=== PATIENT | female | born 1950 | race Caucasian/White ===

== ENCOUNTER → 2016-11-13 | Outpatient (CLI) | payer OTHER ==
[~2016-11-13] MED LIST: ACET325T96 PO; ALBU1AER9 INH; ALUMSUS17 PO; BUDE180I INH; CHOL1CAP57 PO; CPR500HP PO; CZR25 PO; FERR325T5 PO; FLUT0.0529 NAE; FLUT0.15 NAE; FURO-85 PO; IMD2X PO; INSDGI SQ; INSDGIPEN SQ; LDXS20 TOP; LINE1TAB7 PO; LSX20 PO; MAGN400T6 PO; MISCCAP80 PO; MOML PO; MONT1TAB3 PO; NITR-5 PO; NSF10F IV; NVLG SC; NVLGI SC; NVLGI/PEN SQ; NYSCR30 TOP; OMEP20CA9 PO; OPTIRAY 320 IV PRN; OXGN; OXYC-57 PO; OXYC7.5T78 PO; PROM25TA9 PO; TRAM-10 PO; TRAZ50TA35 PO; UMEC1INH INH; VNTHFA/IN INH; [UNRECOGNIZED DRUG - CODE] IV
--- NOTE | 2016-11-13 12:18 | DIAGNOSTIC IMAGING REPORT ---
ABDOMEN AND PELVIS CT EXAMINATION PRE AND POST INTRAVENOUS CONTRAST CT DOSE: 4111.11 mGy.cm HISTORY: Renal cell carcinoma BLADDER AND RENAL CELL CA *PT HAS PORT* TECHNIQUE: Multiaxial CT images of the abdomen and pelvis were performed pre and post intravenous contrast enhancement. COMPARISON STUDY: 06/10/2016 FINDINGS: Peripheral atelectatic changes right lung base have shown near complete resolution. Minimal interval atelectasis posterior right costophrenic angle. Slightly progressive atelectatic change versus nodularity left lateral costophrenic angle. Current measurements are 10 x 14 mm. Abdomen and pelvis remains stable in appearance. Fatty infiltration of liver is present and stable. Moderate stable hepatomegaly. There is prior cholecystectomy and left nephrectomy. Right kidney enhances uniformly. No evidence for hydronephrosis. Bowel pattern is nonobstructive. Bladder is midline. There are no filling defects. There is no significant abdominal pelvic or inguinal adenopathy. IMPRESSION: 1. Unchanged evaluation of the abdomen and pelvis. Prior cholecystectomy and left nephrectomy 2. Stable splenomegaly with stable diffuse fatty infiltration. 3. Variable appearance to the lung bases with improvement lateral aspect right base and potential developing nodularity left lateral aspect left base. 4. CT of the chest is a 3 month time interval is suggested as follow-up . Alternatively, a PET scan could be considered Electronically signed by: Keith Johns M.D. 11/13/2016 12:16 PM Dictated Date/Time: 11/13/2016 11:51 AM
== END | disposition home or self-care (01) ==
LOC: C.CTS 10:43
PROVIDERS: ATTEND Urology
DX: C67.9 Malignant neoplasm of bladder, unspecified (principal); R16.1 Splenomegaly, not elsewhere classified

== ENCOUNTER 2017-01-30 13:57 | Emergency (ER) | payer OTHER ==
[~2017-01-30 13:57] MED LIST changes: -BUDE180I INH; -CHOL1CAP57 PO; -CPR500HP PO; -CZR25 PO; -FLUT0.15 NAE; -FURO-85 PO; -IMD2X PO; -INSDGIPEN SQ; -LDXS20 TOP; -LINE1TAB7 PO; -MAGN400T6 PO; -MONT1TAB3 PO; -NITR-5 PO; -NVLGI/PEN SQ; -NYSCR30 TOP; -OMEP20CA9 PO; -OPTIRAY 320 IV PRN; -OXYC-57 PO; -PROM25TA9 PO; -TRAZ50TA35 PO; -UMEC1INH INH; -VNTHFA/IN INH
[2017-01-30 13:59] VITALS: TEMP 36.8; Ht 154.9 cm
[2017-01-30] MEDS ORDERED: MoRPHine SULFATE 4 MG/ML 1 ML CARP\\VIAL IV STA (14:16)
[2017-01-30] MEDS ORDERED: PROMETHAZINE HCL INJ 25 MG in SODIUM CHLORIDE 0.9% 50ML 50 ML IV STA (14:16)
[2017-01-30] MEDS ORDERED: SODIUM CHLORIDE 0.9% 1000ML 1,000 ML IV STA (14:16)
[2017-01-30] MEDS ORDERED: OMEP20CA9 PO (14:19)
[2017-01-30] MEDS ORDERED: MONT1TAB3 PO (14:19)
[2017-01-30] MEDS ORDERED: CZR25 PO (14:30)
[2017-01-30] MEDS ORDERED: UMEC1INH INH (14:38)
[2017-01-30] MEDS ORDERED: CHOL1CAP57 PO (14:41)
[2017-01-30 15:38] LABS: BASO % 0.3 %; BASO ABS # 0.03 K/uL (0-0.2); COMPLETE YES; EOS % 1.6 %; HEMATOCRIT 40.2 % (37-47); IG% 0.3 %; LYMPH % 20.3 %; LYMPH ABS # 1.93 K/uL (1.2-3.4); MEAN CELL VOLUME 94.6 fL (80-100); MEAN CORPUSCULAR HEMOGLOBIN 30.6 pg (25-34); MEAN CORPUSCULAR HGB CONC 32.3 g/dl (32-36); MEAN PLATELET VOLUME 9.9 fL (7.4-10.4); MONO % 7.4 %; NEUT % 70.1 %; PLATELET COUNT 180 K/uL (130-400); RED BLOOD COUNT 4.25 M/uL (4.2-5.4); WHITE BLOOD COUNT 9.52 K/uL (4.8-10.8)
[2017-01-30 16:02] LABS: BLOOD UREA NITROGEN 18 mg/dl (7-18); BUN/CREATININE RATIO 16.3 (10-20); CARBON DIOXIDE 27 mmol/L (21-32); CHLORIDE 106 mmol/L (98-107); GLUCOSE 126 mg/dl (70-99); POTASSIUM 4.1 mmol/L (3.5-5.1); SODIUM 139 mmol/L (136-145)
[2017-01-30] MEDS ORDERED: BUDE180I INH (16:05)
[2017-01-30] MEDS ORDERED: NYSCR30 TOP (16:05)
[2017-01-30] MEDS ORDERED: MAGN400T6 PO (16:05)
[2017-01-30] MEDS ORDERED: VNTHFA/IN INH (16:05)
[2017-01-30] MEDS ORDERED: TRAZ50TA35 PO (16:05)
[2017-01-30] MEDS ORDERED: NVLGI/PEN SQ (16:05)
[2017-01-30] MEDS ORDERED: CPR500HP PO (16:05)
[2017-01-30] MEDS ORDERED: INSDGIPEN SQ (16:05)
[2017-01-30] MEDS ORDERED: OXYC-57 PO (16:05)
[2017-01-30] MEDS ORDERED: FURO-85 PO (16:05)
[2017-01-30] MEDS ORDERED: LDXS20 TOP (16:05)
[2017-01-30] MEDS ORDERED: PROM25TA9 PO (16:05)
[2017-01-30] MEDS ORDERED: FERR325T5 PO (16:05)
[2017-01-30 16:36] LABS: URINE APPEARANCE CLEAR (CLEAR); URINE BILIRUBIN NEG (NEG); URINE COLOR YELLOW; URINE NITRITE NEG (NEG); URINE PH 5.5 (4.5-7.5); URINE SPECIFIC GRAVITY 1.013 (1.000-1.030); UROBILINOGEN NEG (NEG); ZZURINE CULT IF INDIC CATH NO
--- NOTE | 2017-01-30 16:45 | DIAGNOSTIC IMAGING REPORT ---
CT SCAN OF THE ABDOMEN AND PELVIS WITHOUT IV CONTRAST CLINICAL HISTORY: Right flank pain. Hematuria. COMPARISON STUDY: Abdominal CT dated 11/13/2016. TECHNIQUE: CT scan of the abdomen and pelvis is performed from the lung bases to the proximal femora. Images are reviewed in the axial, sagittal, and coronal planes. IV contrast was not administered for this examination as per the referring clinician. Automated dose control exposure was utilized. The examination is degraded by large body habitus, and by streak artifact from the body wall abutting the CT gantry. CT DOSE: 3389.37 mGy.cm FINDINGS: Lung bases: The heart is normal in size and without pericardial effusion. There is bibasilar scarring versus atelectasis. The lung bases are otherwise clear. There is a tiny hiatal hernia. Liver: The unenhanced liver is enlarged, measuring 19.1 cm in length. The liver demonstrates diffusely diminished attenuation consistent with severe hepatic steatosis. There is no intrahepatic biliary ductal dilatation. Gallbladder: Unremarkable. Spleen: Normal in size and attenuation. Pancreas: Moderately atrophic and grossly unremarkable. Adrenal glands: Unremarkable. Kidneys: The unenhanced right kidney is normal in size and without hydronephrosis. The left kidney is surgically absent. There are no renal calculi identified. There is no evidence of contour deforming right renal mass. Abdominal vasculature: The abdominal aorta is normal in course and caliber noting moderate to advanced atherosclerotic calcification. Bowel: The small bowel and colon are normal in course and caliber. There is mild colonic diverticulosis without CT evidence of acute diverticulitis. Mild to moderate colonic fecal retention is observed. The appendix is not identified and reported surgically absent. Peritoneum: There is no intraperitoneal free air or abdominal ascites. There is a small fat-containing umbilical hernia. Lymphadenopathy: None. Pelvic viscera: The bladder is normal in appearance. The uterus is surgically absent. No adnexal lesion is seen. Skeletal structures: The skeletal structures are osteopenic. There is mild lumbosacral spondylosis. No lytic or blastic lesions are seen. IMPRESSION: 1. There are no acute infectious or inflammatory findings in the abdomen or pelvis. 2. Hepatomegaly and severe hepatic steatosis. 3. Status post left nephrectomy. 4. Mild colonic diverticulosis without CT evidence of acute diverticulitis. 5. Additional findings as above. Electronically signed by: Vasiliy Abel M.D. 01/30/2017 4:44 PM Dictated Date/Time: 01/30/2017 4:38 PM
[2017-01-30 16:49] LABS: MANUAL MICROSCOPIC REQUIRED? NO; REVIEW REQ? NO
[2017-01-30] MEDS ORDERED: FLUCONAZOLE 50 MG TAB PO ONE (17:30)
[2017-01-30 17:41] VITALS: BP 124/62; PULSE 104; O2SAT 95
[2017-01-30] MEDS ORDERED: NITR-5 PO (17:53)
--- NOTE | 2017-01-30 18:05 | EMERGENCY ROOM VISIT NOTE ---
History First contact with patient: 14:16 Chief Complaint: URINARY SYMPTOMS Stated Complaint: FEVER,CHILLS,BLOOD IN URINE, FREQUENT URINE... History of Present Illness The patient is a 66 year old female, history of stage III chronic kidney disease , ureteral/bladder cancer status post left nephrectomy, who presents to the Emergency Room with complaints of persistent right flank pain, dysuria and hematuria. The patient reports that her symptoms started approximately 2 weeks ago. She was seen by her PCP prostate 10 days ago and given a prescription for Cipro. The patient does not recall having a urine culture performed. She denies any improvement of her symptoms. She has had chills, mild intermittent nausea and worsening pain. She was seen at her family doctor's office today with a urine dip showing hematuria and bacteria in her urine. Cultures were ordered, and the patient was sent to the emergency department for further evaluation. She rates her discomfort a 5 out of 10. Review of Systems HEENT: Denies dizziness, visual problems, hearing loss, tinnitus. Denies difficulty swallowing or oral lesions. PULMONARY: Denies cough, shortness of breath, sputum production or hemoptysis. CARDIOVASCULAR: Denies chest pain, palpitations, dyspnea on exertion, orthopnea or peripheral edema. GASTROINTESTINAL: Denies diarrhea or constipation, otherwise see history of present illness. GENITOURINARY: Reports dysuria, frequency, urgency and hematuria. NEUROLOGIC: Denies history of epilepsy, CVA, TIA or chronic headaches. MUSCULOSKELETAL: Denies history of joint tenderness/swelling. SKIN: Denies rashes or lesions. PSYCHIATRIC: Denies history of depression or mental illness. ENDOCRINE: Denies history of diabetes or thyroid disorders. Past Medical/Surgical History Medical Problems: (1) History of bladder cancer (2) History of cancer (3) Malignant neoplasm of ureter Surgical Problems: (1) History of nephrostomy Family History Diabetes mellitus FHx: cancer FHx: lung disease Hypertension Kidney disease Kidney stones Social History Smoking Status: Former Smoker Drug Use: none Marital Status: single Housing Status: lives alone Occupation Status: unemployed, disabled Current/Historical Medications Scheduled Albuterol Hfa (Ventolin Hfa), 2 PUFFS INH Q4 Budesonide (Inhalation) (Pulmicort Flexhaler), 2 PUFFS INH BID Cholecalciferol (Vitamin D3), 2,000 UNIT PO DAILY Ciprofloxacin (Ciprofloxacin HCl), 500 MG PO Q12 Ferrous Sulfate (Ferrous Sulfate), 325 MG PO TID Fluocinonide (Fluocinonide), 1 APPLN TOP BID Fluticasone Propionate (Nasal) (Flonase), 2 SPRAYS MARCIA DAILY Furosemide (Lasix), 20 MG PO DAILY Heparin Sodium (Porcine) Lock (Heparin Lock Flush For Fl), 5 ML IV q6wks Insulin Aspart (Novolog Flexpen), SQ UD Insulin Glargine (Lantus Solostar), 20 UNITS SQ HS Losartan Potassium (Losartan Potassium), 25 MG PO HS Magnesium Oxide (Mag-Ox), 400 MG PO DAILY Montelukast Sodium (Singulair), 10 MG PO DAILY Nitrofurantoin Monohyd Macrocr (Macrobid), 100 MG PO BID Nystatin (Nystatin Cream), 1 APPLN TOP BID Omeprazole (Prilosec), 20 MG PO DAILY Oxygen (Oxygen), 2 LITERS NA CONTINOUS Probiotic Product (Probiotic), 1 CAP PO d Trazodone Hcl (Trazodone), 50 MG PO HS Umeclidinium [place] (Incruse Ellipta), 1 PUFF INH DAILY Scheduled PRN Oxycodone/Acetaminophen 5MG/325MG (Percocet 5MG/325MG), 1 TABLET PO Q6H PRN for Pain Promethazine Hcl (Phenergan), 25 MG PO Q6H PRN for Nausea Tramadol (Ultram), 50-100 MG PO Q4H PRN for Pain Allergies Coded Allergies: Penicillins (Verified Allergy, Severe, THROAT CLOSES, 09/04/16) TIGIST. PRIMAXIN 01/2015 ADMISSION Metronidazole (Verified Allergy, Intermediate, hives/rash, 09/04/16) Ondansetron (Verified Allergy, Intermediate, hives, 09/04/16) Adhesives (Verified Allergy, Unknown, SKIN BLISTERING, 09/04/16) Sulfa Antibiotics (Verified Allergy, Unknown, Rash, 09/04/16) Ibuprofen (Verified Adverse Reaction, Intermediate, RECTAL BLEEDING, 09/04) Physical Exam Vital Signs Date Time Temp Pulse Resp B/P Pulse Ox O2 Delivery O2 Flow Rate FiO2 01/30/17 17:41 104 20 124/62 95 Nasal Cannula 2.0 01/30/17 15:47 78 20 190/80 100 Nasal Cannula 2.0 01/30/17 13:59 36.8 106 20 140/68 93 Nasal Cannula 2.0 Physical Exam CONSTITUTIONAL: Morbidly obese female, alert and oriented X 3 with positive affect. Patient appears in mild discomfort. She does not appear acutely or toxic. HEENT: Normocephalic, atraumatic. Pupils equal, round and reactive. Ears and nares are clear. No scleral icterus or conjunctival injection/pallor. NECK: Full active range of motion without discomfort. No JVD or carotid bruits. RESPIRATORY: Clear to auscultation bilaterally with no wheezing, crackles, rhonchi or stridor. CARDIOVASCULAR: Regular rate and rhythm with no murmurs, rubs or gallops. GASTROINTESTINAL: Abdomen is protuberant but soft to palpation without rigidity , guarding or rebound. Bowel sounds present in all quadrants. Positive right CVA tenderness. She has no focal McBurney's point tenderness. She does have mild to moderate left lower quadrant tenderness to palpation. MUSCULOSKELETAL: Full range of motion of all joints without discomfort. INTEGUMENTARY: No rash or other significant dermatologic conditions noted. HEMATOLOGIC: No ecchymosis or petechiae noted. NEUROLOGIC: Cranial nerves II-XII grossly intact. No focal neurologic deficits noted. Medical Decision & Procedures ER Provider Diagnostic Interpretation: Noncontrast CT of the abdomen and pelvis does not show any evidence for ureteral calculus, hydronephrosis, diverticulitis, obstruction or other acute findings. Radiologist report is as follows: CT SCAN OF THE ABDOMEN AND PELVIS WITHOUT IV CONTRAST CLINICAL HISTORY: Right flank pain. Hematuria. COMPARISON STUDY: Abdominal CT dated 11/13/2016. TECHNIQUE: CT scan of the abdomen and pelvis is performed from the lung bases to the proximal femora. Images are reviewed in the axial, sagittal, and coronal planes. IV contrast was not administered for this examination as per the referring clinician. Automated dose control exposure was utilized. The examination is degraded by large body habitus, and by streak artifact from the body wall abutting the CT gantry. CT DOSE: 3389.37 mGy.cm FINDINGS: Lung bases: The heart is normal in size and without pericardial effusion. There is bibasilar scarring versus atelectasis. The lung bases are otherwise clear. There is a tiny hiatal hernia. Liver: The unenhanced liver is enlarged, measuring 19.1 cm in length. The liver demonstrates diffusely diminished attenuation consistent with severe hepatic steatosis. There is no intrahepatic biliary ductal dilatation. Gallbladder: Unremarkable. Spleen: Normal in size and attenuation. Pancreas: Moderately atrophic and grossly unremarkable. Adrenal glands: Unremarkable. Kidneys: The unenhanced right kidney is normal in size and without hydronephrosis. The left kidney is surgically absent. There are no renal calculi identified. There is no evidence of contour deforming right renal mass. Abdominal vasculature: The abdominal aorta is normal in course and caliber noting moderate to advanced atherosclerotic calcification. Bowel: The small bowel and colon are normal in course and caliber. There is mild colonic diverticulosis without CT evidence of acute diverticulitis. Mild to moderate colonic fecal retention is observed. The appendix is not identified and reported surgically absent. Peritoneum: There is no intraperitoneal free air or abdominal ascites. There is a small fat-containing umbilical hernia. Lymphadenopathy: None. Pelvic viscera: The bladder is normal in appearance. The uterus is surgically absent. No adnexal lesion is seen. Skeletal structures: The skeletal structures are osteopenic. There is mild lumbosacral spondylosis. No lytic or blastic lesions are seen. IMPRESSION: 1. There are no acute infectious or inflammatory findings in the abdomen or pelvis. 2. Hepatomegaly and severe hepatic steatosis. 3. Status post left nephrectomy. 4. Mild colonic diverticulosis without CT evidence of acute diverticulitis. 5. Additional findings as above. Laboratory Results 01/30/17 15:07 Red Blood Count 4.25, Mean Corpuscular Volume 94.6, Mean Corpuscular Hemoglobin 30.6, Mean Corpuscular Hemoglobin Concent 32.3, Mean Platelet Volume 9.9, Neutrophils (%) (Auto) 70.1, Lymphocytes (%) (Auto) 20.3, Monocytes (%) (Auto) 7.4, Eosinophils (%) (Auto) 1.6, Basophils (%) (Auto) 0.3, Neutrophils # (Auto) 6.68, Lymphocytes # (Auto) 1.93, Monocytes # (Auto) 0.70, Eosinophils # (Auto) 0.15, Basophils # (Auto) 0.03 01/30/17 15:07 Test 01/30/17 15:07 01/30/17 16:05 01/30/17 17:27 White Blood Count 9.52 K/uL (4.8-10.8) Red Blood Count 4.25 M/uL (4.2-5.4) Hemoglobin 13.0 g/dL (12.0-16.0) Hematocrit 40.2 % (37-47) Mean Corpuscular Volume 94.6 fL (80-100) Mean Corpuscular Hemoglobin 30.6 pg (25-34) Mean Corpuscular Hemoglobin Concent 32.3 g/dl (32-36) Platelet Count 180 K/uL (130-400) Mean Platelet Volume 9.9 fL (7.4-10.4) Neutrophils (%) (Auto) 70.1 % Lymphocytes (%) (Auto) 20.3 % Monocytes (%) (Auto) 7.4 % Eosinophils (%) (Auto) 1.6 % Basophils (%) (Auto) 0.3 % Neutrophils # (Auto) 6.68 K/uL (1.4-6.5) Lymphocytes # (Auto) 1.93 K/uL (1.2-3.4) Monocytes # (Auto) 0.70 K/uL (0.11-0.59) Eosinophils # (Auto) 0.15 K/uL (0-0.5) Basophils # (Auto) 0.03 K/uL (0-0.2) RDW Standard Deviation 48.9 fL (36.4-46.3) RDW Coefficient of Variation 14.3 % (11.5-14.5) Immature Granulocyte % (Auto) 0.3 % Immature Granulocyte # (Auto) 0.03 K/uL (0.00-0.02) Erythrocyte Sedimentation Rate 36 mm/hr (0-21) Anion Gap 6.0 mmol/L (3-11) Estimated GFR () 61.0 Estimated GFR (Non- 52.6 BUN/Creatinine Ratio 16.3 (10-20) Calcium Level 9.0 mg/dl (8.5-10.1) Urine Color YELLOW Urine Appearance CLEAR (CLEAR) Urine pH 5.5 (4.5-7.5) Urine Specific [place] 1.013 (1.000-1.030) Urine Protein NEG (NEG) Urine Glucose (UA) NEG (NEG) Urine Ketones NEG (NEG) Urine Occult Blood NEG (NEG) Urine Nitrite NEG (NEG) Urine Bilirubin NEG (NEG) Urine Urobilinogen NEG (NEG) Urine Leukocyte Esterase NEG (NEG) Bedside Lactic Acid Venous 1.47 mmol/L (0.90-1.70) The above labs were reviewed. Urinalysis was totally unremarkable. Initial bedside lactic acid was 2.14. The patient has no leukocytosis. Electrolytes are otherwise normal. Repeat bedside lactic acid at 2 hours was 1.47. Urine culture was ordered and is pending. Medications Administered Medications (Trade) Dose Ordered Sig/Amandeep Route Start Time Stop Time Status Last Admin Dose Admin Sodium Chloride (Nss 1000ml) 1,000 ml @ 999 mls/hr Q1H1M STAT IV 01/30/17 14:16 01/30/17 15:16 DC 01/30/17 15:16 999 MLS/HR Morphine Sulfate 4 mg 4 mg NOW STAT IV 01/30/17 14:16 01/30/17 14:39 DC 01/30/17 15:46 4 MG Promethazine HCl/ Sodium Chloride (Phenergan Inj/ Nss 50ml) 51 ml @ 204 mls/hr NOW STAT IV 01/30/17 14:16 01/30/17 14:39 DC 01/30/17 15:17 204 MLS/HR Fluconazole (Diflucan Tab) 150 mg NOW ONCE PO 01/30/17 17:30 01/30/17 17:31 DC 01/30/17 17:41 150 MG Procedure 1. IV hydration: The patient received a liter normal saline bolus 2. IV medications: Morphine 4 mg and Phenergan 25 mg IVP ED Course Patient history and physical exam were performed. Nurse's notes were reviewed. Vital signs were reviewed. The patient is afebrile and normotensive. Pulse rate is 106 with an O2 saturation of 93% on room air. On my exam, the patient was wearing a nasal cannula with an O2 saturation of 98%. I also reviewed documentation from the family doctor's office, showing a urine dip with 250 of glucose, trace hematuria, proteinuria and leukocyte esterase. Nitrite was negative. I also had our [employer]s [employer] Representativedirect support worker Epic medical records, showing that there were no urine cultures ordered prior to starting Cipro antibiotics. I explain to the patient that this could certainly be a resistant UTI, or other etiologies causing her discomfort. IV access was established, and labs were drawn. The patient was hydrated with a liter normal saline, and received IV medications as discussed in the previous Procedure section. Also suggest performing a CT of the abdomen and pelvis to rule out stone or other acute etiologies. In the meantime, review of labs showed a completely normal urine cath microscopy study. Urine culture was ordered. The nurse did tell me that the patient had findings consistent with vaginal candidiasis, which also can cause urinary tract infection-like symptoms. Otherwise review of labs showed an elevated initial lactic acid of 2.14. Repeat lactic acid at 2 hours, and after a liter of IV hydration, was lower at 1.47. Noncontrast CT of the abdomen and pelvis was otherwise unremarkable. The case was further discussed with Dr. Gomes, ED attending physician, who agrees with workup and plan of care. He did suggest that because the patient does have urinary tract infection symptoms, I switched to another antibiotic may be prudent. It is noted that the patient has allergies to penicillin and sulfas. I did review this with our clinical pharmacist, Jayme, who looked at the patient's historical creatinine clearance which was in the 40-60 range. Also review of a prior urine culture showed group B strep and Klebsiella infections with indeterminate resistance to Macrobid. It is also noted that on prior hospitalizations, the patient was administered Rocephin without edema adverse reaction. When I back to speak with the patient about any prior Keflex antibiotic use, she reports that she did develop a rash with the Keflex as well. At this point, we will therefore treat the patient with Macrobid. She was instructed to follow-up closely with her PCP within the next few days for recheck. The patient was also administered Diflucan 150 mg orally while in the emergency department. She was instructed to return to the emergency department for any progressively worsening symptoms. The patient was happy with plan of care, voiced understanding of all discharge instructions, and denied any significant pain or nausea at the time of discharge. Medical Decision See previous section. The patient presents with symptoms most consistent with urinary tract infection. However, it is noted that her urine cath studies are normal at this time. Cultures are pending. The patient does clinically have vaginal candidiasis. I don't suspect that this would be causing the abdominal discomfort that the patient is currently experiencing, but certainly can explain her urinary symptoms. The patient did have improvement of her lactic acid with IV hydration. Her clinical exam of the abdomen is benign, therefore I do not suspect ischemic gut, peritonitis or other acute etiologies. Her CT scan does not show any evidence for diverticulitis, obstruction or other acute findings. Impression Primary Impression: Abdominal pain Additional Impressions: Symptoms of urinary tract infection Candidiasis, vagina Departure Information Prescriptions Nitrofurantoin Monohyd Macrocr (Macrobid) 100 Mg Cap 100 MG PO BID for 7 Days, #14 CAP Prov: Michael Hampton PA 01/30/17 Referrals Bill Palomares M.D.([facility]) (PCP) Patient Instructions [facility] Problem Qualifiers Primary Impression: Abdominal pain Abdominal location: lower abdomen, unspecified Qualified Codes: R10.30 - Lower abdominal pain, unspecified
--- NOTE | 2017-01-31 15:56 | Pharmacy Progress Note ---
ED Pharmacist Culture FollowUp Date of Service: January 31, 2017. Patient was seen yesterday w/ c/o urinary symptoms, fever, chills and hematuria. She does have a h/o bladder/ureteral CA and is s/p L nephrectomy. She had been given a course of Cipro 10 days prior to presenting to the ER but stated the symptoms did not resolve. One blood cx was drawn during this visit, and this culture is growing gram positive cocci as a preliminary read. Upon speaking with the patient over the phone today, she states the cx was drawn through her port. The patient is still c/o fever and chills today and states her abdominal pain has worsened since yesterday. I reviewed the case with Dr Carvajal, and the patient has been instructed to return to the ER today for full evaluation. The patient understands this but is waiting for her daughter to waste picker her children, then she will report to the ER.
[2017-02-03] MEDS ORDERED: LINE1TAB7 PO (18:49)
[2017-03-14] MEDS ORDERED: IMD2X PO (13:21)
== END 2017-01-30 18:05 | disposition home or self-care (01) ==
LOC: C.EDB 13:59 → C.EDA 18:05
DX: R10.30 Lower abdominal pain, unspecified (principal); R30.0 Dysuria; R31.9 Hematuria, unspecified; B37.3 Candidiasis of vulva and vagina; N18.3 Chronic kidney disease, stage 3 (moderate); Z85.51 Personal history of malignant neoplasm of bladder; Z85.54 Personal history of malignant neoplasm of ureter; Z86.19 Personal history of other infectious and parasitic diseases; Z87.891 Personal history of nicotine dependence; Z90.5 Acquired absence of kidney; Z83.3 Family history of diabetes mellitus; Z82.49 Family history of ischemic heart disease and other diseases of the circulatory system; Z84.1 Family history of disorders of kidney and ureter

== ENCOUNTER 2017-01-31 19:18 | Inpatient (IN) | payer OTHER ==
[~2017-01-31] VITALS: Ht 157.5 cm; Wt 108.3 kg
[~2017-01-31 19:18] MED LIST changes: -ACET325T96 PO; -ALBU1AER9 INH; -ALUMSUS17 PO; +BUDE180I INH; +CHOL1CAP57 PO; +CPR500HP PO; +CZR25 PO; +FURO-85 PO; -INSDGI SQ; +INSDGIPEN SQ; +LDXS20 TOP; -LSX20 PO; +MAGN400T6 PO; -MOML PO; +MONT1TAB3 PO; +NITR-5 PO; -NSF10F IV; -NVLG SC; -NVLGI SC; +NVLGI/PEN SQ; +NYSCR30 TOP; +OMEP20CA9 PO; +OXYC-57 PO; -OXYC7.5T78 PO; +PROM25TA9 PO; +TRAZ50TA35 PO; +UMEC1INH INH; +VNTHFA/IN INH
--- NOTE | 2017-01-31 20:34 | EMERGENCY ROOM VISIT NOTE ---
History Report prepared by Martha: Clay Landaverde Under the Supervision of: Dr. Indira Wiseman M.D. First contact with patient: 20:19 Chief Complaint: FLANK PAIN Stated Complaint: FEVER,BLOOD INFECTION,BLADDER/KIDNEY INFECTION History of Present Illness The patient is a 66 year old female who presents to the Emergency Room with complaints of constant abdominal pain beginning last night. She currently rates her discomfort an 8/10 in severity. The patient states that she was in the ER last night and they called her back in to be reevaluated. She reports that since last night she has had joint pain, flank pain, and a low grade fever of 99.3. The patient states that she has a port that she kept from her chemotherapy. She notes that she was sent home on antibiotics and was waiting for her blood culture. The patient reports that she received a call due to her positive blood results. She notes that she does have diabetes mellitus. Source of History: patient Onset: last night Position: abdomen Symptom Intensity: 8/10 Timing: constant Associated Symptoms: + fevers Note: Associated symptoms: joint pain and flank pain Review of Systems See HPI for pertinent positives & negatives. A total of 10 systems reviewed and were otherwise negative. Past Medical & Surgical Medical Problems: (1) Bacteremia (2) History of bladder cancer (3) History of cancer (4) Malignant neoplasm of ureter Surgical Problems: (1) History of nephrostomy Family History Diabetes mellitus FHx: cancer FHx: lung disease Hypertension Kidney disease Kidney stones Social History Smoking Status: Never Smoker Drug Use: none Marital Status: single Housing Status: lives alone Occupation Status: unemployed, disabled Current/Historical Medications Scheduled Albuterol Hfa (Ventolin Hfa), 2 PUFFS INH Q4 Budesonide (Inhalation) (Pulmicort Flexhaler), 2 PUFFS INH BID Cholecalciferol (Vitamin D3), 2,000 UNIT PO DAILY Fluocinonide (Fluocinonide), 1 APPLN TOP BID Fluticasone Propionate (Nasal) (Flonase), 2 SPRAYS MARCIA DAILY Furosemide (Lasix), 20 MG PO DAILY Heparin Sodium (Porcine) Lock (Heparin Lock Flush For Fl), 5 ML IV q6wks Insulin Aspart (Novolog Flexpen), SQ PC Insulin Glargine (Lantus Solostar), 20 UNITS SQ HS Linezolid (Zyvox), 1 TAB PO BID Losartan Potassium (Losartan Potassium), 25 MG PO HS Magnesium Oxide (Mag-Ox), 400 MG PO DAILY Montelukast Sodium (Singulair), 10 MG PO DAILY Nitrofurantoin Monohyd Macrocr (Macrobid), 100 MG PO BID Nystatin (Nystatin Cream), 1 APPLN TOP BID Omeprazole (Prilosec), 20 MG PO DAILY Oxygen (Oxygen), 2 LITERS NA CONTINOUS Probiotic Product (Probiotic), 1 CAP PO d Trazodone Hcl (Trazodone), 50 MG PO HS Umeclidinium [place] (Incruse Ellipta), 1 PUFF INH DAILY Scheduled PRN Ferrous Sulfate (Ferrous Sulfate), 325 MG PO DAILY PRN for FINGERS GET SORE Oxycodone/Acetaminophen 5MG/325MG (Percocet 5MG/325MG), 1 TABLET PO Q6H PRN for Pain Allergies Coded Allergies: Penicillins (Verified Allergy, Severe, THROAT CLOSES, 09/04/16) TIGIST. PRIMAXIN 01/2015 ADMISSION Metronidazole (Verified Allergy, Intermediate, hives/rash, 09/04/16) Ondansetron (Verified Allergy, Intermediate, hives, 09/04/16) Vancomycin (Verified Allergy, Mild, RASH, 02/01/17) itchy rash Adhesives (Verified Allergy, Unknown, SKIN BLISTERING, 09/04/16) Sulfa Antibiotics (Verified Allergy, Unknown, Rash, 09/04/16) Ibuprofen (Verified Adverse Reaction, Intermediate, RECTAL BLEEDING, 09/04) Physical Exam Vital Signs Date Time Temp Pulse Resp B/P Pulse Ox O2 Delivery O2 Flow Rate FiO2 01/31/17 22:41 101 20 136/77 97 Nasal Cannula 2.0 01/31/17 21:09 99 01/31/17 19:33 37.1 114 20 141/77 97 Nasal Cannula 2.0 Physical Exam Vital signs reviewed. General: Chronically ill-appearing, obese, in no significant distress. HEENT: No scleral icterus, PERRLA, neck supple. Atraumatic. Cardiovascular: Tachycardic rate and rhythm, no extra sounds. Pulmonary: Clear to auscultation bilaterally, normal work of breathing. Abdomen: Soft, nontender, nondistended, positive bowel sounds. Musculoskeletal: Atraumatic, no peripheral edema. Neurologic: Patient awake alert and oriented x 3, full strength in all 4 extremities. Cranial nerves 2 through 12 grossly intact. Skin: Warm, dry, no rash, chronic bilaterally lower extremity erythema, no pitting edema Medical Decision & Procedures Laboratory Results Test 01/31/17 20:50 01/31/17 22:22 Magnesium Level 2.0 mg/dl (1.8-2.4) Total Bilirubin 0.4 mg/dl (0.2-1) Direct Bilirubin 0.2 mg/dl (0-0.2) Aspartate Amino Transf (AST/SGOT) 20 U/L (15-37) Alanine Aminotransferase (ALT/SGPT) 28 U/L (12-78) Alkaline Phosphatase 71 U/L (45-117) Total Creatine Kinase 69 U/L (26-192) Total Protein 7.0 gm/dl (6.4-8.2) Albumin 2.9 gm/dl (3.4-5.0) Lipase 177 U/L (73-393) Bedside Lactic Acid Venous 1.89 mmol/L (0.90-1.70) Laboratory results per my review. Medications Administered Medications (Trade) Dose Ordered Sig/Amandeep Route Start Time Stop Time Status Last Admin Dose Admin Vancomycin HCl/ Sodium Chloride (Vancomycin Inj/ Nss 500ml) 550 ml @ 200 mls/hr ONE STAT IV 01/31/17 22:05 02/01/17 00:27 DC 01/31/17 22:34 200 MLS/HR Oxycodone/ Acetaminophen (Percocet 5-325mg Tab) 1 tab Q6H PRN PO 01/31/17 23:00 02/14/17 22:59 02/03/17 10:22 1 TAB ED Course 2030: Past medical records reviewed. The patient was evaluated in room C06. A complete history and physical examination was performed. 2204: Ordered Vancomycin HCl 2500 mg/Sodium Chloride 550 ml @ 200 mls/hr 2214: Upon reevaluation, the patient is resting comfortably. I discussed laboratory and radiographic results with her. She verbalized agreement of the treatment plan. [facility] The patient will be evaluated for further management and care. Medical Decision Differential diagnosis: Influenza, other viral illness, pneumonia, urinary tract infection, metabolic abnormality, medication effect, cellulitis, meningitis, intra-abdominal source, port infection. This patient was evaluated and appeared to be in no significant distress. Patient is concerned over a positive blood culture was sent back to the emergency department. The patient is a difficult peripheral stick, she will only allow blood to be drawn from her port. The positive blood culture was drawn from her port. This will make it difficult to interpret as to whether or not her port is infected. Laboratory work reveals an elevated lactate, although I do not feel that the patient is septic at this time.. Patient's white blood cell count is normal and she is afebrile. Patient was given a dose of IV vancomycin as it is gram-positive cocci that has grown from the blood culture. The patient will be evaluated by the hospitalist service for further management. Consults Time Called: 2205 Consulting Physician: Dr. Donna Thomas Hospitalist Returned Call: [phone] Thompson of the [facility] Hospitalist Service. The patient will be evaluated for further management and care. Impression Primary Impression: Positive blood culture Additional Impression: High serum lactate Scribe Attestation The scribe's documentation has been prepared under my direction and personally reviewed by me in its entirety. I confirm that the note above accurately reflects all work, treatment, procedures, and medical decision making performed by me. Departure Information Dispostion Being Evaluated By Hospitalist Prescriptions Linezolid (Zyvox) 600 Mg Tab 1 TAB PO BID for 14 Days, #28 TAB Prov: Aundrea Walden M.D. 02/03/17 Referrals Bill Palomares M.D. ([facility]) (PCP) Patient Instructions [facility] Problem Qualifiers
[2017-01-31 21:06] LABS: BASO % 0.1 %; BASO ABS # 0.01 K/uL (0-0.2); COMPLETE YES; EOS % 2.2 %; HEMATOCRIT 38.6 % (37-47); IG% 0.3 %; LYMPH % 13.4 %; LYMPH ABS # 1.24 K/uL (1.2-3.4); MEAN CELL VOLUME 95.5 fL (80-100); MEAN CORPUSCULAR HEMOGLOBIN 31.2 pg (25-34); MEAN CORPUSCULAR HGB CONC 32.6 g/dl (32-36); MEAN PLATELET VOLUME 9.8 fL (7.4-10.4); MONO % 6.8 %; NEUT % 77.2 %; PLATELET COUNT 167 K/uL (130-400); RED BLOOD COUNT 4.04 M/uL (4.2-5.4); WHITE BLOOD COUNT 9.28 K/uL (4.8-10.8)
[2017-01-31 21:29] LABS: BUN/CREATININE RATIO 15.3 (10-20)
[2017-01-31 21:30] LABS: CREATININE 1.1 mg/dl (0.60-1.20); POTASSIUM 3.8 mmol/L (3.5-5.1)
[2017-01-31] MEDS ORDERED: VANCOMYCIN INJ 2,500 MG in SODIUM CHLORIDE 0.9% 500ML 500 ML IV STA (22:05)
[2017-01-31] MEDS ORDERED: OXYCODONE/ACETAMINOPHEN 5-325 TAB PO ONE (22:58)
--- NOTE | 2017-01-31 23:03 | DIAGNOSTIC IMAGING REPORT ---
CHEST ONE VIEW PORTABLE HISTORY: fever COMPARISON: Chest 03/11/2015. FINDINGS: The heart remains mildly enlarged. No pleural effusions. No pneumothorax. Linear densities the left lung base favor subsegmental atelectasis. No new focal lung consolidations. No evidence for pulmonary edema. Left subclavian Port-A-Cath terminates in the expected location of the SVC. IMPRESSION: A few linear densities at the left lung base favor subsegmental atelectasis. Stable mild cardiomegaly. Electronically signed by: Lenny Echols M.D. 01/31/2017 11:01 PM Dictated Date/Time: 01/31/2017 11:00 PM
[2017-01-31] MEDS ORDERED: OXYCODONE/ACETAMINOPHEN 5-325 TAB ONE (23:06)
[2017-01-31] MEDS ORDERED: PROMETHAZINE HCL INJ 12.5 MG in SODIUM CHLORIDE 0.9% 50ML 50 ML IV ONE (23:17)
[2017-01-31] MEDS ORDERED: INSULIN ASPART 100 UNITS/ML 3 ML PEN SC ONE (23:29)
[2017-01-31] MEDS ORDERED: TRAZODONE HCL 50 MG TAB PO ONE (23:29)
[2017-01-31] MEDS ORDERED: INSULIN GLARGINE SOLOSTAR 100 UNITS/ML 3 ML PEN SQ ONE (23:29)
[2017-01-31] MEDS ORDERED: DOXYCYCLINE HYCLATE 100 MG CAP PO ONE (23:29)
[2017-01-31] MEDS ORDERED: NSS + 20MEQ KCL 1000ML 1,000 ML IV ONE (23:30)
[2017-01-31] MEDS ORDERED: GLUCOSE 40% GEL 15 GM TUBE PO PRN (23:30)
[2017-01-31] MEDS ORDERED: GLUCAGON FOR INJ 1 MG VIAL SQ PRN (23:30)
[2017-01-31] MEDS ORDERED: LEVALBUTEROL/IPRATROPIUM NEB INH PRN (23:30)
[2017-01-31] MEDS ORDERED: PROMETHAZINE HCL INJ 12.5 MG in SODIUM CHLORIDE 0.9% 50ML 50 ML IV PRN (23:30)
[2017-01-31] MEDS ORDERED: FERROUS SULFATE 325 MG TAB PO PRN (23:30)
[2017-01-31] MEDS ORDERED: GLUCOSE 10 TABS/TUBE PO PRN (23:30)
[2017-01-31] MEDS ORDERED: DEXTROSE 50% 50 ML SYR IV PRN (23:30)
[2017-01-31] MEDS ORDERED: hydrOXYzine HCL 10 MG TAB PO PRN (23:30)
[2017-01-31 23:45] VITALS: BP 166/89; PULSE 94; TEMP 37.1; O2SAT 96; Ht 157.5 cm; Wt 108.3 kg
[2017-02-01] VITALS (7 sets, daily range): BP systolic 113–166; BP diastolic 54–89; PULSE 85–94; TEMP 36–37.1; O2SAT 94–96
[2017-02-01] MEDS ORDERED: DiphenhydrAMINE HCL 50 MG/ML VIAL IV STA (00:13)
[2017-02-01] MEDS ORDERED: DiphenhydrAMINE INJ 25 MG in SYRINGE 0 ML IV ONE (00:15)
[2017-02-01] MEDS ORDERED: LEVALBUTEROL 1.25MG/0.5ML NEB INH PRN (00:15)
[2017-02-01] MEDS ORDERED: IPRATROPIUM BROMIDE NEB SOLN 0.02% 2.5 ML VIAL INH PRN (00:15)
[2017-02-01] MEDS: DAPTOmycin IV 650 MG in SODIUM CHLORIDE 0.9% 50ML 50 ML IV SCH (01:16)
[2017-02-01] MEDS: MoRPHine SULFATE 2 MG/ML CARP IV PRN ×2 (04:51→13:11)
[2017-02-01 05:08] LABS: URINE APPEARANCE CLOUDY (CLEAR); URINE BILIRUBIN NEG (NEG); URINE COLOR YELLOW; URINE EPITHELIAL CELL AUTO >30 /lpf (0-5); URINE NITRITE NEG (NEG); URINE PH 5.5 (4.5-7.5); URINE SPECIFIC GRAVITY 1.016 (1.000-1.030); UROBILINOGEN NEG (NEG); ZZUR CULT IF INDIC CLEAN CATCH YES
[2017-02-01 05:11] LABS: MANUAL MICROSCOPIC REQUIRED? NO; REVIEW REQ? YES
--- NOTE | 2017-02-01 05:33 | HISTORY & PHYSICAL EXAMINATION ---
DATE OF ADMISSION: 01/31/2017 PRIMARY CARE DOCTOR: Dr. Palomares CHIEF COMPLAINT: Abnormal blood work. HISTORY OF PRESENT ILLNESS: History was obtained from patient and patient's records. Medical history is significant for chronic respiratory failure secondary to COPD on home O2, SAMANTHA on CPAP, COPD, past tobacco abuse as per records, hypertension, DM2 insulin requiring, history of mood disorder, history of DVT (no anticoagulation secondary to concurrent GI bleed at time of diagnosis), history of uroepithelial cancer, L status post surgery. Recent confinement last in 2014 for sepsis secondary to pneumonia and C. diff. Patient was confined for 6 weeks. A few days history of chills, cough symptoms productive of yellow sputum, px denies aspiration although admits to some choking w/ meals if she's not careful. no chest pain, no shortness of breath. Patient also noted achy abdominal/flank pain, some nausea. No emesis, no dysuria. Seen at PCP's office. WBC est in UA, no urine CS done. Initially was given Cipro for possible UTI. Patient was sent to the Emergency Room yesterday. Lactic acid was noted to be 2.14. UA was normal. CAT scan of the abdomen and pelvis showed hepatomegaly and severe hepatic steatosis, status post left nephrectomy and colonic diverticulosis. No acute infectious or inflammatory findings. Only one bottle of blood cultures (from [facility]) was done secondary to patient's refusal to have peripheral blood draw. Patient was sent home. Initial growth gram positive cocci this AM. Patient requested to proceed to the Emergency Room. Received IV Vancomycin in the Emergency Room. MEDICAL HISTORY: As above. SURGERIES: She has had urologic procedures, A-port placement, knee surgery, cholecystectomy, tonsillectomy, appendectomy, hysterectomy, oophorectomy, nephrectomy with total ureterectomy HOME MEDICATIONS: Include; Ventolin, Pulmicort, vitamin D3, ferrous sulfate, Flonase, Lasix, fluocinonide, NovoLog, Lantus, SoloSTAR, losartan, Singulair, mag ox, Nystatin, Prilosec, Percocet, Oxicorte oxygen, probiotic, Phenergan, trazodone and Ellipta. ALLERGIES: TO ADHESIVES, IBUPROFEN, FLAGYL, ZOFRAN, PENICILLIN AND SULFA. FAMILY HISTORY: Heart disease and diabetes. PERSONAL AND SOCIAL HISTORY: Past tobacco abuse. No chronic intake of alcoholic beverages. Retired from [employer] work. REVIEW OF SYSTEMS: As per HPI. All other ROS negative. PHYSICAL EXAMINATION: VITAL SIGNS: Blood pressure was noted to be 141/77, pulse rate 114, RR 20, temperature 37 sats 97 on two liters. GENERAL: Noted to be obese, uncomfortable, anxious, in no respiratory distress. SKIN: Normal color. HEENT: [place] palpebral conjunctivae. Dry mucosa. NECK: Short neck. LUNGS: Decreased breath sounds. HEART: Tachycardic. ABDOMEN: nonspecific tenderness on light palpation. EXTREMITIES: Minimal LE edema. no tenderness NEUROLOGIC: No gross focality. LABORATORIES: Hemoglobin is 12.6, WBC 8 platelets 167. Sodium 142 K 3.8 chloride 105, CO2 26, BUN 70, creatinine 1 and glucose 188. LFTs, lipase normal. Hemoglobin A1c in January 2017 was 8.1. Chest x-ray; showed atelectasis and cardiomegaly. EKG as per my interpretation; rate 105, sinus tachycardia, negative ischemia. ASSESSMENT: 1. Gram positive bacteremia. One bottle contaminant versus real pathogen px not septic possible sources : vascular device (A-port), endocarditis hx MRSA as per records. 2. Complicated bronchitis, no sepsis. 3. abdominal pain possibly from muscle wall pain from coughing sx 4. Recent urinary tract infection resolved w/ outpatient Cipro course. 5. chronic resp failure secondary to chronic obstructive pulmonary disease on home oxygen'/ SAMANTHA on CPAP pulmonary status at baseline 6. HTN, slightly elevated 7. hx uroepithelial CA sp surgery 8. DM2, insulin requiring, suboptimal control as of recent HgA1c. 9. History of deep vein thrombosis. No anticoagulation in the past secondary to some GI bleed 10. hx Cdificile as per records, 11. past tobacco abuse. PLAN: GMF ff Repeat blood cultures. IV Vancomycin for now for bacteremia Doxycycline for complicated bronchitis. Basal insulin, ISS BG goal 140-180. carb count coverage indicated for suboptimal blood sugar control. DVT prophylaxis, with Lovenox subQ. Full code. ADDENDUM: Upon arrival at the floor, patient was noted to have pruritic rash on the face. Possible vancomycin allergy Benadryl stat Discontinue vancomycin for now IV Daptomycin for now. MTDD
[2017-02-01] MEDS: BUDESONIDE 90 MCG INH INH SCH ×2 (08:00→20:36)
[2017-02-01] MEDS: FLUTICASONE PROPIONATE NA SPR 16 GM BTL NAE SCH (08:01)
[2017-02-01] MEDS: PANTOprazole SOD 40 MG TAB PO SCH (08:02)
[2017-02-01] MEDS: LACTOBACILLUS ACIDOPHILUS (FLORANEX) TAB PO SCH (08:04)
[2017-02-01] MEDS: DOXYCYCLINE HYCLATE 100 MG CAP PO SCH ×2 (08:05→20:38)
[2017-02-01] MEDS: MONTELUKAST SOD 10 MG TAB PO SCH (08:06)
[2017-02-01] MEDS: INSULIN ASPART 100 UNITS/ML 3 ML PEN SC SCH ×4 (08:27→20:49)
[2017-02-01] MEDS: INSULIN GLARGINE SOLOSTAR 100 UNITS/ML 3 ML PEN SQ SCH ×2 (08:28→20:49)
[2017-02-01 08:31] LABS: BASO % 0.1 %; BASO ABS # 0.01 K/uL (0-0.2); COMPLETE YES; EOS % 2.8 %; HEMATOCRIT 38.8 % (37-47); IG% 0.5 %; LYMPH % 14.5 %; LYMPH ABS # 1.14 K/uL (1.2-3.4); MEAN CELL VOLUME 95.6 fL (80-100); MEAN CORPUSCULAR HEMOGLOBIN 30.5 pg (25-34); NEUT % 73.1 %; PLATELET COUNT 177 K/uL (130-400); RED BLOOD COUNT 4.06 M/uL (4.2-5.4); WHITE BLOOD COUNT 7.85 K/uL (4.8-10.8)
[2017-02-01] MEDS: OXYCODONE/ACETAMINOPHEN 5-325 TAB PO PRN ×2 (08:34→17:31)
--- NOTE | 2017-02-01 08:35 | Progress Note ---
Internal Med Progress Note Date of Service: February 01, 2017. Provider Documentation: 02/01 rpt UA noted : WBC est (01/30 UA normal) px c/o of abd/flank discomfort AP Complicated UTI hx outpx Cipro rx ff urine CS, IV Cefepime for now Vital Signs: Date Time Temp Pulse Resp B/P Pulse Ox O2 Delivery O2 Flow Rate FiO2 02/01/17 08:07 36.0 85 18 150/68 96 Nasal Cannula 2.0 02/01/17 00:06 37.1 94 18 166/89 96 Nasal Cannula 2.0 01/31/17 23:45 37.1 94 18 166/89 96 Nasal Cannula 2.0 01/31/17 23:27 37.1 102 20 136/77 97 01/31/17 23:22 102 20 136/77 97 Nasal Cannula 2.0 01/31/17 22:41 101 20 136/77 97 Nasal Cannula 2.0 01/31/17 21:09 99 01/31/17 19:33 37.1 114 20 141/77 97 Nasal Cannula 2.0 Lab Results: Results Past 24 Hours Test 01/31/17 20:50 01/31/17 21:01 01/31/17 22:22 01/31/17 23:30 Range/Units White Blood Count 9.28 4.8-10.8 K/uL Red Blood Count 4.04 4.2-5.4 M/uL Hemoglobin 12.6 12.0-16.0 g/dL Hematocrit 38.6 37-47 % Mean Corpuscular Volume 95.5 80-100 fL Mean Corpuscular Hemoglobin 31.2 25-34 pg Mean Corpuscular Hemoglobin Concent 32.6 32-36 g/dl Platelet Count 167 130-400 K/uL Mean Platelet Volume 9.8 7.4-10.4 fL Neutrophils (%) (Auto) 77.2 % Lymphocytes (%) (Auto) 13.4 % Monocytes (%) (Auto) 6.8 % Eosinophils (%) (Auto) 2.2 % Basophils (%) (Auto) 0.1 % Neutrophils # (Auto) 7.17 1.4-6.5 K/uL Lymphocytes # (Auto) 1.24 1.2-3.4 K/uL Monocytes # (Auto) 0.63 0.11-0.59 K/uL Eosinophils # (Auto) 0.20 0-0.5 K/uL Basophils # (Auto) 0.01 0-0.2 K/uL RDW Standard Deviation 50.1 36.4-46.3 fL RDW Coefficient of Variation 14.4 11.5-14.5 % Immature Granulocyte % (Auto) 0.3 % Immature Granulocyte # (Auto) 0.03 0.00-0.02 K/uL Sodium Level 139 136-145 mmol/L Potassium Level 3.8 3.5-5.1 mmol/L Chloride Level 105 98-107 mmol/L Carbon Dioxide Level 26 21-32 mmol/L Anion Gap 8.0 3-11 mmol/L Blood Urea Nitrogen 17 7-18 mg/dl Creatinine 1.10 0.60-1.20 mg/dl Est Creatinine Clear Calc Drug Dose 59.1 ml/min Estimated GFR () 61.0 Estimated GFR (Non- 52.6 BUN/Creatinine Ratio 15.3 10-20 Random Glucose 188 70-99 mg/dl Calcium Level 9.0 8.5-10.1 mg/dl Magnesium Level 2.0 1.8-2.4 mg/dl Total Bilirubin 0.4 0.2-1 mg/dl Direct Bilirubin 0.2 0-0.2 mg/dl Aspartate Amino Transf (AST/SGOT) 20 15-37 U/L Alanine Aminotransferase (ALT/SGPT) 28 12-78 U/L Alkaline Phosphatase 71 45-117 U/L Total Creatine Kinase 69 26-192 U/L Total Protein 7.0 6.4-8.2 gm/dl Albumin 2.9 3.4-5.0 gm/dl Lipase 177 73-393 U/L Bedside Lactic Acid Venous 2.32 1.89 0.90-1.70 mmol/L Lactic Acid Level 1.7 0.4-2.0 mmol/L Test 02/01/17 00:14 02/01/17 05:00 02/01/17 07:20 02/01/17 08:10 Range/Units Bedside Glucose 140 159 70-90 mg/dl Urine Color YELLOW Urine Appearance CLOUDY CLEAR Urine pH 5.5 4.5-7.5 Urine Specific [place] 1.016 1.000-1.030 Urine Protein NEG NEG Urine Glucose (UA) NEG NEG Urine Ketones NEG NEG Urine Occult Blood NEG NEG Urine Nitrite NEG NEG Urine Bilirubin NEG NEG Urine Urobilinogen NEG NEG Urine Leukocyte Esterase LARGE NEG Urine WBC (Auto) >30 0-5 /hpf Urine RBC (Auto) 0-4 0-4 /hpf Urine Hyaline Casts (Auto) 1-5 0-5 /lpf Urine Epithelial Cells (Auto) >30 0-5 /lpf Urine Bacteria (Auto) 1+ NEG Urine Yeast (Auto) NONE PRSENT Microbiology Results 01/31/17 Blood Culture, Received Pending 01/31/17 Blood Culture, Received Pending 02/01/17 Urine Culture, Received Pending
[2017-02-01 08:47] LABS: PROTHROMBIN TIME (PATIENT) 10.7 SECONDS (9.0-12.0)
[2017-02-01] MEDS ORDERED: DAPTOMYCIN CONSULT ACTIVE PRN ×2 (09:00)
[2017-02-01] MEDS ORDERED: VANCOMYCIN CONSULT ACTIVE PRN (09:00)
[2017-02-01] MEDS ORDERED: CEFEPIME CONSULT ACTIVE PRN ×2 (09:30)
[2017-02-01] MEDS: CEFEPIME IV 2,000 MG in DEXTROSE 5% 100ML 100 ML IV SCH ×2 (10:04→21:53)
[2017-02-01] MEDS: ENOXAPARIN 40 MG/0.4 ML SYR SQ SCH (10:04)
[2017-02-01] MEDS: TRAZODONE HCL 50 MG TAB PO SCH (20:37)
[2017-02-01] MEDS: LOSARTAN POTASSIUM 25 MG TAB PO SCH (20:38)
--- NOTE | 2017-02-01 21:14 | Medical Consult ---
Consultation Date of Consultation: February 01, 2017. Attending Physician: Aundrea Walden M.D. Reason for Consultation: Daptomycin use for bacteremia History of Present Illness 66-year-old female with history of diabetes mellitus, COPD, obstructive sleep apnea, previous uroepithelial carcinoma status post nephrectomy, with indwelling a port for 2 years, was seen in the emergency room 2 days ago with abdominal pain rated 8/10 intensity along with low-grade fever. Was found to have mildly elevated lactic acidosis. Blood culture was drawn from the a port, as patient refused peripheral blood draws, and patient was called back for admission when 1/2 bottles became positive for gram-positive cocci in clusters. She has been started empirically on IV daptomycin. She reports no significant problems with her a port, no redness or drainage. Abdominal pain is slightly better today. She has had some cough with yellow sputum production. Past Medical/Surgical History Medical Problems: (1) Candidiasis, vagina Status: Acute (2) High serum lactate Status: Acute (3) Positive blood culture Status: Acute Medical Problems: (1) Bacteremia (2) History of bladder cancer (3) History of cancer (4) Malignant neoplasm of ureter Surgical Problems: (1) History of nephrostomy Family History Diabetes mellitus FHx: cancer FHx: lung disease Hypertension Kidney disease Kidney stones Social History Smoking Status: Never Smoker Drug Use: none Marital Status: single Housing Status: lives alone Occupation Status: unemployed, disabled Allergies Coded Allergies: Penicillins (Verified Allergy, Severe, THROAT CLOSES, 09/04/16) TIGIST. PRIMAXIN 01/2015 ADMISSION Metronidazole (Verified Allergy, Intermediate, hives/rash, 09/04/16) Ondansetron (Verified Allergy, Intermediate, hives, 09/04/16) Vancomycin (Verified Allergy, Mild, RASH, 02/01/17) itchy rash Adhesives (Verified Allergy, Unknown, SKIN BLISTERING, 09/04/16) Sulfa Antibiotics (Verified Allergy, Unknown, Rash, 09/04/16) Ibuprofen (Verified Adverse Reaction, Intermediate, RECTAL BLEEDING, 09/04) Current Inpatient Medications Current Inpatient Medications Medications (Trade) Dose Ordered Sig/Amandeep Route Start Time Stop Time Status Last Admin Dose Admin Oxycodone/ Acetaminophen 1 tab 1 tab Q6H PRN PO 01/31/17 23:00 02/14/17 22:59 02/01/17 17:31 1 TAB Promethazine HCl/ Sodium Chloride (Phenergan Inj/ Nss 50ml) 50.5 ml @ 204 mls/hr Q6H PRN IV 01/31/17 23:30 03/02/17 23:29 Enoxaparin Sodium (Lovenox Inj) 40 mg Q24H SQ 02/01/17 10:00 03/03/17 09:59 02/01/17 10:04 40 MG Acetaminophen (Tylenol Tab) 650 mg Q4H PRN PO 01/31/17 23:30 03/02/17 23:29 Insulin Aspart (novoLOG ASPART) SLIDING SCALE If C... ACHS SC 02/01/17 06:30 03/03/17 06:59 02/01/17 20:49 1 UNITS Glucose (Glucose 40% Gel) 15-30 GRAMS 15 GRAMS... UD PRN PO 01/31/17 23:30 03/02/17 23:29 Glucose (Glucose Chew Tab) 4-8 Tablets 4 Tabl... UD PRN PO 01/31/17 23:30 03/02/17 23:29 Dextrose (Dextrose 50% 50ML Syringe) 25-50ML OF 50% DW IV FOR... UD PRN IV 01/31/17 23:30 03/02/17 23:29 Glucagon (Glucagon Inj) 1 mg UD PRN SQ 01/31/17 23:30 03/02/17 23:29 Ferrous Sulfate (Feosol Tab) 325 mg DAILY PRN PO 01/31/17 23:30 03/02/17 23:29 Fluticasone Propionate (Flonase Nasal [place]) 2 sprays DAILY MARCIA 02/01/17 09:00 03/03/17 08:59 02/01/17 08:01 2 SPRAYS Insulin Glargine (Lantus Solostar Pen) 10 unit BID SQ 02/01/17 09:00 03/03/17 08:59 02/01/17 20:49 10 UNIT Losartan Potassium (coZAAR TAB) 25 mg HS PO 02/01/17 21:00 03/03/17 20:59 02/01/17 20:38 25 MG Montelukast Sodium (Singulair Tab) 10 mg DAILY PO 02/01/17 09:00 03/03/17 08:59 02/01/17 08:06 10 MG Trazodone HCl (Desyrel Tab) 50 mg HS PO 02/01/17 21:00 03/03/17 20:59 02/01/17 20:37 50 MG Budesonide (Pulmicort Inhaler) 4 puffs BID INH 02/01/17 09:00 03/03/17 08:59 02/01/17 20:36 4 PUFFS Pantoprazole Sodium (Protonix Tab) 40 mg QAM PO 02/01/17 09:00 03/03/17 08:59 02/01/17 08:02 40 MG Lactobacillus Acidophilus (Floranex Tab) 4 tab DAILY PO 02/01/17 09:00 03/03/17 08:59 02/01/17 08:04 4 TAB Miscellaneous Information (Order Awaiting Action) 1 ea QS N/A 02/01/17 08:00 03/03/17 07:59 Doxycycline Hyclate (Vibramycin Cap) 100 mg BID PO 02/01/17 09:00 02/08/17 08:59 02/01/17 20:38 100 MG Hydroxyzine HCl (Vistaril Tab) 10 mg Q6H PRN PO 01/31/17 23:30 03/02/17 23:29 Morphine Sulfate (MoRPHine SULFATE INJ) 2 mg Q8H PRN IV 01/31/17 23:30 02/14/17 23:29 02/01/17 13:11 2 MG Ipratropium [place] (Atrovent 0.02% 0.5MG/2.5ML Neb) 0.5 mg Q4H PRN INH 02/01/17 00:15 03/03/17 00:14 Levalbuterol (Xopenex 1.25MG/ 0.5ML Neb) 1.25 mg Q4H PRN INH 02/01/17 00:15 03/03/17 00:14 Daptomycin 1 ea 1 ea DAILY PRN N/A 02/01/17 09:00 03/03/17 08:59 Daptomycin 650 mg/ Sodium Chloride 63 ml @ 100 mls/hr Q24H IV 02/01/17 01:00 02/15/17 00:59 02/01/17 01:16 100 MLS/HR Cefepime HCl/ Dextrose (Maxipime IV/D5 100ml) 112.5 ml @ 200 mls/hr Q12H IV 02/01/17 10:00 02/11/17 09:59 02/01/17 10:04 200 MLS/HR Cefepime HCl (Consult) 1 ea UD PRN N/A 02/01/17 09:30 03/03/17 09:29 Heparin Sodium (Porcine) (Heparin 100 Unit/ml 5ml Flush) 5 ml PRN PRN IV 02/01/17 12:15 03/03/17 12:14 02/01/17 13:12 5 ML Review of Systems Constitutional: + fever, + weakness Eyes: No problem reported ENT: No problem reported Respiratory: + cough, + sputum Cardiovascular: No problem reported Abdomen: + pain, No diarrhea, No vomiting Musculoskeletal: No problem reported Genitourinary - Female: No problem reported Neurologic: No problem reported Psychiatric: No problem reported Endocrine: No problem reported Hematologic / Lymphatic: No problem reported Integumentary: No problem reported Allergic / Immunologic: No problem reported Physical Exam Date Time Temp Pulse Resp B/P Pulse Ox O2 Delivery O2 Flow Rate FiO2 02/01/17 20:51 90 18 149/73 02/01/17 16:18 Nasal Cannula 2.0 02/01/17 15:28 36.9 90 20 113/54 95 Nasal Cannula 2.0 02/01/17 11:45 36.6 89 18 116/68 94 Nasal Cannula 2.0 02/01/17 10:33 96 Nasal Cannula 2.0 02/01/17 08:07 36.0 85 18 150/68 96 Nasal Cannula 2.0 02/01/17 08:00 Nasal Cannula 2.0 02/01/17 00:06 37.1 94 18 166/89 96 Nasal Cannula 2.0 01/31/17 23:45 37.1 94 18 166/89 96 Nasal Cannula 2.0 01/31/17 23:27 37.1 102 20 136/77 97 01/31/17 23:22 102 20 136/77 97 Nasal Cannula 2.0 01/31/17 22:41 101 20 136/77 97 Nasal Cannula 2.0 General Appearance: WD/WN, no apparent distress, + obese Head: normocephalic, atraumatic Eyes: normal inspection, EOMI, sclerae normal ENT: normal ENT inspection, hearing grossly normal, pharynx normal Neck: supple, no adenopathy, thyroid normal, trachea midline Respiratory/Chest: chest non-tender, lungs clear, normal breath sounds, no respiratory distress Cardiovascular: regular rate, rhythm, no gallop, no murmur Abdomen/GI: normal bowel sounds, soft, no organomegaly, + tenderness Back: normal inspection, no CVA tenderness Extremities/Musculoskelatal: normal inspection, no calf tenderness, normal capillary refill Neurologic/Psych: alert, oriented x 3 Skin: normal color, no rash, + pertinent finding ( a port site appears clean) Lymphatic: no adenopathy Laboratory Results Date/Time Source Procedure Growth Status 02/01/17 20:29 Blood Blood Culture Pending Received 02/01/17 20:28 Blood Blood Culture Pending Received 01/31/17 23:30 Blood Blood Culture Pending Received 02/01/17 05:00 Urine , Clean Catch Urine Culture Pending Received Patient Name: Maria Teresa ENRIQUEZ Unit Number: [id number] Dictated: 02/01/171041 Transcribed: 02/01/17 1042 MS Printed Date/Time: [~ rep prt dt]/[~ rep prt tm] [~ rep ct labl] - [~ rep ct ivnm] [facility] [place] [address] Dictated: 02/01/17 104 Transcribed: 02/01/17 1042 MS Printed Date/Time: [~ rep prt dt]/[~ rep prt tm] [~ rep ct labl] - [~ rep ct ivnm] [~ rep ct add3]] CHEST ONE VIEW PORTABLE CLINICAL HISTORY: Garcia infiltrates dyspnea COMPARISON STUDY: 01/31/2017 FINDINGS: Findings consistent with developing congestive failure. Increased prominence of pulmonary vasculature compared to the prior study. Trace pleural fluid both lung bases. IMPRESSION: Developing congestive failure Electronically signed by: Keith Johns M.D. 02/01/2017 10:42 AM Dictated Date/Time: 02/01/2017 10:42 AM The status of this report is Signed. Draft = Not yet reviewed or approved by Radiologist. Signed = Reviewed and approved by Radiologist. <AttendingPhy>Andrea Diaz M.D.</AttendingPhy> <FamilyPhy>[facility]</ FamilyPhy> <PrimaryPhy>[employer]</PrimaryPhy> <UnitNumber>[id number]</ UnitNumber> <VisitNumber>[id number]</VisitNumber> <PatientName>Maria Teresa ENRIQUEZ</PatientName> <DateOfBirth>10/17/1930</DateOfBirth> <Location>[facility]</ Location> <ServiceDate>01/29/17</ServiceDate> <MNE>ESINDI</MNE> <OrderingPhy> Nicolette Smith MD</OrderingPhy> <OrderingPhyMNE>f rep ord dr sevilla</OrderingPhyMNE > <DictatingPhyMNE>f rep dict dr sevilla</DictatingPhyMNE> <CCListMNE>f rep ct mne</ CCListMNE> <AdmittingPhyMNE>f pt admit dr sevilla</AdmittingPhyMNE> <AttendingPhyMNE >f pt attend dr sevilla</AttendingPhyMNE> <ConsultingPhyMNE>f pt consult dr sevilla</ConsultingPhyMNE> <FamilyPhyMNE>f pt fam dr sevilla</FamilyPhyMNE> <OtherPhyMNE>f pt other dr sevilla</OtherPhyMNE> < PrimaryPhyMNE>f pt prim care dr sevilla</PrimaryPhyMNE> <ReferringPhyMNE>f pt referring dr sevilla</ReferringPhyMNE> Last 24 Hours Test 01/31/17 22:22 01/31/17 23:30 02/01/17 00:14 02/01/17 05:00 Bedside Lactic Acid Venous 1.89 mmol/L Lactic Acid Level 1.7 mmol/L Bedside Glucose 140 mg/dl Urine Color YELLOW Urine Appearance CLOUDY Urine pH 5.5 Urine Specific [place] 1.016 Urine Protein NEG Urine Glucose (UA) NEG Urine Ketones NEG Urine Occult Blood NEG Urine Nitrite NEG Urine Bilirubin NEG Urine Urobilinogen NEG Urine Leukocyte Esterase LARGE Urine WBC (Auto) >30 /hpf Urine RBC (Auto) 0-4 /hpf Urine Hyaline Casts (Auto) 1-5 /lpf Urine Epithelial Cells (Auto) >30 /lpf Urine Bacteria (Auto) 1+ Urine Yeast (Auto) Test 02/01/17 07:20 02/01/17 08:10 02/01/17 11:17 02/01/17 16:19 Bedside Glucose 159 mg/dl 185 mg/dl 141 mg/dl White Blood Count 7.85 K/uL Red Blood Count 4.06 M/uL Hemoglobin 12.4 g/dL Hematocrit 38.8 % Mean Corpuscular Volume 95.6 fL Mean Corpuscular Hemoglobin 30.5 pg Mean Corpuscular Hemoglobin Concent 32.0 g/dl Platelet Count 177 K/uL Mean Platelet Volume 10.0 fL Neutrophils (%) (Auto) 73.1 % Lymphocytes (%) (Auto) 14.5 % Monocytes (%) (Auto) 9.0 % Eosinophils (%) (Auto) 2.8 % Basophils (%) (Auto) 0.1 % Neutrophils # (Auto) 5.73 K/uL Lymphocytes # (Auto) 1.14 K/uL Monocytes # (Auto) 0.71 K/uL Eosinophils # (Auto) 0.22 K/uL Basophils # (Auto) 0.01 K/uL RDW Standard Deviation 50.5 fL RDW Coefficient of Variation 14.3 % Immature Granulocyte % (Auto) 0.5 % Immature Granulocyte # (Auto) 0.04 K/uL Prothrombin Time 10.7 SECONDS Prothromb Time International Ratio 1.0 Test 02/01/17 19:56 Bedside Glucose 203 mg/dl Assessment & Plan 66-year-old female with multiple medical comorbidities, now presents with fever , chills, cough,abdominal and flank pain, with single positive blood culture drawn through central line growing gram-positive cocci. Unable to determine at present whether this is significant finding, weight additional blood culture results. For now, daptomycin appropriate therapy, and patient to be continued on doxycycline for possible bronchitis. Will adjust antibiotics once final culture results are available. We will follow.
--- NOTE | 2017-02-01 22:27 | Progress Note ---
Internal Med Progress Note Date of Service: February 01, 2017. Provider Documentation: SUBJECTIVE: pt complains of abdominal pain -which has been chronic no fever or chills denies of any SOB or chest discomfort no erythema , swelling or pain at A-port site OBJECTIVE: Vital Signs-as noted below Exam: General-obese , no sign of distress Eyes-sclera non icteric ENT-NAD Lungs-CTA Heart-regular S1/S2 Abdomen-soft, non tender Extremities left upper chest wall A-port site -no sign of infection noted Neuro-AAO x3, no focal deficit Lab data as noted below. ASSESSMENT & PLAN: GRAM POSITIVE BACTEREMIA : has A port -placed approx 2 yrs back ( per pt ) for Difficult IV access blood culture 1/2 bottle gram positive cocci concern or line access -A-port ordered for repeat blood culture -pt refused to have peripheral blood draw ( due to difficult stick ) both bottles blood culture obtained form A-port initially started on IV Vancomycin -reports of allergic reaction to Vanco ( rash ) abx changed to IV Daptomycin ID eval requested appreciate input ECHO ordered to assess possible valvular vegetation HTN: BP stable cont out pt meds SAMANTHA : CPAP at night BRONCHITIS : C/o non productive cough Cxray : few liner densities at the left lung base favor subsegmental atelectasis on empiric Abx Doxycycline repeat CXray in AM ordered for incentive spirometry POSITIVE UA : cont Cefepime follow urine culture FULL CODE DVT PROPHYLAXIS moderate to high risk Sub q Lovenox DISPOSITION to home when medically stable Vital Signs: Date Time Temp Pulse Resp B/P Pulse Ox O2 Delivery O2 Flow Rate FiO2 02/01/17 20:51 90 18 149/73 02/01/17 16:18 Nasal Cannula 2.0 02/01/17 15:28 36.9 90 20 113/54 95 Nasal Cannula 2.0 02/01/17 11:45 36.6 89 18 116/68 94 Nasal Cannula 2.0 02/01/17 10:33 96 Nasal Cannula 2.0 02/01/17 08:07 36.0 85 18 150/68 96 Nasal Cannula 2.0 02/01/17 08:00 Nasal Cannula 2.0 02/01/17 00:06 37.1 94 18 166/89 96 Nasal Cannula 2.0 01/31/17 23:45 37.1 94 18 166/89 96 Nasal Cannula 2.0 01/31/17 23:27 37.1 102 20 136/77 97 01/31/17 23:22 102 20 136/77 97 Nasal Cannula 2.0 01/31/17 22:41 101 136/77 97 Nasal Cannula 2.0 Lab Results: Results Past 24 Hours Test 01/31/17 23:30 02/01/17 00:14 02/01/17 05:00 02/01/17 07:20 Range/Units Lactic Acid Level 1.7 0.4-2.0 mmol/L Bedside Glucose 140 159 70-90 mg/dl Urine Color YELLOW Urine Appearance CLOUDY CLEAR Urine pH 5.5 4.5-7.5 Urine Specific [place] 1.016 1.000-1.030 Urine Protein NEG NEG Urine Glucose (UA) NEG NEG Urine Ketones NEG NEG Urine Occult Blood NEG NEG Urine Nitrite NEG NEG Urine Bilirubin NEG NEG Urine Urobilinogen NEG NEG Urine Leukocyte Esterase LARGE NEG Urine WBC (Auto) >30 0-5 /hpf Urine RBC (Auto) 0-4 0-4 /hpf Urine Hyaline Casts (Auto) 1-5 0-5 /lpf Urine Epithelial Cells (Auto) >30 0-5 /lpf Urine Bacteria (Auto) 1+ NEG Urine Yeast (Auto) NONE PRSENT Test 02/01/17 08:10 02/01/17 11:17 02/01/17 16:19 02/01/17 19:56 Range/Units White Blood Count 7.85 4.8-10.8 K/uL Red Blood Count 4.06 4.2-5.4 M/uL Hemoglobin 12.4 12.0-16.0 g/dL Hematocrit 38.8 37-47 % Mean Corpuscular Volume 95.6 80-100 fL Mean Corpuscular Hemoglobin 30.5 25-34 pg Mean Corpuscular Hemoglobin Concent 32.0 32-36 g/dl Platelet Count 177 130-400 K/uL Mean Platelet Volume 10.0 7.4-10.4 fL Neutrophils (%) (Auto) 73.1 % Lymphocytes (%) (Auto) 14.5 % Monocytes (%) (Auto) 9.0 % Eosinophils (%) (Auto) 2.8 % Basophils (%) (Auto) 0.1 % Neutrophils # (Auto) 5.73 1.4-6.5 K/uL Lymphocytes # (Auto) 1.14 1.2-3.4 K/uL Monocytes # (Auto) 0.71 0.11-0.59 K/uL Eosinophils # (Auto) 0.22 0-0.5 K/uL Basophils # (Auto) 0.01 0-0.2 K/uL RDW Standard Deviation 50.5 36.4-46.3 fL RDW Coefficient of Variation 14.3 11.5-14.5 % Immature Granulocyte % (Auto) 0.5 % Immature Granulocyte # (Auto) 0.04 0.00-0.02 K/uL Prothrombin Time 10.7 9.0-12.0 SECONDS Prothromb Time International Ratio 1.0 0.9-1.1 Bedside Glucose 185 141 203 70-90 mg/dl Microbiology Results 02/01/17 Blood Culture, Received Pending 02/01/17 Blood Culture, Received Pending 01/31/17 Blood Culture, Received Pending 02/01/17 MRSA DNA Surveillance Screen, Received Pending 02/01/17 Urine Culture, Received Pending
[2017-02-02] MEDS: DAPTOmycin IV 650 MG in SODIUM CHLORIDE 0.9% 50ML 50 ML IV SCH (00:31)
[2017-02-02] MEDS: OXYCODONE/ACETAMINOPHEN 5-325 TAB PO PRN ×4 (00:31→21:42)
[2017-02-02 05:53] LABS: BUN/CREATININE RATIO 11.6 (10-20); CALCIUM 8.2 mg/dl (8.5-10.1); CREATININE 1.1 mg/dl (0.60-1.20)
--- NOTE | 2017-02-02 07:49 | DIAGNOSTIC IMAGING REPORT ---
CHEST ONE VIEW PORTABLE HISTORY: left basilar atelectatis COMPARISON: Chest 01/31/2017. FINDINGS: No pneumothorax. No pleural effusions. Heart remains mildly enlarged. Left subclavian Port-A-Cath terminates at the SVC. No evidence for pulmonary edema. No new focal lung consolidations. Left basilar linear densities favor subsegmental atelectasis. IMPRESSION: No change from the prior studies. A few linear densities at left lung base consistent with subsegmental atelectasis. No new focal lung consolidations to suggest pneumonia. Electronically signed by: Lenny Echols M.D. 02/02/2017 7:47 AM Dictated Date/Time: 02/02/2017 7:45 AM
[2017-02-02] MEDS: BUDESONIDE 90 MCG INH INH SCH ×2 (07:55→21:42)
[2017-02-02] MEDS: FLUTICASONE PROPIONATE NA SPR 16 GM BTL NAE SCH (07:55)
[2017-02-02] MEDS: MONTELUKAST SOD 10 MG TAB PO SCH (07:56)
[2017-02-02] MEDS: PANTOprazole SOD 40 MG TAB PO SCH (07:56)
[2017-02-02] MEDS: LACTOBACILLUS ACIDOPHILUS (FLORANEX) TAB PO SCH (07:56)
[2017-02-02] MEDS: DOXYCYCLINE HYCLATE 100 MG CAP PO SCH ×2 (07:57→21:46)
[2017-02-02] MEDS: MoRPHine SULFATE 2 MG/ML CARP IV PRN ×2 (07:58→18:08)
[2017-02-02 08:06] VITALS: BP 123/70; PULSE 79; TEMP 36.7; O2SAT 92
[2017-02-02] MEDS: INSULIN ASPART 100 UNITS/ML 3 ML PEN SC SCH ×4 (08:21→21:49)
[2017-02-02] MEDS: INSULIN GLARGINE SOLOSTAR 100 UNITS/ML 3 ML PEN SQ SCH ×2 (08:25→21:49)
[2017-02-02] MEDS ORDERED: PERFLUTREN LIPID MICROSPHERE (DEFINITY) IV ONE (10:52)
[2017-02-02] MEDS: CEFEPIME IV 2,000 MG in DEXTROSE 5% 100ML 100 ML IV SCH (11:03)
[2017-02-02] MEDS: ENOXAPARIN 40 MG/0.4 ML SYR SQ SCH (11:04)
[2017-02-02 15:01] VITALS: BP 140/62; PULSE 86; TEMP 36.9; O2SAT 92
--- NOTE | 2017-02-02 19:17 | Progress Note ---
Internal Med Progress Note Date of Service: February 02, 2017. Provider Documentation: SUBJECTIVE: feels well , no fever or chills abdominal pain has resolved no nausea feels strongly that her port may not be infected wants to know when she will be able to be discharged form Hospital OBJECTIVE: Vital Signs-as noted below Exam: General-obese , no sign of distress Eyes-sclera non icteric ENT-NAD Lungs-CTA Heart-regular S1/S2 Abdomen-soft, non tender Extremities left upper chest wall A-port site -no sign of infection noted Neuro-AAO x3, no focal deficit Lab data as noted below. ASSESSMENT & PLAN: GRAM POSITIVE BACTEREMIA : has A port -placed approx 2 yrs back blood culture 1/2 bottle gram positive cocci -coag negative Staph MRSA DNA screen positive concern or line access -A-port ordered for repeat blood culture 02/01/17 -pt refused to have peripheral blood draw ( due to difficult stick ) both bottles blood culture obtained form A-port -report pending initially started on IV Vancomycin -reports of allergic reaction to Vanco ( rash ) abx changed to IV Daptomycin ID eval requested appreciate input ECHO ordered to assess possible valvular vegetation HTN: BP stable cont out pt meds on Cozaar SAMANTHA : CPAP at night BRONCHITIS : C/o non productive cough Cxray : few liner densities at the left lung base favor subsegmental atelectasis on empiric Abx Doxycycline repeat CXray in AM -shows : IMPRESSION: No change from the prior studies. A few linear densities at left lung base consistent with subsegmental atelectasis. No new focal lung consolidations to suggest pneumonia. ordered for incentive spirometry POSITIVE UA : urine culture alpha strep not enterococcus bacterial colonization /normal diana no need to treat D/C Cefepime TYPE 2 DM: Cont basal Lantus and insulin SSI FULL CODE DVT PROPHYLAXIS moderate to high risk Sub q Lovenox DISPOSITION livers at [facility] at [facility] PT/OT eval requested prior to discharge Vital Signs: Date Time Temp Pulse Resp B/P Pulse Ox O2 Delivery O2 Flow Rate FiO2 02/02/17 19:19 Nasal Cannula 2.0 02/02/17 16:00 Nasal Cannula 2.0 02/02/17 15:01 36.9 86 20 140/62 92 Room Air 02/02/17 08:06 36.7 79 20 123/70 92 02/02/17 08:00 Nasal Cannula 2.0 02/02/17 00:07 Nasal Cannula 2.0 02/01/17 23:25 37.1 92 18 118/70 95 Nasal Cannula 2.0 02/01/17 20:51 90 18 149/73 Lab Results: Results Past 24 Hours Test 02/01/17 19:56 02/02/17 05:20 02/02/17 07:40 02/02/17 11:36 Range/Units Bedside Glucose 203 143 215 70-90 mg/dl Sodium Level 142 136-145 mmol/L Potassium Level 4.0 3.5-5.1 mmol/L Chloride Level 110 98-107 mmol/L Carbon Dioxide Level 26 21-32 mmol/L Anion Gap 6.0 3-11 mmol/L Blood Urea Nitrogen 13 7-18 mg/dl Creatinine 1.10 0.60-1.20 mg/dl Est Creatinine Clear Calc Drug Dose 59.1 ml/min Estimated GFR () 61.0 Estimated GFR (Non- 52.6 BUN/Creatinine Ratio 11.6 20 Random Glucose 145 70-99 mg/dl Calcium Level 8.2 8.5-10.1 mg/dl Test 02/02/17 16:23 Range/Units Bedside Glucose 211 70-90 mg/dl Microbiology Results 02/01/17 Blood Culture, Received Pending 02/01/17 Blood Culture, Received Pending 02/01/17 MRSA DNA Surveillance Screen - Final, Complete Specimen Positive for MRSA by DNA Probe
[2017-02-02] MEDS: LOSARTAN POTASSIUM 25 MG TAB PO SCH (21:43)
[2017-02-02] MEDS: TRAZODONE HCL 50 MG TAB PO SCH (21:46)
[2017-02-02 23:57] VITALS: BP 133/71; PULSE 90; TEMP 37.1; O2SAT 91
[2017-02-03] MEDS: DAPTOmycin IV 650 MG in SODIUM CHLORIDE 0.9% 50ML 50 ML IV SCH (01:16)
[2017-02-03] MEDS: OXYCODONE/ACETAMINOPHEN 5-325 TAB PO PRN ×2 (04:09→10:22)
[2017-02-03 07:54] VITALS: BP 132/77; PULSE 79; TEMP 36.7; O2SAT 95
[2017-02-03] MEDS: INSULIN ASPART 100 UNITS/ML 3 ML PEN SC SCH ×4 (08:10→21:00)
[2017-02-03] MEDS: INSULIN GLARGINE SOLOSTAR 100 UNITS/ML 3 ML PEN SQ SCH ×2 (08:10→21:45)
[2017-02-03] MEDS: MoRPHine SULFATE 2 MG/ML CARP IV PRN ×2 (08:11→20:47)
[2017-02-03] MEDS: FLUTICASONE PROPIONATE NA SPR 16 GM BTL NAE SCH (08:17)
[2017-02-03] MEDS: BUDESONIDE 90 MCG INH INH SCH ×2 (08:17→20:50)
[2017-02-03] MEDS: LACTOBACILLUS ACIDOPHILUS (FLORANEX) TAB PO SCH (08:17)
[2017-02-03] MEDS: PANTOprazole SOD 40 MG TAB PO SCH (08:18)
[2017-02-03] MEDS: DOXYCYCLINE HYCLATE 100 MG CAP PO SCH (08:18)
[2017-02-03] MEDS: MONTELUKAST SOD 10 MG TAB PO SCH (08:18)
--- NOTE | 2017-02-03 08:50 | ECHOCARDIOGRAM REPORT ---
*NOTICE TO RECEIVING [employer] [employer] This information is strictly Confidential and protected under [place] law. [place] law prohibits you from making any further disclosure of this information unless further disclosure is expressly permitted by the written consent of the person to whom it pertains or is authorized by law. A general authorization for the release of medical or other information is not sufficient for this purpose. Hospital accepts no responsibility if the information is made available to any other person, INCLUDING THE PATIENT. Interpretation Summary * Name: ANGELES CYR Study Date: 02/02/2017 10:27 AM BP: 118/70 mmHg * Patient Location: .MS2W\S\W261\S\1 HR: 88 * : 1950 (M/d/yyyy) Gender: Female Height: 62 in * Age: 66 yrs Ethnicity: [place] Weight: 238 lb * Ordering Physician: Aundrea Walden * Referring Physician: Self, Referred * Performed By: Khalif Causey RDCS * * Reason For Study: Endocarditis * BSA: 2.1 m2 * -- Conclusions -- * Normal LV chamber size with moderate concentric LVH. * Hyperdynamic LV systolic function, EF >70%. * No segmental left ventricular wall motion abnormalities are noted. * Grade I diastolic dysfunction. * Poorly visualized valvular structures, no significant valvular stenosis or regurgitation by Doppler. * Study is inadequate to assess for endocarditis due to patient body habitus. Procedure Details * A complete two-dimensional transthoracic echocardiogram was performed (2D, M-mode, Doppler and color flow Doppler). * The study was technically limited. * The study was technically difficult, but visualization was adequate with the administration of Definity ultrasound contrast. * There were technical limitations due to patient'sbody habitus * A contrast injection of Definity was performed to improve assessment of LV function. * Contrast was injected into an intravenous site in the central line. * One vial of Definity ultrasound contrast was diluted in normal saline to a total volume of 10 ml. A total of '5' ml of solution was administered during imaging. * Lot # [id number] of Definity utilized for procedure. * Expiration date 1JUN18. * The attending nurse who injected the contrast agent was CIRILO Goldberg. Left Ventricle * The left ventricle is normal in size. * There is moderate concentric left ventricular hypertrophy. * The left ventricle is hyperdynamic. * No segmental left ventricular wall motion abnormalities are noted. * Ejection Fraction = >70 %. * The left ventricular wall motion is normal. Right Ventricle * The right ventricle is not well visualized. * The right ventricular systolic function is normal as assessed by tricuspid annular plane systolic excursion (TAPSE) (normal >1.5 cm). Atria * The left atrium is not well visualized. * Right atrium not well visualized. Mitral Valve * The mitral valve is not well visualized. * There is no mitral valve stenosis. * There is no mitral regurgitation noted. Tricuspid Valve * The tricuspid valve is not well visualized. * There is no tricuspid stenosis. * No tricuspid regurgitation. Aortic Valve * The aortic valve is not well visualized. * No hemodynamically significant valvular aortic stenosis. * There is no significant aortic regurgitation. Pulmonic Valve * The pulmonary valve is not well seen, but the Doppler examination is normal without significant regurgitation or stenosis. Great Vessels * The aortic root and proximal ascending aorta are normal sized. Pericardium/Pleural * Small pericardial effusion. * A loculated pericardial effusion is noted. Left Ventricular Diastolic Function * Grade I diastolic dysfunction, (abnormal relaxation pattern). MMode 2D Measurements and Calculations IVSd 1.5 cm LVIDd 4.5 cm LVIDs 3.6 cm LVPWd 1.5 cm IVS/LVPW 0.99 FS 19.7 % EDV(Teich) 90.8 ml ESV(Teich) 53.9 ml EF(Teich) 40.6 % EDV(cubed) 89.0 ml ESV(cubed) 46.1 ml EF(cubed) 48.3 % LV mass(C)d 266.3 grams LV mass(C)dI 129.4 grams/m\S\2 SV(Teich) 36.9 ml SI(Teich) 17.9 ml/m\S\2 SV(cubed) 43.0 ml SI(cubed) 20.9 ml/m\S\2 Ao root diam 2.8 cm Ao root area 6.1 cm\S\2 ACS 1.5 cm LA dimension 4.4 cm asc Aorta Diam 2.8 cm LA/Ao 1.6 LVOT diam 1.8 cm LVOT area 2.6 cm\S\2 LVAd ap4 27.2 cm\S\2 LVLd ap4 7.2 cm EDV(MOD-sp4) 86.0 ml LVAs ap4 12.4 cm\S\2 LVLs ap4 5.5 cm ESV(MOD-sp4) 24.0 ml EF(MOD-sp4) 72.1 % LVAd ap2 23.0 cm\S\2 LVLd ap2 6.7 cm EDV(MOD-sp2) 65.0 ml LVAs ap2 10.5 cm\S\2 LVLs ap2 5.0 cm ESV(MOD-sp2) 18.0 ml EF(MOD-sp2) 72.3 % SV(MOD-sp4) 62.0 ml SI(MOD-sp4) 30.1 ml/m\S\2 SV(MOD-sp2) 47.0 ml SI(MOD-sp2) 22.8 ml/m\S\2 Doppler Measurements and Calculations MV E max doreen 114.1 cm/sec MV A max doreen 121.5 cm/sec MV E/A 0.94 MV dec time 0.17 sec Ao V2 max 162.7 cm/sec Ao max PG 11.1 mmHg Ao max PG (full) 5.2 mmHg SHERRI(V,A) 1.9 cm\S\2 SHERRI(V,D) 1.9 cm\S\2 LV V1 max PG 5.9 mmHg LV V1 max 121.4 cm/sec PA V2 max 147.7 cm/sec PA max PG 8.7 mmHg
[2017-02-03] MEDS: ENOXAPARIN 40 MG/0.4 ML SYR SQ SCH (10:21)
--- NOTE | 2017-02-03 15:19 | Discharge Instructions ---
Discharge Instructions Date of Service February 03, 2017. Admission Reason for Admission: Bacteremia Discharge Discharge Diagnosis / Problem: GRAM POSITIVE BACTERMIEA /A PORT /BRONCHITIS Discharge Goals Goal(s): Decrease discomfort, Improve disease control, Diagnostic testing Activity Recommendations Activity Limitations: resume your previous activity . Instructions / Follow-Up Instructions / Follow-Up HOSPITAL FOLLOW UP ON 02/06/2017 @ 1:[address] Bill Palomares MD [facility] Current Hospital Diet Patient's current hospital diet: Diabetes Type 2 Diet Discharge Diet Recommended Diet: Diabetes Type 2 Diet Pending Studies Studies pending at discharge: no Medical Emergencies . Who to Call and When: Medical Emergencies: If at any time you feel your situation is an emergency, please call 911 immediately. . Non-Emergent Contact Non-Emergency issues call your: Primary Care Provider . . "Provider Documentation" section prepared by Aundrea Walden. . VTE Core Measure Inpt VTE Proph given/why not?: Enoxaparin (Lovenox)SQ
[2017-02-03] MEDS ORDERED: OXYCODONE/ACETAMINOPHEN 5-325 TAB PO SCH (15:25)
[2017-02-03] MEDS ORDERED: NURSING VERBAL MED ORDER ONE (15:30)
[2017-02-03 15:56] VITALS: BP 134/79; PULSE 79; TEMP 36.6; O2SAT 93
--- NOTE | 2017-02-03 16:08 | Infectious Disease Progress Nt ---
Progress Note Date of Service February 03, 2017. Subjective Pt evaluation today including: conversation w/ patient, physical exam, chart review, lab review, review of studies, conversation w/ solutions consultant, review of inpatient medication list Patient remains afebrile. Pain relatively well controlled. Blood cultures have returned positive for coagulase-negative Staph in 1 bottle. Follow-up cultures negative. Continues to tolerate antibiotic. Echocardiogram unremarkable. All Other Systems: Reviewed and Negative Medications Current Inpatient Medications Medications (Trade) Dose Ordered Sig/Amandeep Route Start Time Stop Time Status Last Admin Dose Admin Oxycodone/ Acetaminophen 1 tab 1 tab Q6H PRN PO 01/31/17 23:00 02/14/17 22:59 02/03/17 10:22 1 TAB Promethazine HCl/ Sodium Chloride (Phenergan Inj/ Nss 50ml) 50.5 ml @ 204 mls/hr Q6H PRN IV 01/31/17 23:30 03/02/17 23:29 Enoxaparin Sodium (Lovenox Inj) 40 mg Q24H SQ 02/01/17 10:00 03/03/17 09:59 02/03/17 10:21 40 MG Acetaminophen (Tylenol Tab) 650 mg Q4H PRN PO 01/31/17 23:30 03/02/17 23:29 Insulin Aspart (novoLOG ASPART) SLIDING SCALE If C... ACHS SC 02/01/17 06:30 03/03/17 06:59 02/03/17 12:49 5 UNITS Glucose (Glucose 40% Gel) 15-30 GRAMS 15 GRAMS... UD PRN PO 01/31/17 23:30 03/02/17 23:29 Glucose (Glucose Chew Tab) 4-8 Tablets 4 Tabl... UD PRN PO 01/31/17 23:30 03/02/17 23:29 Dextrose (Dextrose 50% 50ML Syringe) 25-50ML OF 50% DW IV FOR... UD PRN IV 01/31/17 23:30 03/02/17 23:29 Glucagon (Glucagon Inj) 1 mg UD PRN SQ 01/31/17 23:30 03/02/17 23:29 Ferrous Sulfate (Feosol Tab) 325 mg DAILY PRN PO 01/31/17 23:30 03/02/17 23:29 Fluticasone Propionate (Flonase Nasal [place]) 2 sprays DAILY MARCIA 02/01/17 09:00 03/03/17 08:59 02/03/17 08:17 2 SPRAYS Insulin Glargine (Lantus Solostar Pen) 10 unit BID SQ 02/01/17 09:00 03/03/17 08:59 02/03/17 08:10 10 UNIT Losartan Potassium (coZAAR TAB) 25 mg HS PO 02/01/17 21:00 03/03/17 20:59 02/02/17 21:43 25 MG Montelukast Sodium (Singulair Tab) 10 mg DAILY PO 02/01/17 09:00 03/03/17 08:59 02/03/17 08:18 10 MG Trazodone HCl (Desyrel Tab) 50 mg HS PO 02/01/17 21:00 03/03/17 20:59 02/02/17 21:46 50 MG Budesonide (Pulmicort Inhaler) 4 puffs BID INH 02/01/17 09:00 03/03/17 08:59 02/03/17 08:17 4 PUFFS Pantoprazole Sodium (Protonix Tab) 40 mg QAM PO 02/01/17 09:00 03/03/17 08:59 02/03/17 08:18 40 MG Lactobacillus Acidophilus (Floranex Tab) 4 tab DAILY PO 02/01/17 09:00 03/03/17 08:59 02/03/17 08:17 4 TAB Miscellaneous Information (Order Awaiting Action) 1 ea QS N/A 02/01/17 08:00 03/03/17 07:59 Doxycycline Hyclate (Vibramycin Cap) 100 mg BID PO 02/01/17 09:00 02/08/17 08:59 02/03/17 08:18 100 MG Hydroxyzine HCl (Vistaril Tab) 10 mg Q6H PRN PO 01/31/17 23:30 03/02/17 23:29 Morphine Sulfate (MoRPHine SULFATE INJ) 2 mg Q8H PRN IV 01/31/17 23:30 02/14/17 23:29 02/03/17 08:11 2 MG Ipratropium [place] (Atrovent 0.02% 0.5MG/2.5ML Neb) 0.5 mg Q4H PRN INH 02/01/17 00:15 03/03/17 00:14 Levalbuterol (Xopenex 1.25MG/ 0.5ML Neb) 1.25 mg Q4H PRN INH 02/01/17 00:15 03/03/17 00:14 Daptomycin 1 ea 1 ea DAILY PRN N/A 02/01/17 09:00 03/03/17 08:59 Daptomycin/Sodium Chloride (Cubicin IV/Nss 50ml) 63 ml @ 100 mls/hr Q24H IV 02/01/17 01:00 02/15/17 00:59 02/03/17 01:16 100 MLS/HR Heparin Sodium (Porcine) (Heparin 100 Unit/ml 5ml Flush) 5 ml PRN PRN IV 02/01/17 12:15 03/03/17 12:14 02/03/17 08:12 5 ML Objective Vital Signs Date Time Temp Pulse Resp B/P Pulse Ox O2 Delivery O2 Flow Rate FiO2 02/03/17 15:56 36.6 79 18 134/79 93 Nasal Cannula 2.0 02/03/17 08:10 Nasal Cannula 2.0 02/03/17 07:54 36.7 79 20 132/77 95 02/03/17 00:26 Nasal Cannula 2.0 02/02/17 23:57 37.1 90 18 133/71 91 BiPAP 02/02/17 19:19 Nasal Cannula 2.0 Physical Exam General Appearance: WD/WN, no apparent distress Eyes: normal inspection, sclerae normal ENT: normal ENT inspection, pharynx normal Neck: supple, no adenopathy, trachea midline Respiratory/Chest: chest non-tender, lungs clear, normal breath sounds, no respiratory distress Cardiovascular: regular rate, rhythm, no gallop, no murmur Abdomen: normal bowel sounds, non tender, soft, no organomegaly Extremities: non-tender, no calf tenderness Neurologic/Psychiatric: alert, oriented x 3 Skin: normal color, warm/dry, no rash Lymphatic: no adenopathy Laboratory Results RUN DATE: 02/03/17 [facility] LAB PAGE 1 RUN TIME: 0830 Specimen Inquiry PATIENT: ANGELES CYR LOC: [id number] U # : [id number] AGE/SX: 66/F ROOM: [facility] REG : 01/31/[address]: Aundrea Walden M.D. : 1950 BED: 1 DIS : STATUS: ADM IN TLOC: SPEC #: [id number] MARIELLA: 01/31/17 STATUS: COMP REQ #: [id number] RECD: 01/31/[address]: Indira Wiseman M.D. SOURCE: BLOOD ENTR: 01/31/17-[address]: Bill Palomares M.D.(HUGH) SPDESC: ORDERED: BLOOD CULTURE Procedure Result Verified Site BLD CULT Final 02/03/17-829 Organism 1 COAG NEG STAPH NOT LUGDUNENSIS SENS NO SENSITIVITY TO FOLLOW Organism 2 COAG NEG STAPH NOT LUGDUNENSIS#2 SENS NO SENSITIVITY TO FOLLOW One set of 4 positive. Isolation does not necessarily mean infection. No susceptibility tests performed. Contact microbiology laboratory ([phone]) if further studies are indicated. Phoned Positive Blood Culture Gram Stain Report to CINDI FONTANA on 02/01/17 At 1334 By MARC. Results were verbalized back to MARC. Last 24 Hours Test 02/02/17 16:23 02/02/17 20:20 02/03/17 07:07 02/03/17 11:18 Bedside Glucose 211 mg/dl 199 mg/dl 123 mg/dl 249 mg/dl Assessment and Plan 66-year-old female with multiple medical comorbidities, now presented with fever, chills, cough,abdominal and flank pain, with single positive blood culture for coagulase-negative Staph, positive urine culture for Streptococcus. Agree that infection of a port somewhat less likely, but feel that warrants treatment given inability to do peripheral cultures. Discussed with Dr. Walden , and appears unlikely to be able to get daptomycin at her nursing facility. I have recommended Zyvox 600 milligrams b.i.d. by mouth to complete 14 days of therapy as this will cover both potential central line infection as well as urinary tract infection.
[2017-02-03] MEDS ORDERED: LINE1TAB7 PO (18:49)
--- NOTE | 2017-02-03 18:59 | Progress Note ---
Internal Med Progress Note Date of Service: February 03, 2017. Provider Documentation: SUBJECTIVE: had back pain /abdominal pain earlier feels much better today no fever or chills OBJECTIVE: Vital Signs-as noted below Exam: General-obese , no sign of distress Eyes-sclera non icteric ENT-NAD Lungs-CTA Heart-regular S1/S2 Abdomen-soft, non tender Extremities left upper chest wall A-port site -no sign of infection noted Neuro-AAO x3, no focal deficit Lab data as noted below. ASSESSMENT & PLAN: GRAM POSITIVE BACTEREMIA : has A port -placed approx 2 yrs back blood culture 01/31/17 : 1/2 bottle gram positive cocci -coag negative Staph MRSA DNA screen positive concern or line access -A-port ordered for repeat blood culture 02/01/17 -pt refused to have peripheral blood draw ( due to difficult stick ) both bottles blood culture obtained form A-port blood cultures on 02/01/17 -no growth initially started on IV Vancomycin -reports of allergic reaction to Vanco ( rash ) abx changed to IV Daptomycin ID eval requested appreciate input Abx can be changed to PO Zyvox continue total 14 days to prevent sub clinical Line infection ECHO ordered ; no evidence of valvular vegetation or endocarditis HTN: BP stable cont out pt meds on Cozaar SAMANTHA : CPAP at night BRONCHITIS : C/o non productive cough Cxray : few liner densities at the left lung base favor subsegmental atelectasis was on empiric Abx Doxycycline repeat CXray in AM -shows : IMPRESSION: No change from the prior studies. A few linear densities at left lung base consistent with subsegmental atelectasis. No new focal lung consolidations to suggest pneumonia. ordered for incentive spirometry Doxycycline D/angel POSITIVE UA : urine culture alpha strep not enterococcus bacterial colonization /normal diana no need to treat D/C Cefepime TYPE 2 DM: Cont basal Lantus and insulin SSI FULL CODE DVT PROPHYLAXIS moderate to high risk Sub q Lovenox DISPOSITION [facility] at [facility] PT/OT eval appreciated discharge to [facility] tomorrow Vital Signs: Date Time Temp Pulse Resp B/P Pulse Ox O2 Delivery O2 Flow Rate FiO2 02/03/17 15:56 36.6 79 18 134/79 93 Nasal Cannula 2.0 02/03/17 08:10 Nasal Cannula 2.0 02/03/17 07:54 36.7 79 20 132/77 95 02/03/17 00:26 Nasal Cannula 2.0 02/02/17 23:57 37.1 90 18 133/71 91 BiPAP Lab Results: Results Past 24 Hours Test 02/02/17 20:20 02/03/17 07:07 02/03/17 11:18 02/03/17 16:37 Range/Units Bedside Glucose 199 123 249 150 70-90 mg/dl
[2017-02-03] MEDS: LOSARTAN POTASSIUM 25 MG TAB PO SCH (20:50)
[2017-02-03] MEDS: LINEZOLID 600 MG TAB PO SCH (20:51)
[2017-02-04 00:44] VITALS: BP 109/52; PULSE 79; TEMP 36.9; O2SAT 92
[2017-02-04] MEDS: OXYCODONE/ACETAMINOPHEN 5-325 TAB PO PRN ×2 (01:28→07:42)
[2017-02-04] MEDS: ACETAMINOPHEN 325 MG TAB PO PRN ×2 (05:17→12:26)
[2017-02-04 06:20] LABS: BASO % 0.2 %; BASO ABS # 0.01 K/uL (0-0.2); COMPLETE YES; EOS % 2.7 %; HEMATOCRIT 35.2 % (37-47); IG% 0.3 %; LYMPH % 31.7 %; LYMPH ABS # 1.98 K/uL (1.2-3.4); MEAN CELL VOLUME 95.4 fL (80-100); MEAN CORPUSCULAR HEMOGLOBIN 30.9 pg (25-34); MEAN CORPUSCULAR HGB CONC 32.4 g/dl (32-36); MONO % 10.2 %; NEUT % 54.9 %; PLATELET COUNT 163 K/uL (130-400); RED BLOOD COUNT 3.69 M/uL (4.2-5.4); WHITE BLOOD COUNT 6.25 K/uL (4.8-10.8)
[2017-02-04 07:39] VITALS: BP 141/79; PULSE 84; TEMP 36.6; O2SAT 91
[2017-02-04] MEDS: BUDESONIDE 90 MCG INH INH SCH (07:45)
[2017-02-04] MEDS: FLUTICASONE PROPIONATE NA SPR 16 GM BTL NAE SCH (07:46)
[2017-02-04] MEDS: LACTOBACILLUS ACIDOPHILUS (FLORANEX) TAB PO SCH (07:46)
[2017-02-04] MEDS: MONTELUKAST SOD 10 MG TAB PO SCH (07:47)
[2017-02-04] MEDS: PANTOprazole SOD 40 MG TAB PO SCH (07:47)
[2017-02-04] MEDS: LINEZOLID 600 MG TAB PO SCH (07:48)
[2017-02-04] MEDS: INSULIN ASPART 100 UNITS/ML 3 ML PEN SC SCH ×2 (08:26→12:21)
[2017-02-04] MEDS: INSULIN GLARGINE SOLOSTAR 100 UNITS/ML 3 ML PEN SQ SCH (08:27)
[2017-02-04] MEDS: ENOXAPARIN 40 MG/0.4 ML SYR SQ SCH (10:30)
--- NOTE | 2017-02-04 11:13 | Progress Note ---
Subjective Date of Service: February 04, 2017. Subjective Pt evaluation today including: conversation w/ patient, physical exam, lab review, review of studies, review of inpatient medication list Saw/examined the patient in room 261 She is laying in bed, no distress States she's doing well, no problems/issues to note at this time Problem List Medical Problems: (1) Candidiasis, vagina Status: Acute (2) High serum lactate Status: Acute (3) Positive blood culture Status: Acute Review of Systems Constitutional: No chills, No fever Respiratory: No dyspnea on exertion, No shortness of breath, No wheezing Cardiac: No chest pain Abdomen: No diarrhea, No nausea, No pain, No vomiting Female : No dysuria, No hematuria, No urinary frequency Medications Current Inpatient Medications Medications (Trade) Dose Ordered Sig/Amandeep Route Start Time Stop Time Status Last Admin Dose Admin Oxycodone/ Acetaminophen 1 tab 1 tab Q6H PRN PO 01/31/17 23:00 02/14/17 22:59 02/04/17 07:42 1 TAB Promethazine HCl/ Sodium Chloride (Phenergan Inj/ Nss 50ml) 50.5 ml @ 204 mls/hr Q6H PRN IV 01/31/17 23:30 03/02/17 23:29 Enoxaparin Sodium (Lovenox Inj) 40 mg Q24H SQ 02/01/17 10:00 03/03/17 09:59 02/03/17 10:21 40 MG Acetaminophen (Tylenol Tab) 650 mg Q4H PRN PO 01/31/17 23:30 03/02/17 23:29 02/04/17 05:17 650 MG Insulin Aspart (novoLOG ASPART) SLIDING SCALE If C... ACHS SC 02/01/17 06:30 03/03/17 06:59 02/04/17 08:26 2 UNITS Glucose (Glucose 40% Gel) 15-30 GRAMS 15 GRAMS... UD PRN PO 01/31/17 23:30 03/02/17 23:29 Glucose (Glucose Chew Tab) 4-8 Tablets 4 Tabl... UD PRN PO 01/31/17 23:30 03/02/17 23:29 Dextrose (Dextrose 50% 50ML Syringe) 25-50ML OF 50% DW IV FOR... UD PRN IV 01/31/17 23:30 03/02/17 23:29 Glucagon (Glucagon Inj) 1 mg UD PRN SQ 01/31/17 23:30 03/02/17 23:29 Ferrous Sulfate (Feosol Tab) 325 mg DAILY PRN PO 01/31/17 23:30 03/02/17 23:29 Fluticasone Propionate (Flonase Nasal [place]) 2 sprays DAILY MARCIA 02/01/17 09:00 03/03/17 08:59 02/04/17 07:46 2 SPRAYS Insulin Glargine (Lantus Solostar Pen) 10 unit BID SQ 02/01/17 09:00 03/03/17 08:59 02/04/17 08:27 10 UNIT Losartan Potassium (coZAAR TAB) 25 mg HS PO 02/01/17 21:00 03/03/17 20:59 02/03/17 20:50 25 MG Montelukast Sodium (Singulair Tab) 10 mg DAILY PO 02/01/17 09:00 03/03/17 08:59 02/04/17 07:47 10 MG Budesonide (Pulmicort Inhaler) 4 puffs BID INH 02/01/17 09:00 03/03/17 08:59 02/04/17 07:45 4 PUFFS Pantoprazole Sodium (Protonix Tab) 40 mg QAM PO 02/01/17 09:00 03/03/17 08:59 02/04/17 07:47 40 MG Lactobacillus Acidophilus (Floranex Tab) 4 tab DAILY PO 02/01/17 09:00 03/03/17 08:59 02/04/17 07:46 4 TAB Miscellaneous Information (Order Awaiting Action) 1 ea QS N/A 02/01/17 08:00 03/03/17 07:59 Hydroxyzine HCl (Vistaril Tab) 10 mg Q6H PRN PO 01/31/17 23:30 03/02/17 23:29 Morphine Sulfate (MoRPHine SULFATE INJ) 2 mg Q8H PRN IV 01/31/17 23:30 02/14/17 23:29 02/03/17 20:47 2 MG Ipratropium [place] (Atrovent 0.02% 0.5MG/2.5ML Neb) 0.5 mg Q4H PRN INH 02/01/17 00:15 03/03/17 00:14 Levalbuterol (Xopenex 1.25MG/ 0.5ML Neb) 1.25 mg Q4H PRN INH 02/01/17 00:15 03/03/17 00:14 Heparin Sodium (Porcine) (Heparin 100 Unit/ml 5ml Flush) 5 ml PRN PRN IV 02/01/17 12:15 03/03/17 12:14 02/04/17 05:50 5 ML Linezolid (Zyvox Tab) 600 mg BID PO 02/03/17 21:00 02/13/17 20:59 02/04/17 07:48 600 MG Objective Vital Signs Date Time Temp Pulse Resp B/P Pulse Ox O2 Delivery O2 Flow Rate FiO2 02/04/17 08:00 Nasal Cannula 2.0 CPAP 02/04/17 07:39 36.6 84 19 141/79 91 Room Air 02/04/17 00:57 Nasal Cannula 2.0 02/04/17 00:44 36.9 79 18 109/52 92 BiPAP 02/03/17 20:12 Nasal Cannula 2.0 02/03/17 16:00 Nasal Cannula 2.0 02/03/17 15:56 36.6 79 18 134/79 93 Nasal Cannula 2.0 Physical Exam General Appearance: no apparent distress, + obese Respiratory/Chest: lungs clear, normal breath sounds, no respiratory distress, no accessory muscle use Cardiovascular: regular rate, rhythm Extremities: + swelling (+1-2 pitting edema b/l LE; chronic venous stasis dermatitis), + pertinent finding Neurologic/Psychiatric: no motor/sensory deficits, alert, normal mood/affect Laboratory Results Last 24 Hours Test 02/03/17 11:18 02/03/17 16:37 02/03/17 21:41 02/04/17 05:50 Bedside Glucose 249 mg/dl 150 mg/dl 160 mg/dl White Blood Count 6.25 K/uL Red Blood Count 3.69 M/uL Hemoglobin 11.4 g/dL Hematocrit 35.2 % Mean Corpuscular Volume 95.4 fL Mean Corpuscular Hemoglobin 30.9 pg Mean Corpuscular Hemoglobin Concent 32.4 g/dl Platelet Count 163 K/uL Mean Platelet Volume 10.0 fL Neutrophils (%) (Auto) 54.9 % Lymphocytes (%) (Auto) 31.7 % Monocytes (%) (Auto) 10.2 % Eosinophils (%) (Auto) 2.7 % Basophils (%) (Auto) 0.2 % Neutrophils # (Auto) 3.43 K/uL Lymphocytes # (Auto) 1.98 K/uL Monocytes # (Auto) 0.64 K/uL Eosinophils # (Auto) 0.17 K/uL Basophils # (Auto) 0.01 K/uL RDW Standard Deviation 50.8 fL RDW Coefficient of Variation 14.5 % Immature Granulocyte % (Auto) 0.3 % Immature Granulocyte # (Auto) 0.02 K/uL Creatinine 1.00 mg/dl Est Creatinine Clear Calc Drug Dose 65.0 ml/min Estimated GFR () 68.5 Estimated GFR (Non- 59.1 Test 02/04/17 07:29 Bedside Glucose 131 mg/dl Assessment and Plan This is a 66 year old obese female with a PMH of severe COPD and chronic respiratory failure, renal cell CA s/p chemotherapy, insulin-dependent DM2 with peripheral neuropathy/nephropathy, hx. of unilateral nephrectomy, CKD stage 3, hx. of DVT presents secondary to bacteremia Bacteremia +coag negative staph patient was in the ER on 01/30 due to abdominal pain at that time, one set of cultures obtained from [facility] she was sent home with Cipro for possible UTI, and the culture returned positive for coag negative staph she was told to return back to the ER due to the bacteremia no white count, afebrile, hemodynamically stable; possibly secondary to UTI was initially started on Vancomycin, but developed a rash, switched to Daptomycin appreciate ID input, will switch Dapto to Zyvox on discharge for a total of 14 days echo = no vegetation d/c planning back to [facility] today (02/04) Insulin Dependent DM2 Lantus 10 units BID sliding scale last Ha1c ~ 8% COPD/chronic respiratory failure no acute exacerbation chronically on 2L of O2, which we will continue continue home inhalers SAMANTHA continue nocturnal CPAP HTN continue home meds, BP stable CKD stage 3 secondary to unilateral nephrectomy and DM2 creatinine is stable avoid nephrotoxic agents when able continue Cozaar DVT ppx Lovenox FULL CODE d/c back to [facility] today Discharge planning: home
--- NOTE | 2017-02-04 11:20 | Discharge Summary ---
Discharge Summary Date of Service February 04, 2017. Discharge Summary Admission Date: January 31, 2017 at 23:00 Discharge Date: February 04, 2017 Discharge Disposition: Home Principal Diagnosis: Gram Positive Bacteremia COPD/chronic respiratory failure Insulin Dependent DM2 Obesity Medication Reconciliation New Medications: Linezolid (Zyvox) 600 Mg Tab 1 TAB PO BID for 14 Days, #28 TAB Continued Medications: Albuterol Hfa (Ventolin Hfa) 200 Puffs/87839 Mcg Aers 2 PUFFS INH Q4, #18 Budesonide (Inhalation) (Pulmicort Flexhaler) 180 Mcg/Act Inh 2 PUFFS INH BID, #1 Cholecalciferol (Vitamin D3) 1,000 Unit Cap 2000 UNIT PO DAILY Ferrous Sulfate (Ferrous Sulfate) 325 Mg Tab 325 MG PO DAILY PRN for FINGERS GET SORE Fluocinonide (Fluocinonide) 20 Appln/20 Ml Soln 1 APPLN TOP BID, #60 Fluticasone Propionate (Nasal) (Flonase) 50 Mcg/Act Spr 2 SPRAYS MARCIA DAILY Furosemide (Lasix) 20 Mg Tab 20 MG PO DAILY, TAB Heparin Sodium (Porcine) Lock (Heparin Lock Flush For Fl) 100 Unit/Ml Inj 5 ML IV q6wks APORT FLUSH Insulin Aspart (Novolog Flexpen) 100 Units/Ml Inj SQ PC, #15 CARB COUNT Insulin Glargine (Lantus Solostar) 100 Unit/Ml Inj 20 UNITS SQ HS, #15 Losartan Potassium (Losartan Potassium) 25 Mg Tab 25 MG PO HS, #30 Magnesium Oxide (Mag-Ox) 400 Mg Tab 400 MG PO DAILY, TAB Montelukast Sodium (Singulair) 10 Mg Tab 10 MG PO DAILY, TAB Nystatin (Nystatin Cream) 90 Appln/30 Gm Cr 1 APPLN TOP BID, #15 ORDERED 01/06/2017, FOR 2 WEEKS Omeprazole (Prilosec) 20 Mg Cap 20 MG PO DAILY, CAP Oxycodone/Acetaminophen 5MG/325MG (Percocet 5MG/325MG) Tab 1 TABLET PO Q6H PRN for Pain, TAB PAIN Oxygen (Oxygen) Gas 2 LITERS NA CONTINOUS Probiotic Product (Probiotic) 1 Cap Cap 1 CAP PO d Umeclidinium [place] (Incruse Ellipta) 62.5 Mcg/Inh Inh 1 PUFF INH DAILY Discontinued Medications: Nitrofurantoin Monohyd Macrocr (Macrobid) 100 Mg Cap 100 MG PO BID for 7 Days, #14 CAP Trazodone Hcl (Trazodone) 50 Mg Tab 50 MG PO HS, #30 Admission Information HPI (per Admitting provider): DATE OF ADMISSION: 01/31/2017 PRIMARY CARE DOCTOR: Dr. Palomares CHIEF COMPLAINT: Abnormal blood work. HISTORY OF PRESENT ILLNESS: History was obtained from patient and patient's records. Medical history is significant for chronic respiratory failure secondary to COPD on home O2, SAMANTHA on CPAP, COPD, past tobacco abuse as per records, hypertension, DM2 insulin requiring, history of mood disorder, history of DVT (no anticoagulation secondary to concurrent GI bleed at time of diagnosis), history of uroepithelial cancer, L status post surgery. Recent confinement last in 2014 for sepsis secondary to pneumonia and C. diff. Patient was confined for 6 weeks. A few days history of chills, cough symptoms productive of yellow sputum, px denies aspiration although admits to some choking w/ meals if she's not careful. no chest pain, no shortness of breath. Patient also noted achy abdominal/flank pain, some nausea. No emesis, no dysuria. Seen at PCP's office. WBC est in UA, no urine CS done. Initially was given Cipro for possible UTI. Patient was sent to the Emergency Room yesterday. Lactic acid was noted to be 2.14. UA was normal. CAT scan of the abdomen and pelvis showed hepatomegaly and severe hepatic steatosis, status post left nephrectomy and colonic diverticulosis. No acute infectious or inflammatory findings. [facility] secondary to patient's refusal to have peripheral blood draw. Patient was sent home. Initial growth gram positive cocci this AM. Patient requested to proceed to the Emergency Room. Received IV Vancomycin in the Emergency Room. MEDICAL HISTORY: As above. SURGERIES: She has had urologic procedures, A-port placement, knee surgery, cholecystectomy, tonsillectomy, appendectomy, hysterectomy, oophorectomy, nephrectomy with total ureterectomy HOME MEDICATIONS: Include; Ventolin, Pulmicort, vitamin D3, ferrous sulfate, Flonase, Lasix, fluocinonide, NovoLog, Lantus, SoloSTAR, losartan, Singulair, mag ox, Nystatin, Prilosec, Percocet, Oxicorte oxygen, probiotic, Phenergan, trazodone and Ellipta. ALLERGIES: TO ADHESIVES, IBUPROFEN, FLAGYL, ZOFRAN, PENICILLIN AND SULFA. FAMILY HISTORY: Heart disease and diabetes. PERSONAL AND SOCIAL HISTORY: Past tobacco abuse. No chronic intake of alcoholic beverages. 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 REVIEW OF SYSTEMS: As per HPI. All other ROS negative. PHYSICAL EXAMINATION: VITAL SIGNS: Blood pressure was noted to be 141/77, pulse rate 114, RR 20, temperature 37 sats 97 on two liters. GENERAL: Noted to be obese, uncomfortable, anxious, in no respiratory distress. SKIN: Normal color. HEENT: [place] palpebral conjunctivae. Dry mucosa. NECK: Short neck. LUNGS: Decreased breath sounds. HEART: Tachycardic. ABDOMEN: nonspecific tenderness on light palpation. EXTREMITIES: Minimal LE edema. no tenderness NEUROLOGIC: No gross focality. LABORATORIES: Hemoglobin is 12.6, WBC 8 platelets 167. Sodium 142 K 3.8 chloride 105, CO2 26, BUN 70, creatinine 1 and glucose 188. LFTs, lipase normal. Hemoglobin A1c in January 2017 was 8.1. Chest x-ray; showed atelectasis and cardiomegaly. EKG as per my interpretation; rate 105, sinus tachycardia, negative ischemia. ASSESSMENT: 1. Gram positive bacteremia. One bottle contaminant versus real pathogen px not septic possible sources : vascular device (A-port), endocarditis hx MRSA as per records. 2. Complicated bronchitis, no sepsis. 3. abdominal pain possibly from muscle wall pain from coughing sx 4. Recent urinary tract infection resolved w/ outpatient Cipro course. 5. chronic resp failure secondary to chronic obstructive pulmonary disease on home oxygen'/ SAMANTHA on CPAP pulmonary status at baseline 6. HTN, slightly elevated 7. hx uroepithelial CA sp surgery 8. DM2, insulin requiring, suboptimal control as of recent HgA1c. 9. History of deep vein thrombosis. No anticoagulation in the past secondary to some GI bleed 10. hx Cdificile as per records, 11. past tobacco abuse. PLAN: GMF ff Repeat blood cultures. IV Vancomycin for now for bacteremia Doxycycline for complicated bronchitis. Basal insulin, ISS BG goal 140-180. carb count coverage indicated for suboptimal blood sugar control. DVT prophylaxis, with Lovenox subQ. Full code. ADDENDUM: Upon arrival at the floor, patient was noted to have pruritic rash on the face. Possible vancomycin allergy Benadryl stat Discontinue vancomycin for now IV Daptomycin for now. Hospital Course This is a 66 year old obese female with a PMH of severe COPD and chronic respiratory failure, renal cell CA s/p chemotherapy, insulin-dependent DM2 with peripheral neuropathy/nephropathy, hx. of unilateral nephrectomy, CKD stage 3, hx. of DVT presents secondary to bacteremia Bacteremia +coag negative staph patient was in the ER on 01/30 due to abdominal pain at that time, one set of cultures obtained from A-port she was sent home with Cipro for possible UTI, and the culture returned positive for coag negative staph she was told to return back to the ER due to the bacteremia no white count, afebrile, hemodynamically stable; possibly secondary to UTI was initially started on Vancomycin, but developed a rash, switched to Daptomycin appreciate ID input, will switch Dapto to Zyvox on discharge for a total of 14 days echo = no vegetation d/c planning back to [facility] today (02/04) Insulin Dependent DM2 Lantus 10 units BID sliding scale last Ha1c ~ 8% COPD/chronic respiratory failure no acute exacerbation chronically on 2L of O2, which we will continue continue home inhalers SAMANTHA continue nocturnal CPAP HTN continue home meds, BP stable CKD stage 3 secondary to unilateral nephrectomy and DM2 creatinine is stable avoid nephrotoxic agents when able continue Cozaar DVT ppx Lovenox FULL CODE [facility] Discharge planning: home Total time spent on discharge = 40 minutes This includes examination of the patient, discharge planning, medication reconciliation, and communication with other providers. Discharge Instructions HOSPITAL FOLLOW UP ON 02/06/2017 @ 1:[address] Bill Palomares MD Family Practice [facility] Additional Copies To Bill Palomares M.D.(ROSEANNE)
[2017-02-04 12:46] VITALS: BP 141/79; PULSE 84; TEMP 36.6; O2SAT 91
--- NOTE | 2017-02-11 08:45 | EDITING REQUIRED CODING QUERY ---
CODING QUERY Dear Dr. Vincent, To promote full compliance with coding requirements relating to patient care, provider participation is requested in all cases of limited radiology technician uncertainty. Please assist us with the question(s) below: Please allison all that apply by placing an (x) in the parentheses. Coding Question(s): Complication ( ) Complication of A-Port ( ) Not a complication of A-Port ( ) Other: Please explain (X ) Unable to determine Medical documentation: ASSESSMENT: 1. Gram positive bacteremia. One bottle contaminant versus real pathogen px not septic possible sources : vascular device (A-port), endocarditis hx MRSA as per records. Bacteremia +coag negative staph patient was in the ER on 01/30 due to abdominal pain at that time, one set of cultures obtained from A-port she was sent home with Cipro for possible UTI, and the culture returned positive for coag negative staph she was told to return back to the ER due to the bacteremia no white count, afebrile, hemodynamically stable; possibly secondary to UTI was initially started on Vancomycin, but developed a rash, switched to Daptomycin appreciate ID input, will switch Dapto to Zyvox on discharge for a total of 14 days Physician's Response(s): Thank you for your time. Hetal Bowden [facility] Principal Diagnosis: "_that condition established after study, to be chiefly responsible for occasioning the admission of the patient to the hospital for care." Co-Existing Principal Diagnosis: "_when two or more diagnoses equally meet the criteria for principal diagnosis as determined by the circumstances of admission, diagnostic work up, and/or therapy provided, and the Alphabetic Index, Tabular List, or another coding guideline does not provide sequencing direction, any one of the diagnoses may be sequenced first." "When the physician has documented what appears to be a current diagnosis in the body of the record, but has not included the diagnosis in the final diagnostic statement, the physician should be asked whether the diagnosis should be added." (Source Coding Clinic 2 QTR90. p3-4)
[2017-03-14] MEDS ORDERED: IMD2X PO (13:21)
== END 2017-02-04 13:15 | disposition home or self-care (01) | DRG 872 ==
LOC: ENRESERVDT → ENRESERVTM → C.EDB 19:19 → C.MS2W 23:00
PROVIDERS: ADMIT Hospitalist; ATTEND Family Medicine
DX: R78.81 Bacteremia (principal); N39.0 Urinary tract infection, site not specified; Z68.41 Body mass index [BMI] 40.0-44.9, adult; J96.10 Chronic respiratory failure, unspecified whether with hypoxia or hypercapnia; I38 Endocarditis, valve unspecified; E66.9 Obesity, unspecified; J40 Bronchitis, not specified as acute or chronic; J44.9 Chronic obstructive pulmonary disease, unspecified; E11.42 Type 2 diabetes mellitus with diabetic polyneuropathy; E11.22 Type 2 diabetes mellitus with diabetic chronic kidney disease; N18.3 Chronic kidney disease, stage 3 (moderate); T36.8X5A Adverse effect of other systemic antibiotics, initial encounter; G47.33 Obstructive sleep apnea (adult) (pediatric); Z99.89 Dependence on other enabling machines and devices; I12.9 Hypertensive chronic kidney disease with stage 1 through stage 4 chronic kidney disease, or unspecified chronic kidney disease; R21 Rash and other nonspecific skin eruption; Z87.891 Personal history of nicotine dependence; B95.5 Unspecified streptococcus as the cause of diseases classified elsewhere; B95.62 Methicillin resistant Staphylococcus aureus infection as the cause of diseases classified elsewhere; Z86.718 Personal history of other venous thrombosis and embolism; Z86.19 Personal history of other infectious and parasitic diseases; Z95.828 Presence of other vascular implants and grafts; Z53.29 Procedure and treatment not carried out because of patient's decision for other reasons; Z92.21 Personal history of antineoplastic chemotherapy; Z85.54 Personal history of malignant neoplasm of ureter; Z85.51 Personal history of malignant neoplasm of bladder; Y92.238 Other place in hospital as the place of occurrence of the external cause; B37.3 Candidiasis of vulva and vagina; Z90.5 Acquired absence of kidney; Z83.3 Family history of diabetes mellitus; Z82.49 Family history of ischemic heart disease and other diseases of the circulatory system; Z84.1 Family history of disorders of kidney and ureter

== ENCOUNTER → 2017-02-17 | Outpatient (CLI) | payer OTHER ==
[~2017-02-17] MED LIST changes: -CPR500HP PO; +FLUT0.15 NAE; +IMD2X PO; +LINE1TAB7 PO; -NITR-5 PO; -PROM25TA9 PO; -TRAM-10 PO; -TRAZ50TA35 PO
== END | disposition home or self-care (01) ==
LOC: C.LABSPEC 11:30
PROVIDERS: ATTEND Internal Medicine Infectious Disease
DX: R19.5 Other fecal abnormalities (principal)

== ENCOUNTER 2017-03-01 13:31 | Inpatient (IN) | payer OTHER ==
[~2017-03-01] VITALS: Ht 157.5 cm; Wt 148.5 kg
[~2017-03-01 13:31] MED LIST changes: -FLUT0.15 NAE; -IMD2X PO
[2017-03-01] MEDS ORDERED: FLUT0.15 NAE (13:59)
[2017-03-01] MEDS ORDERED: CEFEPIME IV 2,000 MG in DEXTROSE 5% 100ML 100 ML IV STA (14:05)
[2017-03-01] MEDS ORDERED: SODIUM CHLORIDE 0.9% 1000ML 500 ML IV ONE (14:05)
[2017-03-01] MEDS ORDERED: ALBUT/IPRATROP 3MG/0.5MG NEB 3 ML VIAL INH STA (14:05)
[2017-03-01 14:59] LABS: CALCIUM 8.9 mg/dl (8.5-10.1); CREATININE 1.1 mg/dl (0.60-1.20); POTASSIUM 4.2 mmol/L (3.5-5.1)
[2017-03-01 15:00] LABS: PARTIAL THROMBOPLASTIN RATIO 1.2; PROTHROMBIN TIME (PATIENT) 10.6 SECONDS (9.0-12.0)
[2017-03-01 15:02] LABS: ALB/GLOB RATIO 0.9 (0.9-2); BASO % 0.3 %; BASO ABS # 0.02 K/uL (0-0.2); COMPLETE YES; EOS % 1.7 %; HEMATOCRIT 36.9 % (37-47); IG% 0.3 %; LYMPH % 20.6 %; LYMPH ABS # 1.55 K/uL (1.2-3.4); MEAN CELL VOLUME 93.9 fL (80-100); MEAN CORPUSCULAR HEMOGLOBIN 29.5 pg (25-34); MEAN CORPUSCULAR HGB CONC 31.4 g/dl (32-36); MEAN PLATELET VOLUME 9.8 fL (7.4-10.4); MONO % 8.1 %; PLATELET COUNT 172 K/uL (130-400); RED BLOOD COUNT 3.93 M/uL (4.2-5.4); WHITE BLOOD COUNT 7.53 K/uL (4.8-10.8)
--- NOTE | 2017-03-01 15:04 | DIAGNOSTIC IMAGING REPORT ---
CHEST ONE VIEW PORTABLE CLINICAL HISTORY: Sepsis COMPARISON STUDY: 02/02/2017. FINDINGS: mild stable cardiomegaly. Central catheter in superior vena cava. Pulmonary vasculature is prominent. IMPRESSION: Stable cardiomegaly. Chronic change. Electronically signed by: Keith Johns M.D. 03/01/2017 3:02 PM Dictated Date/Time: 03/01/2017 3:01 PM
--- NOTE | 2017-03-01 15:05 | EMERGENCY ROOM VISIT NOTE ---
History Report prepared by Martha: Yonny Ewing Under the Supervision of: Dr. Vasiliy Gonzalez M.D. First contact with patient: 13:55 Chief Complaint: OTHER COMPLAINT Stated Complaint: BACTERIA IN BLOOD History of Present Illness The patient is a 66 year old female who presents to the Emergency Room with complaints of persistent bacteremia. She was found to have coag negative staph by blood culture on January 31 as well as February 01. Both bottles were found to have grown out coag negative staph. She was hospitalized for her symptoms at the time. The patient states that the infection never went away and that she was found to have the same organism by blood culture which was drawn two days ago. She states that she was on antibiotics for two weeks following her initial diagnosis, and finished the treatment about two weeks ago. Her symptoms include abdominal pain, urinary symptoms, chills, SOB, nausea, diaphoresis, cough, and pelvic pain. The patient feels that she likely has had a fever, but has not taken her temperature. She has a history of COPD and asthma. She wears 2 L of oxygen at home by nasal canula. The patient denies any vomiting or chest pain. She notes that she gets UTI's frequently. She states that she has been eating normally. The patient has a history of a nephrectomy due to cancer, but is currently cancer free. Source of History: patient Quality: other (bacteremia) Timing: other (persistent) Associated Symptoms: + fevers (subjective), + chills, + diaphoresis, + cough , + SOB, + nausea, + abdominal pain, + urinary symptoms, No chest pain, No vomiting Note: The patient's symptoms include pelvic pain. Review of Systems See HPI for pertinent positives & negatives. A total of 10 systems reviewed and were otherwise negative. Past Medical & Surgical Medical Problems: (1) Bacteremia (2) History of bladder cancer (3) History of cancer (4) Malignant neoplasm of ureter (5) Tachycardia Surgical Problems: (1) History of nephrostomy Family History Diabetes mellitus FHx: cancer FHx: lung disease Hypertension Kidney disease Kidney stones Social History Smoking Status: Former Smoker Drug Use: none Marital Status: single Housing Status: lives alone Occupation Status: unemployed, disabled Current/Historical Medications Scheduled Albuterol Hfa (Ventolin Hfa), 2 PUFFS INH Q4 Budesonide (Inhalation) (Pulmicort Flexhaler), 2 PUFFS INH BID Cholecalciferol (Vitamin D3), 2,000 UNIT PO HS Fluocinonide (Fluocinonide), 1 APPLN TOP BID Fluticasone Propionate (Nasal) (Flonase Allergy Relief), 2 SPRAY MARCIA DAILY Furosemide (Lasix), 20 MG PO DAILY Heparin Sodium (Porcine) Lock (Heparin Lock Flush For Fl), 5 ML IV q6wks Home O2 Therapy (Oxygen), 2 LITERS NA CONTINOUS Insulin Aspart (Novolog Flexpen), SQ PC Insulin Glargine (Lantus Solostar), 10 UNITS SQ HS Losartan Potassium (Losartan Potassium), 25 MG PO HS Montelukast Sodium (Singulair), 10 MG PO HS Nystatin (Nystatin Cream), 1 APPLN TOP BID Omeprazole (Prilosec), 20 MG PO DAILY Probiotic Product (Probiotic), 1 CAP PO DAILY Umeclidinium [place] (Incruse Ellipta), 1 PUFF INH DAILY Scheduled PRN Ferrous Sulfate (Ferrous Sulfate), 325 MG PO DAILY PRN for FINGERS GET SORE Oxycodone/Acetaminophen 5MG/325MG (Percocet 5MG/325MG), 1 TABLET PO Q6H PRN for Pain Allergies Coded Allergies: Penicillins (Verified Allergy, Severe, THROAT CLOSES, 09/04/16) TIGIST. PRIMAXIN 01/2015 ADMISSION Metronidazole (Verified Allergy, Intermediate, hives/rash, 09/04/16) Ondansetron (Verified Allergy, Intermediate, hives, 09/04/16) Vancomycin (Verified Allergy, Mild, RASH, 02/01/17) itchy rash Adhesives (Verified Allergy, Unknown, SKIN BLISTERING, 09/04/16) Sulfa Antibiotics (Verified Allergy, Unknown, Rash, 09/04/16) Ibuprofen (Verified Adverse Reaction, Intermediate, RECTAL BLEEDING, 09/04) Physical Exam Vital Signs Date Time Temp Pulse Resp B/P (MAP) Pulse Ox O2 Delivery O2 Flow Rate FiO2 03/01/17 15:39 Nasal Cannula 2.0 03/01/17 15:31 101 24 160/80 96 Nasal Cannula 2.0 03/01/17 14:34 94 Nasal Cannula 2.0 03/01/17 13:38 37.1 110 22 164/84 93 Nasal Cannula 2.0 Physical Exam GENERAL: Patient is in no acute distress. HEENT: No acute trauma, normocephalic atraumatic, mucous membranes moist, no nasal congestion, no scleral icterus. NECK: No stridor, no adenopathy, no meningismus, trachea is midline. LUNGS: Wheezing bilaterally. No respiratory distress. Breath sounds are equal. HEART: Without murmurs gallops or rubs, regular rate and rhythm. ABDOMEN: Soft, nontender, bowel sounds positive, no hernias, no peritonitis. EXTREMITIES: No cyanosis, full range of motion of all the joints without pain or difficulty, no signs for acute trauma. Mild bilateral pedal edema with chronic skin changes. No active cellulitis. NEUROLOGIC: Oriented x 3, no acute motor or sensory deficits, no focal weakness. SKIN: No rash, no jaundice, no diaphoresis. Medical Decision & Procedures ER Provider Diagnostic Interpretation: X-ray results as stated below per interpretation by me and the radiologist: CHEST ONE VIEW PORTABLE FINDINGS: mild stable cardiomegaly. Central catheter in superior vena cava. Pulmonary vasculature is prominent. IMPRESSION: Stable cardiomegaly. Chronic change. Electronically signed by: Keith Johns M.D. Laboratory Results 03/01/17 14:30 Red Blood Count 3.93, Mean Corpuscular Volume 93.9, Mean Corpuscular Hemoglobin 29.5, Mean Corpuscular Hemoglobin Concent 31.4, Mean Platelet Volume 9.8, Neutrophils (%) (Auto) 69.0, Lymphocytes (%) (Auto) 20.6, Monocytes (%) (Auto) 8.1, Eosinophils (%) (Auto) 1.7, Basophils (%) (Auto) 0.3, Neutrophils # (Auto) 5.20, Lymphocytes # (Auto) 1.55, Monocytes # (Auto) 0.61, Eosinophils # (Auto) 0.13, Basophils # (Auto) 0.02 03/01/17 14:30 Test 03/01/17 14:30 03/01/17 14:40 White Blood Count 7.53 K/uL (4.8-10.8) Red Blood Count 3.93 M/uL (4.2-5.4) Hemoglobin 11.6 g/dL (12.0-16.0) Hematocrit 36.9 % (37-47) Mean Corpuscular Volume 93.9 fL (80-100) Mean Corpuscular Hemoglobin 29.5 pg (25-34) Mean Corpuscular Hemoglobin Concent 31.4 g/dl (32-36) Platelet Count 172 K/uL (130-400) Mean Platelet Volume 9.8 fL (7.4-10.4) Neutrophils (%) (Auto) 69.0 % Lymphocytes (%) (Auto) 20.6 % Monocytes (%) (Auto) 8.1 % Eosinophils (%) (Auto) 1.7 % Basophils (%) (Auto) 0.3 % Neutrophils # (Auto) 5.20 K/uL (1.4-6.5) Lymphocytes # (Auto) 1.55 K/uL (1.2-3.4) Monocytes # (Auto) 0.61 K/uL (0.11-0.59) Eosinophils # (Auto) 0.13 K/uL (0-0.5) Basophils # (Auto) 0.02 K/uL (0-0.2) RDW Standard Deviation 51.6 fL (36.4-46.3) RDW Coefficient of Variation 15.3 % (11.5-14.5) Immature Granulocyte % (Auto) 0.3 % Immature Granulocyte # (Auto) 0.02 K/uL (0.00-0.02) Prothrombin Time 10.6 SECONDS (9.0-12.0) Prothromb Time International Ratio 1.0 (0.9-1.1) Activated Partial Thromboplast Time 29.9 SECONDS (21.0-31.0) Partial Thromboplastin Ratio 1.2 Anion Gap 8.0 mmol/L (3-11) Est Creatinine Clear Calc Drug Dose 67.7 ml/min Estimated GFR () 61.0 Estimated GFR (Non- 52.6 BUN/Creatinine Ratio 16.0 (10-20) Calcium Level 8.9 mg/dl (8.5-10.1) Total Bilirubin 0.7 mg/dl (0.2-1) Aspartate Amino Transf (AST/SGOT) 51 U/L (15-37) Alanine Aminotransferase (ALT/SGPT) 38 U/L (12-78) Alkaline Phosphatase 72 U/L (45-117) Total Protein 7.0 gm/dl (6.4-8.2) Albumin 3.3 gm/dl (3.4-5.0) Globulin 3.7 gm/dl (2.5-4.0) Albumin/Globulin Ratio 0.9 (0.9-2) Bedside Lactic Acid Venous 2.32 mmol/L (0.90-1.70) Laboratory results reviewed by me. Medications Administered Medications (Trade) Dose Ordered Sig/Amandeep Route Start Time Stop Time Status Last Admin Dose Admin Sodium Chloride 500 ml @ 999 mls/hr Q31M ONCE IV 03/01/17 14:05 03/01/17 14:35 DC 03/01/17 14:39 999 MLS/HR Cefepime HCl 2000 mg/Dextrose 112.5 ml @ 200 mls/hr ONE STAT IV 03/01/17 14:05 03/01/17 14:38 DC 03/01/17 14:47 200 MLS/HR Albuterol/ Ipratropium (Duoneb) 3 ml NOW STAT INH 03/01/17 14:05 03/01/17 14:09 DC 03/01/17 14:37 3 ML ED Course 1401: The patient was evaluated in room C6. A complete history and physical exam was performed. 1405: Ordered DuoNeb 3 mL INH, Cefepime HCl 2000 mg/Dextrose 112.5 mL @ 200 mL/ hr IV, Sodium Chloride 500 ml @ 999 mls/hr IV. 1422: Upon reexamination the patient is resting comfortably. I discussed results and treatment plan with the patient. She verbalizes agreement and understanding. The patient will be evaluated for further management. Medical Decision The patient is a 66 year old female who presents to the ED with complaints of bacteremia. Differential diagnoses considered include cellulitis, UTI, endocarditis, infected port, renal failure, electrolyte imbalance, pneumonia, sepsis, and bacteremia. There is no leukocytosis or concerning anemia. No significant electrolyte abnormality, kidney failure or hepatitis. Lactic acid level is elevated, this makes infection/sepsis more likely. There was no coagulopathy. Chest x-ray does not show pneumonia. Urinalysis result is currently pending. Blood cultures are pending. I did review the blood culture results from the outpatient setting from just a few days ago, all cultures grew coag negative staph. The patient received IV saline, she was given IV cefepime. Because of her wheezing, she was given a DuoNeb. The patient is in need of hospitalization. She requires IV antibiotic therapy. She appears to have bacteremia, the source of the bacteremia is unclear. I spoke to case management. The on-call hospitalist was consulted. Blood Pressure Screening: Patient was found to have an elevated blood pressure and was referred to their primary doctor for recheck and further treatment. Medication Reconciliation: I attest that I have personally reviewed the patient' s current medication list. Consults Time Called: [id number] Consulting Physician: Vasiliy Rodgers Returned Call: [phone] Discussed the patient's case. The patient will be evaluated for further management. Impression Primary Impression: Bacteremia Scribe Attestation The scribe's documentation has been prepared under my direction and personally reviewed by me in its entirety. I confirm that the note above accurately reflects all work, treatment, procedures, and medical decision making performed by me. Departure Information Dispostion Being Evaluated By Hospitalist Referrals Bill Palomares M.D.([facility]) (PCP) Patient Instructions [facility]
[2017-03-01 15:39] VITALS: Ht 157.5 cm; Wt 148.5 kg
--- NOTE | 2017-03-01 15:57 | History and Physical ---
History & Physical Date & Time of Service: Mar 01, 2017 at 15:57 Chief Complaint: Bacteria In Blood Primary Care Physician: Bill Palomares M.D.(ROSEANNE) History of Present Illness Source: patient This is a 66 yo F with past medical hx of chronic respiratory failure on 2L home 02 , SAMANTHA on CPAP /Bipap at night , HTN , type 2 DM insulin dependent , hx of DVT not on anticoagulation for GI bleed, hx of urothelial ca s/p chemo . S/P left nephrectomy , CKD stage 3 has A-port placement for difficult blood draw approx 2 yrs back hx of recurrent bacteremia -Gram positive cocci recent discharged form [facility] on February 04 for similar diagnosis -blood culture - coag negative gram positive cocci pt was discharged on PO Zyvox FOR 14 DAYS pt reports of fever and chills for past 1 day had intermittent diarrhea for past 3 days had lab work done at Clinic received call from ID clinic -blood culture growing -bacteria -gram positive cocci pt was asked to come to ED for evaluation in ED , pt was afebrile , normal white count , tachycardic in 100's Lactic acid elevated > 2 Past Medical/Surgical History Medical Problems: (1) History of bladder cancer Status: Chronic (2) History of cancer Status: Chronic (3) Malignant neoplasm of ureter Permanent Comment: Status post Left nephro ureterectomy for urothelial cell carcinoma of the ureter Recurrent disease at the surgical bed Initiation of radiation therapy Extended hospitalization due to PEs and DVT Sepsis as well as Clostridium difficile Resumed radiation therapy Status post completion of radiation therapy 04/18/2015 received 5040 cGy Status: Chronic Surgical Problems: (1) History of nephrostomy Status: Chronic Family History Diabetes mellitus FHx: cancer FHx: lung disease Hypertension Kidney disease Kidney stones Social History Smoking Status: Former Smoker Drug Use: none Marital Status: single Housing status: lives alone Occupational Status: unemployed, disabled Immunizations History of Influenza Vaccine: Yes History of Tetanus Vaccine?: Yes History of Pneumococcal: Yes History of Hepatitis B Vaccine: Yes Multi-Drug Resistant Organisms History of MDRO: Yes Type of MDRO: MRSA Allergies Coded Allergies: Penicillins (Verified Allergy, Severe, THROAT CLOSES, 09/04/16) TIGIST. PRIMAXIN 01/2015 ADMISSION Metronidazole (Verified Allergy, Intermediate, hives/rash, 09/04/16) Ondansetron (Verified Allergy, Intermediate, hives, 09/04/16) Vancomycin (Verified Allergy, Mild, RASH, 02/01/17) itchy rash Adhesives (Verified Allergy, Unknown, SKIN BLISTERING, 09/04/16) Sulfa Antibiotics (Verified Allergy, Unknown, Rash, 09/04/16) Ibuprofen (Verified Adverse Reaction, Intermediate, RECTAL BLEEDING, 09/04) Home Medications Scheduled Albuterol Hfa (Ventolin Hfa), 2 PUFFS INH Q4 Budesonide (Inhalation) (Pulmicort Flexhaler), 2 PUFFS INH BID Cholecalciferol (Vitamin D3), 2,000 UNIT PO HS Fluocinonide (Fluocinonide), 1 APPLN TOP BID Fluticasone Propionate (Nasal) (Flonase Allergy Relief), 2 SPRAY MARCIA DAILY Furosemide (Lasix), 20 MG PO DAILY Heparin Sodium (Porcine) Lock (Heparin Lock Flush For Fl), 5 ML IV q6wks Home O2 Therapy (Oxygen), 2 LITERS NA CONTINOUS Insulin Aspart (Novolog Flexpen), SQ PC Insulin Glargine (Lantus Solostar), 10 UNITS SQ HS Losartan Potassium (Losartan Potassium), 25 MG PO HS Montelukast Sodium (Singulair), 10 MG PO HS Nystatin (Nystatin Cream), 1 APPLN TOP BID Omeprazole (Prilosec), 20 MG PO DAILY Probiotic Product (Probiotic), 1 CAP PO DAILY Umeclidinium [place] (Incruse Ellipta), 1 PUFF INH DAILY Scheduled PRN Ferrous Sulfate (Ferrous Sulfate), 325 MG PO DAILY PRN for FINGERS GET SORE Oxycodone/Acetaminophen 5MG/325MG (Percocet 5MG/325MG), 1 TABLET PO Q6H PRN for Pain Review of Systems Constitutional: + fever, + chills, + sweats, + weakness, + fatigue Eyes: No worsening of vision, No eye pain, No redness, No discharge, No diplopia, No problem reported ENT: No hearing loss, No unusual epistaxis, No nasal symptoms, No sore throat, No tinnitus, No dental problems, No trouble swallowing, No problem reported Respiratory: No cough, No sputum, No wheezing, No shortness of breath, No dyspnea on exertion, No dyspnea at rest, No hemoptysis, No problem reported Cardiovascular: + edema (chronic lower ext edema ), No chest pain, No orthopnea , No PND, No claudication, No palpitations Abdomen: + nausea, + diarrhea Musculoskeletal: + joint pain (pelvic pain ), + muscle pain Genitourinary - Female: + urinary frequency, + urinary urgency Neurologic: + weakness, + numbness/tingling, + vertigo, + balance problems Psychiatric: + depression symptoms Endocrine: + fatigue Physical Exam Vital Signs Date Time Temp Pulse Resp B/P (MAP) Pulse Ox O2 Delivery O2 Flow Rate FiO2 03/01/17 15:39 Nasal Cannula 2.0 03/01/17 15:31 101 24 160/80 96 Nasal Cannula 2.0 03/01/17 14:34 94 Nasal Cannula 2.0 03/01/17 13:38 37.1 110 22 164/84 93 Nasal Cannula 2.0 General Appearance: no apparent distress Eyes: sclerae normal Respiratory/Chest: chest non-tender, lungs clear, normal breath sounds, no respiratory distress Cardiovascular: regular rate, rhythm, + tachycardia Abdomen/GI: normal bowel sounds, non tender, soft Back: no CVA tenderness Extremities/Musculoskelatal: normal capillary refill, + pedal edema (1-2 + edema ) Neurologic/Psych: alert, normal mood/affect, oriented x 3 Skin: normal color, warm/dry, no rash Lymphatic: no adenopathy Diagnostics Laboratory Results Results Past 24 Hours Test 03/01/17 14:30 03/01/17 14:40 Range/Units White Blood Count 7.53 4.8-10.8 K/uL Red Blood Count 3.93 4.2-5.4 M/uL Hemoglobin 11.6 12.0-16.0 g/dL Hematocrit 36.9 37-47 % Mean Corpuscular Volume 93.9 80-100 fL Mean Corpuscular Hemoglobin 29.5 25-34 pg Mean Corpuscular Hemoglobin Concent 31.4 32-36 g/dl Platelet Count 172 130-400 K/uL Mean Platelet Volume 9.8 7.4-10.4 fL Neutrophils (%) (Auto) 69.0 % Lymphocytes (%) (Auto) 20.6 % Monocytes (%) (Auto) 8.1 % Eosinophils (%) (Auto) 1.7 % Basophils (%) (Auto) 0.3 % Neutrophils # (Auto) 5.20 1.4-6.5 K/uL Lymphocytes # (Auto) 1.55 1.2-3.4 K/uL Monocytes # (Auto) 0.61 0.11-0.59 K/uL Eosinophils # (Auto) 0.13 0-0.5 K/uL Basophils # (Auto) 0.02 0-0.2 K/uL RDW Standard Deviation 51.6 36.4-46.3 fL RDW Coefficient of Variation 15.3 11.5-14.5 % Immature Granulocyte % (Auto) 0.3 % Immature Granulocyte # (Auto) 0.02 0.00-0.02 K/uL Prothrombin Time 10.6 9.0-12.0 SECONDS Prothromb Time International Ratio 1.0 0.9-1.1 Activated Partial Thromboplast Time 29.9 21.0-31.0 SECONDS Partial Thromboplastin Ratio 1.2 Sodium Level 139 136-145 mmol/L Potassium Level 4.2 3.5-5.1 mmol/L Chloride Level 104 98-107 mmol/L Carbon Dioxide Level 27 21-32 mmol/L Anion Gap 8.0 3-11 mmol/L Blood Urea Nitrogen 18 7-18 mg/dl Creatinine 1.10 0.60-1.20 mg/dl Est Creatinine Clear Calc Drug Dose 67.7 ml/min Estimated GFR () 61.0 Estimated GFR (Non- 52.6 BUN/Creatinine Ratio 16.0 10-20 Random Glucose 203 70-99 mg/dl Calcium Level 8.9 8.5-10.1 mg/dl Total Bilirubin 0.7 0.2-1 mg/dl Aspartate Amino Transf (AST/SGOT) 51 15-37 U/L Alanine Aminotransferase (ALT/SGPT) 38 12-78 U/L Alkaline Phosphatase 72 45-117 U/L Total Protein 7.0 6.4-8.2 gm/dl Albumin 3.3 3.4-5.0 gm/dl Globulin 3.7 2.5-4.0 gm/dl Albumin/Globulin Ratio 0.9 0.9-2 Bedside Lactic Acid Venous 2.32 0.90-1.70 mmol/L Microbiology Results 03/01/17 Blood Culture, Received Pending 03/01/17 Urine Culture, Received Pending Diagnostic Radiology CHEST ONE VIEW PORTABLE CLINICAL HISTORY: Sepsis COMPARISON STUDY: 02/02/2017. FINDINGS: mild stable cardiomegaly. Central catheter in superior vena cava. Pulmonary vasculature is prominent. IMPRESSION: Stable cardiomegaly. Chronic change. CXR normal Impression Assessment and Plan RECURRENT GRAM POSITIVE BACTEREMIA : recent admission at [facility] 01/31-02/04 for similar diagnosis was discharged on PO Zyvox for 14 days possible source of infection A-port pt is very reluctant to have it removed convinced that her infection could be coming form possible UTI Blood culture on [facility] 02/27/17 : Coag negative staph drawn form A -port MRSA gene detected previous blood cultures in [facility] system: 02/01/17 -Coag negative staph not lugdunensis ; no sensitivity to follow 01/31/17 : Coag negative staph 01/30/17 : Coag negative staph Transthoracic ECHO 02/03/17 : done in last admission was negative for valvular vegetation normal wall motion concentric LV hypertrophy EF> 70 % Grade 1 diastolic dysfunction no valvular vegetation noted pt presents with elevated lactic acid of > 2 , tachycardia admitted to Tele cont IVF empiric Abx with Cefepime and Daptomycin ( pt mentions of having pruritic rash in face in last admission with vancomycin ) repeat blood culture ordered requests for Urine culture ID eval requested -pt is known to Dr Majano CHRONIC HYPOXEMIC RESPIRATORY FAILURE : on 2 L home 02 at baseline,no worsening of hypoxia or SOB pt will cont her Bipap at night for SAMANTHA ordered for PRN neb tx for wheeze TYPE 2 DM insulin dependent recent Hb A1c ~8 cont basal Lantus , insulin SSI HTN : BP stable cont out pt meds -Losartan CKD STAGE 3 : cr at baseline monitor PRP FULL CODE DVT PROPHYLAXIS : moderate risk Sub q heparin DISPOSITION : pt wants to be discharged home when medically stable not interested in Rehab PT/OT eval requested Social service consulted for discharge planning Level of Care Telemetry Advanced Directives Existing Living Will: No Existing Power of Supply Chain Associate: No Resuscitation Status FULL RESUSCITATION VTE Prophylaxis VTE Risk Assessment Done? Y/N: Yes Risk Level: Moderate Given or contraindicated: Unfractionated heparin SQ Additional Copies To Bill Palomares M.D. Bell, Evan T MD (HUGH)
[2017-03-01 17:00] VITALS: BP 176/84; PULSE 98; TEMP 36.5; O2SAT 97
[2017-03-01] MEDS: SODIUM CHLORIDE 0.9% 1000ML 1,000 ML IV SCH (17:00)
[2017-03-01] MEDS ORDERED: MoRPHine SULFATE 2 MG/ML CARP ONE (17:16)
[2017-03-01] MEDS ORDERED: MAGNESIUM HYDROXIDE SUSP 30 ML UDC PO PRN (17:30)
[2017-03-01] MEDS ORDERED: POLYETHYLENE (MIRALAX) 17 GM PACK PO PRN (17:30)
[2017-03-01] MEDS ORDERED: ACETAMINOPHEN 325 MG TAB PO PRN (17:30)
[2017-03-01] MEDS ORDERED: PROMETHAZINE HCL INJ 12.5 MG in SODIUM CHLORIDE 0.9% 50ML 50 ML IV PRN (17:30)
[2017-03-01] MEDS ORDERED: GLUCOSE 10 TABS/TUBE PO PRN (17:30)
[2017-03-01] MEDS ORDERED: GLUCAGON FOR INJ 1 MG VIAL SQ PRN (17:30)
[2017-03-01] MEDS ORDERED: DEXTROSE 50% 50 ML SYR IV PRN (17:30)
[2017-03-01] MEDS ORDERED: ALUMINUM/MAGNESIUM/SIMETH (MAALOX MAX) 30 ML UDC PO PRN (17:30)
[2017-03-01] MEDS ORDERED: NITROGLYCERIN 0.4 MG SL PER TAB CHARGE SL PRN (17:30)
[2017-03-01] MEDS ORDERED: GLUCOSE 40% GEL 15 GM TUBE PO PRN (17:30)
[2017-03-01] MEDS ORDERED: NURSING VERBAL MED ORDER ONE (18:15)
[2017-03-01] MEDS ORDERED: VANCOMYCIN CONSULT ACTIVE PRN (18:30)
[2017-03-01] MEDS ORDERED: VANCOMYCIN INJ 2,800 MG in SODIUM CHLORIDE 0.9% 500ML 500 ML IV ONE (18:30)
[2017-03-01 18:45] VITALS: BP 153/60; PULSE 105; TEMP 36.7; O2SAT 97
[2017-03-01] MEDS ORDERED: ALBUTEROL HFA 8 GM INHALER INH PRN (20:00)
[2017-03-01] MEDS: DAPTOmycin IV 800 MG in SODIUM CHLORIDE 0.9% 50ML 50 ML IV SCH (20:36)
[2017-03-01] MEDS: BUDESONIDE 90 MCG INH INH SCH (20:37)
[2017-03-01] MEDS: NYSTATIN CR 15 GM TUBE EXT SCH (20:37)
[2017-03-01] MEDS: FLUOCINONIDE 0.05% CR 60 GM TUBE EXT SCH (20:37)
[2017-03-01] MEDS: LOSARTAN POTASSIUM 25 MG TAB PO SCH (20:38)
[2017-03-01] MEDS: CHOLECALCIFEROL 1000 INTER.UNIT TAB PO SCH (20:38)
[2017-03-01] MEDS: MONTELUKAST SOD 10 MG TAB PO SCH (20:38)
[2017-03-01] MEDS: INSULIN ASPART 100 UNITS/ML 3 ML PEN SC SCH (20:48)
[2017-03-01] MEDS: HEPARIN SOD 5000 UNIT/0.5 ML CARP SQ SCH (20:49)
[2017-03-01] MEDS: INSULIN GLARGINE SOLOSTAR 100 UNITS/ML 3 ML PEN SQ SCH (20:49)
[2017-03-01] MEDS ORDERED: VANCOMYCIN INJ 1,000 MG in SODIUM CHLORIDE 0.9% 250ML 250 ML IV SCH (21:00)
[2017-03-01] MEDS ORDERED: LEVALBUTEROL/IPRATROPIUM NEB INH SCH (21:00)
[2017-03-01] MEDS ORDERED: IPRATROPIUM BROMIDE NEB SOLN 0.02% 2.5 ML VIAL INH PRN (21:15)
[2017-03-01] MEDS ORDERED: LEVALBUTEROL 1.25MG/0.5ML NEB INH PRN (21:15)
[2017-03-01] MEDS: OXYCODONE/ACETAMINOPHEN 5-325 TAB PO PRN (21:45)
[2017-03-01] MEDS: ZOLPIDEM TARTRATE 5 MG TAB PO PRN (21:45)
[2017-03-01 23:51] VITALS: BP 148/68; PULSE 83; TEMP 36.9; O2SAT 95
[2017-03-02] VITALS (8 sets, daily range): BP systolic 101–144; BP diastolic 54–74; PULSE 76–91; TEMP 36.4–36.9; O2SAT 93–99
[2017-03-02] MEDS: MoRPHine SULFATE 2 MG/ML CARP IV PRN ×3 (01:23→18:42)
[2017-03-02] MEDS: LEVALBUTEROL 1.25MG/0.5ML NEB INH SCH ×2 (02:17→07:34)
[2017-03-02] MEDS: IPRATROPIUM BROMIDE NEB SOLN 0.02% 2.5 ML VIAL INH SCH ×2 (02:17→07:34)
[2017-03-02] MEDS: SODIUM CHLORIDE 0.9% 1000ML 1,000 ML IV SCH (04:23)
[2017-03-02] MEDS: CEFEPIME IV 1,000 MG in DEXTROSE 5% 100ML 100 ML IV SCH ×2 (04:25→16:12)
[2017-03-02] MEDS: HEPARIN SOD 5000 UNIT/0.5 ML CARP SQ SCH ×3 (06:39→22:05)
[2017-03-02] MEDS: FLUOCINONIDE 0.05% CR 60 GM TUBE EXT SCH ×2 (07:14→20:52)
[2017-03-02] MEDS: PANTOprazole SOD 40 MG TAB PO SCH (07:16)
[2017-03-02] MEDS: FUROSEMIDE 20 MG TAB PO SCH (07:17)
[2017-03-02] MEDS: LACTOBACILLUS ACIDOPHILUS (FLORANEX) TAB PO SCH (07:18)
[2017-03-02] MEDS: FLUTICASONE PROPIONATE NA SPR 16 GM BTL NAE SCH (07:19)
[2017-03-02] MEDS: NYSTATIN CR 15 GM TUBE EXT SCH ×2 (07:20→20:54)
[2017-03-02] MEDS: BUDESONIDE 90 MCG INH INH SCH ×2 (07:21→20:50)
[2017-03-02] MEDS: INSULIN ASPART 100 UNITS/ML 3 ML PEN SC SCH ×4 (08:25→21:00)
[2017-03-02] MEDS ORDERED: LACTOBACILLUS ACIDOPHILUS (FLORANEX) TAB PO SCH (09:00)
--- NOTE | 2017-03-02 09:16 | Progress Note ---
Progress Note Date of Service Mar 02, 2017. Progress Note ID Consult Dictated #[id number] A/P: 1. 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
[2017-03-02] MEDS: OXYCODONE/ACETAMINOPHEN 5-325 TAB PO PRN ×2 (13:24→22:03)
--- NOTE | 2017-03-02 13:41 | INFECT. DISEASE CONSULTATION ---
DATE OF CONSULTATION: 03/01/2017 REQUESTING PHYSICIAN: Dr. Walden. HISTORY OF PRESENT ILLNESS: This is a 66-year-old female who was admitted yesterday after I was notified that outpatient blood cultures had returned positive for coagulase negative staph. She did have blood cultures done on the at [facility] and 1 out of 2 sets as of yesterday were positive for coagulase negative staph. The patient does have a history of coagulase negative staph septicemia and was recently treated in January for this. She was treated with IV antibiotics and reportedly went home on Zyvox for 14 days. She was last seen in the infectious disease office with Elizabeth Stinson early in February and her antibiotics were discontinued at that time and plan was for the patient to have repeat blood cultures in 2 weeks to document sterility as there was significant concern that her port was infected; however, she attributed her symptoms to urinary tract infection. These blood cultures in fact were positive again for coagulase negative staph and she was called yesterday and told to come to the Emergency Room for further workup. Blood cultures were obtained yesterday in the Emergency Room at 2:30 and are already positive for GPCs. She is feeling weak and she has episodes of shaking at home. She does believe she has had fevers at home, but she has not taken her temperature. She denies any pain at the port site and again states that she does not want the port to be removed, although she understands that this certainly could be a site of infection and the reason for her recurrent bacteremia. She denies any chest pain, cough or shortness of breath currently. She does have some pelvic pressure and she states she does have frequent urinary tract infections. No urine studies have been done today. She was placed on cefepime and daptomycin and appears to be tolerating this well. She does admit to VANCOMYCIN ALLERGY, but could not specify. Her white blood cell count was normal and she is currently not complaining of any fevers. All remaining review of systems are reviewed and are unremarkable except for as noted. PAST MEDICAL HISTORY: Significant for bladder cancer, kidney cancer, nephrectomy, radiation therapy, history of C. diff. FAMILY HISTORY: Noncontributory. SOCIAL HISTORY: Significant for history of tobacco use. She denies any alcohol or drug use. ALLERGIES: SHE HAS ALLERGY TO PENICILLIN, FLAGYL, ZOFRAN, VANCOMYCIN, ADHESIVES, SULFA AND IBUPROFEN. CURRENT MEDICATIONS: Include Flonase, Lasix, Protonix, Floranex, cefepime, Atrovent, Xopenex, subQ heparin, Cozaar, Singulair, nystatin, Pulmicort, vitamin D, insulin, albuterol, daptomycin, morphine, Percocet, Maalox, milk of magnesia, Ambien, MiraLax. PHYSICAL EXAMINATION: VITAL SIGNS: She is afebrile, pulse 88, respiratory rate is 12, blood pressure is 137/65, oxygen saturation is 98% on 2 liters. GENERAL: She is awake, alert and oriented x3. She is in no acute distress. HEENT: Mucous membranes are moist. Extraocular muscles are intact. HEART: Regular. I do not auscultate a murmur. There is no pain over the port. LUNGS: Clear bilaterally with decreased breath sounds at the bases. ABDOMEN: Soft, nontender, nondistended. There is no lower extremity edema. SKIN: Without rash. LABORATORY STUDIES: CBC reveals a white blood cell count 7.5, hemoglobin 11.6 and platelets are 172. Chemistry panel reveals a sodium of 139, potassium 4.2, chloride 104, bicarbonate 27, BUN 18, creatinine 1.1, glucose is 159. LFTs are within normal limits. Again, blood cultures from the 17th are growing Gram-positive cocci. Repeat blood cultures were ordered this morning and are pending. Urine culture is pending. No urinalysis was obtained. Chest x-ray is negative. ASSESSMENT AND PLAN: 1. 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 Surgical evaluation should be obtained to discuss removal of this as I do not believe she will have cure without a source removal. I strongly doubt that this is from a urine infection. However, I will await results of her urine culture, it this is negative her cefepime will be discontinued.
--- NOTE | 2017-03-02 17:01 | Progress Note ---
Internal Med Progress Note Date of Service: Mar 02, 2017. Provider Documentation: SUBJECTIVE: feels fine , sitting up , reading morning newspaper no fever or chills no episode of diarrhea OBJECTIVE: Vital Signs-as noted below Exam: General-obese , no sign of distress Eyes-sclera non icteric Lungs-diminished Heart-regular S1/S2 Abdomen-soft, non tender Extremities-+ 1 bilat lower ext edema , no tenderness, erythema or swelling around port on chest wall Neuro-AAO x3, no focal deficit Lab data as noted below. ASSESSMENT & PLAN: RECURRENT GRAM POSITIVE BACTEREMIA : recent admission at [facility] 01/31-02/04 for similar diagnosis was discharged on PO Zyvox for 14 days possible source of infection A-port pt is very reluctant to have it removed convinced that her infection could be coming form possible UTI Blood culture on [facility] 02/27/17 : Coag negative staph drawn form A -port MRSA gene detected previous blood cultures in [facility] system: 02/01/17 -Coag negative staph not lugdunensis ; no sensitivity to follow 01/31/17 : Coag negative staph 01/30/17 : Coag negative staph Transthoracic ECHO 02/03/17 : done in last admission was negative for valvular vegetation normal wall motion concentric LV hypertrophy EF> 70 % Grade 1 diastolic dysfunction no valvular vegetation noted pt presents with elevated lactic acid of > 2 , tachycardia normal Lactic acid level toda IVF d/angel empiric Abx with Cefepime and Daptomycin ( pt mentions of having pruritic rash in face in last admission with vancomycin ) repeat blood culture ordered requests for Urine culture ID eval requested - -appreciate input CHRONIC HYPOXEMIC RESPIRATORY FAILURE : on 2 L home 02 at baseline,no worsening of hypoxia or SOB pt will cont her Bipap at night for SAMANTHA cont PRN neb tx for wheeze TYPE 2 DM insulin dependent recent Hb A1c ~8 cont basal Lantus , insulin SSI HTN : BP stable cont out pt meds -Losartan CKD STAGE 3 : cr at baseline monitor PRP FULL CODE DVT PROPHYLAXIS : moderate risk Sub q heparin DISPOSITION : pt wants to be discharged home when medically stable not interested in Rehab PT/OT eval requested Social service consulted for discharge planning DVT PROPHYLAXIS [] DISPOSITION [] Vital Signs: Date Time Temp Pulse Resp B/P (MAP) Pulse Ox O2 Delivery O2 Flow Rate FiO2 03/02/17 15:40 36.7 82 22 135/54 (81) 99 Nasal Cannula 2.0 03/02/17 15:32 Nasal Cannula 2.0 03/02/17 14:37 80 14 97 Nasal Cannula 2.0 03/02/17 11:54 BiPAP 2.0 03/02/17 11:35 36.6 84 17 123/74 (90) 94 Room Air 2.0 03/02/17 08:00 BiPAP 2.0 03/02/17 07:35 80 12 98 Nasal Cannula 2.0 03/02/17 07:25 36.5 20 137/65 (89) 98 03/02/17 04:20 36.4 80 18 144/66 (92) 96 BiPAP 03/02/17 04:00 BiPAP 2.0 03/02/17 02:17 76 14 97 BiPAP/CPAP 2.0 03/01/17 23:59 BiPAP 2.0 03/01/17 23:51 36.9 83 18 148/68 (94) 95 BiPAP 03/01/17 20:00 Nasal Cannula 2.0 03/01/17 18:45 36.7 105 24 153/60 (91) 97 Nasal Cannula 2.0 03/01/17 17:00 36.5 98 18 176/84 (114) 97 Nasal Cannula 2.0 03/01/17 17:00 97 Nasal Cannula 2.0 03/01/17 17:00 97 Nasal Cannula 2.0 Lab Results: Results Past 24 Hours Test 03/01/17 20:05 03/02/17 06:40 03/02/17 08:40 03/02/17 11:33 Range/Units Bedside Glucose 202 159 224 70-90 mg/dl Lactic Acid Level 2.0 0.4-2.0 mmol/L Test 03/02/17 15:55 Range/Units Bedside Glucose 172 70-90 mg/dl Microbiology Results 03/02/17 Blood Culture, Received Pending 03/02/17 Blood Culture, Received Pending
[2017-03-02] MEDS: DAPTOmycin IV 800 MG in SODIUM CHLORIDE 0.9% 50ML 50 ML IV SCH (20:48)
[2017-03-02] MEDS: IPRATROPIUM BROMIDE HFA INHALER INH SCH (20:49)
[2017-03-02] MEDS: LEValbuterol HFA 15GM INHALER INH SCH (20:49)
[2017-03-02] MEDS: CHOLECALCIFEROL 1000 INTER.UNIT TAB PO SCH (21:08)
[2017-03-02] MEDS: LOSARTAN POTASSIUM 25 MG TAB PO SCH (21:08)
[2017-03-02] MEDS: INSULIN GLARGINE SOLOSTAR 100 UNITS/ML 3 ML PEN SQ SCH (21:11)
[2017-03-02] MEDS: MONTELUKAST SOD 10 MG TAB PO SCH (22:02)
[2017-03-02] MEDS: ZOLPIDEM TARTRATE 5 MG TAB PO PRN (22:06)
[2017-03-03 03:46] VITALS: BP 128/73; PULSE 86; TEMP 36.6; O2SAT 95
[2017-03-03] MEDS: CEFEPIME IV 1,000 MG in DEXTROSE 5% 100ML 100 ML IV SCH ×2 (05:16→16:44)
[2017-03-03] MEDS: MoRPHine SULFATE 2 MG/ML CARP IV PRN ×2 (05:16→14:36)
[2017-03-03 05:20] LABS: HEMATOCRIT 33.5 % (37-47); MEAN CELL VOLUME 94.4 fL (80-100); MEAN CORPUSCULAR HEMOGLOBIN 30.1 pg (25-34); MEAN CORPUSCULAR HGB CONC 31.9 g/dl (32-36); MEAN PLATELET VOLUME 9.8 fL (7.4-10.4); PLATELET COUNT 172 K/uL (130-400); RED BLOOD COUNT 3.55 M/uL (4.2-5.4); WHITE BLOOD COUNT 6.12 K/uL (4.8-10.8)
[2017-03-03] MEDS: LEValbuterol HFA 15GM INHALER INH SCH ×4 (05:26→20:27)
[2017-03-03] MEDS: IPRATROPIUM BROMIDE HFA INHALER INH SCH ×4 (05:26→20:27)
[2017-03-03] MEDS: HEPARIN SOD 5000 UNIT/0.5 ML CARP SQ SCH ×3 (05:30→20:43)
[2017-03-03 05:43] LABS: BUN/CREATININE RATIO 12.2 (10-20); CALCIUM 8.4 mg/dl (8.5-10.1); CREATININE 1.2 mg/dl (0.60-1.20); POTASSIUM 3.9 mmol/L (3.5-5.1)
[2017-03-03] MEDS: FLUOCINONIDE 0.05% CR 60 GM TUBE EXT SCH ×2 (07:25→20:28)
[2017-03-03] MEDS: NYSTATIN CR 15 GM TUBE EXT SCH ×2 (07:25→20:29)
[2017-03-03] MEDS: FLUTICASONE PROPIONATE NA SPR 16 GM BTL NAE SCH (07:27)
[2017-03-03] MEDS: BUDESONIDE 90 MCG INH INH SCH ×2 (07:28→20:26)
[2017-03-03] MEDS: LACTOBACILLUS ACIDOPHILUS (FLORANEX) TAB PO SCH (07:28)
[2017-03-03] MEDS: PANTOprazole SOD 40 MG TAB PO SCH (07:29)
[2017-03-03] MEDS: FUROSEMIDE 20 MG TAB PO SCH (07:29)
[2017-03-03 07:48] VITALS: BP 152/80; PULSE 87; TEMP 36.7; O2SAT 94
[2017-03-03 09:17] VITALS: PULSE 82; O2SAT 93
[2017-03-03] MEDS: INSULIN ASPART 100 UNITS/ML 3 ML PEN SC SCH ×4 (09:25→20:42)
[2017-03-03] MEDS: OXYCODONE/ACETAMINOPHEN 5-325 TAB PO PRN ×2 (11:23→20:47)
[2017-03-03 11:30] VITALS: BP 152/80; PULSE 82; TEMP 36.7; O2SAT 93
--- NOTE | 2017-03-03 11:40 | Progress Note ---
Subjective Date of Service: Mar 03, 2017. Subjective Pt evaluation today including: conversation w/ patient, physical exam, chart review, lab review pt seen in follow up. feeling better today, remains on abx. tolerating well. repeat blood cultures pending. initial culture with marketing content specialist. also with outpt blood cultures 02/27, now with marketing content specialist as well, methicillin resistant. no f/c. wbc nml. all remaining ros reviewed and are negative. Problem List Medical Problems: (1) Candidiasis, vagina Status: Acute (2) High serum lactate Status: Acute (3) Positive blood culture Status: Acute Objective Vital Signs Date Time Temp Pulse Resp B/P (MAP) Pulse Ox O2 Delivery O2 Flow Rate FiO2 03/03/17 11:30 36.7 82 20 93 2.0 03/03/17 09:17 82 93 03/03/17 08:00 Nasal Cannula 2.0 03/03/17 07:48 36.7 87 20 152/80 (104) 94 03/03/17 04:00 CPAP 2.0 03/03/17 03:46 36.6 86 20 128/73 (91) 95 CPAP 2.0 03/03/17 00:01 CPAP 2.0 03/02/17 23:19 36.9 91 20 101/60 (74) 93 CPAP 2.0 03/02/17 20:00 Nasal Cannula 2.0 03/02/17 15:40 36.7 82 22 135/54 (81) 99 Nasal Cannula 2.0 03/02/17 15:32 Nasal Cannula 2.0 03/02/17 14:37 80 14 97 Nasal Cannula 2.0 03/02/17 11:54 BiPAP 2.0 Physical Exam General Appearance: WD/WN, no apparent distress Eyes: normal inspection Neck: supple Respiratory/Chest: lungs clear, normal breath sounds, no respiratory distress Cardiovascular: regular rate, rhythm, no edema Abdomen: non tender, soft Extremities: non-tender, normal inspection, no pedal edema Neurologic/Psychiatric: alert, oriented x 3 Skin: normal color Comments: port without erythema, no tendernss, no warmth Laboratory Results Last 24 Hours Test 03/02/17 15:55 03/02/17 19:56 03/03/17 05:00 03/03/17 06:37 Bedside Glucose 172 mg/dl 148 mg/dl 165 mg/dl White Blood Count 6.12 K/uL Red Blood Count 3.55 M/uL Hemoglobin 10.7 g/dL Hematocrit 33.5 % Mean Corpuscular Volume 94.4 fL Mean Corpuscular Hemoglobin 30.1 pg Mean Corpuscular Hemoglobin Concent 31.9 g/dl RDW Standard Deviation 53.3 fL RDW Coefficient of Variation 15.6 % Platelet Count 172 K/uL Mean Platelet Volume 9.8 fL Sodium Level 143 mmol/L Potassium Level 3.9 mmol/L Chloride Level 107 mmol/L Carbon Dioxide Level 29 mmol/L Anion Gap 7.0 mmol/L Blood Urea Nitrogen 15 mg/dl Creatinine 1.20 mg/dl Est Creatinine Clear Calc Drug Dose 66.5 ml/min Estimated GFR () 54.9 Estimated GFR (Non- 47.4 BUN/Creatinine Ratio 12.2 Random Glucose 163 mg/dl Calcium Level 8.4 mg/dl Assessment and Plan (1) Sepsis due to coagulase-negative staphylococcal infection Assessment & Plan: highly suspect for port as source with recurrent bsi. would sugges surgical eval for port removal and culture of pocket. continue IV abx for now, follow cultures.
[2017-03-03 12:44] VITALS: BP 140/79; PULSE 112; TEMP 36.9; O2SAT 96
[2017-03-03 15:07] VITALS: BP 137/65; PULSE 80; TEMP 36.7; O2SAT 96
--- NOTE | 2017-03-03 18:25 | Progress Note ---
Internal Med Progress Note Date of Service: Mar 03, 2017. Provider Documentation: SUBJECTIVE: walked on hallway with PT no sob , no MORGAN has been afebrile no diarrhea OBJECTIVE: Vital Signs-as noted below Exam: General-obese , no sign of distress Eyes-sclera non icteric Lungs-diminished Heart-regular S1/S2 Abdomen-soft, non tender Extremities-+ 1 bilat lower ext edema , no tenderness, erythema or swelling around port on chest wall Neuro-AAO x3, no focal deficit Lab data as noted below. ASSESSMENT & PLAN: RECURRENT GRAM POSITIVE BACTEREMIA : blood culture on 03/01/17 -coag negative staph repeat blood culture 03/02/17 -report pending appreciate input form ID Dr Ryan -highly likelihood of Line infection / infected A -port D/w pt very reluctant to have Port removed -as she is a difficult stick counselled -if port is infected -needs to be removed Adifferent port can be placed after infection is cleared for IV access General surgery consult placed recent admission at [facility] 01/31-02/04 for similar diagnosis was discharged on PO Zyvox for 14 days possible source of infection A-port pt is very reluctant to have it removed convinced that her infection could be coming form possible UTI Blood culture on [facility] 02/27/17 : Coag negative staph drawn form A -port MRSA gene detected previous blood cultures in [facility] system: 02/01/17 -Coag negative staph not lugdunensis ; no sensitivity to follow 01/31/17 : Coag negative staph 01/30/17 : Coag negative staph Transthoracic ECHO 02/03/17 : done in last admission was negative for valvular vegetation normal wall motion concentric LV hypertrophy EF> 70 % Grade 1 diastolic dysfunction no valvular vegetation noted pt presents with elevated lactic acid of > 2 , tachycardia Lactic acid level level normalized with IVF I empiric Abx with Cefepime and Daptomycin ( pt mentions of having pruritic rash in face in last admission with vancomycin ) ID eval requested - -appreciate input possible source infected A port surgery consulted for removal CHRONIC HYPOXEMIC RESPIRATORY FAILURE : on 2 L home 02 at baseline,no worsening of hypoxia or SOB pt will cont her Bipap at night for SAMANTHA cont PRN neb tx for wheeze TYPE 2 DM insulin dependent recent Hb A1c ~8 cont basal Lantus , insulin SSI HTN : BP stable cont out pt meds -Losartan CKD STAGE 3 : cr at baseline monitor PRP FULL CODE DVT PROPHYLAXIS : moderate risk Sub q heparin DISPOSITION : pt wants to be discharged home when medically stable not interested in Rehab PT/OT eval requested -appreciate input pt is at her baseline functional status can return home when medically stable Social service consulted for discharge planning DVT PROPHYLAXIS [] DISPOSITION [] Vital Signs: Date Time Temp Pulse Resp B/P (MAP) Pulse Ox O2 Delivery O2 Flow Rate FiO2 03/03/17 16:00 Nasal Cannula 2.0 03/03/17 15:07 36.7 80 18 137/65 (89) 96 Nasal Cannula 2.0 03/03/17 12:44 36.9 112 16 140/79 (99) 96 Nasal Cannula 2.0 03/03/17 11:30 36.7 82 20 93 2.0 03/03/17 09:17 82 93 03/03/17 08:00 Nasal Cannula 2.0 03/03/17 07:48 36.7 87 20 152/80 (104) 94 03/03/17 04:00 CPAP 2.0 03/03/17 03:46 36.6 86 20 128/73 (91) 95 CPAP 2.0 03/03/17 00:01 CPAP 2.0 03/02/17 23:19 36.9 91 20 101/60 (74) 93 CPAP 2.0 03/02/17 20:00 Nasal Cannula 2.0 Lab Results: Results Past 24 Hours Test 03/02/17 19:56 03/03/17 05:00 03/03/17 06:37 03/03/17 11:25 Range/Units Bedside Glucose 148 165 185 70-90 mg/dl White Blood Count 6.12 4.8-10.8 K/uL Red Blood Count 3.55 4.2-5.4 M/uL Hemoglobin 10.7 12.0-16.0 g/dL Hematocrit 33.5 37-47 % Mean Corpuscular Volume 94.4 80-100 fL Mean Corpuscular Hemoglobin 30.1 25-34 pg Mean Corpuscular Hemoglobin Concent 31.9 32-36 g/dl RDW Standard Deviation 53.3 36.4-46.3 fL RDW Coefficient of Variation 15.6 11.5-14.5 % Platelet Count 172 130-400 K/uL Mean Platelet Volume 9.8 7.4-10.4 fL Sodium Level 143 136-145 mmol/L Potassium Level 3.9 3.5-5.1 mmol/L Chloride Level 107 98-107 mmol/L Carbon Dioxide Level 29 21-32 mmol/L Anion Gap 7.0 3-11 mmol/L Blood Urea Nitrogen 15 7-18 mg/dl Creatinine 1.20 0.60-1.20 mg/dl Est Creatinine Clear Calc Drug Dose 66.5 ml/min Estimated GFR () 54.9 Estimated GFR (Non- 47.4 BUN/Creatinine Ratio 12.2 10-20 Random Glucose 163 70-99 mg/dl Calcium Level 8.4 8.5-10.1 mg/dl Test 03/03/17 16:30 Range/Units Bedside Glucose 141 70-90 mg/dl Microbiology Results 03/03/17 C.difficile Toxin B Gene (PCR) - Final, Complete No C. difficile toxin B gene detected
[2017-03-03] MEDS ORDERED: NURSING VERBAL MED ORDER ONE (18:30)
[2017-03-03] MEDS: MONTELUKAST SOD 10 MG TAB PO SCH (20:30)
[2017-03-03] MEDS: LOSARTAN POTASSIUM 25 MG TAB PO SCH (20:30)
[2017-03-03] MEDS: CHOLECALCIFEROL 1000 INTER.UNIT TAB PO SCH (20:31)
[2017-03-03] MEDS: INSULIN GLARGINE SOLOSTAR 100 UNITS/ML 3 ML PEN SQ SCH (20:42)
[2017-03-03] MEDS: DAPTOmycin IV 800 MG in SODIUM CHLORIDE 0.9% 50ML 50 ML IV SCH (20:52)
[2017-03-04] MEDS: MoRPHine SULFATE 2 MG/ML CARP IV PRN ×3 (00:02→18:02)
[2017-03-04 00:08] VITALS: BP 134/70; PULSE 87; TEMP 36.4; O2SAT 90
[2017-03-04] MEDS: LEValbuterol HFA 15GM INHALER INH SCH ×4 (00:11→20:16)
[2017-03-04] MEDS: IPRATROPIUM BROMIDE HFA INHALER INH SCH ×4 (00:11→20:17)
[2017-03-04] MEDS: CEFEPIME IV 1,000 MG in DEXTROSE 5% 100ML 100 ML IV SCH ×2 (04:20→15:18)
[2017-03-04] MEDS: HEPARIN SOD 5000 UNIT/0.5 ML CARP SQ SCH ×3 (06:00→20:27)
[2017-03-04 06:21] LABS: BUN/CREATININE RATIO 12.5 (10-20); CALCIUM 8.4 mg/dl (8.5-10.1); CREATININE 1.2 mg/dl (0.60-1.20); POTASSIUM 3.7 mmol/L (3.5-5.1)
[2017-03-04 07:08] VITALS: BP 156/80; PULSE 85; TEMP 36.7; O2SAT 96
[2017-03-04] MEDS: BUDESONIDE 90 MCG INH INH SCH ×2 (09:03→20:15)
[2017-03-04] MEDS: FLUTICASONE PROPIONATE NA SPR 16 GM BTL NAE SCH (09:04)
[2017-03-04] MEDS: PANTOprazole SOD 40 MG TAB PO SCH (09:05)
[2017-03-04] MEDS: LACTOBACILLUS ACIDOPHILUS (FLORANEX) TAB PO SCH (09:05)
[2017-03-04] MEDS: FUROSEMIDE 20 MG TAB PO SCH (09:06)
[2017-03-04] MEDS: NYSTATIN CR 15 GM TUBE EXT SCH ×2 (09:06→20:14)
[2017-03-04] MEDS: FLUOCINONIDE 0.05% CR 60 GM TUBE EXT SCH ×2 (09:06→20:14)
[2017-03-04] MEDS: INSULIN ASPART 100 UNITS/ML 3 ML PEN SC SCH ×4 (09:12→20:26)
--- NOTE | 2017-03-04 10:15 | Surgery Consultation ---
Consultation Date of Consultation: Mar 04, 2017. Attending Physician: Daniel Mojica MD Reason for Consultation: Infected a-port, septicemia History of Present Illness Jennifer is a 66 year-old female with extensive comorbidities including morbid obesity, DM type 2, history of septicemia, who presented to emergency department on Friday as she was told one of her outpatient blood cultures was positive. She was admitted to hospital in January for septicemia and was treated with 14 days of Zyvox orally. States she felt that the infection was due to urinary tract infection at the time. She has had her aport since 2014 for chemotherapy for renal carcinoma and is reluctant to have her port removed given poor peripheral venous access. States she has been having urinary urgency , frequency, and burning and has recurrent urinary tract infections. She had a urine culture on 03/01/17 which showed greater than 3 organisms all at high counts and recollection was suggested. She denies of any pain or redness at port site. States she just had another urine culture today. Repeat blood cultures on 03/02/17 x 2 were negative. Past Medical/Surgical History Medical Problems: (1) Candidiasis, vagina Status: Acute (2) High serum lactate Status: Acute (3) Positive blood culture Status: Acute Family History Diabetes mellitus FHx: cancer FHx: lung disease Hypertension Kidney disease Kidney stones Social History Smoking Status: Former Smoker Drug Use: none Marital Status: single Housing Status: lives alone Occupation Status: unemployed, disabled Allergies Coded Allergies: Penicillins (Verified Allergy, Severe, THROAT CLOSES, 09/04/16) TIGIST. PRIMAXIN 01/2015 ADMISSION Metronidazole (Verified Allergy, Intermediate, hives/rash, 09/04/16) Ondansetron (Verified Allergy, Intermediate, hives, 09/04/16) Vancomycin (Verified Allergy, Mild, RASH, 02/01/17) itchy rash Adhesives (Verified Allergy, Unknown, SKIN BLISTERING, 09/04/16) Sulfa Antibiotics (Verified Allergy, Unknown, Rash, 09/04/16) Ibuprofen (Verified Adverse Reaction, Intermediate, RECTAL BLEEDING, 09/04) Home Medications Scheduled Albuterol Hfa (Ventolin Hfa), 2 PUFFS INH Q4 Budesonide (Inhalation) (Pulmicort Flexhaler), 2 PUFFS INH BID Cholecalciferol (Vitamin D3), 2,000 UNIT PO HS Fluocinonide (Fluocinonide), 1 APPLN TOP BID Fluticasone Propionate (Nasal) (Flonase Allergy Relief), 2 SPRAY MARCIA DAILY Furosemide (Lasix), 20 MG PO DAILY Heparin Sodium (Porcine) Lock (Heparin Lock Flush For Fl), 5 ML IV q6wks Home O2 Therapy (Oxygen), 2 LITERS NA CONTINOUS Insulin Aspart (Novolog Flexpen), SQ PC Insulin Glargine (Lantus Solostar), 10 UNITS SQ HS Losartan Potassium (Losartan Potassium), 25 MG PO HS Montelukast Sodium (Singulair), 10 MG PO HS Nystatin (Nystatin Cream), 1 APPLN TOP BID Omeprazole (Prilosec), 20 MG PO DAILY Probiotic Product (Probiotic), 1 CAP PO DAILY Umeclidinium Houghton (Incruse Ellipta), 1 PUFF INH DAILY Scheduled PRN Ferrous Sulfate (Ferrous Sulfate), 325 MG PO DAILY PRN for FINGERS GET SORE Oxycodone/Acetaminophen 5MG/325MG (Percocet 5MG/325MG), 1 TABLET PO Q6H PRN for Pain Current Inpatient Medications Current Inpatient Medications Medications (Trade) Dose Ordered Sig/Amandeep Route Start Time Stop Time Status Last Admin Dose Admin Albuterol (Ventolin Hfa Inhaler) 2 puffs Q4 PRN INH 03/01/17 20:00 03/31/17 19:59 Fluticasone Propionate (Flonase Nasal Harper) 2 sprays DAILY MARCIA 03/02/17 09:00 04/01/17 08:59 03/04/17 09:04 2 SPRAYS Furosemide (Lasix Tab) 20 mg DAILY PO 03/02/17 09:00 04/01/17 08:59 03/04/17 09:06 20 MG Insulin Glargine (Lantus Solostar Pen) 10 unit HS SQ 03/01/17 21:00 03/31/17 20:59 03/03/17 20:42 10 UNIT Losartan Potassium (coZAAR TAB) 25 mg HS PO 03/01/17 21:00 03/31/17 20:59 03/03/17 20:30 25 MG Montelukast Sodium (Singulair Tab) 10 mg HS PO 03/01/17 21:00 03/31/17 20:59 03/03/17 20:30 10 MG Nystatin (Mycostatin Crm) 1 appln BID EXT 03/01/17 21:00 03/31/17 20:59 03/04/17 09:06 1 APPLN Oxycodone/ Acetaminophen (Percocet 5-325mg Tab) 1 tab Q6H PRN PO 03/01/17 17:30 03/15/17 17:29 03/03/17 20:47 1 TAB Budesonide (Pulmicort Inhaler) 2 puffs BID INH 03/01/17 21:00 03/31/17 20:59 03/04/17 09:03 2 PUFFS Cholecalciferol (Vitamin D Tab) 2,000 inter.unit HS PO 03/01/17 21:00 03/31/17 20:59 03/03/17 20:31 2,000 INTER.UNIT Fluocinonide (Lidex Crm) 1 appln BID EXT 03/01/17 21:00 03/31/17 20:59 03/04/17 09:06 1 APPLN Pantoprazole Sodium (Protonix Tab) 40 mg DAILY PO 03/02/17 09:00 04/01/17 08:59 03/04/17 09:05 40 MG Miscellaneous Information (Order Awaiting Action) 1 ea QS N/A 03/02/17 00:00 04/01/17 00:00 Heparin Sodium (Porcine) (Heparin Sq 5000 Unit/0.5ml) 5,000 unit Q8 SQ 03/01/17 22:00 03/31/17 21:59 03/03/17 20:43 5,000 UNIT Acetaminophen (Tylenol Tab) 650 mg Q4H PRN PO 03/01/17 17:30 03/31/17 17:29 Al Hydrox/Mg Hydrox/Simethicone (Maalox Max Susp) 15 ml Q4H PRN PO 03/01/17 17:30 03/31/17 17:29 Magnesium Hydroxide (Milk Of Magnesia Susp) 30 ml Q12H PRN PO 03/01/17 17:30 03/31/17 17:29 Zolpidem Tartrate (Ambien Tab) 5 mg HSZ PRN PO 03/01/17 17:30 03/31/17 17:29 03/02/17 22:06 5 MG Nitroglycerin (Nitrostat Tab) 0.4 mg UD PRN SL 03/01/17 17:30 03/31/17 17:29 Polyethylene (Miralax Powder Packet) 17 gm DAILY PRN PO 03/01/17 17:30 03/31/17 17:29 Insulin Aspart (novoLOG ASPART) SLIDING SCALE If C... ACHS SC 03/01/17 21:00 03/31/17 20:59 03/04/17 09:12 3 UNITS Glucose (Glucose 40% Gel) 15-30 GRAMS 15 GRAMS... UD PRN PO 03/01/17 17:30 03/31/17 17:29 Glucose (Glucose Chew Tab) 4-8 Tablets 4 Tabl... UD PRN PO 03/01/17 17:30 03/31/17 17:29 Dextrose (Dextrose 50% 50ML Syringe) 25-50ML OF 50% DW IV FOR... UD PRN IV 03/01/17 17:30 03/31/17 17:29 Glucagon (Glucagon Inj) 1 mg UD PRN SQ 03/01/17 17:30 03/31/17 17:29 Promethazine HCl 12.5 mg/Sodium Chloride 50.5 ml @ 204 mls/hr Q6H PRN IV 03/01/17 17:30 03/31/17 17:29 Cefepime HCl 1000 mg/Dextrose 111.3 ml @ 200 mls/hr Q12H IV 03/02/17 04:00 03/16/17 03:59 03/04/17 04:20 200 MLS/HR Morphine Sulfate (MoRPHine SULFATE INJ) 1 mg Q6H PRN IV 03/01/17 18:15 03/15/17 18:14 03/04/17 08:58 1 MG Lactobacillus Acidophilus (Floranex Tab) 4 tab DAILY PO 03/02/17 09:00 04/01/17 08:59 03/04/17 09:05 4 TAB Daptomycin 800 mg/ Sodium Chloride 66 ml @ 100 mls/hr Q24H IV 03/01/17 20:00 03/15/17 19:59 03/03/17 20:52 100 MLS/HR Ipratropium Houghton (Atrovent 0.02% 0.5MG/2.5ML Neb) 0.5 mg Q2H PRN INH 03/01/17 21:15 03/31/17 21:14 Levalbuterol (Xopenex 1.25MG/ 0.5ML Neb) 1.25 mg Q2H PRN INH 03/01/17 21:15 03/31/17 21:14 Ipratropium Houghton (Atrovent Hfa Inhaler) 2 puffs Q6R INH 03/02/17 21:00 04/01/17 20:59 03/04/17 09:04 2 PUFFS Levalbuterol (Xopenex Hfa Inhaler) 2 puffs Q6R INH 03/02/17 21:00 04/01/17 20:59 03/04/17 09:03 2 PUFFS Heparin Sodium (Porcine) (Heparin 100 Unit/ml 5ml Flush) 5 ml PRN PRN IV 03/03/17 18:30 04/02/17 18:29 03/04/17 08:58 5 ML Review of Systems Constitutional: No fever, No chills Respiratory: No cough, No shortness of breath Cardiovascular: No chest pain Genitourinary - Female: + dysuria, + urinary frequency, + urinary urgency, + urinary retention Integumentary: No rash, No new/changing skin lesions (no change in color of the aport or swelling) Physical Exam Date Time Temp Pulse Resp B/P (MAP) Pulse Ox O2 Delivery O2 Flow Rate FiO2 03/04/17 07:08 36.7 85 20 156/80 (105) 96 BiPAP 03/04/17 00:08 36.4 87 20 134/70 (91) 90 BiPAP 03/04/17 00:00 Nasal Cannula 2.0 CPAP 03/03/17 16:00 Nasal Cannula 2.0 03/03/17 15:07 36.7 80 18 137/65 (89) 96 Nasal Cannula 2.0 03/03/17 12:44 36.9 112 16 140/79 (99) 96 Nasal Cannula 2.0 03/03/17 11:30 36.7 82 20 93 2.0 General Appearance: no apparent distress, + obese Head: normocephalic, atraumatic Eyes: sclerae normal ENT: hearing grossly normal (left subclavian aport without erythema, edema, or flucutance/induration) Neck: trachea midline Back: normal inspection Neurologic/Psych: alert, normal mood/affect, oriented x 3 Skin: normal color, warm/dry, no rash Laboratory Results Last 24 Hours Test 03/03/17 11:25 03/03/17 16:30 03/03/17 20:06 03/04/17 05:40 Bedside Glucose 185 mg/dl 141 mg/dl 181 mg/dl Sodium Level 140 mmol/L Potassium Level 3.7 mmol/L Chloride Level 105 mmol/L Carbon Dioxide Level 28 mmol/L Anion Gap 7.0 mmol/L Blood Urea Nitrogen 15 mg/dl Creatinine 1.20 mg/dl Est Creatinine Clear Calc Drug Dose 66.0 ml/min Estimated GFR () 54.9 Estimated GFR (Non- 47.4 BUN/Creatinine Ratio 12.5 Random Glucose 179 mg/dl Calcium Level 8.4 mg/dl Test 03/04/17 07:37 Bedside Glucose 154 mg/dl Assessment & Plan Septicemia ?? questions of etiology either UTI or aport - aport without erythema, induration, or fluctuance - repeat blood cultures negative however has been on IV antibiotics - patient reluctant to have aport removed Plan: Recommend aport removal however patient reluctant at this time for aport removal Repeat Urine culture pending for today Recommend repeat blood cultures if positive will need to have aport removed Will continue to follow patient, if decide for aport removal will schedule accordingly. Dr. Montelongo has seen and examined patient, developed assessment and plan.
--- NOTE | 2017-03-04 12:51 | Progress Note ---
Internal Med Progress Note Date of Service: Mar 04, 2017. Provider Documentation: SUBJECTIVE: Seen and examined at bedside. States she doesn't want to get Port removed. Reports some pressure like sensation with Urination Denies chest pain, SOB. Offers no other complaints. OBJECTIVE: Vital Signs-as noted below Physical Exam: General Appearance:Obese, no apparent distress Head: normocephalic, Atraumatic Eyes: normal inspection, EOMI, PERRL Neck: supple, Trachea midline Respiratory/Chest: Decreased breath sounds, CTA Cardiovascular: S1, S2, No murmur Abdomen/GI:Soft, Non tender, Bowel sounds present Extremities/Musculoskelatal:normal inspection, 1+ edema Neurologic/Psych:grossly no focal neurological deficits Skin: normal color, warm Lab data as noted below. ASSESSMENT & PLAN: RECURRENT GRAM POSITIVE BACTEREMIA : Recent admission at [facility] 01/31-02/04 for similar diagnosis: discharged on PO Zyvox for 14 days Blood culture on [facility] 02/27/17: Coag negative staph drawn form A - port. MRSA gene detected Likely source: Port Blood culture on 03/01/17: coagulase negative staph repeat blood culture 03/02/17: No growth to date Appreciate input form ID Dr Ryan Currently patient doesn't want to get Port removed. Surgery following as well Follow up repeat Urine culture Continue Cefepime and Daptomycin for now Check ECHO: To R/O valvular vegetation CHRONIC HYPOXEMIC RESPIRATORY FAILURE : on 2 L home Oxygen continue Bipap QHS for SAMANTHA continue PRN neb DM II recent Hb A1c ~8 continue basal Lantus, ISS HTN : stable continue Losartan CKD III cr at baseline monitor PRP CODE STATUS FULL CODE DVT PX : Heparin SQ DISPOSITION : pt wants to be discharged home when medically stable Not interested in Rehab PT/OT pt is at her baseline functional status can return home when medically stable Social service consulted for discharge planning Vital Signs: Date Time Temp Pulse Resp B/P (MAP) Pulse Ox O2 Delivery O2 Flow Rate FiO2 03/04/17 09:00 Nasal Cannula 2.0 CPAP 03/04/17 07:08 36.7 85 20 156/80 (105) 96 BiPAP 03/04/17 00:08 36.4 87 20 134/70 (91) 90 BiPAP 03/04/17 00:00 Nasal Cannula 2.0 CPAP 03/03/17 16:00 Nasal Cannula 2.0 03/03/17 15:07 36.7 80 18 137/65 (89) 96 Nasal Cannula 2.0 Lab Results: Results Past 24 Hours Test 03/03/17 16:30 03/03/17 20:06 03/04/17 05:40 03/04/17 07:37 Range/Units Bedside Glucose 141 181 154 70-90 mg/dl Sodium Level 140 136-145 mmol/L Potassium Level 3.7 3.5-5.1 mmol/L Chloride Level 105 98-107 mmol/L Carbon Dioxide Level 28 21-32 mmol/L Anion Gap 7.0 3-11 mmol/L Blood Urea Nitrogen 15 7-18 mg/dl Creatinine 1.20 0.60-1.20 mg/dl Est Creatinine Clear Calc Drug Dose 66.0 ml/min Estimated GFR () 54.9 Estimated GFR (Non- 47.4 BUN/Creatinine Ratio 12.5 10-20 Random Glucose 179 70-99 mg/dl Calcium Level 8.4 8.5-10.1 mg/dl Test 03/04/17 11:31 Range/Units Bedside Glucose 197 70-90 mg/dl Microbiology Results 03/04/17 Urine Culture, Received Pending
[2017-03-04] MEDS: OXYCODONE/ACETAMINOPHEN 5-325 TAB PO PRN ×2 (13:42→20:17)
--- NOTE | 2017-03-04 14:32 | Progress Note ---
Subjective Date of Service: Mar 04, 2017. Subjective s/p surgery eval for port removal, does not want at this time. continues with abx, repeat cultures negative. 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 also with + blood culture for director of programming on arrival to hospital. since back on abx she has negative culture but does have persistent bactermia documented by 02/13,03/01 cultures. She was previously on zyvox as outpt but has recurrent bsi after stopping abx. afebrile. tolerating abx. Problem List Medical Problems: (1) Candidiasis, vagina Status: Acute (2) High serum lactate Status: Acute (3) Positive blood culture Status: Acute Objective Vital Signs Date Time Temp Pulse Resp B/P (MAP) Pulse Ox O2 Delivery O2 Flow Rate FiO2 03/04/17 09:00 Nasal Cannula 2.0 CPAP 03/04/17 07:08 36.7 85 20 156/80 (105) 96 BiPAP 03/04/17 00:08 36.4 87 20 134/70 (91) 90 BiPAP 03/04/17 00:00 Nasal Cannula 2.0 CPAP 03/03/17 16:00 Nasal Cannula 2.0 03/03/17 15:07 36.7 80 18 137/65 (89) 96 Nasal Cannula 2.0 Laboratory Results Item Value Date Time Blood Culture - Preliminary Resulted 03/01/17 1430 Blood Coag Neg Staph Not Lugdunensis Blood Culture - Preliminary Resulted 03/02/17 0840 Blood NO GROWTH TO DATE. Blood Culture - Preliminary Resulted 03/02/17 0850 Blood NO GROWTH TO DATE. Blood Culture - Final Complete 03/01/17 1430 Blood Coag Neg Staph Not Lugdunensis Last 24 Hours Test 03/03/17 16:30 03/03/17 20:06 03/04/17 05:40 03/04/17 07:37 Bedside Glucose 141 mg/dl 181 mg/dl 154 mg/dl Sodium Level 140 mmol/L Potassium Level 3.7 mmol/L Chloride Level 105 mmol/L Carbon Dioxide Level 28 mmol/L Anion Gap 7.0 mmol/L Blood Urea Nitrogen 15 mg/dl Creatinine 1.20 mg/dl Est Creatinine Clear Calc Drug Dose 66.0 ml/min Estimated GFR () 54.9 Estimated GFR (Non- 47.4 BUN/Creatinine Ratio 12.5 Random Glucose 179 mg/dl Calcium Level 8.4 mg/dl Test 03/04/17 11:31 Bedside Glucose 197 mg/dl Assessment and Plan (1) Sepsis due to coagulase-negative staphylococcal infection Assessment & Plan: she is encouraged to undergo port removal, she needs echo to r/o veg with persistent bacteremia and recurrent infection. she will need adequate source control to prevent recurrent infection. await decision. would suggest NIVIA if able. continue abx, if repeat urine culture negative, will stop cefepime.
[2017-03-04 15:48] VITALS: BP 141/70; PULSE 84; TEMP 36.9; O2SAT 96
[2017-03-04] MEDS: DAPTOmycin IV 800 MG in SODIUM CHLORIDE 0.9% 50ML 50 ML IV SCH (20:15)
[2017-03-04] MEDS: MONTELUKAST SOD 10 MG TAB PO SCH (20:18)
[2017-03-04] MEDS: LOSARTAN POTASSIUM 25 MG TAB PO SCH (20:19)
[2017-03-04] MEDS: CHOLECALCIFEROL 1000 INTER.UNIT TAB PO SCH (20:20)
[2017-03-04] MEDS: INSULIN GLARGINE SOLOSTAR 100 UNITS/ML 3 ML PEN SQ SCH (20:27)
[2017-03-04 23:54] VITALS: BP 147/76; PULSE 92; TEMP 36.7; O2SAT 91
[2017-03-05] MEDS: OXYCODONE/ACETAMINOPHEN 5-325 TAB PO PRN ×3 (02:32→20:33)
[2017-03-05] MEDS: IPRATROPIUM BROMIDE HFA INHALER INH SCH ×4 (02:37→20:29)
[2017-03-05] MEDS: LEValbuterol HFA 15GM INHALER INH SCH ×4 (02:37→20:29)
[2017-03-05] MEDS: CEFEPIME IV 1,000 MG in DEXTROSE 5% 100ML 100 ML IV SCH ×2 (03:42→15:42)
[2017-03-05] MEDS: HEPARIN SOD 5000 UNIT/0.5 ML CARP SQ SCH ×3 (05:22→20:29)
[2017-03-05] MEDS: MoRPHine SULFATE 2 MG/ML CARP IV PRN ×2 (05:22→14:53)
[2017-03-05 05:44] LABS: BUN/CREATININE RATIO 14.3 (10-20); CALCIUM 8.4 mg/dl (8.5-10.1); CREATININE 1.2 mg/dl (0.60-1.20); POTASSIUM 3.8 mmol/L (3.5-5.1)
[2017-03-05] MEDS: FLUOCINONIDE 0.05% CR 60 GM TUBE EXT SCH ×2 (08:00→20:32)
[2017-03-05] MEDS: NYSTATIN CR 15 GM TUBE EXT SCH ×2 (08:00→20:32)
[2017-03-05] MEDS: FLUTICASONE PROPIONATE NA SPR 16 GM BTL NAE SCH (08:16)
[2017-03-05] MEDS: BUDESONIDE 90 MCG INH INH SCH ×2 (08:17→20:29)
[2017-03-05] MEDS: LACTOBACILLUS ACIDOPHILUS (FLORANEX) TAB PO SCH (08:18)
[2017-03-05] MEDS: PANTOprazole SOD 40 MG TAB PO SCH (08:18)
[2017-03-05] MEDS: FUROSEMIDE 20 MG TAB PO SCH (08:18)
[2017-03-05 08:19] VITALS: BP 147/76; PULSE 64; TEMP 36.8; O2SAT 94
[2017-03-05] MEDS: INSULIN ASPART 100 UNITS/ML 3 ML PEN SC SCH ×4 (08:22→20:41)
--- NOTE | 2017-03-05 12:32 | Progress Note ---
Internal Med Progress Note Date of Service: Mar 05, 2017. Provider Documentation: SUBJECTIVE: Seen and examined at bedside. States she is willing to get Port removed if required. Denies chest pain, SOB. Offers no other complaints. Urine culture pending. No new complaints. OBJECTIVE: Vital Signs-as noted below Physical Exam: General Appearance:Obese, no apparent distress Head: normocephalic, Atraumatic Eyes: normal inspection, EOMI, PERRL Neck: supple, Trachea midline Respiratory/Chest: Decreased breath sounds, CTA Cardiovascular: S1, S2, No murmur Abdomen/GI:Soft, Non tender, Bowel sounds present Extremities/Musculoskelatal:normal inspection, 1+ edema Neurologic/Psych:grossly no focal neurological deficits Skin: normal color, warm Lab data as noted below. ASSESSMENT & PLAN: RECURRENT GRAM POSITIVE BACTEREMIA : Recent admission at [facility] 01/31-02/04 for similar diagnosis: discharged on PO Zyvox for 14 days Blood culture on [facility] 02/27/17: Coag negative staph drawn form A - port. MRSA gene detected Likely source: Port Blood culture on 03/01/17: coagulase negative staph repeat blood culture 03/02/17: No growth to date Appreciate input form ID Dr Ryan Patient agrees to get Port removed if necessary (She refused initially) Surgery following as well Follow up repeat Urine culture:pending Continue Cefepime and Daptomycin for now Check ECHO: Study is inadequate to assess for endocarditis due to patient body habitus CHRONIC HYPOXEMIC RESPIRATORY FAILURE : on 2 L home Oxygen continue Bipap QHS for SAMANTHA continue PRN neb DM II recent Hb A1c ~8 continue basal Lantus, ISS HTN : stable continue Losartan CKD III Cr at baseline monitor PRP CODE STATUS FULL CODE DVT PX : Heparin SQ DISPOSITION : pt wants to be discharged home when medically stable Not interested in Rehab PT/OT pt is at her baseline functional status can return home when medically stable Social service consulted for discharge planning Awaiting urine culture PROCEDURE: ECHO: * Normal LV chamber size with moderate concentric LVH. * Hyperdynamic LV systolic function, EF >70%. * No segmental left ventricular wall motion abnormalities are noted. * Grade I diastolic dysfunction. * Poorly visualized valvular structures, no significant valvular stenosis or regurgitation by Doppler. * Study is inadequate to assess for endocarditis due to patient body habitus. Vital Signs: Date Time Temp Pulse Resp B/P (MAP) Pulse Ox O2 Delivery O2 Flow Rate FiO2 03/05/17 08:40 Nasal Cannula 2.0 CPAP 03/05/17 08:19 36.8 64 16 147/76 (99) 94 Room Air 03/05/17 00:05 Nasal Cannula 2.0 CPAP 03/04/17 23:54 36.7 92 20 147/76 (99) 91 Room Air 03/04/17 15:48 36.9 84 16 141/70 (93) 96 Nasal Cannula 2.0 Lab Results: Results Past 24 Hours Test 03/04/17 16:47 03/04/17 20:03 03/05/17 05:05 03/05/17 08:04 Range/Units Bedside Glucose 171 168 158 70-90 mg/dl Sodium Level 139 136-145 mmol/L Potassium Level 3.8 3.5-5.1 mmol/L Chloride Level 104 98-107 mmol/L Carbon Dioxide Level 26 21-32 mmol/L Anion Gap 9.0 3-11 mmol/L Blood Urea Nitrogen 17 7-18 mg/dl Creatinine 1.20 0.60-1.20 mg/dl Est Creatinine Clear Calc Drug Dose 66.0 ml/min Estimated GFR () 54.9 Estimated GFR (Non- 47.4 BUN/Creatinine Ratio 14.3 10-20 Random Glucose 214 70-99 mg/dl Calcium Level 8.4 8.5-10.1 mg/dl Test 03/05/17 11:54 Range/Units Bedside Glucose 195 70-90 mg/dl
--- NOTE | 2017-03-05 14:23 | Surgery Progress Note ---
Surgery Progress Note Date of Service Mar 05, 2017. Subjective + feeling well pt and her doctor want to remove the port catheter, pt denies fever, I reviewed pt's H/P, and I agree to remove the port catheter. Objective Vital Signs: Date Time Temp Pulse Resp B/P (MAP) Pulse Ox O2 Delivery O2 Flow Rate FiO2 03/05/17 08:40 Nasal Cannula 2.0 CPAP 03/05/17 08:19 36.8 64 16 147/76 (99) 94 Room Air 03/05/17 00:05 Nasal Cannula 2.0 CPAP 03/04/17 23:54 36.7 92 20 147/76 (99) 91 Room Air 03/04/17 15:48 36.9 84 16 141/70 (93) 96 Nasal Cannula 2.0 General Appearance: WD/WN Head: normocephalic Neck: supple, no JVD Respiratory/Chest: chest non-tender, lungs clear Cardiovascular: regular rate, rhythm, no edema Abdomen: normal bowel sounds Extremities: normal range of motion, non-tender Laboratory Results: Results Past 24 Hours Test 03/04/17 16:47 03/04/17 20:03 03/05/17 05:05 03/05/17 08:04 Range/Units Bedside Glucose 171 168 158 70-90 mg/dl Sodium Level 139 136-145 mmol/L Potassium Level 3.8 3.5-5.1 mmol/L Chloride Level 104 98-107 mmol/L Carbon Dioxide Level 26 21-32 mmol/L Anion Gap 9.0 3-11 mmol/L Blood Urea Nitrogen 17 7-18 mg/dl Creatinine 1.20 0.60-1.20 mg/dl Est Creatinine Clear Calc Drug Dose 66.0 ml/min Estimated GFR () 54.9 Estimated GFR (Non- 47.4 BUN/Creatinine Ratio 14.3 10-20 Random Glucose 214 70-99 mg/dl Calcium Level 8.4 8.5-10.1 mg/dl Test 03/05/17 11:54 Range/Units Bedside Glucose 195 70-90 mg/dl Assessment & Plan pt will have remove the port catheter tomorrow, D/W benefits, risks and alternatives of the procedure, the risks- infection, bleeding, blood clot, PE, stroke, , pt understood, she agrees with [facility] plan,I answered all questions , NPO from [place],
--- NOTE | 2017-03-05 14:44 | Progress Note ---
Subjective Date of Service: Mar 05, 2017. 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 tolerating abx. urine pending. afebrile Problem List Medical Problems: (1) Candidiasis, vagina Status: Acute (2) High serum lactate Status: Acute (3) Positive blood culture Status: Acute Objective Vital Signs Date Time Temp Pulse Resp B/P (MAP) Pulse Ox O2 Delivery O2 Flow Rate FiO2 03/05/17 08:40 Nasal Cannula 2.0 CPAP 03/05/17 08:19 36.8 64 16 147/76 (99) 94 Room Air 03/05/17 00:05 Nasal Cannula 2.0 CPAP 03/04/17 23:54 36.7 92 20 147/76 (99) 91 Room Air 03/04/17 15:48 36.9 84 16 141/70 (93) 96 Nasal Cannula 2.0 Laboratory Results Item Value Date Time Blood Culture - Final Complete 03/01/17 1430 Blood Coag Neg Staph Not Lugdunensis Blood Culture - Preliminary Resulted 03/02/17 0840 Blood NO GROWTH TO DATE. Blood Culture - Preliminary Resulted 03/02/17 0850 Blood NO GROWTH TO DATE. C.difficile Toxin B Gene (PCR) - Final Complete 03/03/17 1225 Stool No C. difficile toxin B gene detected Last 24 Hours Test 03/04/17 16:47 03/04/17 20:03 03/05/17 05:05 03/05/17 08:04 Bedside Glucose 171 mg/dl 168 mg/dl 158 mg/dl Sodium Level 139 mmol/L Potassium Level 3.8 mmol/L Chloride Level 104 mmol/L Carbon Dioxide Level 26 mmol/L Anion Gap 9.0 mmol/L Blood Urea Nitrogen 17 mg/dl Creatinine 1.20 mg/dl Est Creatinine Clear Calc Drug Dose 66.0 ml/min Estimated GFR () 54.9 Estimated GFR (Non- 47.4 BUN/Creatinine Ratio 14.3 Random Glucose 214 mg/dl Calcium Level 8.4 mg/dl Test 03/05/17 11:54 Bedside Glucose 195 mg/dl Assessment and Plan (1) Sepsis due to coagulase-negative staphylococcal infection Assessment & Plan: for port removal in am, please obtain pocket culture. continue dapto, if urine culture negative can stop cefepime. duration will depend on OR findings. will continue to follow.
[2017-03-05 15:10] VITALS: BP 158/81; PULSE 62; TEMP 36.8; O2SAT 98
--- NOTE | 2017-03-05 16:38 | DIAGNOSTIC IMAGING REPORT ---
CT SCAN OF THE ABDOMEN AND PELVIS WITHOUT CONTRAST CLINICAL HISTORY: Abdominal pain. History of left ureteronephrectomy. COMPARISON STUDY: 01/30/2017 TECHNIQUE: CT scan of the abdomen and pelvis was performed from the lung bases to the proximal femurs. Images are reviewed in the axial, sagittal, and coronal planes. IV contrast was not administered for this examination. CT DOSE: 1597.54 mGy.cm FINDINGS: Lower chest: There are mild dependent atelectatic changes. Liver: There is hepatic steatosis. The liver is borderline enlarged. No focal masses are visualized. Gallbladder: Surgically absent Spleen: Normal in size and attenuation. Pancreas: Unremarkable. Adrenal glands: Unremarkable. Kidneys: The left kidney is surgically absent. There is no right-sided hydronephrosis. No right renal calculi are visualized. Bowel: There are no transition zones indicate bowel obstruction. There are no findings to indicate acute diverticulitis. By history the appendix is surgically absent. Peritoneum: There is no intraperitoneal free air or abdominal ascites. There is mild rectus diastases. Vasculature: The abdominal aorta is normal in course and caliber. Adenopathy: None. Pelvic viscera: The uterus is surgically absent. Skeletal structures: Air within the anterior abdominal wall soft tissues, is likely secondary to injection sites. IMPRESSION: 1. No acute findings 2. Surgically absent gallbladder, left kidney, and uterus 3. No evidence of bowel obstruction. No evidence of free air. 4. Hepatic steatosis. Electronically signed by: Art Guerrero M.D. 03/05/2017 4:37 PM Dictated Date/Time: 03/05/2017 4:33 PM
[2017-03-05] MEDS: MONTELUKAST SOD 10 MG TAB PO SCH (20:30)
[2017-03-05] MEDS: LOSARTAN POTASSIUM 25 MG TAB PO SCH (20:30)
[2017-03-05] MEDS: CHOLECALCIFEROL 1000 INTER.UNIT TAB PO SCH (20:31)
[2017-03-05] MEDS: DAPTOmycin IV 800 MG in SODIUM CHLORIDE 0.9% 50ML 50 ML IV SCH (20:37)
[2017-03-05] MEDS: INSULIN GLARGINE SOLOSTAR 100 UNITS/ML 3 ML PEN SQ SCH (20:41)
[2017-03-05 23:15] VITALS: BP 156/79; PULSE 92; TEMP 36.8; O2SAT 95
[2017-03-05] MEDS: D5W AND 1/2NSS + 20MEQ KCL 1,000 ML IV SCH (23:39)
[2017-03-06] MEDS: LEValbuterol HFA 15GM INHALER INH SCH ×4 (03:00→21:55)
[2017-03-06] MEDS: IPRATROPIUM BROMIDE HFA INHALER INH SCH ×4 (03:00→21:55)
[2017-03-06] MEDS: MoRPHine SULFATE 2 MG/ML CARP IV PRN ×4 (03:10→21:57)
[2017-03-06] MEDS: CEFEPIME IV 1,000 MG in DEXTROSE 5% 100ML 100 ML IV SCH (03:41)
[2017-03-06] MEDS: HEPARIN SOD 5000 UNIT/0.5 ML CARP SQ SCH ×3 (06:00→21:52)
[2017-03-06 06:22] LABS: CALCIUM 8.5 mg/dl (8.5-10.1); CREATININE 1.1 mg/dl (0.60-1.20)
[2017-03-06 07:06] VITALS: BP 132/61; PULSE 85; TEMP 36.7; O2SAT 94
[2017-03-06] MEDS: PANTOprazole SOD 40 MG TAB PO SCH (07:58)
[2017-03-06] MEDS: FUROSEMIDE 20 MG TAB PO SCH (07:58)
[2017-03-06] MEDS: LACTOBACILLUS ACIDOPHILUS (FLORANEX) TAB PO SCH (08:00)
[2017-03-06] MEDS: FLUTICASONE PROPIONATE NA SPR 16 GM BTL NAE SCH (08:35)
[2017-03-06] MEDS: NYSTATIN CR 15 GM TUBE EXT SCH ×2 (08:35→21:52)
[2017-03-06] MEDS: FLUOCINONIDE 0.05% CR 60 GM TUBE EXT SCH ×2 (08:35→21:53)
[2017-03-06] MEDS: BUDESONIDE 90 MCG INH INH SCH ×2 (08:36→21:56)
[2017-03-06] MEDS: INSULIN ASPART 100 UNITS/ML 3 ML PEN SC SCH ×4 (08:37→21:51)
[2017-03-06] MEDS ORDERED: PROPOFOL IV EMULSION 10 MG/ML 20 ML VIAL IV ONE (10:20)
[2017-03-06] MEDS ORDERED: LIDOCAINE HCL 2% 2 ML VIAL (20MG/ML) ONE (10:20)
[2017-03-06] MEDS ORDERED: MIDAZOLAM HCL 1 MG/ML 2ML VIAL ONE (10:21)
[2017-03-06] MEDS ORDERED: FENTANYL CITRATE INJ 50 MCG/1 ML 2 ML VIAL ONE (10:21)
--- NOTE | 2017-03-06 10:28 | Progress Note ---
Internal Med Progress Note Date of Service: Mar 06, 2017. Provider Documentation: SUBJECTIVE: Seen and examined at bedside. Patient Staff informed that she had a mechanical fall this morning and obtained bruise of forehead and chin. Denies chest pain, SOB, headache, blurry vision. No new complaints. Planned for port removal today but cancelled secondary to scalp hematoma. OBJECTIVE: Vital Signs-as noted below Physical Exam: General Appearance:Obese, no apparent distress Head: normocephalic, Atraumatic Eyes: normal inspection, EOMI, PERRL Neck: supple, Trachea midline Respiratory/Chest: Decreased breath sounds, CTA Cardiovascular: S1, S2, No murmur Abdomen/GI:Soft, Non tender, Bowel sounds present Extremities/Musculoskelatal:normal inspection, 1+ edema Neurologic/Psych:grossly no focal neurological deficits Skin: normal color, warm Lab data as noted below. ASSESSMENT & PLAN: RECURRENT GRAM POSITIVE BACTEREMIA : Recent admission at [facility] 01/31-02/04 for similar diagnosis: discharged on PO Zyvox for 14 days Blood culture on [facility] 02/27/17: Coag negative staph drawn form A - port. MRSA gene detected Likely source: Port Blood culture on 03/01/17: coagulase negative staph repeat blood culture 03/02/17: No growth to date Appreciate input form ID Dr Ryan Planned for Port removal today Appreciate Surgery help Follow up repeat Urine culture:pending Continue Cefepime and Daptomycin Monitor CK levels while on Daptomycin ECHO: Study is inadequate to assess for endocarditis due to patient body habitus Scalp Hematoma S/P fall CT head: No acute findings intracranially Monitor CHRONIC HYPOXEMIC RESPIRATORY FAILURE : on 2 L home Oxygen continue Bipap QHS for SAMANTHA continue PRN neb DM II recent Hb A1c ~8 continue basal Lantus, ISS HTN : stable continue Losartan CKD III Cr at baseline monitor PRP CODE STATUS FULL CODE DVT PX : Heparin SQ DISPOSITION : pt wants to be discharged home when medically stable Not interested in Rehab PT/OT pt is at her baseline functional status can return home when medically stable Social service consulted for discharge planning Awaiting urine culture PROCEDURE: ECHO: * Normal LV chamber size with moderate concentric LVH. * Hyperdynamic LV systolic function, EF >70%. * No segmental left ventricular wall motion abnormalities are noted. * Grade I diastolic dysfunction. * Poorly visualized valvular structures, no significant valvular stenosis or regurgitation by Doppler. * Study is inadequate to assess for endocarditis due to patient body habitus. Vital Signs: Date Time Temp Pulse Resp B/P (MAP) Pulse Ox O2 Delivery O2 Flow Rate FiO2 03/06/17 08:30 Room Air 03/06/17 07:06 36.7 85 20 132/61 (84) 94 03/06/17 00:00 CPAP 03/05/17 23:15 36.8 92 20 156/79 (104) 95 BiPAP 03/05/17 16:00 Nasal Cannula 2.0 CPAP 03/05/17 15:10 36.8 62 18 158/81 (106) 98 2.0 Lab Results: Results Past 24 Hours Test 03/05/17 19:33 03/06/17 05:20 03/06/17 07:53 03/06/17 11:37 Range/Units Bedside Glucose 203 189 169 70-90 mg/dl Sodium Level 140 136-145 mmol/L Potassium Level 4.0 3.5-5.1 mmol/L Chloride Level 107 98-107 mmol/L Carbon Dioxide Level 27 21-32 mmol/L Anion Gap 6.0 3-11 mmol/L Blood Urea Nitrogen 15 7-18 mg/dl Creatinine 1.10 0.60-1.20 mg/dl Est Creatinine Clear Calc Drug Dose 72.0 ml/min Estimated GFR () 61.0 Estimated GFR (Non- 52.6 BUN/Creatinine Ratio 14.0 10-20 Random Glucose 191 70-99 mg/dl Calcium Level 8.5 8.5-10.1 mg/dl Total Creatine Kinase 199 26-192 U/L
--- NOTE | 2017-03-06 10:47 | DIAGNOSTIC IMAGING REPORT ---
CT HEAD WITHOUT CONTRAST (CT) CLINICAL HISTORY: Head trauma. Head pain. Patient on heparin. COMPARISON STUDY: 02/01/2015 TECHNIQUE: Axial CT of the brain is performed from the vertex to the skull base. IV contrast was not administered for this examination. CT DOSE: 631.16 mGy.cm FINDINGS: No intra or extra-axial mass lesions are visualized. There is no CT evidence of acute cortical infarction. There is no evidence of midline shift. There is no acute hemorrhage. No calvarial fractures are visualized. There are patchy white matter hypodensities likely on a small vessel basis. There is no evidence of pathologic ventricular dilatation. There is no evidence of acute sinusitis There is a left frontal scalp hematoma. IMPRESSION: Left frontal scalp hematoma. No acute intracranial findings. Electronically signed by: Art Guerrero M.D. 03/06/2017 10:46 AM Dictated Date/Time: 03/06/2017 10:44 AM
[2017-03-06] MEDS ORDERED: LIDOCAINE HCL 1% 20 ML VIAL ONE (10:53)
[2017-03-06] MEDS ORDERED: BUPIVACAINE 0.5 % 5 MG/1 ML MPF 30ML VIAL ONE (10:53)
[2017-03-06] MEDS ORDERED: KETAMINE HCL INJ 50 MG/ML 10 ML VIAL ONE (11:01)
[2017-03-06] MEDS ORDERED: SODIUM CHLORIDE 0.9% INJ 10 ML VIAL ONE (11:01)
[2017-03-06] MEDS: D5W AND 1/2NSS + 20MEQ KCL 1,000 ML IV SCH (12:20)
[2017-03-06] MEDS: OXYCODONE/ACETAMINOPHEN 5-325 TAB PO PRN ×2 (12:20→18:22)
--- NOTE | 2017-03-06 14:15 | Progress Note ---
Subjective Date of Service: Mar 06, 2017. Subjective events noted, pt had fall overnight, surgery postponed. tolerating abx. repeat cultures remain negative. urine with yeast, no ua done, ? contaminant. afebrile. Problem List Medical Problems: (1) Candidiasis, vagina Status: Acute (2) High serum lactate Status: Acute (3) Positive blood culture Status: Acute Objective Vital Signs Date Time Temp Pulse Resp B/P (MAP) Pulse Ox O2 Delivery O2 Flow Rate FiO2 03/06/17 08:30 Room Air 03/06/17 07:06 36.7 85 20 132/61 (84) 94 03/06/17 00:00 CPAP 03/05/17 23:15 36.8 92 20 156/79 (104) 95 BiPAP 03/05/17 16:00 Nasal Cannula 2.0 CPAP 03/05/17 15:10 36.8 62 18 158/81 (106) 98 2.0 Laboratory Results Item Value Date Time Blood Culture - Final Complete 03/01/17 1430 Blood Coag Neg Staph Not Lugdunensis Blood Culture - Preliminary Resulted 03/02/17 0840 Blood NO GROWTH TO DATE. Blood Culture - Preliminary Resulted 03/02/17 0850 Blood NO GROWTH TO DATE. Urine Culture - Preliminary Resulted 03/04/17 0000 Urine , Clean Catch PIN-POINT GROWTH PRESENT, REINCUBATING. Urine Culture - Preliminary Resulted 03/04/17 0000 Urine , Clean Catch Yeast Not Lindsay Albicans Last 24 Hours Test 03/05/17 19:33 03/06/17 05:20 03/06/17 07:53 03/06/17 11:37 Bedside Glucose 203 mg/dl 189 mg/dl 169 mg/dl Sodium Level 140 mmol/L Potassium Level 4.0 mmol/L Chloride Level 107 mmol/L Carbon Dioxide Level 27 mmol/L Anion Gap 6.0 mmol/L Blood Urea Nitrogen 15 mg/dl Creatinine 1.10 mg/dl Est Creatinine Clear Calc Drug Dose 72.0 ml/min Estimated GFR () 61.0 Estimated GFR (Non- 52.6 BUN/Creatinine Ratio 14.0 Random Glucose 191 mg/dl Calcium Level 8.5 mg/dl Total Creatine Kinase 199 U/L Assessment and Plan (1) Sepsis due to coagulase-negative staphylococcal infection Assessment & Plan: for port removal, held today. continue dapto. will stop cefepime, suspect yeast is contaminant.
[2017-03-06 15:35] VITALS: BP 150/75; PULSE 80; TEMP 36.8; O2SAT 98
[2017-03-06 16:02] VITALS: O2SAT 98
[2017-03-06] MEDS: INSULIN GLARGINE SOLOSTAR 100 UNITS/ML 3 ML PEN SQ SCH (21:52)
[2017-03-06] MEDS: CHOLECALCIFEROL 1000 INTER.UNIT TAB PO SCH (21:53)
[2017-03-06] MEDS: MONTELUKAST SOD 10 MG TAB PO SCH (21:54)
[2017-03-06] MEDS: LOSARTAN POTASSIUM 25 MG TAB PO SCH (21:54)
[2017-03-06] MEDS: DAPTOmycin IV 800 MG in SODIUM CHLORIDE 0.9% 50ML 50 ML IV SCH (22:25)
[2017-03-06 23:33] VITALS: BP 173/72; PULSE 89; TEMP 36.8; O2SAT 95
[2017-03-07] VITALS (7 sets, daily range): BP systolic 136–171; BP diastolic 72–80; PULSE 72–98; TEMP 36.5–37.2; O2SAT 94–98
[2017-03-07] MEDS: OXYCODONE/ACETAMINOPHEN 5-325 TAB PO PRN ×4 (00:05→21:27)
[2017-03-07] MEDS: D5W AND 1/2NSS + 20MEQ KCL 1,000 ML IV SCH ×2 (02:00→18:05)
[2017-03-07] MEDS: IPRATROPIUM BROMIDE HFA INHALER INH SCH ×4 (02:43→21:28)
[2017-03-07] MEDS: LEValbuterol HFA 15GM INHALER INH SCH ×4 (02:43→21:28)
[2017-03-07] MEDS: MoRPHine SULFATE 2 MG/ML CARP IV PRN ×4 (04:22→23:36)
[2017-03-07] MEDS: HEPARIN SOD 5000 UNIT/0.5 ML CARP SQ SCH ×3 (04:22→21:30)
[2017-03-07] MEDS: NYSTATIN CR 15 GM TUBE EXT SCH ×2 (08:00→21:28)
[2017-03-07] MEDS: FLUOCINONIDE 0.05% CR 60 GM TUBE EXT SCH ×2 (08:00→21:27)
[2017-03-07] MEDS: LACTOBACILLUS ACIDOPHILUS (FLORANEX) TAB PO SCH (08:00)
[2017-03-07] MEDS: FLUTICASONE PROPIONATE NA SPR 16 GM BTL NAE SCH (08:56)
[2017-03-07] MEDS: FUROSEMIDE 20 MG TAB PO SCH (08:56)
[2017-03-07] MEDS: BUDESONIDE 90 MCG INH INH SCH ×2 (08:56→21:29)
[2017-03-07] MEDS: PANTOprazole SOD 40 MG TAB PO SCH (08:57)
[2017-03-07] MEDS: INSULIN ASPART 100 UNITS/ML 3 ML PEN SC SCH ×4 (09:03→21:38)
--- NOTE | 2017-03-07 10:14 | Surgery Progress Note ---
Surgery Progress Note Date of Service Mar 07, 2017. Subjective sustained fall in room yesterday, aport removal cancelled yesterday rescheduled for today Has a headache and soreness from fall no changes with port, no pain, redness, or swelling NPO Objective Vital Signs: Date Time Temp Pulse Resp B/P (MAP) Pulse Ox O2 Delivery O2 Flow Rate FiO2 03/07/17 09:00 Nasal Cannula 2.0 CPAP 03/07/17 07:10 36.7 78 19 136/73 (94) 94 BiPAP 03/07/17 00:30 82 156/78 (104) 03/07/17 00:25 CPAP 2.0 03/06/17 23:33 36.8 89 19 173/72 (105) 95 CPAP 03/06/17 16:02 98 Nasal Cannula 2.0 03/06/17 15:35 36.8 80 18 150/75 (100) 98 Room Air General Appearance: WD/WN, no apparent distress, + obese Head: normocephalic, atraumatic Neck: trachea midline Respiratory/Chest: + pertinent finding (left subclavian aport present, functioning, no erythema) Laboratory Results: Results Past 24 Hours Test 03/06/17 11:37 03/06/17 16:32 03/06/17 19:59 03/07/17 07:18 Range/Units Bedside Glucose 169 168 207 169 70-90 mg/dl Assessment & Plan Recurrent Septicemia - Repeat blood cultures negative on 03/02/17 - has been on IV abx - afebrile Plan: plan for aport removal today NPO continue current management
--- NOTE | 2017-03-07 10:36 | ECHOCARDIOGRAM REPORT ---
*NOTICE TO RECEIVING REPUBLICAN AGENCY This information is strictly Confidential and protected under [place] law. [place] law prohibits you from making any further disclosure of this information unless further disclosure is expressly permitted by the written consent of the person to whom it pertains or is authorized by law. A general authorization for the release of medical or other information is not sufficient for this purpose. Hospital accepts no responsibility if the information is made available to any other person, INCLUDING THE PATIENT. Interpretation Summary * Name: ANGELES CYR Study Date: 03/07/2017 08:05 AM BP: 136/73 mmHg * Patient Location: C.4E\S\E400\S\1 HR: 74 * : 1950 (M/d/yyyy) Gender: Female Height: 62 in * Age: 66 yrs Ethnicity: CA Weight: 327 lb * Ordering Physician: Daniel Mojica * Referring Physician: Self, Referred * Performed By: Zee Paulino RCS * * Reason For Study: BACTEREMIA / R/O VEGATATIONS * BSA: 2.4 m2 * -- Conclusions -- * Normal LV chamber size with moderate concentric LVH. * Normal LV systolic function, EF 60-65%. * No segmental left ventricular wall motion abnormalities are noted. * Grade I diastolic dysfunction. * Poorly visualized valvular structures due to body habitus, unable to accurately assess for vegetations within the scope of this imaging modality. Procedure Details * A complete two-dimensional transthoracic echocardiogram was performed (2D, M-mode, Doppler and color flow Doppler). Left Ventricle * The left ventricle is normal in size. * There is moderate concentric left ventricular hypertrophy. * Ejection Fraction = 60-65%. * Left ventricular systolic function is normal. * No segmental left ventricular wall motion abnormalities are noted. * The left ventricular wall motion is normal. Right Ventricle * The right ventricular cavity size is normal (basal dimension <4.2 cm in right ventricular apical 4-chamber view). * The right ventricular systolic function is normal as assessed by tricuspid annular plane systolic excursion (TAPSE) (normal >1.5 cm). Atria * The left atrial size is normal. * Right atrial size is normal. * No ASD detected; PFO is not assessed. Mitral Valve * The mitral valve anatomy is normal. * There is no mitral valve stenosis. * There is trace mitral regurgitation. Tricuspid Valve * The tricuspid valve is not well visualized. * There is no tricuspid stenosis. * No tricuspid regurgitation. Aortic Valve * The aortic valve is not well visualized. * No hemodynamically significant valvular aortic stenosis. * There is no significant aortic regurgitation. Pulmonic Valve * The pulmonary valve is not well seen, but the Doppler examination is normal without significant regurgitation or stenosis. Great Vessels * The aortic root is normal size. Pericardium/Pleural * Small pericardial effusion. * A circumferential pericardial effusion is noted. Left Ventricular Diastolic Function * Grade I diastolic dysfunction, (abnormal relaxation pattern). MMode 2D Measurements and Calculations IVSd 1.6 cm IVSs 2.1 cm LVIDd 4.7 cm LVIDs 3.8 cm LVPWd 1.6 cm LVPWs 1.5 cm IVS/LVPW 1.0 FS 18.8 % EDV(Teich) 103.9 ml ESV(Teich) 63.6 ml EF(Teich) 38.8 % EDV(cubed) 105.8 ml ESV(cubed) 56.7 ml EF(cubed) 46.4 % % IVS thick 28.2 % % LVPW thick -8.51 % LV mass(C)d 335.8 grams LV mass(C)dI 142.5 grams/m\S\2 LV mass(C)s 293.5 grams LV mass(C)sI 124.6 grams/m\S\2 SV(Teich) 40.3 ml SI(Teich) 17.1 ml/m\S\2 SV(cubed) 49.1 ml SI(cubed) 20.9 ml/m\S\2 Ao root diam 2.3 cm Ao root area 4.1 cm\S\2 LA dimension 3.3 cm LA/Ao 1.4 LVOT diam 2.0 cm LVOT area 3.1 cm\S\2 LVAd ap4 31.7 cm\S\2 LVLd ap4 7.0 cm EDV(MOD-sp4) 115.5 ml EDV(sp4-el) 121.1 ml LVAs ap4 21.7 cm\S\2 LVLs ap4 6.3 cm ESV(MOD-sp4) 60.8 ml ESV(sp4-el) 63.6 ml EF(MOD-sp4) 47.4 % EF(sp4-el) 47.5 % LVAd ap2 29.5 cm\S\2 LVLd ap2 7.6 cm EDV(MOD-sp2) 92.3 ml EDV(sp2-el) 97.0 ml LVAs ap2 20.7 cm\S\2 LVLs ap2 6.6 cm ESV(MOD-sp2) 53.3 ml ESV(sp2-el) 55.1 ml EF(MOD-sp2) 42.3 % EF(sp2-el) 43.2 % LVLd %diff 7.6 % EDV(MOD-bp) 104.1 ml LVLs %diff 4.6 % ESV(MOD-bp) 58.7 ml EF(MOD-bp) 43.6 % SV(MOD-sp4) 54.7 ml SI(MOD-sp4) 23.2 ml/m\S\2 SV(MOD-sp2) 39.1 ml SI(MOD-sp2) 16.6 ml/m\S\2 SV(MOD-bp) 45.4 ml SI(MOD-bp) 19.3 ml/m\S\2 SV(sp4-el) 57.5 ml SI(sp4-el) 24.4 ml/m\S\2 SV(sp2-el) 41.9 ml SI(sp2-el) 17.8 ml/m\S\2 Doppler Measurements and Calculations MV E max doreen 112.7 cm/sec MV A max doreen 135.9 cm/sec MV E/A 0.83 MV P1/2t max doreen 122.8 cm/sec MV P1/2t 56.3 msec MVA(P1/2t) 3.9 cm\S\2 MV dec slope 639.3 cm/sec\S\2 MV dec time 0.20 sec Ao V2 max 202.2 cm/sec Ao max PG 16.4 mmHg Ao max PG (full) 11.1 mmHg SHERRI(V,A) 1.8 cm\S\2 SHERRI(V,D) 1.8 cm\S\2 LV V1 max PG 5.2 mmHg LV V1 max 114.5 cm/sec PA V2 max 147.1 cm/sec PA max PG 8.7 mmHg
--- NOTE | 2017-03-07 11:35 | Progress Note ---
Subjective Date of Service: Mar 07, 2017. Subjective pt for port removal today. continues on dapto. tolerating well. repeat cultures remain negative. afebrile. no new labs Problem List Medical Problems: (1) Candidiasis, vagina Status: Acute (2) High serum lactate Status: Acute (3) Positive blood culture Status: Acute Objective Vital Signs Date Time Temp Pulse Resp B/P (MAP) Pulse Ox O2 Delivery O2 Flow Rate FiO2 03/07/17 09:00 Nasal Cannula 2.0 CPAP 03/07/17 07:10 36.7 78 19 136/73 (94) 94 BiPAP 03/07/17 00:30 82 156/78 (104) 03/07/17 00:25 CPAP 2.0 03/06/17 23:33 36.8 89 19 173/72 (105) 95 CPAP 03/06/17 16:02 98 Nasal Cannula 2.0 03/06/17 15:35 36.8 80 18 150/75 (100) 98 Room Air Laboratory Results Item Value Date Time Blood Culture - Final Complete 03/01/17 1430 Blood Coag Neg Staph Not Lugdunensis Blood Culture - Preliminary Resulted 03/02/17 0840 Blood NO GROWTH TO DATE. Blood Culture - Preliminary Resulted 03/02/17 0850 Blood NO GROWTH TO DATE. Last 24 Hours Test 03/06/17 11:37 03/06/17 16:32 03/06/17 19:59 03/07/17 07:18 Bedside Glucose 169 mg/dl 168 mg/dl 207 mg/dl 169 mg/dl Assessment and Plan (1) Sepsis due to coagulase-negative staphylococcal infection Assessment & Plan: continue dapto, for port removal today, await OR findings, echo negative for veg. would give additional 14 days of abx post port removal. if access is an issue, could use zyvox 600mg po bid.
--- NOTE | 2017-03-07 13:49 | Progress Note ---
Internal Med Progress Note Date of Service: Mar 07, 2017. Provider Documentation: SUBJECTIVE: Seen and examined at bedside. Denies chest pain, SOB, headache, blurry vision. States having generalized body ache. Planned for port removal today. OBJECTIVE: Vital Signs-as noted below Physical Exam: General Appearance:Obese, no apparent distress Head: normocephalic, Atraumatic Eyes: normal inspection, EOMI, PERRL Neck: supple, Trachea midline Respiratory/Chest: Decreased breath sounds, CTA Cardiovascular: S1, S2, No murmur Abdomen/GI:Soft, Non tender, Bowel sounds present Extremities/Musculoskelatal:normal inspection, 1+ edema Neurologic/Psych:grossly no focal neurological deficits Skin: normal color, warm, Bruise on chin Lab data as noted below. ASSESSMENT & PLAN: RECURRENT GRAM POSITIVE BACTEREMIA : Recent admission at [facility] 01/31-02/04 for similar diagnosis: discharged on PO Zyvox for 14 days Blood culture on [facility] 02/27/17: Coag negative staph drawn form A - port. MRSA gene detected Likely source: Port Blood culture on 03/01/17: coagulase negative staph repeat blood culture 03/02/17: No growth to date Appreciate input form ID Dr Ryan Planned for Port removal today Appreciate Surgery help Urine culture: Negative Cefepime discontinued Continue Daptomycin: Needs for 14 days after port removal Monitor CK levels while on Daptomycin ECHO: Study is inadequate to assess for Vegetations Scalp Hematoma S/P fall CT head: No acute findings intracranially Monitor CHRONIC HYPOXEMIC RESPIRATORY FAILURE : on 2 L home Oxygen continue Bipap QHS for SAMANTHA continue PRN neb DM II recent Hb A1c ~8 continue basal Lantus, ISS HTN : stable continue Losartan CKD III Cr at baseline monitor PRP CODE STATUS FULL CODE DVT PX : Heparin SQ DISPOSITION : pt wants to be discharged home when medically stable Not interested in Rehab PT/OT pt is at her baseline functional status can return home when medically stable Social service consulted for discharge planning Awaiting urine culture PROCEDURE: ECHO: * Normal LV chamber size with moderate concentric LVH. * Hyperdynamic LV systolic function, EF >70%. * No segmental left ventricular wall motion abnormalities are noted. * Grade I diastolic dysfunction. * Poorly visualized valvular structures, no significant valvular stenosis or regurgitation by Doppler. * Study is inadequate to assess for endocarditis due to patient body habitus. Vital Signs: Date Time Temp Pulse Resp B/P (MAP) Pulse Ox O2 Delivery O2 Flow Rate FiO2 03/07/17 09:00 Nasal Cannula 2.0 CPAP 03/07/17 07:10 36.7 78 19 136/73 (94) 94 BiPAP 03/07/17 00:30 82 156/78 (104) 03/07/17 00:25 CPAP 2.0 03/06/17 23:33 36.8 89 19 173/72 (105) 95 CPAP 03/06/17 16:02 98 Nasal Cannula 2.0 03/06/17 15:35 36.8 80 18 150/75 (100) 98 Room Air Lab Results: Results Past 24 Hours Test 03/06/17 16:32 03/06/17 19:59 03/07/17 07:18 03/07/17 11:23 Range/Units Bedside Glucose 168 207 169 189 70-90 mg/dl
[2017-03-07] MEDS ORDERED: PROPOFOL IV EMULSION 10 MG/ML 20 ML VIAL IV ONE (14:56)
[2017-03-07] MEDS ORDERED: MIDAZOLAM HCL 1 MG/ML 2ML VIAL ONE (14:57)
[2017-03-07] MEDS ORDERED: FENTANYL CITRATE INJ 50 MCG/1 ML 2 ML VIAL ONE (14:57)
[2017-03-07] MEDS ORDERED: CEFAZOLIN IV 2,000 MG/60 ML D5W IV ONE (15:25)
--- NOTE | 2017-03-07 15:25 | History & Physical Bridge Note ---
H&P Re-Evaluation Bridge Note: I have examined the patient, reviewed the History & Physical and in the interval since the performance of the History & Physical I have noted the following changes of clinical significance: No changes noted
[2017-03-07] MEDS ORDERED: CLINDAMYCIN 600 MG/54 ML D5W IV ONE ×2 (15:29→15:45)
[2017-03-07] MEDS ORDERED: LIDOCAINE HCL 1% 20 ML VIAL ONE (15:52)
[2017-03-07] MEDS ORDERED: BUPIVACAINE 0.5 % 5 MG/1 ML MPF 30ML VIAL ONE (15:53)
[2017-03-07] MEDS ORDERED: BACITRACIN OINT 15 GM TUBE ONE (15:53)
[2017-03-07] MEDS ORDERED: ATROPINE SULFATE 0.1 MG/ML 5ML SYR IV PRN (16:15)
[2017-03-07] MEDS ORDERED: EpHEDrine SULFATE INJ 50 MG/ML AMP IV PRN (16:15)
[2017-03-07] MEDS ORDERED: FENTANYL CITRATE INJ 50 MCG/1 ML 2 ML VIAL IV PRN (16:15)
--- NOTE | 2017-03-07 16:39 | [facility] Post Operative Brief Note ---
Immediate Operative Summary Operative Date Mar 07, 2017. Pre-Operative Diagnosis Infected A-port, septicemia. Post-Operative Diagnosis Same as preop. Procedure(s) Performed Removal of A-port Surgeon Dr. Montelongo Loading Shovel Oiler Surgeon(s) None Estimated Blood Loss 5 ml Findings ease to remove the port and catheter, the tip of catheter was sent for culture Specimens 1: Removed catheter for culture and sensitivity, anaerobic, aerobic, gram stain. A: Removed A-port. Drains none Anesthesia sedation + local Complication(s) None Disposition Recovery Room / PACU
--- NOTE | 2017-03-07 16:43 | Surgery Progress Note ---
Surgery Progress Note Date of Service Mar 07, 2017. Subjective pt under gone remove the port, pt tolerated the procedure well, Objective Vital Signs: Date Time Temp Pulse Resp B/P (MAP) Pulse Ox O2 Delivery O2 Flow Rate FiO2 03/07/17 14:50 36.5 72 20 169/74 (105) 98 2.0 03/07/17 09:00 Nasal Cannula 2.0 CPAP 03/07/17 07:10 36.7 78 19 136/73 (94) 94 BiPAP 03/07/17 00:30 82 156/78 (104) 03/07/17 00:25 CPAP 2.0 03/06/17 23:33 36.8 89 19 173/72 (105) 95 CPAP General Appearance: WD/WN Head: normocephalic Neck: supple, no JVD Respiratory/Chest: chest non-tender, lungs clear Cardiovascular: regular rate, rhythm, no edema Laboratory Results: Results Past 24 Hours Test 03/06/17 19:59 03/07/17 07:18 03/07/17 11:23 Range/Units Bedside Glucose 207 169 189 70-90 mg/dl Assessment & Plan pt will have remove the port catheter tomorrow, D/W benefits, risks and alternatives of the procedure, the risks- infection, bleeding, blood clot, PE, stroke, , pt understood, she agrees with [facility] plan,I answered all questions , NPO from [place], 03/07/2017 pt will schedule for port insertion on Friday, NPO from, friday [place], D/W benefits, risks and alternatives of the procedure preior port remove, pt understood, she agrees with the plan, pt will have remove the port catheter tomorrow, D/W benefits, risks and alternatives of the procedure, the risks- infection, bleeding, blood clot, PE, stroke, , pt understood, she agrees with [facility] plan,I answered all questions , NPO from [place],
--- NOTE | 2017-03-07 17:03 | Anesthesiology Progress Note ---
Anesthesia Post Op Note Date & Time Mar 07, 2017 at 17:03 Vital Signs Pain Intensity: 0 Vital Signs Past 12 Hours Date Time Temp Pulse Resp B/P (MAP) Pulse Ox O2 Delivery O2 Flow Rate FiO2 03/07/17 17:00 36.2 84 16 153/94 100 Nasal Cannula 3 03/07/17 16:50 79 16 144/52 100 Nasal Cannula 3 03/07/17 16:41 36.2 77 16 161/82 100 Nasal Cannula 3 03/07/17 14:50 36.5 72 20 169/74 (105) 98 2.0 03/07/17 09:00 Nasal Cannula 2.0 CPAP 03/07/17 07:10 36.7 78 19 136/73 (94) 94 BiPAP Notes Mental Status: alert / awake / arousable, participated in evaluation Pt Amnestic to Procedure: Yes Nausea / Vomiting: adequately controlled Pain: adequately controlled Airway Patency, RR, SpO2: stable & adequate BP & HR: stable & adequate Hydration State: stable & adequate Anesthetic Complications: no major complications apparent
[2017-03-07] MEDS: DAPTOmycin IV 800 MG in SODIUM CHLORIDE 0.9% 50ML 50 ML IV SCH (21:27)
[2017-03-07] MEDS: CHOLECALCIFEROL 1000 INTER.UNIT TAB PO SCH (21:30)
[2017-03-07] MEDS: LOSARTAN POTASSIUM 25 MG TAB PO SCH (21:30)
[2017-03-07] MEDS: MONTELUKAST SOD 10 MG TAB PO SCH (21:30)
[2017-03-07] MEDS: INSULIN GLARGINE SOLOSTAR 100 UNITS/ML 3 ML PEN SQ SCH (21:38)
--- NOTE | 2017-03-07 23:29 | OPERATIVE REPORT ---
DATE OF OPERATION: 03/07/2017 PREOPERATIVE DIAGNOSIS: Infected port. POSTOPERATIVE DIAGNOSIS: Same. OPERATION: Removal of infected port. SURGEON: Dr. Jasiel Montelongo. ANESTHESIA: Conscious sedation plus local. ESTIMATED BLOOD LOSS: About 5 mL FINDINGS: Easy to remove the port and catheter. COMPLICATIONS: None. INDICATIONS FOR THE PROCEDURE: This is a 66-year-old female, who was admitted to hospital for an infected port and patient's doctor and the patient wanted to remove the port. I did talk to the patient about the benefit and risk, alternate procedure. I indicated the risks may include, but not limited, such as bleeding, infection, sepsis, DVT, pulmonary emboli, even . The patient understands and she signed informed consent and I answered all questions. DETAILS OF PROCEDURE: We brought the patient to the OR, put the patient in the supine position. The patient received SCDs on bilateral legs to prevent DVT. Also, the patient received 600 mg of clindamycin IV for prophylactic antibiotic. The patient received conscious sedation by anesthesiology. The patient's left side upper chest was prepped and draped in routine sterile fashion. After a timeout, I injected local anesthesia by using 1% lidocaine mixed with 0.5% Marcaine around the portal sites and made an incision on the port and completely removed the port and the catheter easily and hemostasis obtained. Then we sent the tip of the catheter for culture. Then I used 2-0 Vicryl to close the subcutaneous layer, continuous running, closed the skin by using 4-0 Vicryl. We put the dressing on. The patient tolerated the procedure well and after the procedure, the patient transferred to recovery room in stable condition. All the instrument, needle and sponge counts were correct x2 at the end of the case. I attest to the content of the Intraoperative Record and any orders documented therein. Any exceptions are noted below. MTDD
[2017-03-08] MEDS: IPRATROPIUM BROMIDE HFA INHALER INH SCH ×4 (02:55→20:19)
[2017-03-08] MEDS: LEValbuterol HFA 15GM INHALER INH SCH ×4 (02:55→20:20)
[2017-03-08] MEDS: OXYCODONE/ACETAMINOPHEN 5-325 TAB PO PRN ×3 (03:57→21:26)
[2017-03-08] MEDS: HEPARIN SOD 5000 UNIT/0.5 ML CARP SQ SCH ×3 (05:35→20:36)
[2017-03-08] MEDS: MoRPHine SULFATE 2 MG/ML CARP IV PRN ×3 (05:55→23:40)
[2017-03-08] MEDS: D5W AND 1/2NSS + 20MEQ KCL 1,000 ML IV SCH (05:56)
--- NOTE | 2017-03-08 06:13 | Surgery Progress Note ---
Surgery Progress Note Date of Service Mar 08, 2017. Subjective awake , alert Objective Vital Signs: Date Time Temp Pulse Resp B/P (MAP) Pulse Ox O2 Delivery O2 Flow Rate FiO2 03/08/17 00:25 Nasal Cannula 3.0 03/07/17 23:56 37.2 96 18 146/72 (96) 96 CPAP 03/07/17 18:15 36.6 98 18 157/80 (105) 98 Nasal Cannula 3.0 03/07/17 17:45 36.7 79 18 171/76 (107) 96 Nasal Cannula 3.0 03/07/17 17:30 98 Nasal Cannula 3.0 03/07/17 17:00 36.2 84 16 153/94 100 Nasal Cannula 3 03/07/17 16:50 79 16 144/52 100 Nasal Cannula 3 03/07/17 16:41 36.2 77 16 161/82 100 Nasal Cannula 3 03/07/17 14:50 36.5 72 20 169/74 (105) 98 2.0 03/07/17 09:00 Nasal Cannula 2.0 CPAP 03/07/17 07:10 36.7 78 19 136/73 (94) 94 BiPAP General Appearance: no apparent distress Incision(s): dry (has bruising around site from fall- some swelling, dressing dry), intact Laboratory Results: Results Past 24 Hours Test 03/07/17 07:18 03/07/17 11:23 03/07/17 16:46 03/07/17 20:16 Range/Units Bedside Glucose 169 189 144 219 70-90 mg/dl Test 03/08/17 04:44 Range/Units Microbiology Results 03/07/17 Catheter Tip Culture, Received Pending Assessment & Plan 03/08/17- s/p port removal 03/07- will monitor for hematoma/ active bleeding
[2017-03-08 06:47] VITALS: BP 154/68; PULSE 79; TEMP 36.6; O2SAT 93
[2017-03-08] MEDS: LACTOBACILLUS ACIDOPHILUS (FLORANEX) TAB PO SCH (07:58)
[2017-03-08] MEDS: BUDESONIDE 90 MCG INH INH SCH ×2 (07:59→20:19)
[2017-03-08] MEDS: FLUTICASONE PROPIONATE NA SPR 16 GM BTL NAE SCH (07:59)
[2017-03-08] MEDS: FUROSEMIDE 20 MG TAB PO SCH (07:59)
[2017-03-08] MEDS: PANTOprazole SOD 40 MG TAB PO SCH (07:59)
[2017-03-08] MEDS: FLUOCINONIDE 0.05% CR 60 GM TUBE EXT SCH ×2 (08:00→20:00)
[2017-03-08] MEDS: NYSTATIN CR 15 GM TUBE EXT SCH ×2 (08:00→20:00)
[2017-03-08] MEDS: INSULIN ASPART 100 UNITS/ML 3 ML PEN SC SCH ×4 (08:57→20:32)
--- NOTE | 2017-03-08 09:22 | DIAGNOSTIC IMAGING REPORT ---
RIGHT HIP 2 VIEWS CLINICAL HISTORY: Right hip pain. FINDINGS: AP and frog-leg views of the right hip are correlated with pelvic CT dated 03/05/2017. The skeletal structures are osteopenic. There is no radiographic evidence of right hip fracture. The visualized right hemipelvis appears intact. Only minimal degenerative change is seen in the right hip. The joint space is preserved. The right sacroiliac joint is normal as visualized. The overlying soft tissues are within normal limits. There are numerous phleboliths seen in the pelvis. IMPRESSION: No acute bony abnormality is seen in the right hip. Electronically signed by: Vasiliy Abel M.D. 03/08/2017 9:21 AM Dictated Date/Time: 03/08/2017 9:19 AM
[2017-03-08] MEDS ORDERED: NURSING VERBAL MED ORDER ONE (10:45)
--- NOTE | 2017-03-08 13:53 | Progress Note ---
Internal Med Progress Note Date of Service: Mar 08, 2017. Provider Documentation: SUBJECTIVE: Seen and examined at bedside. Had right hip pain this morning which is better now. X ray: no bony abnormality Denies chest pain, SOB, headache, blurry vision. Likely port placement on friday OBJECTIVE: Vital Signs-as noted below Physical Exam: General Appearance:Obese, no apparent distress Head: normocephalic, Atraumatic Eyes: normal inspection, EOMI, PERRL Neck: supple, Trachea midline Respiratory/Chest: Decreased breath sounds, CTA Cardiovascular: S1, S2, No murmur Abdomen/GI:Soft, Non tender, Bowel sounds present Extremities/Musculoskelatal:normal inspection, 1+ edema Neurologic/Psych:grossly no focal neurological deficits Skin: normal color, warm, Bruise on chin Lab data as noted below. ASSESSMENT & PLAN: RECURRENT GRAM POSITIVE BACTEREMIA : Recent admission at [facility] 01/31-02/04 for similar diagnosis: discharged on PO Zyvox for 14 days Blood culture on [facility] 02/27/17: Coag negative staph drawn form A - port. MRSA gene detected Likely source: Port Blood culture on 03/01/17: coagulase negative staph repeat blood culture 03/02/17: No growth Appreciate input form ID Dr Ryan S/P Port removal on 03/07 Appreciate Surgery help Urine culture: Negative Cefepime discontinued Continue Daptomycin: Needs for 14 days after port removal day# 09/28 Monitor CK levels while on Daptomycin ECHO: Study is inadequate to assess for Vegetations Likely port placement on Friday Scalp Hematoma S/P fall CT head: No acute findings intracranially Monitor CHRONIC HYPOXEMIC RESPIRATORY FAILURE : on 2 L home Oxygen continue Bipap QHS for SAMANTHA continue PRN neb DM II recent Hb A1c ~8 continue basal Lantus, ISS HTN : stable continue Losartan CKD III Cr at baseline monitor PRP CODE STATUS FULL CODE DVT PX : Heparin SQ DISPOSITION : pt wants to be discharged home when medically stable Not interested in Rehab PT/OT pt is at her baseline functional status can return home when medically stable Social service consulted for discharge planning PROCEDURE: ECHO: * Normal LV chamber size with moderate concentric LVH. * Hyperdynamic LV systolic function, EF >70%. * No segmental left ventricular wall motion abnormalities are noted. * Grade I diastolic dysfunction. * Poorly visualized valvular structures, no significant valvular stenosis or regurgitation by Doppler. * Study is inadequate to assess for endocarditis due to patient body habitus. Vital Signs: Date Time Temp Pulse Resp B/P (MAP) Pulse Ox O2 Delivery O2 Flow Rate FiO2 03/08/17 08:00 Nasal Cannula 2.0 CPAP 03/08/17 06:47 36.6 79 18 154/68 (96) 93 CPAP 2.0 03/08/17 00:25 Nasal Cannula 3.0 03/07/17 23:56 37.2 96 18 146/72 (96) 96 CPAP 03/07/17 18:15 36.6 98 18 157/80 (105) 98 Nasal Cannula 3.0 03/07/17 17:45 36.7 79 18 171/76 (107) 96 Nasal Cannula 3.0 03/07/17 17:30 98 Nasal Cannula 3.0 03/07/17 17:00 36.2 84 16 153/94 100 Nasal Cannula 3 03/07/17 16:50 79 16 144/52 100 Nasal Cannula 3 03/07/17 16:41 36.2 77 16 161/82 100 Nasal Cannula 3 03/07/17 14:50 36.5 72 20 169/74 (105) 98 2.0 Lab Results: Results Past 24 Hours Test 03/07/17 16:46 03/07/17 20:16 03/08/17 07:23 03/08/17 11:54 Range/Units Bedside Glucose 144 219 170 217 70-90 mg/dl Microbiology Results 03/07/17 Catheter Tip Culture, Received Pending
[2017-03-08 15:35] VITALS: BP 133/80; PULSE 89; TEMP 36.6; O2SAT 94
[2017-03-08] MEDS: LOSARTAN POTASSIUM 25 MG TAB PO SCH (20:20)
[2017-03-08] MEDS: MONTELUKAST SOD 10 MG TAB PO SCH (20:20)
[2017-03-08] MEDS: CHOLECALCIFEROL 1000 INTER.UNIT TAB PO SCH (20:21)
[2017-03-08] MEDS: INSULIN GLARGINE SOLOSTAR 100 UNITS/ML 3 ML PEN SQ SCH (20:32)
[2017-03-08] MEDS: DAPTOmycin IV 800 MG in SODIUM CHLORIDE 0.9% 50ML 50 ML IV SCH (20:37)
[2017-03-08 23:22] VITALS: BP 185/66; PULSE 92; TEMP 36.6; O2SAT 93
[2017-03-08 23:44] VITALS: BP 151/73; PULSE 85
[2017-03-09] MEDS: IPRATROPIUM BROMIDE HFA INHALER INH SCH ×4 (03:40→21:23)
[2017-03-09] MEDS: LEValbuterol HFA 15GM INHALER INH SCH ×4 (03:40→21:23)
[2017-03-09] MEDS: OXYCODONE/ACETAMINOPHEN 5-325 TAB PO PRN ×4 (03:40→23:53)
[2017-03-09] MEDS: HEPARIN SOD 5000 UNIT/0.5 ML CARP SQ SCH ×4 (05:36→21:25)
[2017-03-09] MEDS: MoRPHine SULFATE 2 MG/ML CARP IV PRN ×3 (05:39→21:20)
[2017-03-09 07:07] VITALS: BP 155/79; PULSE 78; TEMP 36.4; O2SAT 94
[2017-03-09] MEDS: LACTOBACILLUS ACIDOPHILUS (FLORANEX) TAB PO SCH (07:52)
[2017-03-09] MEDS: PANTOprazole SOD 40 MG TAB PO SCH (07:53)
[2017-03-09] MEDS: FUROSEMIDE 20 MG TAB PO SCH (07:53)
[2017-03-09] MEDS: BUDESONIDE 90 MCG INH INH SCH ×2 (07:53→18:39)
[2017-03-09] MEDS: FLUTICASONE PROPIONATE NA SPR 16 GM BTL NAE SCH (07:55)
[2017-03-09] MEDS: FLUOCINONIDE 0.05% CR 60 GM TUBE EXT SCH ×2 (07:57→18:42)
[2017-03-09] MEDS: NYSTATIN CR 15 GM TUBE EXT SCH ×2 (07:57→18:43)
[2017-03-09] MEDS: INSULIN ASPART 100 UNITS/ML 3 ML PEN SC SCH ×4 (08:35→21:32)
--- NOTE | 2017-03-09 14:51 | Progress Note ---
Internal Med Progress Note Date of Service: Mar 09, 2017. Provider Documentation: SUBJECTIVE: Seen and examined at bedside. States feeling well today Denies chest pain, SOB. Likely port placement on tomorrow OBJECTIVE: Vital Signs-as noted below Physical Exam: General Appearance:Obese, no apparent distress Head: normocephalic, Atraumatic Eyes: normal inspection, EOMI, PERRL Neck: supple, Trachea midline Respiratory/Chest: Decreased breath sounds, CTA Cardiovascular: S1, S2, No murmur Abdomen/GI:Soft, Non tender, Bowel sounds present Extremities/Musculoskelatal:normal inspection, 1+ edema Neurologic/Psych:grossly no focal neurological deficits Skin: normal color, warm, Bruise on chin Lab data as noted below. ASSESSMENT & PLAN: RECURRENT GRAM POSITIVE BACTEREMIA : Recent admission at [facility] 01/31-02/04 for similar diagnosis: discharged on PO Zyvox for 14 days Blood culture on [facility] 02/27/17: Coag negative staph drawn form A - port. MRSA gene detected Likely source: Port Blood culture on 03/01/17: coagulase negative staph repeat blood culture 03/02/17: No growth Appreciate input form ID Dr Ryan S/P Port removal on 03/07 Appreciate Surgery help Urine culture: Negative Cefepime discontinued Continue Daptomycin: Needs for 14 days after port removal day# 2/ Monitor CK levels while on Daptomycin ECHO: Study is inadequate to assess for Vegetations Likely port placement tomorrow Culture from Port catheter tip:No growth Scalp Hematoma S/P fall CT head: No acute findings intracranially Monitor CHRONIC HYPOXEMIC RESPIRATORY FAILURE : on 2 L home Oxygen continue Bipap QHS for SAMANTHA continue PRN neb DM II recent Hb A1c ~8 continue basal Lantus, ISS HTN : stable continue Losartan CKD III Cr at baseline monitor PRP CODE STATUS FULL CODE DVT PX : Heparin SQ DISPOSITION : pt wants to be discharged home when medically stable Not interested in Rehab PT/OT pt is at her baseline functional status can return home when medically stable Social service consulted for discharge planning PROCEDURE: ECHO: * Normal LV chamber size with moderate concentric LVH. * Hyperdynamic LV systolic function, EF >70%. * No segmental left ventricular wall motion abnormalities are noted. * Grade I diastolic dysfunction. * Poorly visualized valvular structures, no significant valvular stenosis or regurgitation by Doppler. * Study is inadequate to assess for endocarditis due to patient body habitus. Vital Signs: Date Time Temp Pulse Resp B/P (MAP) Pulse Ox O2 Delivery O2 Flow Rate FiO2 03/09/17 08:00 Nasal Cannula 2.0 03/09/17 07:07 36.4 78 20 155/79 (104) 94 03/08/17 23:44 85 151/73 (99) 03/08/17 23:25 BiPAP 2.0 03/08/17 23:22 36.6 92 20 185/66 (105) 93 2.0 03/08/17 16:00 Nasal Cannula 2.0 03/08/17 15:35 36.6 89 20 133/80 (97) 94 2.0 Lab Results: Results Past 24 Hours Test 03/08/17 16:28 03/08/17 19:55 03/09/17 07:40 03/09/17 11:03 Range/Units Bedside Glucose 171 207 144 258 70-90 mg/dl
[2017-03-09 16:16] VITALS: BP 166/73; PULSE 86; TEMP 36.7; O2SAT 91
[2017-03-09] MEDS: DAPTOmycin IV 800 MG in SODIUM CHLORIDE 0.9% 50ML 50 ML IV SCH (18:59)
[2017-03-09] MEDS: MONTELUKAST SOD 10 MG TAB PO SCH (21:24)
[2017-03-09] MEDS: CHOLECALCIFEROL 1000 INTER.UNIT TAB PO SCH (21:24)
[2017-03-09] MEDS: LOSARTAN POTASSIUM 25 MG TAB PO SCH (21:25)
[2017-03-09] MEDS: INSULIN GLARGINE SOLOSTAR 100 UNITS/ML 3 ML PEN SQ SCH (21:31)
[2017-03-09 23:52] VITALS: BP 146/63; PULSE 85; TEMP 36.7; O2SAT 96
[2017-03-10] MEDS: LEValbuterol HFA 15GM INHALER INH SCH ×4 (03:40→20:48)
[2017-03-10] MEDS: IPRATROPIUM BROMIDE HFA INHALER INH SCH ×4 (03:40→20:48)
[2017-03-10] MEDS: MoRPHine SULFATE 2 MG/ML CARP IV PRN ×2 (03:40→10:10)
[2017-03-10] MEDS: HEPARIN SOD 5000 UNIT/0.5 ML CARP SQ SCH ×3 (05:37→20:56)
[2017-03-10] MEDS: OXYCODONE/ACETAMINOPHEN 5-325 TAB PO PRN ×3 (05:37→21:02)
[2017-03-10 07:00] VITALS: BP 169/77; PULSE 82; TEMP 36.4; O2SAT 93
[2017-03-10] MEDS: NYSTATIN CR 15 GM TUBE EXT SCH ×2 (07:52→20:52)
[2017-03-10] MEDS: FLUOCINONIDE 0.05% CR 60 GM TUBE EXT SCH ×2 (07:52→20:52)
[2017-03-10] MEDS: BUDESONIDE 90 MCG INH INH SCH ×2 (07:53→20:47)
[2017-03-10] MEDS: FLUTICASONE PROPIONATE NA SPR 16 GM BTL NAE SCH (07:54)
[2017-03-10] MEDS: FUROSEMIDE 20 MG TAB PO SCH (08:00)
[2017-03-10] MEDS: PANTOprazole SOD 40 MG TAB PO SCH (08:00)
[2017-03-10] MEDS: LACTOBACILLUS ACIDOPHILUS (FLORANEX) TAB PO SCH (08:00)
[2017-03-10] MEDS: INSULIN ASPART 100 UNITS/ML 3 ML PEN SC SCH ×4 (08:01→21:01)
--- NOTE | 2017-03-10 09:35 | Progress Note ---
Subjective Date of Service: Mar 10, 2017. Subjective s/p port removal 03/07, cath tip culture negative. 03/02 blood cultures negative and final. for new port today secondary to poor access and need for abx. afebrile. no new labs Problem List Medical Problems: (1) Candidiasis, vagina Status: Acute (2) High serum lactate Status: Acute (3) Positive blood culture Status: Acute Objective Vital Signs Date Time Temp Pulse Resp B/P (MAP) Pulse Ox O2 Delivery O2 Flow Rate FiO2 03/10/17 07:00 36.4 82 20 169/77 (107) 93 03/09/17 23:52 36.7 85 18 146/63 (90) 96 03/09/17 23:50 CPAP 03/09/17 21:00 Nasal Cannula 2.0 03/09/17 16:16 36.7 86 18 166/73 (104) 91 Room Air Laboratory Results Item Value Date Time Catheter Tip Culture - Final Complete 03/07/17 1625 Catheter Tip A-Port NO GROWTH Blood Culture - Final Complete 03/02/17 0850 Blood NO GROWTH Last 24 Hours Test 03/09/17 11:03 03/09/17 16:45 03/09/17 20:28 03/10/17 07:36 Bedside Glucose 258 mg/dl 161 mg/dl 206 mg/dl 150 mg/dl Assessment and Plan (1) Sepsis due to coagulase-negative staphylococcal infection Assessment & Plan: port out, cultures negative, would give additional 14 days dapto. ok for d/c when medically cleared for d/c.
[2017-03-10] MEDS ORDERED: BUPIVACAINE 0.5 % 5 MG/1 ML MPF 30ML VIAL ONE (11:30)
[2017-03-10] MEDS ORDERED: LIDOCAINE HCL 1% 20 ML VIAL ONE (11:30)
[2017-03-10] MEDS ORDERED: BACITRACIN OINT 15 GM TUBE ONE (11:32)
[2017-03-10] MEDS ORDERED: MIDAZOLAM HCL 1 MG/ML 2ML VIAL ONE ×2 (11:40→12:00)
[2017-03-10] MEDS ORDERED: CLINDAMYCIN 600 MG/54 ML D5W IV ONE (11:44)
[2017-03-10] MEDS ORDERED: ATROPINE SULFATE 0.1 MG/ML 5ML SYR IV PRN (12:00)
[2017-03-10] MEDS ORDERED: EpHEDrine SULFATE INJ 50 MG/ML AMP IV PRN (12:00)
[2017-03-10] MEDS ORDERED: PROPOFOL IV EMULSION 10 MG/ML 20 ML VIAL IV ONE (12:25)
[2017-03-10] MEDS ORDERED: FENTANYL CITRATE INJ 50 MCG/1 ML 2 ML VIAL ONE (12:35)
[2017-03-10] MEDS ORDERED: SODIUM CHLORIDE 0.9% PF 50 ML VIAL ONE (12:48)
--- NOTE | 2017-03-10 13:10 | [facility] Post Operative Brief Note ---
Immediate Operative Summary Operative Date Mar 10, 2017. Pre-Operative Diagnosis Poor vascular Access Post-Operative Diagnosis Same as preop. Procedure(s) Performed Infusaport Insertion on right subclavan vein Surgeon Dr. Montelongo Obstetrics Specialist Surgeon(s) None Estimated Blood Loss 10 ml Findings normal patent on SVC Specimens 1: Removed portion of catheter for culture and sensitivity, anaerobic, aerobic , gram stain. A: Removed A-port and portion of catheter. Drains none Anesthesia sedation + local Complication(s) None Disposition Recovery Room / PACU
--- NOTE | 2017-03-10 13:14 | Surgery Progress Note ---
Surgery Progress Note Date of Service Mar 10, 2017. Subjective + feeling well F/U/ S/P remove infected port, pt is doing fine, the incision is dry, no redness , Objective Vital Signs: Date Time Temp Pulse Resp B/P (MAP) Pulse Ox O2 Delivery O2 Flow Rate FiO2 03/10/17 08:00 Nasal Cannula 2.0 CPAP 03/10/17 07:00 36.4 82 20 169/77 (107) 93 03/09/17 23:52 36.7 85 18 146/63 (90) 96 03/09/17 23:50 CPAP 03/09/17 21:00 Nasal Cannula 2.0 03/09/17 16:16 36.7 86 18 166/73 (104) 91 Room Air General Appearance: WD/WN Head: normocephalic Neck: supple, no JVD Respiratory/Chest: chest non-tender, lungs clear Cardiovascular: regular rate, rhythm, no edema, no JVD Incision(s): clean, dry, intact Laboratory Results: Results Past 24 Hours Test 03/09/17 16:45 03/09/17 20:28 03/10/17 07:36 Range/Units Bedside Glucose 161 206 150 70-90 mg/dl Assessment & Plan pt will have remove the port catheter tomorrow, D/W benefits, risks and alternatives of the procedure, the risks- infection, bleeding, blood clot, PE, stroke, , pt understood, she agrees with [facility],I answered all questions , NPO from [place], 03/07/2017 pt will schedule for port insertion on Friday, NPO from, friday [place], D/W benefits, risks and alternatives of the procedure preior port remove, pt understood, she agrees with the plan, 03/10/2017 under local ansthesia, insertion port on right sublavan vein, she tolerated the procedure weel, POst-op care, keep the dressing on for days, she can take a shower on 03/14/2017 , follow up me 1 week, . pt will have remove the port catheter tomorrow, D/W benefits, risks and alternatives of the procedure, the risks- infection, bleeding, blood clot, PE, stroke, , pt understood, she agrees with [facility],I answered all questions , NPO from [place], 03/07/2017 pt will schedule for port insertion on Friday, NPO from, friday [place], D/W benefits, risks and alternatives of the procedure preior port remove, pt understood, she agrees with the plan,
[2017-03-10] MEDS ORDERED: LIDOCAINE HCL 2% 2 ML VIAL (20MG/ML) ONE (13:19)
[2017-03-10] MEDS ORDERED: SODIUM CHLORIDE 0.9% 1000ML 1,000 ML IV SCH (13:22)
[2017-03-10] MEDS: FENTANYL CITRATE INJ 50 MCG/1 ML 2 ML VIAL IV PRN ×2 (13:28→13:40)
--- NOTE | 2017-03-10 13:41 | DIAGNOSTIC IMAGING REPORT ---
CHEST ONE VIEW PORTABLE CLINICAL HISTORY: S/P insertion port catheter tube position COMPARISON STUDY: No previous studies for comparison. FINDINGS: Central catheter place in superior vena cava. Interval removal of the left-sided catheter. No evidence of pneumothorax. IMPRESSION: 1. Interval placement of a central catheter in superior vena cava. 2. No evidence pneumothorax. 3. Interval removal of the left central catheter Electronically signed by: Keith Johns M.D. 03/10/2017 1:40 PM Dictated Date/Time: 03/10/2017 1:37 PM
--- NOTE | 2017-03-10 14:17 | Anesthesiology Progress Note ---
Anesthesia Post Op Note Date & Time Mar 10, 2017 at 14:17 Vital Signs Pain Intensity: 6 Vital Signs Past 12 Hours Date Time Temp Pulse Resp B/P (MAP) Pulse Ox O2 Delivery O2 Flow Rate FiO2 03/10/17 14:00 70 14 159/74 95 Nasal Cannula 3 03/10/17 13:50 36.4 70 14 136/62 94 Nasal Cannula 3 03/10/17 13:40 75 20 147/77 97 Mask 10 03/10/17 13:30 75 20 147/69 99 Mask 10 03/10/17 13:20 80 18 148/101 99 Mask 10 03/10/17 13:14 36.2 79 16 151/74 97 Mask 10 03/10/17 08:00 Nasal Cannula 2.0 CPAP 03/10/17 07:00 36.4 82 20 169/77 (107) 93 Notes Mental Status: alert / awake / arousable, participated in evaluation Pt Amnestic to Procedure: Yes Nausea / Vomiting: adequately controlled Pain: adequately controlled Airway Patency, RR, SpO2: stable & adequate BP & HR: stable & adequate Hydration State: stable & adequate Anesthetic Complications: no major complications apparent
[2017-03-10 14:25] VITALS: BP 167/68; PULSE 70; TEMP 36.6; O2SAT 98
[2017-03-10 15:01] VITALS: BP 150/76; PULSE 72; TEMP 36.5; O2SAT 95
--- NOTE | 2017-03-10 16:57 | Progress Note ---
Internal Med Progress Note Date of Service: Mar 10, 2017. Provider Documentation: SUBJECTIVE: Seen and examined at bedside. Got port placed today. CXR:no pneumothorax Reports chronic back pain Denies chest pain, SOB. OBJECTIVE: Vital Signs-as noted below Physical Exam: General Appearance:Obese, no apparent distress Head: normocephalic, Atraumatic Eyes: normal inspection, EOMI, PERRL Neck: supple, Trachea midline Chest: port on left side Respiratory/Chest: Decreased breath sounds, CTA Cardiovascular: S1, S2, No murmur Abdomen/GI:Soft, Non tender, Bowel sounds present Extremities/Musculoskelatal:normal inspection, 1+ edema Neurologic/Psych:grossly no focal neurological deficits Skin: normal color, warm, Bruise on chin, left eye Lab data as noted below. ASSESSMENT & PLAN: RECURRENT GRAM POSITIVE BACTEREMIA : Recent admission at [facility] 01/31-02/04 for similar diagnosis: discharged on PO Zyvox for 14 days Blood culture on [facility] 02/27/17: Coag negative staph drawn form A - port. MRSA gene detected Likely source: Port Blood culture on 03/01/17: coagulase negative staph repeat blood culture 03/02/17: No growth Appreciate input form ID Dr Ryan S/P Port removal on 03/07 Replaced Port on 02/28 Appreciate Surgery help Urine culture: Negative Cefepime discontinued Continue Daptomycin: for additional 14 days per ID: # Day 09/28 Monitor CK levels while on Daptomycin ECHO: Study is inadequate to assess for Vegetations Culture from Port catheter tip:No growth Scalp Hematoma S/P fall CT head: No acute findings intracranially Monitor CHRONIC HYPOXEMIC RESPIRATORY FAILURE : on 2 L home Oxygen continue Bipap QHS for SAMANTHA continue PRN neb DM II recent Hb A1c ~8 continue basal Lantus, ISS HTN : stable continue Losartan CKD III Cr at baseline monitor PRP CODE STATUS FULL CODE DVT PX : Heparin SQ DISPOSITION : Medically stable for discharge Patient is not interested in Rehab PT/OT Social service consulted for discharge planning Plan to [place] when insurance coverage approves for home IV antibiotics Follow with for primary care PROCEDURE: ECHO: * Normal LV chamber size with moderate concentric LVH. * Hyperdynamic LV systolic function, EF >70%. * No segmental left ventricular wall motion abnormalities are noted. * Grade I diastolic dysfunction. * Poorly visualized valvular structures, no significant valvular stenosis or regurgitation by Doppler. * Study is inadequate to assess for endocarditis due to patient body habitus. Vital Signs: Date Time Temp Pulse Resp B/P (MAP) Pulse Ox O2 Delivery O2 Flow Rate FiO2 03/10/17 15:01 36.5 72 18 150/76 (100) 95 Nasal Cannula 2.0 Humidified Oxygen 03/10/17 14:57 Nasal Cannula 2.0 03/10/17 14:25 36.6 70 16 167/68 (101) 98 Nasal Cannula 3.0 03/10/17 14:00 70 14 159/74 95 Nasal Cannula 3 03/10/17 13:50 36.4 70 14 136/62 94 Nasal Cannula 3 03/10/17 13:40 75 20 147/77 97 Mask 10 03/10/17 13:30 75 20 147/69 99 Mask 10 03/10/17 13:20 80 18 148/101 99 Mask 10 03/10/17 13:14 36.2 79 16 151/74 97 Mask 10 03/10/17 08:00 Nasal Cannula 2.0 CPAP 03/10/17 07:00 36.4 82 20 169/77 (107) 93 03/09/17 23:52 36.7 85 18 146/63 (90) 96 03/09/17 23:50 CPAP 03/09/17 21:00 Nasal Cannula 2.0 Lab Results: Results Past 24 Hours Test 03/09/17 16:45 03/09/17 20:28 03/10/17 07:36 03/10/17 13:25 Range/Units Bedside Glucose 161 206 150 151 70-90 mg/dl Test 03/10/17 15:56 Range/Units Bedside Glucose 206 70-90 mg/dl
--- NOTE | 2017-03-10 19:04 | OPERATIVE REPORT ---
DATE OF OPERATION: 03/10/2017 PREOPERATIVE DIAGNOSIS: Need IV access. POSTOPERATIVE DIAGNOSIS: Same. PROCEDURE: Insertion [id number] on the right subclavian vein. SURGEON: Dr. Jasiel Montelongo. ANESTHESIA: Conscious sedation plus local. ESTIMATED BLOOD LOSS: About 10 mL. FINDINGS: Normal and patent found on the SVC. COMPLICATIONS: None. INDICATIONS FOR THE PROCEDURE: This is a 66-year-old female who presented infected port on the left side chest. The patient was removed the [id number] 3 days ago and now patient doing fine. The patient will require put another new port on the right side. I did talk to patient about the benefit and risk, alternate procedure. I indicated the risks may include but not limited such as bleeding, infection, injury of vessel, injury to the lung, blood clot, myocardial infarction, pulmonary emboli, stroke, even , dysfunction catheter. The patient understands she signed informed consent and I answered all questions. DETAILS OF PROCEDURE: We brought the patient to the OR, put the patient in the supine position. The patient received SCD on bilateral legs to prevent DVT. Also, the patient received 600 mg of clindamycin IV for prophylactic antibiotic. The patient received conscious sedation by the anesthesiology. I used ultrasound to locate internal jugular vein. Based on the patient super obesity, patient has no neck at all and the patient's right side neck and chest was prepped and draped in routine sterile fashion. After a timeout, I injected local anesthesia on the right neck, make about a 0.5 cm incision and tried to use needle to locate the SVC under ultrasound guidance and could not found the SVC. At this moment, I tried right chest to insertion catheter, located the right subclavian vein and one time easily punctured the right subclavian vein, good blood return. Then I passed the wire over the needle, removed the needle and used fluoro confirmed the wire located SVC and then I created the port on the right upper chest, and then I passed the sheath over the wire, removed the wire and passed the catheter, 8 mm Yoruba catheter through the sheath without difficulty, then we reference x-ray and located junction between the SVC to the right atrium. Then we sized the catheter, connected with the port. During the procedure, the patient in the Trendelenburg position all time. Once we connected with the port and I used 2-0 Prolene to fix the port on the chest wall at 3 points then hemostasis was obtained. Then I used 2-0 Vicryl to close subcutaneous layer continue running, use 4-0 Vicryl close skin continue running. We put the dressing on. The patient tolerated the procedure well. After the procedure all the instruments, needle and sponge count correct x2 at the end of the case. After the procedure, the patient transferred to recovery room in stable condition. Also, I gave the patient postop care instruction. The patient understands. I attest to the content of the Intraoperative Record and any orders documented therein. Any exceptions are noted below. CONCHITAD
[2017-03-10] MEDS: MONTELUKAST SOD 10 MG TAB PO SCH (20:50)
[2017-03-10] MEDS: CHOLECALCIFEROL 1000 INTER.UNIT TAB PO SCH (20:50)
[2017-03-10] MEDS: LOSARTAN POTASSIUM 25 MG TAB PO SCH (20:50)
[2017-03-10] MEDS: DAPTOmycin IV 800 MG in SODIUM CHLORIDE 0.9% 50ML 50 ML IV SCH (20:55)
[2017-03-10] MEDS: INSULIN GLARGINE SOLOSTAR 100 UNITS/ML 3 ML PEN SQ SCH (21:01)
[2017-03-10 23:47] VITALS: BP 126/71; PULSE 69; TEMP 36.6; O2SAT 94
[2017-03-11] MEDS: OXYCODONE/ACETAMINOPHEN 5-325 TAB PO PRN ×4 (04:52→22:13)
[2017-03-11] MEDS: HEPARIN SOD 5000 UNIT/0.5 ML CARP SQ SCH ×3 (05:30→20:49)
[2017-03-11] MEDS ORDERED: CLINDAMYCIN 600 MG/54 ML D5W IV ONE (06:00)
[2017-03-11 07:26] VITALS: BP 131/73; PULSE 63; TEMP 36.6; O2SAT 94
--- NOTE | 2017-03-11 07:56 | Anesthesiology Progress Note ---
Anesthesia Post Op Note Date & Time Mar 11, 2017 at 07:55 Vital Signs Vital Signs Past 12 Hours Date Time Temp Pulse Resp B/P (MAP) Pulse Ox O2 Delivery O2 Flow Rate FiO2 03/11/17 07:26 36.6 63 22 131/73 (92) 94 Nasal Cannula 2.0 03/11/17 00:00 Nasal Cannula 2.0 03/10/17 23:47 36.6 69 18 126/71 (89) 94 Room Air Notes Mental Status: alert / awake / arousable, participated in evaluation Pt Amnestic to Procedure: Yes Nausea / Vomiting: adequately controlled Pain: adequately controlled Airway Patency, RR, SpO2: stable & adequate BP & HR: stable & adequate Hydration State: stable & adequate Anesthetic Complications: no major complications apparent
[2017-03-11] MEDS: FLUTICASONE PROPIONATE NA SPR 16 GM BTL NAE SCH (08:04)
[2017-03-11] MEDS: BUDESONIDE 90 MCG INH INH SCH ×2 (08:04→20:45)
[2017-03-11] MEDS: LACTOBACILLUS ACIDOPHILUS (FLORANEX) TAB PO SCH (08:05)
[2017-03-11] MEDS: FUROSEMIDE 20 MG TAB PO SCH (08:05)
[2017-03-11] MEDS: PANTOprazole SOD 40 MG TAB PO SCH (08:05)
[2017-03-11] MEDS: LEValbuterol HFA 15GM INHALER INH SCH ×3 (08:05→20:47)
[2017-03-11] MEDS: IPRATROPIUM BROMIDE HFA INHALER INH SCH ×3 (08:05→20:46)
[2017-03-11] MEDS: NYSTATIN CR 15 GM TUBE EXT SCH ×2 (08:07→20:46)
[2017-03-11] MEDS: FLUOCINONIDE 0.05% CR 60 GM TUBE EXT SCH ×2 (08:07→20:46)
[2017-03-11] MEDS: INSULIN ASPART 100 UNITS/ML 3 ML PEN SC SCH ×4 (08:13→20:57)
[2017-03-11 15:35] VITALS: BP 149/72; PULSE 82; TEMP 36.7; O2SAT 91
--- NOTE | 2017-03-11 16:26 | Progress Note ---
Internal Med Progress Note Date of Service: Mar 11, 2017. Provider Documentation: SUBJECTIVE: The patient was seen and examined S/P A Port placement Denies any symptoms OBJECTIVE: Vital Signs-as noted below Exam: General-No distress at rest Eyes-normal ENT-normal Neck-supple Lungs-Clear to ausucltate bilaterally Heart-regular,no murmur Abdomen-Distended,soft,bowel sound present Extremities-Trace edema bilaterally Neuro-AAOx3 Lab data as noted below. ASSESSMENT & PLAN: RECURRENT GRAM POSITIVE BACTEREMIA -likely due to IV line infection: Recent admission at [facility] 01/31-02/04 for similar diagnosis: discharged on PO Zyvox for 14 days Blood culture on [facility] 02/27/17: Coag negative staph drawn form A - port. MRSA gene detected Blood culture on 03/01/17: coagulase negative staph Repeat blood culture 03/02/17: No growth Appreciate input form ID Dr Ryan S/P Port removal on 03/07 ,Replaced Port on 03/10 Appreciate Surgery help Urine culture: Negative Cefepime discontinued Continue Daptomycin: for additional 14 days per ID: # Day 10/29 Monitor CK levels while on Daptomycin ECHO: Study is inadequate to assess for Vegetations Culture from Port catheter tip:No growth Clinically stable Likely discharge in 2-3 days Scalp Hematoma S/P fall CT head: No acute findings intracranially Monitor No acute symptoms CHRONIC HYPOXEMIC RESPIRATORY FAILURE : On 2 L home Oxygen Continue Bipap QHS for SAMANTHA Continue PRN neb DM II recent Hb A1c ~8 continue basal Lantus, ISS No acute issue HTN : Stable Continue Losartan CKD III Cr at baseline Monitor PRP CODE STATUS FULL CODE DVT PX : Heparin SQ DISPOSITION : Medically stable for discharge Patient is not interested in Rehab PT/OT Social service consulted for discharge planning Plan to DC when insurance coverage approves for home IV antibiotics Follow with for primary care Vital Signs: Date Time Temp Pulse Resp B/P (MAP) Pulse Ox O2 Delivery O2 Flow Rate FiO2 03/11/17 16:00 Nasal Cannula 2.0 03/11/17 15:35 36.7 82 22 149/72 (97) 91 2.0 03/11/17 08:00 Nasal Cannula 2.0 03/11/17 07:26 36.6 63 22 131/73 (92) 94 Nasal Cannula 2.0 03/11/17 00:00 Nasal Cannula 2.0 03/10/17 23:47 36.6 69 18 126/71 (89) 94 Room Air Lab Results: Results Past 24 Hours Test 03/10/17 20:04 03/11/17 07:43 03/11/17 11:26 Range/Units Bedside Glucose 214 191 201 70-90 mg/dl
[2017-03-11] MEDS: LOSARTAN POTASSIUM 25 MG TAB PO SCH (20:47)
[2017-03-11] MEDS: MONTELUKAST SOD 10 MG TAB PO SCH (20:47)
[2017-03-11] MEDS: CHOLECALCIFEROL 1000 INTER.UNIT TAB PO SCH (20:47)
[2017-03-11] MEDS: INSULIN GLARGINE SOLOSTAR 100 UNITS/ML 3 ML PEN SQ SCH (20:59)
[2017-03-11] MEDS: DAPTOmycin IV 800 MG in SODIUM CHLORIDE 0.9% 50ML 50 ML IV SCH (20:59)
[2017-03-11 23:31] VITALS: BP 148/76; PULSE 86; TEMP 36.7; O2SAT 96
[2017-03-12] MEDS: IPRATROPIUM BROMIDE HFA INHALER INH SCH ×4 (03:17→20:37)
[2017-03-12] MEDS: LEValbuterol HFA 15GM INHALER INH SCH ×4 (03:17→20:37)
[2017-03-12] MEDS: HEPARIN SOD 5000 UNIT/0.5 ML CARP SQ SCH ×3 (03:18→20:45)
[2017-03-12] MEDS: OXYCODONE/ACETAMINOPHEN 5-325 TAB PO PRN ×3 (04:56→17:59)
[2017-03-12 07:01] VITALS: BP 149/84; PULSE 86; TEMP 36.6; O2SAT 91
[2017-03-12] MEDS: LACTOBACILLUS ACIDOPHILUS (FLORANEX) TAB PO SCH (08:03)
[2017-03-12] MEDS: FLUTICASONE PROPIONATE NA SPR 16 GM BTL NAE SCH (08:04)
[2017-03-12] MEDS: PANTOprazole SOD 40 MG TAB PO SCH (08:04)
[2017-03-12] MEDS: BUDESONIDE 90 MCG INH INH SCH ×2 (08:04→20:02)
[2017-03-12] MEDS: FUROSEMIDE 20 MG TAB PO SCH (08:04)
[2017-03-12] MEDS: NYSTATIN CR 15 GM TUBE EXT SCH ×2 (08:05→20:04)
[2017-03-12] MEDS: FLUOCINONIDE 0.05% CR 60 GM TUBE EXT SCH ×2 (08:06→20:04)
[2017-03-12] MEDS: INSULIN ASPART 100 UNITS/ML 3 ML PEN SC SCH ×4 (08:14→20:44)
[2017-03-12 14:22] VITALS: BP 129/70; PULSE 84; TEMP 36.7; O2SAT 93
--- NOTE | 2017-03-12 17:48 | Progress Note ---
Internal Med Progress Note Date of Service: Mar 12, 2017. Provider Documentation: SUBJECTIVE: The patient was seen and examined S/P A Port placement Denies any symptoms Complains of ongoing diarrhea OBJECTIVE: Vital Signs-as noted below Exam: General-No distress at rest Eyes-normal ENT-normal Neck-supple Lungs-Clear to ausucltate bilaterally Heart-regular,no murmur Abdomen-Distended,soft,bowel sound present Extremities-Trace edema bilaterally Neuro-AAOx3 Lab data as noted below. ASSESSMENT & PLAN: RECURRENT GRAM POSITIVE BACTEREMIA -likely due to IV line infection: Recent admission at [facility] 01/31-02/04 for similar diagnosis: discharged on PO Zyvox for 14 days Blood culture on [facility] 02/27/17: Coag negative staph drawn form A - port. MRSA gene detected Blood culture on 03/01/17: coagulase negative staph Repeat blood culture 03/02/17: No growth Appreciate input form ID Dr Ryan S/P Port removal on 03/07 ,Replaced Port on 03/10 Appreciate Surgery help Urine culture: Negative Cefepime discontinued Continue Daptomycin: for additional 14 days per ID: # Day 10/29 Monitor CK levels while on Daptomycin ECHO: Study is inadequate to assess for Vegetations Culture from Port catheter tip:No growth Likely discharge in 1 to 2 days Denies any symptoms except diarrhea Diarrhea Even before admission Worse now Will check stool for C Diff and C/S Scalp Hematoma S/P fall CT head: No acute findings intracranially Monitor No acute symptoms CHRONIC HYPOXEMIC RESPIRATORY FAILURE : On 2 L home Oxygen Continue Bipap QHS for SAMANTHA Continue PRN neb DM II recent Hb A1c ~8 continue basal Lantus, ISS No acute issue HTN : Stable Continue Losartan CKD III Cr at baseline Monitor PRP CODE STATUS FULL CODE DVT PX : Heparin SQ DISPOSITION : Medically stable for discharge Patient is not interested in Rehab PT/OT Social service consulted for discharge planning Plan to DC when insurance coverage approves for home IV antibiotics Follow with for primary care Vital Signs: Date Time Temp Pulse Resp B/P (MAP) Pulse Ox O2 Delivery O2 Flow Rate FiO2 03/12/17 16:00 Nasal Cannula 2.0 03/12/17 14:22 36.7 84 20 129/70 (89) 93 2.0 03/12/17 08:00 Nasal Cannula 2.0 6/28/17 07:01 36.6 86 20 149/84 (105) 91 BiPAP 2.0 03/12/17 00:00 CPAP 03/11/17 23:31 36.7 86 20 148/76 (100) 96 BiPAP 2.0 Lab Results: Results Past 24 Hours Test 03/11/17 20:01 03/12/17 07:33 03/12/17 11:24 03/12/17 16:22 Range/Units Bedside Glucose 197 169 215 191 70-90 mg/dl
[2017-03-12] MEDS ORDERED: NURSING VERBAL MED ORDER ONE (19:00)
[2017-03-12] MEDS: DAPTOmycin IV 800 MG in SODIUM CHLORIDE 0.9% 50ML 50 ML IV SCH (20:02)
[2017-03-12] MEDS: CHOLECALCIFEROL 1000 INTER.UNIT TAB PO SCH (20:39)
[2017-03-12] MEDS: MONTELUKAST SOD 10 MG TAB PO SCH (20:39)
[2017-03-12] MEDS: LOSARTAN POTASSIUM 25 MG TAB PO SCH (20:39)
[2017-03-12] MEDS: LOPERAMIDE HCL 2 MG CAP PO PRN (20:41)
[2017-03-12] MEDS: INSULIN GLARGINE SOLOSTAR 100 UNITS/ML 3 ML PEN SQ SCH (20:44)
[2017-03-12 23:45] VITALS: BP 155/71; PULSE 75; TEMP 36.8; O2SAT 94
[2017-03-13] MEDS: LEValbuterol HFA 15GM INHALER INH SCH ×4 (02:30→20:14)
[2017-03-13] MEDS: IPRATROPIUM BROMIDE HFA INHALER INH SCH ×4 (02:30→20:14)
[2017-03-13] MEDS: HEPARIN SOD 5000 UNIT/0.5 ML CARP SQ SCH ×3 (06:00→20:20)
[2017-03-13] MEDS: OXYCODONE/ACETAMINOPHEN 5-325 TAB PO PRN ×4 (06:00→18:15)
[2017-03-13] MEDS: LOPERAMIDE HCL 2 MG CAP PO PRN ×2 (06:05→20:16)
[2017-03-13 07:34] VITALS: BP 138/62; PULSE 80; TEMP 36.6; O2SAT 96
[2017-03-13] MEDS: FLUTICASONE PROPIONATE NA SPR 16 GM BTL NAE SCH (07:54)
[2017-03-13] MEDS: BUDESONIDE 90 MCG INH INH SCH ×2 (07:54→20:15)
[2017-03-13] MEDS: LACTOBACILLUS ACIDOPHILUS (FLORANEX) TAB PO SCH (07:56)
[2017-03-13] MEDS: FUROSEMIDE 20 MG TAB PO SCH (07:57)
[2017-03-13] MEDS: FLUOCINONIDE 0.05% CR 60 GM TUBE EXT SCH ×2 (07:57→20:13)
[2017-03-13] MEDS: NYSTATIN CR 15 GM TUBE EXT SCH ×2 (07:57→20:14)
[2017-03-13] MEDS: PANTOprazole SOD 40 MG TAB PO SCH (07:57)
[2017-03-13] MEDS: INSULIN ASPART 100 UNITS/ML 3 ML PEN SC SCH ×4 (08:07→20:19)
--- NOTE | 2017-03-13 13:33 | Progress Note ---
Internal Med Progress Note Date of Service: Mar 13, 2017. Provider Documentation: SUBJECTIVE: The patient was seen and examined S/P A Port placement Denies any symptoms Complains of ongoing diarrhea-C Diff and Culture-negative OBJECTIVE: Vital Signs-as noted below Exam: General-No distress at rest Eyes-normal ENT-normal Neck-supple Lungs-Clear to ausucltate bilaterally Heart-regular,no murmur Abdomen-Distended,soft,bowel sound present Extremities-Trace edema bilaterally Neuro-AAOx3 Lab data as noted below. ASSESSMENT & PLAN: RECURRENT GRAM POSITIVE BACTEREMIA -likely due to IV line infection: Recent admission at [facility] 01/31-02/04 for similar diagnosis: discharged on PO Zyvox for 14 days Blood culture on [facility] 02/27/17: Coag negative staph drawn form A - port. MRSA gene detected Blood culture on 03/01/17: coagulase negative staph Repeat blood culture 03/02/17: No growth Appreciate input form ID Dr Ryan S/P Port removal on 03/07 ,Replaced Port on 03/10 Appreciate Surgery help ,Urine culture: Negative ,Cefepime discontinued Continue Daptomycin: for additional 14 days per ID: # Day 11/26 Monitor CK levels while on Daptomycin ECHO: Study is inadequate to assess for Vegetations Culture from Port catheter tip:No growth Likely discharge in 1 to 2 days Denies any symptoms except diarrhea-negative for nay infection Started on Imodium The port can be accessed from Friday Discharge home tomorrow Diarrhea Even before admission Worse now Will check stool for C Diff and C/S-negative Imodium for Diarrhea Scalp Hematoma S/P fall CT head: No acute findings intracranially Monitor No acute symptoms CHRONIC HYPOXEMIC RESPIRATORY FAILURE : On 2 L home Oxygen Continue Bipap QHS for SAMANTHA Continue PRN neb DM II recent Hb A1c ~8 continue basal Lantus, ISS No acute issue HTN : Stable Continue Losartan CKD III Cr at baseline Monitor PRP CODE STATUS FULL CODE DVT PX : Heparin SQ DISPOSITION : Medically stable for discharge Patient is not interested in Rehab PT/OT Social service consulted for discharge planning Plan to DC when insurance coverage approves for home IV antibiotics Follow with for primary care Vital Signs: Date Time Temp Pulse Resp B/P (MAP) Pulse Ox O2 Delivery O2 Flow Rate FiO2 03/13/17 08:00 Nasal Cannula 2.0 03/13/17 07:34 36.6 80 18 138/62 (87) 96 Room Air 03/13/17 00:00 CPAP 2.0 03/12/17 23:45 36.8 75 18 155/71 (99) 94 CPAP 03/12/17 16:00 Nasal Cannula 2.0 03/12/17 14:22 36.7 84 20 129/70 (89) 93 2.0 Lab Results: Results Past 24 Hours Test 03/12/17 16:22 03/12/17 20:26 03/13/17 04:44 03/13/17 07:48 Range/Units Bedside Glucose 191 219 149 70-90 mg/dl Test 03/13/17 11:24 Range/Units Bedside Glucose 214 70-90 mg/dl Microbiology Results 03/12/17 C.difficile Toxin B Gene (PCR) - Final, Complete No C. difficile toxin B gene detected 03/12/17 Shiga Toxin Test - Preliminary, Resulted No E. Coli shiga toxin 1 or shiga tox... 03/12/17 Stool Culture - Preliminary, Resulted NO SALMONELLA ISOLATED TO DATE,...
[2017-03-13 15:04] VITALS: BP 148/83; PULSE 93; TEMP 36.9; O2SAT 94
[2017-03-13] MEDS: LOSARTAN POTASSIUM 25 MG TAB PO SCH (20:15)
[2017-03-13] MEDS: MONTELUKAST SOD 10 MG TAB PO SCH (20:15)
[2017-03-13] MEDS: CHOLECALCIFEROL 1000 INTER.UNIT TAB PO SCH (20:16)
[2017-03-13] MEDS: INSULIN GLARGINE SOLOSTAR 100 UNITS/ML 3 ML PEN SQ SCH (20:20)
[2017-03-13] MEDS: DAPTOmycin IV 800 MG in SODIUM CHLORIDE 0.9% 50ML 50 ML IV SCH (20:20)
[2017-03-14] MEDS: OXYCODONE/ACETAMINOPHEN 5-325 TAB PO PRN ×4 (00:05→18:08)
[2017-03-14 00:18] VITALS: BP 156/73; PULSE 86; TEMP 36.8; O2SAT 96
[2017-03-14] MEDS: LEValbuterol HFA 15GM INHALER INH SCH ×3 (03:00→16:50)
[2017-03-14] MEDS: IPRATROPIUM BROMIDE HFA INHALER INH SCH ×3 (03:00→16:50)
[2017-03-14] MEDS: HEPARIN SOD 5000 UNIT/0.5 ML CARP SQ SCH ×2 (06:00→14:30)
[2017-03-14 07:07] VITALS: BP 149/74; PULSE 82; TEMP 36.4; O2SAT 92
[2017-03-14] MEDS: BUDESONIDE 90 MCG INH INH SCH (08:29)
[2017-03-14] MEDS: FUROSEMIDE 20 MG TAB PO SCH (08:30)
[2017-03-14] MEDS: LACTOBACILLUS ACIDOPHILUS (FLORANEX) TAB PO SCH (08:30)
[2017-03-14] MEDS: FLUTICASONE PROPIONATE NA SPR 16 GM BTL NAE SCH (08:30)
[2017-03-14] MEDS: FLUOCINONIDE 0.05% CR 60 GM TUBE EXT SCH (08:31)
[2017-03-14] MEDS: NYSTATIN CR 15 GM TUBE EXT SCH (08:31)
[2017-03-14] MEDS: PANTOprazole SOD 40 MG TAB PO SCH (08:31)
[2017-03-14] MEDS: INSULIN ASPART 100 UNITS/ML 3 ML PEN SC SCH ×3 (08:34→18:07)
[2017-03-14] MEDS: LOPERAMIDE HCL 2 MG CAP PO PRN (09:01)
--- NOTE | 2017-03-14 11:20 | Progress Note ---
Internal Med Progress Note Date of Service: Mar 14, 2017. Provider Documentation: SUBJECTIVE: The patient was seen and examined S/P A Port placement Denies any symptoms Complains of ongoing diarrhea-C Diff and Culture-negative Can try Imodium as needed OBJECTIVE: Vital Signs-as noted below Exam: General-No distress at rest Eyes-normal ENT-normal Neck-supple Lungs-Clear to ausucltate bilaterally With decreased breath sound bilaterally Heart-regular,no murmur Abdomen-Distended,soft,bowel sound present Extremities-Trace edema bilaterally Neuro-AAOx3 Lab data as noted below. ASSESSMENT & PLAN: RECURRENT GRAM POSITIVE BACTEREMIA -likely due to IV line infection: Recent admission at [facility] 01/31-02/04 for similar diagnosis: discharged on PO Zyvox for 14 days Blood culture on [facility] 02/27/17: Coag negative staph drawn form A - port. MRSA gene detected Blood culture on 03/01/17: coagulase negative staph Repeat blood culture 03/02/17: No growth Appreciate input form ID Dr Ryan S/P Port removal on 03/07 ,Replaced Port on 03/10 Appreciate Surgery help ,Urine culture: Negative ,Cefepime discontinued Continue Daptomycin: for additional 14 days per ID: # Day 11/26 Monitor CK levels while on Daptomycin ECHO: Study is inadequate to assess for Vegetations Culture from Port catheter tip:No growth Likely discharge in 1 to 2 days Denies any symptoms except diarrhea-negative for nay infection Started on Imodium and diarrhea seems to be controlled The port can be accessed from Friday Discharge home today -continue IV Daptomycin till 03/21/17 Diarrhea-likely secondary to antibiotic Even before admission Will check stool for C Diff and C/S-negative Imodium for Diarrhea as needed Scalp Hematoma S/P fall CT head: No acute findings intracranially Monitor No acute symptoms CHRONIC HYPOXEMIC RESPIRATORY FAILURE : On 2 L home Oxygen Continue Bipap QHS for SAMANTHA Continue PRN neb DM II recent Hb A1c ~8 continue basal Lantus, ISS No acute issue HTN : Stable Continue Losartan CKD III Cr at baseline Monitor PRP CODE STATUS FULL CODE DVT PX : Heparin SQ DISPOSITION : Medically stable for discharge Patient is not interested in Rehab PT/OT Social service consulted for discharge planning Discharge today with IV antibiotic Follow with for primary care Vital Signs: Date Time Temp Pulse Resp B/P (MAP) Pulse Ox O2 Delivery O2 Flow Rate FiO2 6/30/17 07:07 36.4 82 18 149/74 (99) 92 Room Air 03/14/17 00:18 36.8 86 18 156/73 (100) 96 CPAP 03/14/17 00:00 Nasal Cannula 2.0 03/13/17 16:30 Nasal Cannula 2.0 03/13/17 15:04 36.9 93 20 148/83 (104) 94 Nasal Cannula 2.0 Lab Results: Results Past 24 Hours Test 03/13/17 11:24 03/13/17 16:27 03/13/17 19:22 03/14/17 04:44 Range/Units Bedside Glucose 214 150 191 70-90 mg/dl Test 03/14/17 08:01 Range/Units Bedside Glucose 189 70-90 mg/dl
[2017-03-14] MEDS ORDERED: IMD2X PO (13:21)
--- NOTE | 2017-03-14 13:25 | Discharge Instructions ---
Discharge Instructions Date of Service Mar 14, 2017. Admission Reason for Admission: Bacteremia, Tachycardia Discharge Discharge Diagnosis / Problem: IV Line Sepsis Discharge Goals Goal(s): Prevent Disease Progression Activity Recommendations Activity Limitations: resume your previous activity . Instructions / Follow-Up Instructions / Follow-Up DR Fulton (Dr Palomares is away) on 03/20/17 at 12:45 PM Current Hospital Diet Patient's current hospital diet: Diabetes Type 2 Diet, AHA Diet (Heart Healthy) Discharge Diet Recommended Diet: AHA Diet (Heart Healthy), Diabetes Type 2 Diet Procedures Procedures Performed: Infusaport Insertion on right subclavan vein Pending Studies Studies pending at discharge: no Medical Emergencies . Who to Call and When: Medical Emergencies: If at any time you feel your situation is an emergency, please call 911 immediately. . Non-Emergent Contact Non-Emergency issues call your: Primary Care Provider . Past History Medical & Surgical History: (1) Line sepsis (2) Urinary tract infection (3) Back pain (4) COPD exacerbation (5) Thrombocythemia (6) Diabetes mellitus out of control (7) Diverticulitis (8) Sepsis due to coagulase-negative staphylococcal infection (9) Symptoms of urinary tract infection . "Provider Documentation" section prepared by Edy Mcconnell. . VTE Core Measure Inpt VTE Proph given/why not?: Unfractionated heparin SQ
[2017-03-14 15:18] VITALS: BP 149/74; PULSE 82; TEMP 36.4; O2SAT 92
[2017-03-14 15:32] VITALS: BP 152/61; PULSE 84; TEMP 36.8; O2SAT 91
[2017-03-14] MEDS: DAPTOmycin IV 800 MG in SODIUM CHLORIDE 0.9% 50ML 50 ML IV SCH (16:47)
--- NOTE | 2017-03-15 12:05 | Discharge Summary ---
Discharge Summary Date of Service Mar 15, 2017. Discharge Summary Admission Date: Mar 01, 2017 at 15:57 Discharge Date: Mar 14, 2017 Discharge Disposition: Home with services Principal Diagnosis: IV Line Sepsis,Sleep Apnea Secondary Diagnoses/Problems: Please see H&P and Hospital Progress note Procedures: A Port placement Consultations: Surgery and ID Medication Reconciliation New Medications: Loperamide Hcl (Imodium) 2 Mg Cap 2 MG PO PRN PRN for AFTER EACH LOOSE STOOL for 10 Days, #30 CAP 1 cap after each loose stool ,maximum 4/day Continued Medications: Albuterol Hfa (Ventolin Hfa) 200 Puffs/41175 Mcg Aers 2 PUFFS INH Q4, #18 Budesonide (Inhalation) (Pulmicort Flexhaler) 180 Mcg/Act Inh 2 PUFFS INH BID, #1 Cholecalciferol (Vitamin D3) 1,000 Unit Cap 2000 UNIT PO HS Ferrous Sulfate (Ferrous Sulfate) 325 Mg Tab 325 MG PO DAILY PRN for FINGERS GET SORE Fluocinonide (Fluocinonide) 20 Appln/20 Ml Soln 1 APPLN TOP BID, #60 Fluticasone Propionate (Nasal) (Flonase Allergy Relief) 50 Mcg/Act Spr 2 SPRAY MARCIA DAILY Furosemide (Lasix) 20 Mg Tab 20 MG PO DAILY, TAB Heparin Sodium (Porcine) Lock (Heparin Lock Flush For Fl) 100 Unit/Ml Inj 5 ML IV q6wks APORT FLUSH Home O2 Therapy (Oxygen) Gas 2 LITERS NA CONTINOUS Insulin Aspart (Novolog Flexpen) 100 Units/Ml Inj SQ PC, #15 CARB COUNT Insulin Glargine (Lantus Solostar) 100 Unit/Ml Inj 10 UNITS SQ HS, #15 Losartan Potassium (Losartan Potassium) 25 Mg Tab 25 MG PO HS, #30 Montelukast Sodium (Singulair) 10 Mg Tab 10 MG PO HS, TAB Nystatin (Nystatin Cream) 90 Appln/30 Gm Cr 1 APPLN TOP BID, #15 ORDERED 01/06/2017, FOR 2 WEEKS Omeprazole (Prilosec) 20 Mg Cap 20 MG PO DAILY, CAP Oxycodone/Acetaminophen 5MG/325MG (Percocet 5MG/325MG) Tab 1 TABLET PO Q6H PRN for Pain, TAB PAIN Probiotic Product (Probiotic) 1 Cap Cap 1 CAP PO DAILY Umeclidinium [place] (Incruse Ellipta) 62.5 Mcg/Inh Inh 1 PUFF INH DAILY Admission Information HPI (per Admitting provider): This is a 66 yo F with past medical hx of chronic respiratory failure on 2L home , SAMANTHA on CPAP /Bipap at night , HTN , type 2 DM insulin dependent , hx of DVT not on anticoagulation for GI bleed, hx of urothelial ca s/p chemo . S/P left nephrectomy , CKD stage 3 has A-port placement for difficult blood draw approx 2 yrs back hx of recurrent bacteremia -Gram positive cocci recent discharged form [facility] on February 04 for similar diagnosis -blood culture - coag negative gram positive cocci pt was discharged on PO Zyvox FOR 14 DAYS pt reports of fever and chills for past 1 day had intermittent diarrhea for past 3 days had lab work done at Clinic received call from ID clinic -blood culture growing -bacteria -gram positive cocci pt was asked to come to ED for evaluation in ED , pt was afebrile , normal white count , tachycardic in 100's Lactic acid elevated > 2 Past Medical/Surgical History Medical Problems: (1) History of bladder cancer Status: Chronic (2) History of cancer Status: Chronic (3) Malignant neoplasm of ureter Permanent Comment: Status post Left nephro ureterectomy for urothelial cell carcinoma of the ureter Recurrent disease at the surgical bed Initiation of radiation therapy Extended hospitalization due to PEs and DVT Sepsis as well as Clostridium difficile Resumed radiation therapy Status post completion of radiation therapy 04/18/2015 received 5040 cGy Status: Chronic Surgical Problems: (1) History of nephrostomy Status: Chronic Family History Diabetes mellitus FHx: cancer FHx: lung disease Hypertension Kidney disease Kidney stones Social History Smoking Status: Former Smoker Drug Use: none Marital Status: single Housing status: lives alone Occupational Status: unemployed, disabled Immunizations History of Influenza Vaccine: Yes History of Tetanus Vaccine?: Yes History of Pneumococcal: Yes History of Hepatitis B Vaccine: Yes Multi-Drug Resistant Organisms History of MDRO: Yes Type of MDRO: MRSA Allergies Coded Allergies: Penicillins (Verified Allergy, Severe, THROAT CLOSES, 09/04/16) TIGIST. PRIMAXIN 01/2015 ADMISSION Metronidazole (Verified Allergy, Intermediate, hives/rash, 09/04/16) Ondansetron (Verified Allergy, Intermediate, hives, 09/04/16) Vancomycin (Verified Allergy, Mild, RASH, 02/01/17) itchy rash Adhesives (Verified Allergy, Unknown, SKIN BLISTERING, 09/04/16) Sulfa Antibiotics (Verified Allergy, Unknown, Rash, 09/04/16) Ibuprofen (Verified Adverse Reaction, Intermediate, RECTAL BLEEDING, 09/04) Home Medications Scheduled Albuterol Hfa (Ventolin Hfa), 2 PUFFS INH Q4 Budesonide (Inhalation) (Pulmicort Flexhaler), 2 PUFFS INH BID Cholecalciferol (Vitamin D3), 2,000 UNIT PO HS Fluocinonide (Fluocinonide), 1 APPLN TOP BID Fluticasone Propionate (Nasal) (Flonase Allergy Relief), 2 SPRAY MARCIA DAILY Furosemide (Lasix), 20 MG PO DAILY Heparin Sodium (Porcine) Lock (Heparin Lock Flush For Fl), 5 ML IV q6wks Home O2 Therapy (Oxygen), 2 LITERS NA CONTINOUS Insulin Aspart (Novolog Flexpen), SQ PC Insulin Glargine (Lantus Solostar), 10 UNITS SQ HS Losartan Potassium (Losartan Potassium), 25 MG PO HS Montelukast Sodium (Singulair), 10 MG PO HS Nystatin (Nystatin Cream), 1 APPLN TOP BID Omeprazole (Prilosec), 20 MG PO DAILY Probiotic Product (Probiotic), 1 CAP PO DAILY Umeclidinium [place] (Incruse Ellipta), 1 PUFF INH DAILY Scheduled PRN Ferrous Sulfate (Ferrous Sulfate), 325 MG PO DAILY PRN for FINGERS GET SORE Oxycodone/Acetaminophen 5MG/325MG (Percocet 5MG/325MG), 1 TABLET PO Q6H PRN for Pain Review of Systems Constitutional: + fever, + chills, + sweats, + weakness, + fatigue Eyes: No worsening of vision, No eye pain, No redness, No discharge, No diplopia, No problem reported ENT: No hearing loss, No unusual epistaxis, No nasal symptoms, No sore throat, No tinnitus, No dental problems, No trouble swallowing, No problem reported Respiratory: No cough, No sputum, No wheezing, No shortness of breath, No dyspnea on exertion, No dyspnea at rest, No hemoptysis, No problem reported Cardiovascular: + edema (chronic lower ext edema ), No chest pain, No orthopnea , No PND, No claudication, No palpitations Abdomen: + nausea, + diarrhea Musculoskeletal: + joint pain (pelvic pain ), + muscle pain Genitourinary - Female: + urinary frequency, + urinary urgency Neurologic: + weakness, + numbness/tingling, + vertigo, + balance problems Psychiatric: + depression symptoms Endocrine: + fatigue Physical Ex - H&P Physical Exam Vital Signs Date Time Temp Pulse Resp B/P (MAP) Pulse Ox O2 Delivery O2 Flow Rate FiO2 03/01/17 15:39 Nasal Cannula 2.0 03/01/17 15:31 101 24 160/80 96 Nasal Cannula 2.0 03/01/17 14:34 94 Nasal Cannula 2.0 03/01/17 13:38 37.1 110 22 164/84 93 Nasal Cannula 2.0 General Appearance: no apparent distress Eyes: sclerae normal Respiratory/Chest: chest non-tender, lungs clear, normal breath sounds, no respiratory distress Cardiovascular: regular rate, rhythm, + tachycardia Abdomen/GI: normal bowel sounds, non tender, soft Back: no CVA tenderness Extremities/Musculoskelatal: normal capillary refill, + pedal edema (1-2 + edema ) Neurologic/Psych: alert, normal mood/affect, oriented x 3 Skin: normal color, warm/dry, no rash Lymphatic: no adenopathy Diagnostics - H&P Diagnostics Laboratory Results Results Past 24 Hours Test 03/01/17 14:30 03/01/17 14:40 Range/Units White Blood Count 7.53 4.8-10.8 K/uL Red Blood Count 3.93 4.2-5.4 M/uL Hemoglobin 11.6 12.0-16.0 g/dL Hematocrit 36.9 37-47 % Mean Corpuscular Volume 93.9 80-100 fL Mean Corpuscular Hemoglobin 29.5 25-34 pg Mean Corpuscular Hemoglobin Concent 31.4 32-36 g/dl Platelet Count 172 130-400 K/uL Mean Platelet Volume 9.8 7.4-10.4 fL Neutrophils (%) (Auto) 69.0 % Lymphocytes (%) (Auto) 20.6 % Monocytes (%) (Auto) 8.1 % Eosinophils (%) (Auto) 1.7 % Basophils (%) (Auto) 0.3 % Neutrophils # (Auto) 5.20 1.4-6.5 K/uL Lymphocytes # (Auto) 1.55 1.2-3.4 K/uL Monocytes # (Auto) 0.61 0.11-0.59 K/uL Eosinophils # (Auto) 0.13 0-0.5 K/uL Basophils # (Auto) 0.02 0-0.2 K/uL RDW Standard Deviation 51.6 36.4-46.3 fL RDW Coefficient of Variation 15.3 11.5-14.5 % Immature Granulocyte % (Auto) 0.3 % Immature Granulocyte # (Auto) 0.02 0.00-0.02 K/uL Prothrombin Time 10.6 9.0-12.0 SECONDS Prothromb Time International Ratio 1.0 0.9-1.1 Activated Partial Thromboplast Time 29.9 21.0-31.0 SECONDS Partial Thromboplastin Ratio 1.2 Sodium Level 139 136-145 mmol/L Potassium Level 4.2 3.5-5.1 mmol/L Chloride Level 104 98-107 mmol/L Carbon Dioxide Level 27 21-32 mmol/L Anion Gap 8.0 3-11 mmol/L Blood Urea Nitrogen 18 7-18 mg/dl Creatinine 1.10 0.60-1.20 mg/dl Est Creatinine Clear Calc Drug Dose 67.7 ml/min Estimated GFR () 61.0 Estimated GFR (Non- 52.6 BUN/Creatinine Ratio 16.0 10-20 Random Glucose 203 70-99 mg/dl Calcium Level 8.9 8.5-10.1 mg/dl Total Bilirubin 0.7 0.2-1 mg/dl Aspartate Amino Transf (AST/SGOT) 51 15-37 U/L Alanine Aminotransferase (ALT/SGPT) 38 12-78 U/L Alkaline Phosphatase 72 45-117 U/L Total Protein 7.0 6.4-8.2 gm/dl Albumin 3.3 3.4-5.0 gm/dl Globulin 3.7 2.5-4.0 gm/dl Albumin/Globulin Ratio 0.9 0.9-2 Bedside Lactic Acid Venous 2.32 0.90-1.70 mmol/L Microbiology Results 03/01/17 Blood Culture, Received Pending 03/01/17 Urine Culture, Received Pending Diagnostic Radiology CHEST ONE VIEW PORTABLE CLINICAL HISTORY: Sepsis COMPARISON STUDY: 02/02/2017. FINDINGS: mild stable cardiomegaly. Central catheter in superior vena cava. Pulmonary vasculature is prominent. IMPRESSION: Stable cardiomegaly. Chronic change. CXR normal Impression - H&P Impression Assessment and Plan RECURRENT GRAM POSITIVE BACTEREMIA : recent admission at [facility] 01/31-02/04 for similar diagnosis was discharged on PO Zyvox for 14 days possible source of infection A-port pt is very reluctant to have it removed convinced that her infection could be coming form possible UTI Blood culture on [facility] 02/27/17 : Coag negative staph drawn form A -port MRSA gene detected previous blood cultures in [facility] system: 02/01/17 -Coag negative staph not lugdunensis ; no sensitivity to follow 01/31/17 : Coag negative staph 01/30/17 : Coag negative staph Transthoracic ECHO 02/03/17 : done in last admission was negative for valvular vegetation normal wall motion concentric LV hypertrophy EF> 70 % Grade 1 diastolic dysfunction no valvular vegetation noted pt presents with elevated lactic acid of > 2 , tachycardia admitted to Tele cont IVF empiric Abx with Cefepime and Daptomycin ( pt mentions of having pruritic rash in face in last admission with vancomycin ) repeat blood culture ordered requests for Urine culture ID eval requested -pt is known to Dr Majano CHRONIC HYPOXEMIC RESPIRATORY FAILURE : on 2 L home 02 at baseline,no worsening of hypoxia or SOB pt will cont her Bipap at night for SAMANTHA ordered for PRN neb tx for wheeze TYPE 2 DM insulin dependent recent Hb A1c ~8 cont basal Lantus , insulin SSI HTN : BP stable cont out pt meds -Losartan CKD STAGE 3 : cr at baseline monitor PRP FULL CODE DVT PROPHYLAXIS : moderate risk Sub q heparin DISPOSITION : pt wants to be discharged home when medically stable not interested in Rehab PT/OT eval requested Social service consulted for discharge planning Level of Care Telemetry Advanced Directives Existing Living Will: No Existing Power of [employer]: No Resuscitation Status FULL RESUSCITATION VTE Prophylaxis VTE Risk Assessment Done? Y/N: Yes Risk Level: Moderate Given or contraindicated: Unfractionated heparin SQ Additional Copies To Bill Palomares M.D. Bell, Evan T MD ([facility]) Physical Exam (per Admitting): General Appearance: no apparent distress Eyes: sclerae normal Respiratory/Chest: chest non-tender, lungs clear, normal breath sounds, no respiratory distress Cardiovascular: regular rate, rhythm, + tachycardia Abdomen/GI: normal bowel sounds, non tender, soft Back: no CVA tenderness Extremities/Musculoskelatal: normal capillary refill, + pedal edema (1-2 + edema ) Neurologic/Psych: alert, normal mood/affect, oriented x 3 Skin: normal color, warm/dry, no rash Lymphatic: no adenopathy Hospital Course RECURRENT GRAM POSITIVE BACTEREMIA -likely due to IV line infection: Recent admission at [facility] 01/31-02/04 for similar diagnosis: discharged on PO Zyvox for 14 days Blood culture on [facility] 02/27/17: Coag negative staph drawn form A - port. MRSA gene detected Blood culture on 03/01/17: coagulase negative staph Repeat blood culture 03/02/17: No growth Appreciate input form ID Dr Ryan S/P Port removal on 03/07 ,Replaced Port on 03/10 Appreciate Surgery help ,Urine culture: Negative ,Cefepime discontinued Continue Daptomycin: for additional 14 days per ID: # Day 11/26 Monitor CK levels while on Daptomycin ECHO: Study is inadequate to assess for Vegetations Culture from Port catheter tip:No growth Likely discharge in 1 to 2 days Denies any symptoms except diarrhea-negative for nay infection Started on Imodium and diarrhea seems to be controlled The port can be accessed from Friday Discharge home today -continue IV Daptomycin till 03/21/17 Diarrhea-likely secondary to antibiotic Even before admission Will check stool for C Diff and C/S-negative Imodium for Diarrhea as needed Scalp Hematoma S/P fall CT head: No acute findings intracranially Monitor No acute symptoms CHRONIC HYPOXEMIC RESPIRATORY FAILURE : On 2 L home Oxygen Continue Bipap QHS for SAMANTHA Continue PRN neb DM II recent Hb A1c ~8 continue basal Lantus, ISS No acute issue HTN : Stable Continue Losartan CKD III Cr at baseline Monitor PRP CODE STATUS FULL CODE DVT PX : Heparin SQ DISPOSITION : Medically stable for discharge Patient is not interested in Rehab PT/OT Social service consulted for discharge planning Discharge today with IV antibiotic Follow with for primary care Total time spent on discharge = 35 minutes This includes examination of the patient, discharge planning, medication reconciliation, and communication with other providers. Discharge Instructions Date of Service Mar 14, 2017. Admission Reason for Admission: Bacteremia, Tachycardia Discharge Discharge Diagnosis / Problem: IV Line Sepsis Discharge Goals Goal(s): Prevent Disease Progression Activity Recommendations Activity Limitations: resume your previous activity . Instructions / Follow-Up Instructions / Follow-Up DR Fulton (Dr Palomares is away) on 03/20/17 at 12:45 PM Current Hospital Diet Patient's current hospital diet: Diabetes Type 2 Diet, AHA Diet (Heart Healthy) Discharge Diet Recommended Diet: AHA Diet (Heart Healthy), Diabetes Type 2 Diet Procedures Procedures Performed: Infusaport Insertion on right subclavan vein Pending Studies Studies pending at discharge: no Medical Emergencies . Who to Call and When: Medical Emergencies: If at any time you feel your situation is an emergency, please call 911 immediately. . Non-Emergent Contact Non-Emergency issues call your: Primary Care Provider . Past History Medical & Surgical History: (1) Line sepsis (2) Urinary tract infection (3) Back pain (4) COPD exacerbation (5) Thrombocythemia (6) Diabetes mellitus out of control (7) Diverticulitis (8) Sepsis due to coagulase-negative staphylococcal infection (9) Symptoms of urinary tract infection . "Provider Documentation" section prepared by Edy Mcconnell. . VTE Core Measure Inpt VTE Proph given/why not?: Unfractionated heparin SQ <Electronically signed by Edy Mcconnell M.D.> Signed: 03/14/17 3106 Additional Copies To Bill Palomares M.D.(ROSEANNE)
== END 2017-03-14 18:25 | disposition home health service (06) | DRG 314 ==
LOC: C.EDB 13:32 → C.2T 15:57 → ENRESERV 16:08 → CANRESERV 03-03 10:09 → EDBEDREQ 03-03 10:51 → ENRESERV 03-03 10:54 → C.4E 03-03 11:49
PROVIDERS: ADMIT Hospitalist; ATTEND Internal Medicine
PROC: 0JPTX3Z Removal of Infusion Device from Trunk Subcutaneous Tissue and Fascia, External Approach (ICD-10-PCS; principal; 2017-03-07 15:15)
PROC: 05H533Z Insertion of Infusion Device into Right Subclavian Vein, Percutaneous Approach (ICD-10-PCS; 2017-03-10)
DX: T80.211A Bloodstream infection due to central venous catheter, initial encounter (principal); A41.2 Sepsis due to unspecified staphylococcus; R78.81 Bacteremia; J96.11 Chronic respiratory failure with hypoxia; J44.9 Chronic obstructive pulmonary disease, unspecified; Z90.5 Acquired absence of kidney; Z83.3 Family history of diabetes mellitus; Z87.891 Personal history of nicotine dependence; R19.7 Diarrhea, unspecified; T36.95XA Adverse effect of unspecified systemic antibiotic, initial encounter; S00.03XA Contusion of scalp, initial encounter; B37.3 Candidiasis of vulva and vagina; W19.XXXA Unspecified fall, initial encounter; Z85.51 Personal history of malignant neoplasm of bladder; Z85.528 Personal history of other malignant neoplasm of kidney; Z88.2 Allergy status to sulfonamides; Y71.2 Prosthetic and other implants, materials and accessory cardiovascular devices associated with adverse incidents; N18.3 Chronic kidney disease, stage 3 (moderate); Z99.81 Dependence on supplemental oxygen; Y92.009 Unspecified place in unspecified non-institutional (private) residence as the place of occurrence of the external cause; Z92.3 Personal history of irradiation

== ENCOUNTER 2017-12-24 17:33 | Emergency (ER) | payer OTHER ==
[~2017-12-24] VITALS: Ht 154.9 cm; Wt 150.0 kg
[~2017-12-24 17:33] MED LIST changes: -FLUT0.0529 NAE; +FLUT0.15 NAE; +IMD2X PO; -LINE1TAB7 PO; -MAGN400T6 PO
[2017-12-24 17:53] VITALS: TEMP 37.4; Ht 154.9 cm; Wt 150.0 kg
[2017-12-24] MEDS ORDERED: FLUCONAZOLE 50 MG TAB PO ONE (18:45)
--- NOTE | 2017-12-24 20:24 | EMERGENCY ROOM VISIT NOTE ---
History Report prepared by Martha: Nicolas Foote Under the Supervision of: Dr. Gerhard Alcantara D.O. First contact with patient: 18:16 Chief Complaint: FEVER Stated Complaint: INFECTION, FEVER, PAIN, SKIN IS RAW History of Present Illness The patient is a 67 year old female with a history of bladder cancer who presents to the Emergency Room with complaints of a worsening infection that started around 10 weeks ago. She states that ever since she had a Staph infection, she has been prone to getting infections. The patient notes that her buttock has been sore and red for 10 weeks, and it is starting to spread up her legs, into her abdomen. She states that her abdomen hurts. She adds that she has been having low-grade fevers. The patient says that she thinks that she has a UTI currently. Source of History: patient Onset: 10 weeks ago Position: other (global) Symptom Intensity: hx of Staph, getting a lot of infectinos since then Quality: other (infection) Timing: worsening Associated Symptoms: + fevers, + abdominal pain Note: Associated symptoms: Redness and soreness to buttocks, legs. Review of Systems See HPI for pertinent positives & negatives. A total of 10 systems reviewed and were otherwise negative. Past Medical & Surgical Medical Problems: (1) Bacteremia (2) History of bladder cancer (3) History of cancer (4) Line sepsis (5) Malignant neoplasm of ureter (6) Sepsis due to coagulase-negative staphylococcal infection (7) Tachycardia Surgical Problems: (1) History of nephrostomy Family History Diabetes mellitus FHx: cancer FHx: lung disease Hypertension Kidney disease Kidney stones Social History Smoking Status: Former Smoker Drug Use: none Marital Status: single Housing Status: lives alone Occupation Status: unemployed, disabled Current/Historical Medications Scheduled Albuterol Hfa (Ventolin Hfa), 2 PUFFS INH Q4 Budesonide (Inhalation) (Pulmicort Flexhaler), 2 PUFFS INH BID Cholecalciferol (Vitamin D3), 2,000 UNIT PO HS Fluocinonide (Fluocinonide), 1 APPLN TOP BID Fluticasone Propionate (Nasal) (Flonase Allergy Relief), 2 SPRAY MARCIA DAILY Furosemide (Lasix), 20 MG PO DAILY Heparin Sodium (Porcine) Lock (Heparin Lock Flush For Fl), 5 ML IV q6wks Home O2 Therapy (Oxygen), 2 LITERS NA CONTINOUS Insulin Aspart (Novolog Flexpen), SQ PC Losartan Potassium (Losartan Potassium), 25 MG PO HS Montelukast Sodium (Singulair), 10 MG PO HS Nystatin (Nystatin Cream), 1 APPLN TOP BID Omeprazole (Prilosec), 20 MG PO DAILY Probiotic Product (Probiotic), 1 CAP PO DAILY Umeclidinium [place] (Incruse Ellipta), 1 PUFF INH DAILY Scheduled PRN Ferrous Sulfate (Ferrous Sulfate), 325 MG PO DAILY PRN for FINGERS GET SORE Loperamide Hcl (Imodium), 2 MG PO PRN PRN for AFTER EACH LOOSE STOOL Oxycodone/Acetaminophen 5MG/325MG (Percocet 5MG/325MG), 1 TABLET PO Q6H PRN for Pain Allergies Coded Allergies: Penicillins (Verified Allergy, Severe, THROAT CLOSES, 09/04/16) TIGSIT. PRIMAXIN 01/2015 ADMISSION Metronidazole (Verified Allergy, Intermediate, hives/rash, 09/04/16) Ondansetron (Verified Allergy, Intermediate, hives, 09/04/16) Vancomycin (Verified Allergy, Mild, RASH, 02/01/17) itchy rash Adhesives (Verified Allergy, Unknown, SKIN BLISTERING, 09/04/16) Sulfa Antibiotics (Verified Allergy, Unknown, Rash, 09/04/16) Ibuprofen (Verified Adverse Reaction, Intermediate, RECTAL BLEEDING, 09/04) Physical Exam Vital Signs Date Time Temp Pulse Resp B/P (MAP) Pulse Ox O2 Delivery O2 Flow Rate FiO2 12/24/17 19:30 101 18 181/87 95 Room Air 12/24/17 17:53 37.4 108 24 178/77 96 Nasal Cannula 2.0 Physical Exam CONSTITUTIONAL/VITAL SIGNS: Reviewed / noted above. GENERAL: Non-toxic in appearance. INTEGUMENTARY: Erythema under the right abdominal skin fold, and in the perianal area, consistent with intertrigo. HEAD: Normocephalic. EYES: without scleral icterus or trauma. ENT/OROPHARYNX: clear and moist. LYMPHADENOPATHY/NECK: Is supple without lymphadenopathy or meningismus. RESPIRATORY: Lungs clear and equal. CARDIOVASCULAR: Regular rate and rhythm. GI/ABDOMEN: Soft and nontender. No organomegaly or pulsatile mass. No rebound or guarding. Normal bowel sounds. EXTREMITIES: Warm and well perfused. BACK: No CVA tenderness. NEUROLOGICAL: Intact without focal deficits. PSYCHIATRIC: normal affect. MUSCULOSKELETAL: Normally developed with good muscle tone. Medical Decision & Procedures Laboratory Results Test 12/24/17 18:30 Urine Color YELLOW Urine Appearance CLOUDY (CLEAR) Urine pH 5.0 (4.5-7.5) Urine Specific [place] 1.029 (1.000-1.030) Urine Protein 1+ (NEG) Urine Glucose (UA) 3+ (NEG) Urine Ketones TRACE (NEG) Urine Occult Blood NEG (NEG) Urine Nitrite NEG (NEG) Urine Bilirubin NEG (NEG) Urine Urobilinogen NEG (NEG) Urine Leukocyte Esterase SMALL (NEG) Urine WBC (Auto) 10-30 /hpf (0-5) Urine RBC (Auto) 0-4 /hpf (0-4) Urine Hyaline Casts (Auto) 1-5 /lpf (0-5) Urine Epithelial Cells (Auto) >30 /lpf (0-5) Urine Bacteria (Auto) NEG (NEG) Laboratory results as stated above per my review. Medications Administered Medications (Trade) Dose Ordered Sig/Amandeep Route Start Time Stop Time Status Last Admin Dose Admin Fluconazole (Diflucan Tab) 100 mg NOW ONCE PO 12/24/17 18:45 12/24/17 18:46 DC 12/24/17 18:41 100 MG ED Course 1816: Previous medical records were reviewed. The patient was evaluated in room C8. A complete history and physical examination was performed. 1844: Diflucan Tab 100 mg PO. 2024: On reevaluation, the patient is resting. I discussed the results and findings with the patient. She verbalized agreement of the treatment plan. She was discharged home. Medical Decision Differential diagnosis: Etiologies such as cellulitis, abscess, MRSA infection, DVT, necrotizing fasciitis, dermatitis, drug eruption, as well as others were entertained.. This is a 67-year-old female who presents to the ED with a chief complaint of low-grade fevers as well as a rash in her right lower abdomen and buttock area. The patient is obese and has findings suggesting intertrigo/yeast infection in the right lower abdominal fold as well as the perirectal area. There is no obvious or gross cellulitis. The patient was placed on Diflucan. She will also continue to use her nystatin cream. She is felt to be stable for discharge and outpatient follow-up. The patient wanted her urine checked for UTI. There is no obvious UTI on her contaminated specimen at this time. Medication Reconcilliation Current Medication List: was personally reviewed by me Blood Pressure Screening Patient's blood pressure: Elevated blood pressure Blood pressure disposition: Elevated BP felt to be situational Impression Primary Impression: Intertrigo Scribe Attestation The scribe's documentation has been prepared under my direction and personally reviewed by me in its entirety. I confirm that the note above accurately reflects all work, treatment, procedures, and medical decision making performed by me. Departure Information Dispostion Home / Self-Care Prescriptions Fluconazole (DIFLUCAN) 100 Mg Tab 1 TAB PO DAILY for 10 Days, #10 TAB Prov: Gerhard Alcantara D.O. 12/24/17 Referrals Bill Palomares M.D.([facility]) (PCP) Patient Instructions My [facility] Additional Instructions Diflucan as prescribed. Continue nystatin cream and the areas affected. Urine did not show infection. Follow-up with your doctor for further care and evaluation in 1-2 days. Return to the emergency department for worsening or new symptoms or any concerns. You have been examined and treated today on an emergency basis only. This is not a substitute for, or an effort to provide, complete comprehensive medical care. It is impossible to recognize and treat all injuries or illnesses in a single emergency department visit. It is therefore important that you follow up closely with your doctor. Call as soon as possible for an appointment.
[2017-12-24] MEDS ORDERED: FLUC100T4 PO (20:34)
[2017-12-24] MEDS ORDERED: NYSCR30 TOP (21:02)
[2017-12-24 21:12] VITALS: BP 178/81; PULSE 102; O2SAT 96
[2017-12-24] MEDS ORDERED: INSU100I23 SQ (21:19)
[2017-12-24] MEDS ORDERED: PRLSR20 PO (21:20)
[2017-12-24] MEDS ORDERED: PROM25TA9 PO (21:23)
== END 2017-12-24 21:13 | disposition home or self-care (01) ==
LOC: C.EDB 17:35 → C.EDC 21:13
DX: L30.4 Erythema intertrigo (principal); C66.9 Malignant neoplasm of unspecified ureter; Z83.3 Family history of diabetes mellitus; Z82.49 Family history of ischemic heart disease and other diseases of the circulatory system; Z87.891 Personal history of nicotine dependence; Z79.899 Other long term (current) drug therapy; Z88.0 Allergy status to penicillin; Z88.8 Allergy status to other drugs, medicaments and biological substances; Z88.5 Allergy status to narcotic agent; Z88.2 Allergy status to sulfonamides

== ENCOUNTER 2020-09-11 01:02 | Inpatient (IN) ==
[2020-09-11] MEDS ORDERED: ACETAMINOPHEN 500 MG TAB PO STA (01:14)
[2020-09-11] MEDS ORDERED: SODIUM CHLORIDE 0.9% 1000ML 1,000 ML IV SCH (01:15)
--- NOTE | 2020-09-11 01:19 | Emergency Department Note ---
History of Present Illness General Chief complaint: Fall Stated complaint: FALL/ILL/KNEE AND HIP PAIN Time Seen by Provider: 09/11/20 01:05 History of Present Illness This 70-year-old from the assisted living facility presents to the ER complaining of fever, chills, body aches and fall for the past few days Location: Analyzed Quality: Weak Severity: Moderate Duration: Past few days Timing: Started a few days ago Context: Patient fell and was too weak to get up and called EMS and came in Modifying factors: better with rest; worse with activity Patient states she was on Cipro last week for possible UTI. She is unsure exactly though. Patient complains of cough, congestion, body aches, fatigue, flulike illness. Home Medications Medication Instructions Recorded Confirmed Type Basaglar KwikPen U-100 Insulin 23 unit SUBCUT HS 12/08/18 09/11/20 History Toviaz 4 mg PO QAM 12/08/18 09/11/20 History albuterol sulfate 2 puff INHALATION Q4 12/08/18 09/11/20 History cholecalciferol (vitamin D3) 2,000 unit PO HS 12/08/18 09/11/20 History [Vitamin D3] ferrous sulfate 325 mg PO DAILY PRN 12/08/18 09/11/20 History fluticasone propionate [Flonase 2 spray INTRANASAL QAM 12/08/18 09/11/20 History Allergy Relief] furosemide 20 mg PO DAILY 12/08/18 09/11/20 History insulin aspart U-100 [Novolog 12 unit SUBCUT [facility] 12/08/18 09/11/20 History Flexpen U-100 Insulin] losartan 25 mg PO QAM 12/08/18 09/11/20 History montelukast 10 mg PO HS 12/08/18 09/11/20 History oxycodone-acetaminophen [Percocet] 1 tab PO Q6H PRN 12/08/18 09/11/20 History azelastine 1 spray INTRANASAL BID 09/11/20 09/11/20 History budesonide 1 mg INHALATION BID 09/11/20 09/11/20 History empagliflozin [Jardiance] 25 mg PO DAILY 09/11/20 09/11/20 History fluticasone furoate [Arnuity 1 inh INHALATION DAILY 09/11/20 09/11/20 History Ellipta] jsgxpfdnfaq-pimigieev-svufqted 1 ea INHALATION DAILY 09/11/20 09/11/20 History [Trelegy Ellipta] levocetirizine 5 mg PO DAILY 09/11/20 09/11/20 History liraglutide [Victoza 3-Jayden] 1.8 mg SUBCUT DAILY 09/11/20 09/11/20 History pantoprazole 40 mg PO DAILY 09/11/20 09/11/20 History triamcinolone acetonide 1 applic TOPICAL BID 09/11/20 09/11/20 History Allergies Allergy/AdvReac Type Severity Reaction Status Date / Time Penicillins Allergy Severe THROAT Verified 09/11/20 01:52 CLOSES,HIVES metronidazole Allergy Intermediate hives/rash Verified 09/11/20 01:52 ondansetron Allergy Intermediate hives Verified 09/11/20 01:52 vancomycin Allergy Mild RASH Verified 09/11/20 01:52 adhesive Allergy Unknown SKIN Verified 09/11/20 01:52 BLISTERING Sulfa (Sulfonamide Allergy Unknown Rash Verified 09/11/20 01:52 Antibiotics) ibuprofen AdvReac Intermediate RECTAL Verified 09/11/20 01:52 BLEEDING JOSHUA Inhibitors AdvReac Cough Verified 09/11/20 01:52 Past Med/Surg History Medical History Aortic stenosis NO EVIDENCE ON 12/16/18 ECHO ("MILD" PER 2015 ECHO) Asthma Chronic back pain Chronic kidney disease STAGE III Chronic obstructive pulmonary disease ON 2L CONTINUOUS Diabetes mellitus, type 2 IDDM Diverticular disease DVT (deep venous thrombosis) LLE S/P PROLONGED BED REST (2014) GERD (gastroesophageal reflux disease) CONTROLLED Hypertension Morbid obesity Osteoarthritis Sleep apnea BIPAP Thrombocytopenia HX Tremor RIGHT HAND/NUMBNESS-S/P KIDNEY SURGERY Surgical History Cancer BLADDER, LEFT KIDNEY, L URETER S/P SURGERY/RADIATION/CHEMO (2012) History of appendectomy History of bladder surgery CANCER/UROSTOMY AND REVERSAL OF UROSTOMY History of cardiac cath ~1999=NO STENTS History of cholecystectomy History of colonoscopy History of hysterectomy TOTAL History of nephrectomy LEFT AND LEFT URETER REMOVAL History of vascular access device PORT RIGHT UPPER CHEST-PATENT History of vascular access device POWERPORT ON RIGHT CHEST Social History Smoking Status: Former smoker Second Hand Exposure: No; Hx Alcohol Use: No Hx Substance Use: No Preferred Language: British Communication Ability: Effective Bosom Presser Required: No Beliefs That Will Affect Care: None Current Living Situation: Alone and Other Current Living Situation Comment: [facility] Feels Safe at Home: Yes Assistive Devices: BiPap, Denture - Upper, Denture - Lower, Glasses, Oxygen - Continuous and Walker Review of Systems A total of 10 systems reviewed and were otherwise negative Physical Exam Vital Signs Vital Signs - 24 hr 09/11/20 01:22 09/11/20 01:56 09/11/20 03:07 Temperature 39.4 C H Temperature Source Oral Pulse Rate 76 Pulse Rate [Apical] 97 H Respiratory Rate 18 22 Respiratory Effort / Characteristics Non-Labored Blood Pressure 135/112 H Blood Pressure [Left Arm] 103/56 L Blood Pressure Mean 119 Blood Pressure Mean [Left Arm] 71 Pulse Oximetry 94 91 91 Oxygen Delivery Method Nasal Cannula Nasal Cannula Nasal Cannula Oxygen Flow Rate 3 3 4 Sepsis Recent Fever Within 48 Hours Yes Sepsis New/Unexplained Change in Mental Status N/A Sepsis Action Taken by Nursing No Action Required VITALS: Vitals are noted on the nurse's note and reviewed by myself. Vital signs febrile. GENERAL: Ill-appearing female, febrile SKIN: The skin was without rashes, erythema, edema, or bruising. There is no tenting of the skin. Capillary reflex less than 2 seconds. HEAD: Normocephalic atraumatic. EARS: External auditory canals clear, tympanic membranes pearly [place] without erythema or effusion bilaterally. EYES: Pupils equal round and reactive to light and accommodation. Conjunctivae without injection, sclerae without icterus. Extraocular movements intact. NOSE: Patent, turbinates without inflammation or discharge. No sinus tenderness. MOUTH: Mucous membranes mildly dry. Pharynx without erythema or exudate. Uvula midline. Airway patent. Tongue does not deviate. NECK: Supple without nuchal rigidity. No lymphadenopathy. No thyromegaly. Cervical spine is nontender. No JVD. HEART: Regular rate and rhythm LUNGS: Mild end expiratory wheezes, No retractions or accessory muscle use. ABDOMEN: Positive bowel sounds x 4. Normal tympanic percussion. Soft, protuberant, obese, nontender, without masses or organomegaly. Mendenhall sign negative. No guarding or rebound tenderness. No CVA tenderness MUSCULOSKELETAL: No muscle atrophy, erythema, or edema noted. Thoracic and lumbar nontender to palpation. Pelvis stable. Full range of motion of all extremities. NEURO: Patient was alert and oriented to person place and time. Normal sensation to light and sharp touch. No focal neurological deficits. Course Administered Medications Discontinued Medications Acetaminophen (Acetaminophen 500 Mg Tab) 1,000 mg PO NOW STA Stop: 09/11/20 01:15 Last Admin: 09/11/20 01:42 Dose: 1,000 mg Documented by: [id number] Dexamethasone (Dexamethasone Sod Inj 10 Mg/Ml Vial) 6 mg IV NOW ONE Stop: 09/11/20 02:49 Last Admin: 09/11/20 03:04 Dose: 6 mg Documented by: [id number] Sodium Chloride (Nss 1000ml) 1,000 mls @ 999 mls/hr IV .Q1H1M ADRIANA Stop: 09/11/20 02:15 Last Infusion: 09/11/20 02:46 Dose: 0 mls/hr Documented by: [id number] Admin: 09/11/20 01:41 Dose: 999 mls/hr Documented by: [id number] Medical Decision Making Medical Records Attestation: I reviewed the patient's medical records. Home Medications Current Medication List: was personally reviewed by me Laboratory Data Attestation: I reviewed the patient's lab results. Result diagrams: 09/11/20 01:40 09/11/20 01:40 Lab Results 09/11/20 09/11/20 09/11/20 Range/Units 01:30 01:35 01:35 WBC (4.8-10.8) K/uL RBC (4.2-5.4) M/uL Hgb (12.0-16.0) g/dL Hct (37-47) % MCV (80-100) fL MCH (25-34) pg MCHC (32-36) g/dL RDW Std Deviation (36.4-46.3) fL RDW Coeff of Obey (11.5-14.5) % Plt Count (130-400) K/uL MPV (7.4-10.4) fL Immature Gran % (Auto) % Neut % (Auto) % Lymph % (Auto) % [place] % (Auto) % Eos % (Auto) % Baso % (Auto) % Neut # (Auto) (1.4-6.5) K/uL Lymph # (Auto) (1.2-3.4) K/uL [place] # (Auto) (0.11-0.59) K/uL Eos # (Auto) (0-0.5) K/uL Baso # (Auto) (0-0.2) K/uL Immature Gran # (Auto) (0.00-0.02) K/uL PT (9.0-12.0) Seconds INR (0.9-1.1) APTT (21.0-31.0) Seconds PTT Ratio ABG pH (7.35-7.45) ABG pCO2 (35-46) mmHg ABG pO2 (80-95) mmHg ABG HCO3 (19-24) mmol/L ABG O2 Saturation (90-95) % ABG Base Excess (-9-1.8) mEq/L Rah Test (Pos) Oxygen Given Sodium (136-145) mmol/L Potassium (3.5-5.1) mmol/L Chloride (98-107) mmol/L Carbon Dioxide (21-32) mmol/L Anion Gap (3-11) BUN (7-18) mg/dl Creatinine (0.6-1.2) mg/dl Est Cr Clr Drug Dosing ml/min Est GFR ( Amer) Est GFR (Non-Af Amer) BUN/Creatinine Ratio (10-20) Glucose (70-99) mg/dl Lactate (0.4-2.0) mmol/L Calcium (8.5-10.1) mg/dl Magnesium (1.8-2.4) mg/dl Total Bilirubin (0.2-1) mg/dl AST (15-37) U/L ALT (12-78) U/L Alkaline Phosphatase (45-117) U/L Total Creatine Kinase (26-192) U/L Troponin I (0-0.045) ng/ml Total Protein (6.4-8.2) gm/dl Albumin (3.4-5.0) gm/dl Globulin (2.5-4.0) gm/dl Albumin/Globulin Ratio (0.9-2) Urine Color Yellow Urine Appearance Cloudy A (Clear) Urine pH 5.0 (4.5-7.5) Ur Specific [place] 1.033 H (1.000-1.030) Urine Protein 1+ H (Negative) Urine Glucose (UA) 3+ H (Negative) Urine Ketones Trace H (Negative) Urine Blood 3+ H (Negative) Urine Nitrite Negative (Negative) Urine Bilirubin Negative (Negative) Urine Urobilinogen Negative (Negative) Ur Leukocyte Esterase Trace H (Negative) Urine WBC (Auto) 5-10 H (0-5) /hpf Urine RBC (Auto) 0-4 (0-4) /hpf U Hyaline Cast (Auto) 1-5 (0-5) /lpf U Epithel Cells (Auto) >30 H (0-5) /lpf Urine Bacteria (Auto) Negative (Negative) Urine Yeast Present A (None Prsent) [facility], [facility], NAAT POSITIVE A* (NEGATIVE) 09/11/20 09/11/20 09/11/20 Range/Units 01:40 01:40 01:40 WBC 10.33 (4.8-10.8) K/uL RBC 4.76 (4.2-5.4) M/uL Hgb 13.5 (12.0-16.0) g/dL Hct 42.1 (37-47) % MCV 88.4 (80-100) fL MCH 28.4 (25-34) pg MCHC 32.1 (32-36) g/dL RDW Std Deviation 55.3 H (36.4-46.3) fL RDW Coeff of Obey 16.9 H (11.5-14.5) % Plt Count 180 (130-400) K/uL MPV 10.1 (7.4-10.4) fL Immature Gran % (Auto) 0.5 % Neut % (Auto) 83.2 % Lymph % (Auto) 5.6 % [place] % (Auto) 10.6 % Eos % (Auto) 0.0 % Baso % (Auto) 0.1 % Neut # (Auto) 8.60 H (1.4-6.5) K/uL Lymph # (Auto) 0.58 L (1.2-3.4) K/uL [place] # (Auto) 1.09 H (0.11-0.59) K/uL Eos # (Auto) 0.00 (0-0.5) K/uL Baso # (Auto) 0.01 (0-0.2) K/uL Immature Gran # (Auto) 0.05 H (0.00-0.02) K/uL PT 11.3 (9.0-12.0) Seconds INR 1.1 (0.9-1.1) APTT 28.8 (21.0-31.0) Seconds PTT Ratio 1.0 ABG pH (7.35-7.45) ABG pCO2 (35-46) mmHg ABG pO2 (80-95) mmHg ABG HCO3 (19-24) mmol/L ABG O2 Saturation (90-95) % ABG Base Excess (-9-1.8) mEq/L Rah Test (Pos) Oxygen Given Sodium 136 (136-145) mmol/L Potassium 4.0 (3.5-5.1) mmol/L Chloride 104 (98-107) mmol/L Carbon Dioxide 24 (21-32) mmol/L Anion Gap 8.0 (3-11) BUN 16 (7-18) mg/dl Creatinine 1.10 (0.6-1.2) mg/dl Est Cr Clr Drug Dosing 65.5 ml/min Est GFR ( Amer) 59.3 Est GFR (Non-Af Amer) 51.2 BUN/Creatinine Ratio 14.5 (10-20) Glucose 127 H (70-99) mg/dl Lactate (0.4-2.0) mmol/L Calcium 8.6 (8.5-10.1) mg/dl Magnesium 1.9 (1.8-2.4) mg/dl Total Bilirubin 0.6 (0.2-1) mg/dl AST 53 H (15-37) U/L ALT 25 (12-78) U/L Alkaline Phosphatase 88 (45-117) U/L Total Creatine Kinase 1472 H (26-192) U/L Troponin I < 0.015 (0-0.045) ng/ml Total Protein 7.3 (6.4-8.2) gm/dl Albumin 3.0 L (3.4-5.0) gm/dl Globulin 4.3 H (2.5-4.0) gm/dl Albumin/Globulin Ratio 0.7 L (0.9-2) Urine Color Urine Appearance (Clear) Urine pH (4.5-7.5) Ur Specific [place] (1.000-1.030) Urine Protein (Negative) Urine Glucose (UA) (Negative) Urine Ketones (Negative) Urine Blood (Negative) Urine Nitrite (Negative) Urine Bilirubin (Negative) Urine Urobilinogen (Negative) Ur Leukocyte Esterase (Negative) Urine WBC (Auto) (0-5) /hpf Urine RBC (Auto) (0-4) /hpf U Hyaline Cast (Auto) (0-5) /lpf U Epithel Cells (Auto) (0-5) /lpf Urine Bacteria (Auto) (Negative) Urine Yeast (None Prsent) COVID-19 Eval Order SARS-CoV-2, RNA, NAAT (NEGATIVE) 09/11/20 09/11/20 Range/Units 01:40 02:22 WBC (4.8-10.8) K/uL RBC (4.2-5.4) M/uL Hgb (12.0-16.0) g/dL Hct (37-47) % MCV (80-100) fL MCH (25-34) pg MCHC (32-36) g/dL RDW Std Deviation (36.4-46.3) fL RDW Coeff of Obey (11.5-14.5) % Plt Count (130-400) K/uL MPV (7.4-10.4) fL Immature Gran % (Auto) % Neut % (Auto) % Lymph % (Auto) % [place] % (Auto) % Eos % (Auto) % Baso % (Auto) % Neut # (Auto) (1.4-6.5) K/uL Lymph # (Auto) (1.2-3.4) K/uL [place] # (Auto) (0.11-0.59) K/uL Eos # (Auto) (0-0.5) K/uL Baso # (Auto) (0-0.2) K/uL Immature Gran # (Auto) (0.00-0.02) K/uL PT (9.0-12.0) Seconds INR (0.9-1.1) APTT (21.0-31.0) Seconds PTT Ratio ABG pH 7.46 H (7.35-7.45) ABG pCO2 32 L (35-46) mmHg ABG pO2 72 L (80-95) mmHg ABG HCO3 23 (19-24) mmol/L ABG O2 Saturation 94.9 (90-95) % ABG Base Excess -0.5 (-9-1.8) mEq/L Rah Test Pos (Pos) Oxygen Given 4L Sodium (136-145) mmol/L Potassium (3.5-5.1) mmol/L Chloride (98-107) mmol/L Carbon Dioxide (21-32) mmol/L Anion Gap (3-11) BUN (7-18) mg/dl Creatinine (0.6-1.2) mg/dl Est Cr Clr Drug Dosing ml/min Est GFR ( Amer) Est GFR (Non-Af Amer) BUN/Creatinine Ratio (10-20) Glucose (70-99) mg/dl Lactate 1.3 (0.4-2.0) mmol/L Calcium (8.5-10.1) mg/dl Magnesium (1.8-2.4) mg/dl Total Bilirubin (0.2-1) mg/dl AST (15-37) U/L ALT (12-78) U/L Alkaline Phosphatase (45-117) U/L Total Creatine Kinase (26-192) U/L Troponin I (0-0.045) ng/ml Total Protein (6.4-8.2) gm/dl Albumin (3.4-5.0) gm/dl Globulin (2.5-4.0) gm/dl Albumin/Globulin Ratio (0.9-2) Urine Color Urine Appearance (Clear) Urine pH (4.5-7.5) Ur Specific [place] (1.000-1.030) Urine Protein (Negative) Urine Glucose (UA) (Negative) Urine Ketones (Negative) Urine Blood (Negative) Urine Nitrite (Negative) Urine Bilirubin (Negative) Urine Urobilinogen (Negative) Ur Leukocyte Esterase (Negative) Urine WBC (Auto) (0-5) /hpf Urine RBC (Auto) (0-4) /hpf U Hyaline Cast (Auto) (0-5) /lpf U Epithel Cells (Auto) (0-5) /lpf Urine Bacteria (Auto) (Negative) Urine Yeast (None Prsent) COVID-19 Eval Order SARS-CoV-2, RNA, NAAT (NEGATIVE) Imaging Data Attestation: I personally reviewed and interpreted this imaging study as follows: MDM Narrative Prior records/ancillary studies reviewed. Triage Nursing notes reviewed. Additional history obtained from EMS. The patient's history was concerning for fever. Differential diagnosis: Etiologies such as viral syndrome, otitis, pharyngitis, pneumonia, influenza, meningitis, urinary tract infection, sepsis, bacteremia, as well as others were entertained. Physical examination: As above ER treatment provided: An order was placed for continuous cardiac monitoring. The monitor shows a rate of 60-1 10 with a sinus rhythm. IV fluids, Tylenol, Decadron On reassessment the patient felt better. Diagnostics interpreted by me: ECG: Ordered for weakness EKG: Poor baseline, normal sinus, normal intervals, T wave inversion in lead I II, rate of 111, impression normal sinus rhythm interpreted by myself with old anterior septal infarct. I think arrhythmia is unlikely. EKG shows normal sinus rhythm with no interval abnormalities such as QT prolongation or WPW. There are no findings to suggest Brugada syndrome. Cardiac monitoring in the emergency department reveals no tachycardic or bradycardic dysrhythmia. Hypertrophic cardiomyopathy was considered but there are no clear historical elements pointing toward this. EKG is not suggestive. The QRS voltage is not extremely large and there are no suggestive Q waves. The labs revealed positive Covid, ABG reviewed. Blood cultures pending Negative lactic acid Imaging studies: Chest x-ray concerning for left lower lobe pleural effusion versus consolidation per my interpretation Consultation: A consultation was placed with Dr Suggs. The case was discussed and diagnostics were reviewed. The patient was evaluated in the ER for further treatment. This appears to be consistent with Covid pneumonia who is hypoxic. Patient started on steroids. I spoke to the daughter per patient's request and all questions were answered. Patient was quite weak. She was medicated as above. Medicine was consulted. She will be evaluated for admission. By the evaluation outlined above emergent etiologies such as otitis, pharyngitis, meningitis, urinary tract infection, sepsis, bacteremia, as well as others were deemed relatively unlikely. The pt informed about the findings as listed above. All questions were answered and pleased with the treatment. The chart was completed utilizing [email or web address] voice recognition software. Grammatical errors, random word insertions, pronoun errors, and incomplete sentences are an occassional consequence of this system due to software limitations, ambient noise, and hardware issues. Any formal questions or concerns about the content, text, or information contained within the body of this dictation should be directly addressed to the physician assistant curator for clarification. Impression & Plan COVID-19 virus infection, Hypoxemia Discharge Plan Visit Data Chief Complaint: Fall Stated Complaint: FALL/ILL/KNEE AND HIP PAIN ED Provider: Penelope Montanez ED Midlevel Provider: Ira Gutierrez Discharge Problem: COVID-19 virus infection, Hypoxemia Patient Disposition: Admitted As Inpatient Condition: Fair Forms Stand Alone Forms: [facility] [employer] Prescriptions Prescriptions: No Action albuterol sulfate 90 mcg/actuation Hfa Aerosol Inhaler 2 puff INHALATION Q4 RF: 0 ferrous sulfate 325 mg (65 mg iron) Tablet,Delayed Release (Dr/Ec) 325 mg PO DAILY PRN (Reason: Wound Healing) RF: 0 cholecalciferol (vitamin D3) [Vitamin D3] 2,000 unit Capsule 2,000 unit PO HS RF: 0 fluticasone propionate [Flonase Allergy Relief] 50 mcg/actuation [place],Suspension 2 spray INTRANASAL QAM RF: 0 furosemide 20 mg Tablet 20 mg PO DAILY RF: 0 losartan 25 mg Tablet 25 mg PO QAM RF: 0 montelukast 10 mg Tablet 10 mg PO HS RF: 0 Toviaz 4 mg Tablet Extended Release 24 Hr 4 mg PO QAM RF: 0 oxycodone-acetaminophen [Percocet] 5-325 mg Tablet 1 tab PO Q6H PRN (Reason: Pain) RF: 0 insulin aspart U-100 [Novolog Flexpen U-100 Insulin] 100 unit/mL (3 mL) Insulin Pen 12 unit SUBCUT [facility] RF: 0 Basaglar KwikPen U-100 Insulin 100 unit/mL (3 mL) Insulin Pen 23 unit SUBCUT HS RF: 0 triamcinolone acetonide 0.1 % cream 1 applic TOPICAL BID RF: 0 levocetirizine 5 mg tablet 5 mg PO DAILY RF: 0 Victoza 3-Jayden 0.6 mg/0.1 mL (18 mg/3 mL) pen injector 1.8 mg SUBCUT DAILY RF: 0 budesonide 1 mg/2 mL suspension for nebulization 1 mg inhalation BID RF: 0 Arnuity Ellipta 100 mcg/actuation blister with device 1 inh INHALATION DAILY RF: 0 Trelegy Ellipta 100-62.5-25 mcg blister with device 1 ea INHALATION DAILY RF: 0 Jardiance 25 mg tablet 25 mg PO DAILY RF: 0 azelastine 137 mcg (0.1 %) aerosol,spray 1 spray INTRANASAL BID RF: 0 pantoprazole 40 mg tablet,delayed release (DR/EC) 40 mg PO DAILY RF: 0 Referrals Referrals: Bill Palomares MD [Primary Care Provider] -
[2020-09-11 02:08] LABS: Basophils # (auto) 0.01 K/uL (0-0.2); Basophils % (auto) 0.1 %; Hematocrit (blood only) 42.1 % (37-47); Hemoglobin 13.5 g/dL (12.0-16.0); Immature Granulocytes # (auto) 0.05 K/uL (0.00-0.02); Immature Granulocytes % (auto) 0.5 %; Lymphocytes # (auto) 0.58 K/uL (1.2-3.4); Lymphocytes % (auto) 5.6 %; Mean Corpuscular Hemoglobin 28.4 pg (25-34); Mean Corpuscular Hgb Conc 32.1 g/dL (32-36); Mean Corpuscular Volume 88.4 fL (80-100); Mean Platelet Volume 10.1 fL (7.4-10.4); Monocytes # (auto) 1.09 K/uL (0.11-0.59); Monocytes % (auto) 10.6 %; Neutrophils % (auto) 83.2 %; Platelet Count 180 K/uL (130-400); RDW Coefficient of Variation 16.9 % (11.5-14.5); RDW Standard Deviation 55.3 fL (36.4-46.3); Red Blood Count 4.76 M/uL (4.2-5.4); White Blood Count 10.33 K/uL (4.8-10.8)
[2020-09-11 02:18] LABS: Appearance Urine Cloudy (Clear); Bacteria Urine Automated Negative (Negative); Bilirubin Urine Negative (Negative); Blood Urine 3+ (Negative); Color Urine Yellow; Epithelial Cell Urine Auto >30 /lpf (0-5); Glucose Urine UA 3+ (Negative); Ketones Urine Trace (Negative); Leukocyte Esterase Urine Trace (Negative); Nitrite Urine Negative (Negative); Protein Urine 1+ (Negative); Specific Gravity Urine 1.033 (1.000-1.030); Urobilinogen Urine Negative (Negative)
[2020-09-11 02:19] LABS: INR 1.1 (0.9-1.1); Partial Thromboplastin Time 28.8 Seconds (21.0-31.0); Prothrombin Time 11.3 Seconds (9.0-12.0)
[2020-09-11 02:27] LABS: Alanine Aminotransferase 25 U/L (12-78); Aspartate Aminotransferase 53 U/L (15-37); BUN Creatinine Ratio 14.5 (10-20); Blood Urea Nitrogen 16 mg/dl (7-18); Calcium 8.6 mg/dl (8.5-10.1); Carbon Dioxide 24 mmol/L (21-32); Chloride 104 mmol/L (98-107); Creatinine Clr Calc Pharmacy 65.5 ml/min; Est GFR (African American) 59.3; Est GFR (Non-African American) 51.2; Glucose 127 mg/dl (70-99); Magnesium 1.9 mg/dl (1.8-2.4); Sodium 136 mmol/L (136-145)
[2020-09-11 02:35] LABS: Base Excess ABG -0.5 mEq/L (-9-1.8); HCO3 ABG 23 mmol/L (19-24); Oxygen Saturation ABG 94.9 % (90-95); PCO2 ABG 32 mmHg (35-46); PO2 ABG 72 mmHg (80-95); pH ABG 7.46 (7.35-7.45)
[2020-09-11 02:36] LABS: Allen Test Pos (Pos)
[2020-09-11 02:42] LABS: Albumin Globulin Ratio 0.7 (0.9-2); Alkaline Phosphatase 88 U/L (45-117); Bilirubin,Total 0.6 mg/dl (0.2-1); Creatine Kinase 1472 U/L (26-192); Globulin 4.3 gm/dl (2.5-4.0); Total Protein 7.3 gm/dl (6.4-8.2); Troponin I < 0.015 ng/ml (0-0.045)
[2020-09-11] MEDS ORDERED: DEXAMETHASONE SOD INJ 10 MG/ML VIAL IV ONE (02:48)
[2020-09-11 03:06] LABS: RBC Urine Automated 0-4 /hpf (0-4)
--- NOTE | 2020-09-11 03:46 | Emergency Department Note ---
ED Visit Note Patient seen in conjunction with the BRYANT, please see her note for additional details. Patient presenting due to fall out of bed however given fever, concern for evolving sepsis. Patient found to be coronavirus positive. Patient hemodynamically stable while in the emergency room. Patient does have significant past medical history including COPD. Patient was hypoxic, patient was on nasal cannula while in the ER. .
[2020-09-11] MEDS ORDERED: FERROUS SULFATE 325 MG TAB PO PRN (04:39)
[2020-09-11] MEDS ORDERED: NITROGLYCERIN SL 0.4 MG/TAB TAB SL PRN (04:39)
[2020-09-11] MEDS ORDERED: REMDESIVIR 200 MG in SODIUM CHLORIDE 0.9% 210 ML IV ONE (05:30)
--- NOTE | 2020-09-11 05:44 | History and Physical Report ---
DATE OF ADMISSION: 09/11/2020 CHIEF COMPLAINT: Status post fall, cough, and fever. 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 Living in a personal skilled nursing. Was brought in because she fell in the bathroom. She says she had a mechanical fall in the bathroom, she could not get up, she laid there for 2 hours. Daughter came in and called ambulance and brought in here. Meanwhile, she is also having on and off fever for the last 2 weeks. Since last 1 week, she is having more cough than usual and bringing up some yellowish phlegm. Recently on 09/04/2020, she had one of the front teeth pulled out because of infection. She had cataract surgeries in July. Because at time of the season she her asthma and COPD acts up so she did not come earlier .She was also getting more short of breath. Last 2 days, the fevers and shortness of breath got worse. In the ER, she got a temperature spike of 39.4. She was requiring 4 liters oxygen. Her labs showed lymphopenia. ABGs were okay. Chest x-ray showed infiltrates and COVID-19 was positive. She was given Decadron. Currently resting comfortably and hemodynamically stable, speaking comfortably. She says about more than a week ago, she had left lung pain and she was put on budesonide by pulmonary and that pain has subsided. No loss of sense of smell or taste. Appetite is not that great. She has some headaches which is unusual for her. Has some runny nose. Denies any sore throat, no dysphagia. No nausea, no abdominal pain. Normal bowel and bladder movements. No rash. ALLERGIES: PENICILLINS, METRONIDAZOLE, ZOFRAN, VANCOMYCIN, ADHESIVE, SULFA ANTIBIOTICS, IBUPROFEN, JOSHUA INHIBITORS. PAST MEDICAL HISTORY: As mentioned above. PAST SURGICAL HISTORY: Cystoscopy, ERCP, A-port placement, nephrostomy, laparoscopic nephrectomy, total ureterectomy in 2014, partial hysterectomy, appendectomy, removal of oviduct, tonsillectomy, cholecystectomy. MEDICATIONS: The patient is on albuterol 2 puffs inhalation q. 4 hours, azelastine 1 spray intranasal b.i.d., Basaglar Kwikpen insulin 23 units subcutaneous at bedtime, budesonide 1 mg inhalation b.i.d., vitamin D 2000 units p.o. at bedtime, Jardiance 25 mg p.o. daily, ferrous sulfate 325 mg p.o. daily p.r.n., Flonase 2 sprays intranasally in a.m., Trelegy Ellipta 1 inhalation daily, furosemide 20 mg p.o. daily, NovoLog FlexPen 12 units in a.m. and at bedtime, levocetirizine 5 mg p.o. daily, Victoza 1.8 mg subcutaneous daily, losartan 25 mg p.o. a.m., montelukast 10 mg p.o. at bedtime, Percocet 1 tablet p.o. q. 6 hours p.r.n., Protonix 40 mg p.o. daily, Toviaz 4 mg p.o. a.m., triamcinolone 1 application topically b.i.d. FAMILY HISTORY: Significant for sister had breast cancer; father had CA, at age of 54; mother at age of 35 from complications from rheumatic heart disease. SOCIAL HISTORY: . Former smoker, quit in 2006. No alcohol use, no drug use. Currently living at a personal skilled nursing. REVIEW OF SYSTEMS: As per HPI. Rest of review of systems negative. PHYSICAL EXAMINATION: GENERAL: The patient is morbidly obese, not in acute distress. VITAL SIGNS: Temperature 39.4, pulse 97, respiratory rate 22, blood pressure 103/56, oxygen 95% on 4 liters. HEENT: Pupils equal, round, and reactive to light. Oral mucosa moist. NECK: No neck masses seen. CARDIOVASCULAR: S1, S2 heard, regular rate and rhythm, no murmur, no gallop. RESPIRATORY SYSTEM: Normal AP diameter. No accessory muscle use. No crackles. Occasional wheezing. ABDOMEN: Soft, bowel sounds present, nontender. No distention. CENTRAL NERVOUS SYSTEM: Cranial nerves II through XII grossly intact, nonfocal. EXTREMITIES: No edema, no erythema seen. LABORATORY DATA: WBC 10.3, hemoglobin 13.5, hematocrit 42.1, platelets 180. PT 11.3, INR 1.1, APTT 28.8. Blood gases, ABG: pH of 7.46, pCO2 of 32, pO2 of 72, bicarbonate 23, oxygen 94% on 4 liters. Sodium 136, potassium 4, chloride 104, bicarbonate 24, BUN 16, creatinine 1.1, serum glucose 127. Lactate 1.3, calcium 8.6, magnesium 1.9, total bilirubin 0.6, AST 53, ALT 25, alkaline phosphatase 88. Total creatinine kinase 1472. Troponin I less than 0.015. Urinalysis, cloudy, trace leukocyte esterase. SARS-CoV-2 RNA positive. IMAGING DATA: Chest x-ray, mild bibasilar infiltrates. ASSESSMENT AND PLAN: This is a 70-year-old female with history of chronic obstructive pulmonary disease, asthma, oxygen, sleep apnea, on BiPAP at bedtime, morbid obesity, chronic respiratory failure on 2 L oxygen all the time, history of invasive papillary urothelial cancer status post surgery and chemoradiation, who lives at a personal skilled nursing, presents with a fall and also was found to have COVID pneumonia. 1. COVID pneumonia, requiring oxygen.Acute on chronic respiratory failure. Baseline oxygen requiring 2 liters, currently requiring 4 liters. Pneumonia on x-ray. Received Decadron in the ER. We will continue with Decadron and IV remdesivir and follow the remdesivir labs and also consider plasma. Closely monitor in the tele floor. 2. History of chronic obstructive pulmonary disease and asthma. Continue her home inhalers and closely monitor. 3. Obstructive sleep apnea, on BiPAP at bedtime. 4. History of invasive papillary urothelial cancer status post left nephroureterectomy and also chemoradiation, currently seems to be stable. Follows with urology. 5. History of diabetes: Hold Victoza. Hold home NovoLog. Hold Jardiance. Continue home long-acting insulin. Placed on insulin sliding scale. Follow the blood sugars, follow HbA1c levels. 6. Morbid obesity: Need counseling. 7. Gastroesophageal reflux disease: Continue Protonix. 8. Chronic kidney disease stage III: Creatinine is 1.1. We will follow the labs. 9. Iron deficiency anemia: Hemoglobin is stable at 13.5. 10. History of deep venous thrombosis: Not on anticoagulation secondary GI bleed as per records. 11. Deep venous thrombosis prophylaxis: We will place on Lovenox 40 b.i.d. DISPOSITION: Closely monitor in the tele floor. Level 1 full code. Expect to discharge back to personal skilled nursing when stable. PT and OT prior to discharge. Social service to help with discharge planning. KYM
[2020-09-11] MEDS: ALBUTEROL HFA 8 GM INHALER INH SCH ×6 (05:55→21:43)
[2020-09-11] MEDS: SODIUM CHLORIDE 0.9% 1000ML 1,000 ML IV SCH ×2 (05:55→13:12)
--- NOTE | 2020-09-11 07:27 | XRay Report ---
XR chest 1V portable HISTORY: 70 years-old Female SEPSIS acute sepsis COMPARISON: Chest radiographs 12/10/2018 TECHNIQUE: Portable AP view of the chest FINDINGS: Cardiac silhouette is mildly enlarged, unchanged. Stable mediastinal contours. Mild reticular opaciti es. Right subclavian [id number]-[id number] catheter is unchanged. No pneumothorax or large pleural effusion. Mild chronic interstitial coarsening of the lung bases. Degenerative changes of the shoulders and spi ne. IMPRESSION: Cardiomegaly with mild bilateral reticular opacities suggestive of pulmonary vascular con gestion. An interstitial pneumonitis could appear similarly. ACT 112: Negative or not required by law. The above report was generated using voice recognition software. It may contain grammatical, syntax o r spelling errors. Electronically signed by: Rajeev Walter M.D. 09/11/2020 7:26 AM
[2020-09-11] MEDS: BUDESONIDE 0.5 MG/2 ML VIAL (PULMICORT) INH SCH ×2 (07:37→19:25)
[2020-09-11] MEDS ORDERED: HEPARIN 100 UNIT/ML 5ML FLUSH ONE (07:45)
[2020-09-11] MEDS ORDERED: TOVIAZ~ORDER AWAITING ACTION SCH (08:00)
[2020-09-11] MEDS: SODIUM CHLORIDE 0.9% 10ML FLUSH IV SCH (08:05)
[2020-09-11 08:10] LABS: Hematocrit (blood only) 41.9 % (37-47); Hemoglobin 13.4 g/dL (12.0-16.0); Immature Granulocytes # (auto) 0.04 K/uL (0.00-0.02); Immature Granulocytes % (auto) 0.5 %; Lymphocytes # (auto) 0.59 K/uL (1.2-3.4); Lymphocytes % (auto) 7.5 %; Mean Corpuscular Hemoglobin 28.5 pg (25-34); Mean Corpuscular Volume 89.1 fL (80-100); Mean Platelet Volume 10.1 fL (7.4-10.4); Monocytes # (auto) 0.39 K/uL (0.11-0.59); Monocytes % (auto) 4.9 %; Neutrophils # (auto) 6.88 K/uL (1.4-6.5); Neutrophils % (auto) 87.1 %; Platelet Count 178 K/uL (130-400); RDW Coefficient of Variation 16.9 % (11.5-14.5); RDW Standard Deviation 55.8 fL (36.4-46.3)
[2020-09-11 08:24] LABS: BUN Creatinine Ratio 14.8 (10-20); Calcium 8.6 mg/dl (8.5-10.1); Creatinine Clr Calc Pharmacy 68.6 ml/min; Est GFR (African American) 62.8; Est GFR (Non-African American) 54.1; Magnesium 2.2 mg/dl (1.8-2.4); Potassium 4.3 mmol/L (3.5-5.1)
[2020-09-11 08:45] LABS: Estimated Average Glucose 163 mg/dl; Hemoglobin A1C 7.3 % (4.5-5.6)
[2020-09-11] MEDS ORDERED: NON-FORMULARY MEDICATION (Levocetirizine 5 mg tablet) PO SCH (09:00)
[2020-09-11] MEDS: UMECLIDINIUM/VILANTEROL 62.5/25MCG 7 PUFFS/INHALER INH SCH (09:10)
[2020-09-11] MEDS: FLUTICASONE FUROATE 100MCG 14 PUFFS/INHALER INH SCH (09:10)
[2020-09-11] MEDS: LOSARTAN POTASSIUM 25 MG TAB PO SCH (09:12)
[2020-09-11] MEDS: FLUTICASONE PROPIONATE NA SPR 16 GM BTL SCH (09:12)
[2020-09-11] MEDS: TRIAMCINOLONE ACET 0.1% CR 15 GM TUBE TOP SCH ×2 (09:13→21:28)
[2020-09-11] MEDS: ENOXAPARIN INJ 40 MG/0.4 ML SYR SQ SCH ×2 (09:14→21:30)
[2020-09-11] MEDS: PANTOprazole 40 MG TAB PO SCH (09:15)
[2020-09-11] MEDS: FUROSEMIDE 20 MG TAB PO SCH (09:18)
[2020-09-11] MEDS: oxyCODONE/ACETAMINOPHEN 5mg/325mg TAB PO PRN ×2 (09:49→18:10)
[2020-09-11] MEDS: INSULIN ASPART 100 UNITS/ML 3 ML PEN SC SCH ×4 (11:12→21:26)
--- NOTE | 2020-09-11 17:06 | Hospitalist Progress Note ---
Date of Service September 11, 2020 Assessment & Plan (1) COVID-19 virus infection: COVID-19 pneumonia Continue dexamethasone and remdesivir Patient stated that she went over the information for convalescent plasma and would not want it at this time. Continue oxygen supplementation to maintain adequate saturation Patient uses 2 to 3 L with activity at home Patient also had elevated CPK of 1472. Likely from being down Got some IV fluids We will discontinue IV fluids avoid fluid overload. Encourage oral intake Hold patient's home Lasix for now Monitor CPK and renal function (2) SAMANTHA (obstructive sleep apnea): Continue BiPAP at bedtime (3) COPD (chronic obstructive pulmonary disease): Continue inhalers and monitor (4) Chronic kidney disease: CKD stage III Creatinine at baseline History of obstructing left ureteral malignancy status post nephroureterectomy, status post chemoradiation (5) Diabetes mellitus, type 2: Continue Lantus Continue insulin sliding scale Monitor blood glucose and manage appropriately A1c 7.3 (6) DVT prophylaxis: Reported history of DVT but no anticoagulation due to GI bleed We will do Lovenox subcu for DVT prophylaxis and monitor Admission and Anticipated Discharge Date Admission Date: September 11, 2020 Subjective Patient seen and examined Patient reported that over the past 2 weeks she is been getting progressively weak with worsening cough now productive and shortness of breath. Had fevers over the past couple of days. Stated that she did not fall but was too weak when she got up to go to the bathroom that she is gradually lowered herself to the ground and could not get up. Was down for about 2 hours prior to being brought to the hospital. Other history as detailed in H&P from this morning Physical Exam Constitutional: + well hydrated and + obese; no acute distress Eyes: PERRL, conjunctivae normal, anicteric sclerae ENMT: external ear and nose normal, oropharynx normal Respiratory: normal respiratory effort; no respiratory distress Diminished breath sounds no crackles or wheeze Cardiovascular: Rate/Rhythm: regular rate and regular rhythm S1 and S2 Gastrointestinal (Abdomen): normal bowel sounds, soft, nontender, no hepatosplenomegaly Musculoskeletal: No pedal edema Neurologic: PERRL, EOMI, accommodation nl, no face palsy, no dysarthria Psychiatric: A+Ox3, euthymic affect Results & Data Results & Data ([facility]) Vital Signs (Past 12 Hours) Vital Signs Temp Pulse Resp BP BP Pulse Ox Pulse Ox 09/11/20 15:13 75 18 94 09/11/20 12:27 95 09/11/20 12:17 36.5 C 79 13 121/52 L 91 92 09/11/20 11:24 36.6 C 81 18 132/67 90 09/11/20 11:13 78 18 93 09/11/20 08:07 36.7 C 82 23 145/79 H 92 09/11/20 07:46 81 16 93 09/11/20 07:37 85 20 92 09/11/20 05:58 83 20 165/89 H 93 Laboratory Results Laboratory Results - last 24 hr 09/11/20 09/11/20 09/11/20 01:30 01:35 01:35 WBC RBC Hgb Hct MCV MCH MCHC RDW Std Deviation RDW Coeff of Obey Plt Count MPV Immature Gran % (Auto) Neut % (Auto) Lymph % (Auto) Bradley % (Auto) Eos % (Auto) Baso % (Auto) Neut # (Auto) Lymph # (Auto) Bradley # (Auto) Eos # (Auto) Baso # (Auto) Immature Gran # (Auto) PT INR APTT PTT Ratio ABG pH ABG pCO2 ABG pO2 ABG HCO3 ABG O2 Saturation ABG Base Excess Rah Test Oxygen Given Sodium Potassium Chloride Carbon Dioxide Anion Gap BUN Creatinine Est Cr Clr Drug Dosing Est GFR ( Amer) Est GFR (Non-Af Amer) BUN/Creatinine Ratio Glucose POC Glucose Estimat Average Glucose Hemoglobin A1c Lactate Calcium Magnesium Total Bilirubin AST ALT Alkaline Phosphatase Total Creatine Kinase Troponin I Total Protein Albumin Globulin Albumin/Globulin Ratio Urine Color Yellow Urine Appearance Cloudy A Urine pH 5.0 Ur Specific [place] 1.033 H Urine Protein 1+ H Urine Glucose (UA) 3+ H Urine Ketones Trace H Urine Blood 3+ H Urine Nitrite Negative Urine Bilirubin Negative Urine Urobilinogen Negative Ur Leukocyte Esterase Trace H Urine WBC (Auto) 5-10 H Urine RBC (Auto) 0-4 U Hyaline Cast (Auto) 1-5 U Epithel Cells (Auto) >30 H Urine Bacteria (Auto) Negative Urine Yeast Present A COVID-19 Eval Order Covid19 IDNow atMMIC SARS-CoV-2, RNA, NAAT POSITIVE A* 09/11/20 09/11/20 09/11/20 01:40 01:40 01:40 WBC 10.33 RBC 4.76 Hgb 13.5 Hct 42.1 MCV 88.4 MCH 28.4 MCHC 32.1 RDW Std Deviation 55.3 H RDW Coeff of Obey 16.9 H Plt Count 180 MPV 10.1 Immature Gran % (Auto) 0.5 Neut % (Auto) 83.2 Lymph % (Auto) 5.6 Bradley % (Auto) 10.6 Eos % (Auto) 0.0 Baso % (Auto) 0.1 Neut # (Auto) 8.60 H Lymph # (Auto) 0.58 L Bradley # (Auto) 1.09 H Eos # (Auto) 0.00 Baso # (Auto) 0.01 Immature Gran # (Auto) 0.05 H PT 11.3 INR 1.1 APTT 28.8 PTT Ratio 1.0 ABG pH ABG pCO2 ABG pO2 ABG HCO3 ABG O2 Saturation ABG Base Excess Rah Test Oxygen Given Sodium 136 Potassium 4.0 Chloride 104 Carbon Dioxide 24 Anion Gap 8.0 BUN 16 Creatinine 1.10 Est Cr Clr Drug Dosing 65.5 Est GFR ( Amer) 59.3 Est GFR (Non-Af Amer) 51.2 BUN/Creatinine Ratio 14.5 Glucose 127 H POC Glucose Estimat Average Glucose Hemoglobin A1c Lactate Calcium 8.6 Magnesium 1.9 Total Bilirubin 0.6 AST 53 H ALT 25 Alkaline Phosphatase 88 Total Creatine Kinase 1472 H Troponin I < 0.015 Total Protein 7.3 Albumin 3.0 L Globulin 4.3 H Albumin/Globulin Ratio 0.7 L Urine Color Urine Appearance Urine pH Ur Specific [place] Urine Protein Urine Glucose (UA) Urine Ketones Urine Blood Urine Nitrite Urine Bilirubin Urine Urobilinogen Ur Leukocyte Esterase Urine WBC (Auto) Urine RBC (Auto) U Hyaline Cast (Auto) U Epithel Cells (Auto) Urine Bacteria (Auto) Urine Yeast COVID-19 Eval Order SARS-CoV-2, RNA, NAAT 09/11/20 09/11/20 09/11/20 01:40 02:22 07:56 WBC 7.90 RBC 4.70 Hgb 13.4 Hct 41.9 MCV 89.1 MCH 28.5 MCHC 32.0 RDW Std Deviation 55.8 H RDW Coeff of Obey 16.9 H Plt Count 178 MPV 10.1 Immature Gran % (Auto) 0.5 Neut % (Auto) 87.1 Lymph % (Auto) 7.5 Bradley % (Auto) 4.9 Eos % (Auto) 0.0 Baso % (Auto) 0.0 Neut # (Auto) 6.88 H Lymph # (Auto) 0.59 L Bradley # (Auto) 0.39 Eos # (Auto) 0.00 Baso # (Auto) 0.00 Immature Gran # (Auto) 0.04 H PT INR APTT PTT Ratio ABG pH 7.46 H ABG pCO2 32 L ABG pO2 72 L ABG HCO3 23 ABG O2 Saturation 94.9 ABG Base Excess -0.5 Rah Test Pos Oxygen Given 4L Sodium Potassium Chloride Carbon Dioxide Anion Gap BUN Creatinine Est Cr Clr Drug Dosing Est GFR ( Amer) Est GFR (Non-Af Amer) BUN/Creatinine Ratio Glucose POC Glucose Estimat Average Glucose Hemoglobin A1c Lactate 1.3 Calcium Magnesium Total Bilirubin AST ALT Alkaline Phosphatase Total Creatine Kinase Troponin I Total Protein Albumin Globulin Albumin/Globulin Ratio Urine Color Urine Appearance Urine pH Ur Specific [place] Urine Protein Urine Glucose (UA) Urine Ketones Urine Blood Urine Nitrite Urine Bilirubin Urine Urobilinogen Ur Leukocyte Esterase Urine WBC (Auto) Urine RBC (Auto) U Hyaline Cast (Auto) U Epithel Cells (Auto) Urine Bacteria (Auto) Urine Yeast COVID-19 Eval Order SARS-CoV-2, RNA, NAAT 09/11/20 09/11/20 09/11/20 07:56 07:56 08:04 WBC RBC Hgb Hct MCV MCH MCHC RDW Std Deviation RDW Coeff of Obey Plt Count MPV Immature Gran % (Auto) Neut % (Auto) Lymph % (Auto) Bradley % (Auto) Eos % (Auto) Baso % (Auto) Neut # (Auto) Lymph # (Auto) Bradley # (Auto) Eos # (Auto) Baso # (Auto) Immature Gran # (Auto) PT INR APTT PTT Ratio ABG pH ABG pCO2 ABG pO2 ABG HCO3 ABG O2 Saturation ABG Base Excess Rah Test Oxygen Given Sodium 141 Potassium 4.3 Chloride 110 H Carbon Dioxide 25 Anion Gap 7.0 BUN 16 Creatinine 1.05 Est Cr Clr Drug Dosing 68.6 Est GFR ( Amer) 62.8 Est GFR (Non-Af Amer) 54.1 BUN/Creatinine Ratio 14.8 Glucose 175 H POC Glucose 167 H Estimat Average Glucose 163 Hemoglobin A1c 7.3 H Lactate Calcium 8.6 Magnesium 2.2 Total Bilirubin AST ALT Alkaline Phosphatase Total Creatine Kinase Troponin I Total Protein Albumin Globulin Albumin/Globulin Ratio Urine Color Urine Appearance Urine pH Ur Specific [place] Urine Protein Urine Glucose (UA) Urine Ketones Urine Blood Urine Nitrite Urine Bilirubin Urine Urobilinogen Ur Leukocyte Esterase Urine WBC (Auto) Urine RBC (Auto) U Hyaline Cast (Auto) U Epithel Cells (Auto) Urine Bacteria (Auto) Urine Yeast COVID-19 Eval Order SARS-CoV-2, RNA, NAAT 09/11/20 12:15 WBC RBC Hgb Hct MCV MCH MCHC RDW Std Deviation RDW Coeff of Obey Plt Count MPV Immature Gran % (Auto) Neut % (Auto) Lymph % (Auto) Bradley % (Auto) Eos % (Auto) Baso % (Auto) Neut # (Auto) Lymph # (Auto) Bradley # (Auto) Eos # (Auto) Baso # (Auto) Immature Gran # (Auto) PT INR APTT PTT Ratio ABG pH ABG pCO2 ABG pO2 ABG HCO3 ABG O2 Saturation ABG Base Excess Rah Test Oxygen Given Sodium Potassium Chloride Carbon Dioxide Anion Gap BUN Creatinine Est Cr Clr Drug Dosing Est GFR ( Amer) Est GFR (Non-Af Amer) BUN/Creatinine Ratio Glucose POC Glucose 251 H Estimat Average Glucose Hemoglobin A1c Lactate Calcium Magnesium Total Bilirubin AST ALT Alkaline Phosphatase Total Creatine Kinase Troponin I Total Protein Albumin Globulin Albumin/Globulin Ratio Urine Color Urine Appearance Urine pH Ur Specific [place] Urine Protein Urine Glucose (UA) Urine Ketones Urine Blood Urine Nitrite Urine Bilirubin Urine Urobilinogen Ur Leukocyte Esterase Urine WBC (Auto) Urine RBC (Auto) U Hyaline Cast (Auto) U Epithel Cells (Auto) Urine Bacteria (Auto) Urine Yeast COVID-19 Eval Order SARS-CoV-2, RNA, NAAT
--- NOTE | 2020-09-11 18:29 | Electrocardiogram Report ---
Test Reason : Blood Pressure : / mmHG Vent. Rate : 111 BPM Atrial Rate : 111 BPM P-R Int : 178 ms QRS Dur : 084 ms QT Int : 330 ms P-R-T Axes : 017 073 025 degrees QTc Int : 448 ms Poor data quality, interpretation may be adversely affected Sinus tachycardia Anteroseptal infarct , age undetermined Abnormal ECG When compared with ECG of 10-DEC-2018 11:58, Anteroseptal infarct is now Present Confirmed by Alexis Giraldo ([id number]) on 09/11/2020 6:29:27 PM Referred By: REFERRED SELF Confirmed By:Tommie Giraldo
[2020-09-11] MEDS: INSULIN GLARGINE SOLOSTAR 100 UNITS/ML 3 ML PEN SQ SCH (21:26)
[2020-09-11] MEDS: MONTELUKAST SODIUM 10 MG TABLET PO SCH (21:28)
[2020-09-11] MEDS: CHOLECALCIFEROL 1,000 UNITS 25 MCG TAB PO SCH (21:28)
[2020-09-12] MEDS: oxyCODONE/ACETAMINOPHEN 5mg/325mg TAB PO PRN ×5 (00:08→23:50)
[2020-09-12] MEDS: ALBUTEROL HFA 8 GM INHALER INH SCH ×5 (03:43→19:29)
[2020-09-12 05:04] LABS: Hematocrit (blood only) 42.2 % (37-47); Hemoglobin 13.3 g/dL (12.0-16.0); Mean Corpuscular Hemoglobin 28.2 pg (25-34); Mean Corpuscular Hgb Conc 31.5 g/dL (32-36); Mean Corpuscular Volume 89.6 fL (80-100); Mean Platelet Volume 9.7 fL (7.4-10.4); Platelet Count 146 K/uL (130-400); RDW Coefficient of Variation 17.3 % (11.5-14.5); RDW Standard Deviation 56.8 fL (36.4-46.3); Red Blood Count 4.71 M/uL (4.2-5.4); White Blood Count 7.49 K/uL (4.8-10.8)
[2020-09-12 05:27] LABS: Alanine Aminotransferase 50 U/L (12-78); Albumin Level 2.7 gm/dl (3.4-5.0); Aspartate Aminotransferase 216 U/L (15-37); Bilirubin Direct 0.2 mg/dl (0-0.2); Blood Urea Nitrogen 18 mg/dl (7-18); Carbon Dioxide 22 mmol/L (21-32); Chloride 107 mmol/L (98-107); Creatinine Clr Calc Pharmacy 76.2 ml/min; Est GFR (African American) 71.7; Est GFR (Non-African American) 61.9; Glucose 93 mg/dl (70-99); Magnesium 2.2 mg/dl (1.8-2.4); Potassium 4.1 mmol/L (3.5-5.1); Sodium 137 mmol/L (136-145)
[2020-09-12 05:41] LABS: Alkaline Phosphatase 74 U/L (45-117); Bilirubin,Total 0.5 mg/dl (0.2-1); C Reactive Protein 8.41 mg/dl (0-0.29); Creatine Kinase 6835 U/L (26-192); Phosphorus 3.3 mg/dl (2.5-4.9); Total Protein 6.8 gm/dl (6.4-8.2); Troponin I < 0.015 ng/ml (0-0.045)
[2020-09-12 06:03] LABS: D Dimer 630 ug/L FEU (0-500)
[2020-09-12] MEDS: SODIUM CHLORIDE 0.9% 10ML FLUSH IV SCH (06:12)
[2020-09-12] MEDS: BUDESONIDE 0.5 MG/2 ML VIAL (PULMICORT) INH SCH ×2 (07:57→19:30)
[2020-09-12] MEDS ORDERED: DEXAMETHASONE SOD INJ 10 MG/ML VIAL IV SCH (08:00)
[2020-09-12] MEDS: INSULIN ASPART 100 UNITS/ML 3 ML PEN SC SCH ×4 (08:42→21:31)
[2020-09-12] MEDS: UMECLIDINIUM/VILANTEROL 62.5/25MCG 7 PUFFS/INHALER INH SCH (08:48)
[2020-09-12] MEDS: FLUTICASONE FUROATE 100MCG 14 PUFFS/INHALER INH SCH (08:48)
[2020-09-12] MEDS: TRIAMCINOLONE ACET 0.1% CR 15 GM TUBE TOP SCH ×2 (08:49→21:26)
[2020-09-12] MEDS: FLUTICASONE PROPIONATE NA SPR 16 GM BTL SCH (08:51)
[2020-09-12] MEDS: LOSARTAN POTASSIUM 25 MG TAB PO SCH (08:52)
[2020-09-12] MEDS: PANTOprazole 40 MG TAB PO SCH (08:52)
[2020-09-12] MEDS: ENOXAPARIN INJ 40 MG/0.4 ML SYR SQ SCH ×2 (08:53→21:27)
[2020-09-12] MEDS: FUROSEMIDE 20 MG TAB PO SCH (08:54)
[2020-09-12] MEDS: LACTATED RINGER'S 1,000 ML IV SCH ×2 (09:02→20:24)
[2020-09-12] MEDS: DEXAMETHASONE SOD PHOSPHATE 6 MG in SYRINGE 0 ML IV SCH (10:06)
[2020-09-12] MEDS: REMDESIVIR 100 MG in SODIUM CHLORIDE 0.9% 230 ML IV SCH (11:53)
--- NOTE | 2020-09-12 15:20 | Hospitalist Progress Note ---
Date of Service September 12, 2020 Assessment & Plan (1) COVID-19 virus infection: COVID-19 pneumonia Continue dexamethasone and remdesivir Patient did not want convalescent plasma Continue oxygen supplementation to maintain adequate saturation Patient uses 2 to 3 L with activity at home Now requiring 4L Incentive spirometry and flutter Trend inflammatory markers (2) Rhabdomyolysis: Patient also had elevated CPK of 1472. Likely from being down Got some IV fluids CPK increased to 6000 Gave more IV fluids. Monitor for fluid overload Hold patient's home Lasix for now Monitor CPK and renal function (3) SAMANTHA (obstructive sleep apnea): Continue BiPAP at bedtime (4) COPD (chronic obstructive pulmonary disease): Continue inhalers and monitor (5) Chronic kidney disease: CKD stage III Creatinine at baseline History of obstructing left ureteral malignancy status post nephroureterectomy, status post chemoradiation (6) Diabetes mellitus, type 2: Continue Lantus Continue insulin sliding scale Monitor blood glucose and manage appropriately A1c 7.3 (7) DVT prophylaxis: Reported history of DVT but no anticoagulation due to GI bleed Continue Lovenox subcu for DVT prophylaxis and monitor Called daughter per patient request and updated her Admission and Anticipated Discharge Date Admission Date: September 11, 2020 Subjective Patient seen and examined. Patient reports persistent cough productive of blood-tinged sputum Reports some chest pain associated with cough Also has some shortness of breath Requiring 4 L/min of oxygen Has been using BiPAP at night Reports headache. Had fever of 38.1 this morning. No nausea, vomiting abdominal pain or diarrhea. Reports chronic knee pain. Physical Exam Constitutional: + well hydrated and + obese; no acute distress Eyes: PERRL, conjunctivae normal, anicteric sclerae ENMT: external ear and nose normal, oropharynx normal Respiratory: normal respiratory effort; no respiratory distress Diminished breath sounds Cardiovascular: Rate/Rhythm: regular rate and regular rhythm S1-S2 Gastrointestinal (Abdomen): normal bowel sounds, soft, nontender, no hepatosplenomegaly Musculoskeletal: No pedal edema Neurologic: PERRL, EOMI, accommodation nl, no face palsy, no dysarthria Psychiatric: A+Ox3, euthymic affect Results & Data Results & Data ([facility]) Vital Signs (Past 12 Hours) Vital Signs Temp Pulse Pulse Resp BP Pulse Ox 09/12/20 11:48 38.1 C H 91 H 22 136/64 90 09/12/20 11:35 89 20 94 09/12/20 07:58 82 18 94 09/12/20 07:27 37.2 C 84 15 140/67 93 09/12/20 05:24 79 19 122/66 90 09/12/20 03:44 81 22 95 09/12/20 03:43 79 22 95 Laboratory Results Laboratory Results - last 24 hr 09/11/20 09/11/20 09/12/20 18:14 21:26 04:38 WBC RBC Hgb Hct MCV MCH MCHC RDW Std Deviation RDW Coeff of Obey Plt Count MPV D-Dimer Sodium Potassium Chloride Carbon Dioxide Anion Gap BUN Creatinine Est Cr Clr Drug Dosing Est GFR ( Amer) Est GFR (Non-Af Amer) BUN/Creatinine Ratio Glucose POC Glucose 147 H 110 H Calcium Phosphorus Magnesium Total Bilirubin Direct Bilirubin AST ALT Alkaline Phosphatase Total Creatine Kinase Troponin I C-Reactive Protein Total Protein Albumin Procalcitonin Hepatitis C Ab Screen Neg 09/12/20 09/12/20 09/12/20 04:38 04:38 04:38 WBC 7.49 RBC 4.71 Hgb 13.3 Hct 42.2 MCV 89.6 MCH 28.2 MCHC 31.5 L RDW Std Deviation 56.8 H RDW Coeff of Obey 17.3 H Plt Count 146 MPV 9.7 D-Dimer 630 H* Sodium 137 Potassium 4.1 Chloride 107 Carbon Dioxide 22 Anion Gap 8.0 BUN 18 Creatinine 0.94 Est Cr Clr Drug Dosing 76.2 Est GFR ( Amer) 71.7 Est GFR (Non-Af Amer) 61.9 BUN/Creatinine Ratio 19.0 Glucose 93 POC Glucose Calcium 8.0 L Phosphorus 3.3 Magnesium 2.2 Total Bilirubin 0.5 Direct Bilirubin 0.2 AST 216 H ALT 50 Alkaline Phosphatase 74 Total Creatine Kinase 6835 H Troponin I < 0.015 C-Reactive Protein 8.41 H Total Protein 6.8 Albumin 2.7 L Procalcitonin Hepatitis C Ab Screen 09/12/20 09/12/20 09/12/20 04:38 07:48 11:47 WBC RBC Hgb Hct MCV MCH MCHC RDW Std Deviation RDW Coeff of Obey Plt Count MPV D-Dimer Sodium Potassium Chloride Carbon Dioxide Anion Gap BUN Creatinine Est Cr Clr Drug Dosing Est GFR ( Amer) Est GFR (Non-Af Amer) BUN/Creatinine Ratio Glucose POC Glucose 86 120 H Calcium Phosphorus Magnesium Total Bilirubin Direct Bilirubin AST ALT Alkaline Phosphatase Total Creatine Kinase Troponin I C-Reactive Protein Total Protein Albumin Procalcitonin 0.23 Hepatitis C Ab Screen
[2020-09-12] MEDS ORDERED: guaiFENesin SUGAR FREE 100 MG/5 ML UDC PO PRN (16:54)
[2020-09-12] MEDS: ADVANCED PROBIOTIC 1250 MG CAPSULE PO SCH (17:21)
[2020-09-12] MEDS: CHOLECALCIFEROL 1,000 UNITS 25 MCG TAB PO SCH (21:25)
[2020-09-12] MEDS: MONTELUKAST SODIUM 10 MG TABLET PO SCH (21:25)
[2020-09-12] MEDS: INSULIN GLARGINE SOLOSTAR 100 UNITS/ML 3 ML PEN SQ SCH (21:32)
[2020-09-13] MEDS: ALBUTEROL HFA 8 GM INHALER INH SCH ×7 (00:50→23:19)
[2020-09-13 05:57] LABS: Hemoglobin 12.9 g/dL (12.0-16.0); Mean Corpuscular Hemoglobin 27.9 pg (25-34); Mean Corpuscular Hgb Conc 31.5 g/dL (32-36); Mean Corpuscular Volume 88.7 fL (80-100); Mean Platelet Volume 9.9 fL (7.4-10.4); Platelet Count 160 K/uL (130-400); RDW Coefficient of Variation 17.3 % (11.5-14.5); RDW Standard Deviation 56.4 fL (36.4-46.3); Red Blood Count 4.62 M/uL (4.2-5.4); White Blood Count 6.75 K/uL (4.8-10.8)
[2020-09-13 06:26] LABS: BUN Creatinine Ratio 20.6 (10-20); Creatinine Clr Calc Pharmacy 73.1 ml/min; Est GFR (African American) 68.2; Est GFR (Non-African American) 58.9; Magnesium 2.2 mg/dl (1.8-2.4); Potassium 4.2 mmol/L (3.5-5.1)
[2020-09-13 06:27] LABS: C Reactive Protein 8.32 mg/dl (0-0.29); Phosphorus 3.3 mg/dl (2.5-4.9)
[2020-09-13] MEDS: SODIUM CHLORIDE 0.9% 10ML FLUSH IV SCH (06:45)
[2020-09-13] MEDS: LACTATED RINGER'S 1,000 ML IV SCH ×2 (06:45→14:49)
[2020-09-13] MEDS: oxyCODONE/ACETAMINOPHEN 5mg/325mg TAB PO PRN ×3 (06:49→20:23)
[2020-09-13] MEDS: BUDESONIDE 0.5 MG/2 ML VIAL (PULMICORT) INH SCH ×2 (07:13→20:36)
--- NOTE | 2020-09-13 07:52 | XRay Report ---
SINGLE VIEW CHEST CLINICAL HISTORY: Covid pneumonia. FINDINGS: An AP, portable, upright chest radiograph is compared to study dated 09/11/2020. Correlatio n is made with chest CT dated 08/01/2016. A right subclavian central venous infusion port is unchange d in position. The heart is top normal for projection noting atherosclerotic calcification of the tho racic aorta. The pulmonary vasculature is noncongested. Emphysema and chronic interstitial thickening is similar to previous. There is multifocal bilateral airspace consolidation, which is increasingly confluent in the right upper lobe. No large pleural effusion or pneumothorax is seen. The skeletal st ructures are osteopenic. The bony thorax is grossly intact. IMPRESSION: Multifocal airspace consolidation is again noted. This is increasingly confluent in the r ight upper lobe.. ACT 112: Negative or not required by law. Electronically signed by: Vasiliy Abel M.D. 09/13/2020 7:50 AM
[2020-09-13] MEDS: INSULIN ASPART 100 UNITS/ML 3 ML PEN SC SCH ×4 (08:45→21:27)
[2020-09-13] MEDS: UMECLIDINIUM/VILANTEROL 62.5/25MCG 7 PUFFS/INHALER INH SCH (10:01)
[2020-09-13] MEDS: DEXAMETHASONE SOD PHOSPHATE 6 MG in SYRINGE 0 ML IV SCH (10:01)
[2020-09-13] MEDS: ADVANCED PROBIOTIC 1250 MG CAPSULE PO SCH (10:02)
[2020-09-13] MEDS: FLUTICASONE FUROATE 100MCG 14 PUFFS/INHALER INH SCH (10:02)
[2020-09-13] MEDS: LOSARTAN POTASSIUM 25 MG TAB PO SCH (10:03)
[2020-09-13] MEDS: TRIAMCINOLONE ACET 0.1% CR 15 GM TUBE TOP SCH ×2 (10:03→21:26)
[2020-09-13] MEDS: PANTOprazole 40 MG TAB PO SCH (10:03)
[2020-09-13] MEDS: FLUTICASONE PROPIONATE NA SPR 16 GM BTL SCH (10:04)
[2020-09-13] MEDS: ENOXAPARIN INJ 40 MG/0.4 ML SYR SQ SCH ×2 (10:05→20:25)
[2020-09-13] MEDS: REMDESIVIR 100 MG in SODIUM CHLORIDE 0.9% 230 ML IV SCH (11:32)
--- NOTE | 2020-09-13 14:48 | Hospitalist Progress Note ---
Date of Service September 13, 2020 Assessment & Plan (1) Pneumonia due to COVID-19 virus: cont dexamethasone and remdesivir. Declined conv plasma. Continues to require increased oxygen supplementation from her baseline which is 2LPM with activity. (2) Non-traumatic rhabdomyolysis: Will consider dcing IVF soon now that she is eating and tolerating PO more reliably. Also on Lasix at home typically which is on hold. Will cont to monitor CK. 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 Monitor blood glucose and manage appropriately A1c 7.3 (7) DVT prophylaxis: Reported history of DVT but no anticoagulation due to h/o GI bleed Lovenox Full Code Dispo-uncertain at this time. Shelia Kraft DO [facility] Hospitalist Admission and Anticipated Discharge Date Admission Date: September 11, 2020 Subjective CC: COVID pneumonia, weakness -not improved yet since started treatment -describes chest muscle pain she thinks from coughing excessively -tells me she would like some cough syrup and has no issues with codeine she is aware of -tolerating food -feels she has a UTI describes burning with urination and increased urinary urgency over the past week-no UTI on sample this admission -some intermittent fevers Review of Systems Review of Systems: All systems reviewed & are unremarkable except as noted in Subjective Physical Exam Physical Exam: CONSTITUTIONAL: morbidly obese, vitals as above, generally well-appearing EYES: normal conjunctivae, no scleral icterus ENT: external ear and nose normal, BIPAP in place NECK: obese RESPIRATORY: clear to auscultation bilaterally, no crackles, rales or wheezes, normal respiratory effort CARDIOVASCULAR: regular rate and rhythm, S1 and 2 heard without murmurs, gallops or rubs, no JVD, no peripheral edema GASTROINTESTINAL: soft, nontender, nondistended, no guarding MUSCULOSKELETAL: generalized weakness, head is normocephalic and atraumatic, neck supple, chest tenderness to palpation of anterior chest wall in intercostal spaces. SKIN: warm and dry NEUROLOGIC: CN 2-12 grossly intact, normal cognition, normal speech, no gross focal deficits. PSYCHIATRIC: alert cooperative and oriented to person, place and time. Results & Data Results & Data ([facility]) Vital Signs (Past 12 Hours) Vital Signs Temp Pulse Pulse Resp BP Pulse Ox Pulse Ox 09/13/20 14:38 37.8 C H 91 H 20 143/76 H 90 09/13/20 13:06 89 L 09/13/20 11:30 36.6 C 82 16 160/55 H 89 L 09/13/20 11:25 76 20 09/13/20 08:04 37 C 82 24 115/66 90 09/13/20 07:15 81 17 94 09/13/20 04:31 37.9 C H 76 22 140/77 92 09/13/20 03:52 76 22 95 Pulse Ox Pulse Ox 09/13/20 14:38 09/13/20 13:06 90 85 L 09/13/20 11:30 09/13/20 11:25 09/13/20 08:04 09/13/20 07:15 09/13/20 04:31 09/13/20 03:52 Laboratory Results Short CBC 09/13/20 Range/Units 05:34 WBC 6.75 (4.8-10.8) K/uL Hgb 12.9 (12.0-16.0) g/dL Hct 41.0 (37-47) % Plt Count 160 (130-400) K/uL BMP 09/13/20 05:34 Sodium 136 Potassium 4.2 Chloride 105 Carbon Dioxide 28 BUN 20 H Creatinine 0.98 Glucose 115 H Calcium 8.0 L Cardiac Enzymes 09/12/20 Range/Units 17:41 Total Creatine Kinase 5443 H (26-192) U/L Liver Function 09/13/20 Range/Units 05:34 AST 144 H (15-37) U/L ALT 45 (12-78) U/L Medications Administered Current Inpatient Medications Acetaminophen (Acetaminophen 325 Mg Tab) 650 mg PO Q4H PRN PRN Reason: Pain or Fever Stop: 10/11/20 04:38 Albuterol (Albuterol Hfa 8 Gm Inhaler) 2 puffs INH Q4R [facility] Stop: 10/11/20 04:38 Last Admin: 09/13/20 12:20 Dose: 2 puffs Documented by: Budesonide (Budesonide 0.5 Mg/2 Ml Vial (Pulmicort)) 1 mg INH BIDR [facility] Stop: 10/11/20 06:59 Last Admin: 09/13/20 07:13 Dose: 1 mg Documented by: Enoxaparin Sodium (Enoxaparin Inj 40 Mg/0.4 Ml Syr) 40 mg SQ Q12H [facility] Stop: 10/11/20 08:59 Last Admin: 09/13/20 10:05 Dose: 40 mg Documented by: Ferrous Sulfate (Ferrous Sulfate 325 Mg Tab) 325 mg PO DAILY PRN PRN Reason: Wound Healing Stop: 10/11/20 04:38 Last Admin: 09/12/20 08:52 Dose: 325 mg Documented by: Fluticasone Furoate (Fluticasone Furoate 100mcg 14 Puffs/Inhaler) 1 puffs INH DAILY [facility] Stop: 10/11/20 08:59 Last Admin: 09/13/20 10:02 Dose: 1 puffs Documented by: Fluticasone Propionate (Fluticasone Propionate Na Spr 16 Gm Btl) 2 sprays NA QAM [facility] Stop: 10/11/20 08:59 Last Admin: 09/13/20 10:04 Dose: 2 sprays Documented by: Furosemide (Furosemide 20 Mg Tab) 20 mg PO DAILY [facility] Stop: 10/11/20 08:59 Last Admin: 09/12/20 08:54 Dose: Not Given Documented by: Guaifenesin (Guaifenesin Sugar Free 100 Mg/5 Ml Udc) 100 mg PO Q6H PRN PRN Reason: Cough Stop: 10/12/20 16:53 Remdesivir 100 mg/ Sodium (Chloride) 250 mls @ 250 mls/hr IV Q24H [facility]; Protocol Stop: 09/15/20 12:59 Last Infusion: 09/13/20 13:01 Dose: Infused Documented by: Dexamethasone Sodium Phosphate (6 mg/ Syringe) 1.5 mls @ 1 mls/min IV DAILY [facility] Stop: 09/21/20 09:02 Last Admin: 09/13/20 10:01 Dose: 1 mls/min Documented by: Lactated Ringer's (Lr) 1,000 mls @ 100 mls/hr IV .Q10H [facility] Stop: 10/12/20 07:44 Last Admin: 09/13/20 06:45 Dose: 100 mls/hr Documented by: Insulin Aspart (Insulin Aspart 100 Units/Ml 3 Ml Pen) 0 units SC ACHS [facility] Stop: 10/11/20 07:29 Last Admin: 09/13/20 12:21 Dose: 4 units Documented by: Insulin Glargine (Insulin Glargine Solostar 100 Units/Ml 3 Ml Pen) 23 units SQ HS [facility] Stop: 10/11/20 20:59 Last Admin: 09/12/20 21:32 Dose: 23 units Documented by: Lactobacillus Acidoph/Casei/Rhamnos (Advanced Probiotic 1250 Mg Capsule) 2 cap PO DAILY [facility] Stop: 10/12/20 13:59 Last Admin: 09/13/20 10:02 Dose: 2 cap Documented by: Losartan Potassium (Losartan Potassium 25 Mg Tab) 25 mg PO QAM [facility] Stop: 10/11/20 08:59 Last Admin: 09/13/20 10:03 Dose: 25 mg Documented by: Montelukast Sodium (Montelukast Sodium 10 Mg Tablet) 10 mg PO HS [facility] Stop: 10/11/20 20:59 Last Admin: 09/12/20 21:25 Dose: 10 mg Documented by: Nitroglycerin (Nitroglycerin Sl 0.4 Mg/Tab Tab) 0.4 mg SL UD PRN PRN Reason: Chest Pain Stop: 10/11/20 04:38 Oxycodone/Acetaminophen (Oxycodone/Acetaminophen 5mg/325mg Tab) 1 tab PO Q6H PRN PRN Reason: Pain Stop: 09/25/20 04:38 Last Admin: 09/13/20 13:32 Dose: 1 tab Documented by: Pantoprazole Sodium (Pantoprazole 40 Mg Tab) 40 mg PO DAILY [facility] Stop: 10/11/20 08:59 Last Admin: 09/13/20 10:03 Dose: 40 mg Documented by: Sodium Chloride (Sodium Chloride 0.9% 10ml Flush) 30 ml IV Q24H [facility] Stop: 09/15/20 05:31 Last Admin: 09/13/20 06:45 Dose: 30 ml Documented by: Triamcinolone Acetonide (Triamcinolone Acet 0.1% Cr 15 Gm Tube) 1 appln TOP BID [facility] Stop: 10/11/20 08:59 Last Admin: 09/13/20 10:03 Dose: 1 appln Documented by: Umeclidinium/Vilanterol (Umeclidinium/Vilanterol 62.5/25mcg 7 Puffs/Inhaler) 1 puffs INH DAILY [facility] Stop: 10/11/20 08:59 Last Admin: 09/13/20 10:01 Dose: 1 puffs Documented by: Vitamin D (Cholecalciferol 1,000 Units 25 Mcg Tab) 2,000 units PO HS [facility] Stop: 10/11/20 20:59 Last Admin: 09/12/20 21:25 Dose: 2,000 units Documented by:
[2020-09-13] MEDS: CHOLECALCIFEROL 1,000 UNITS 25 MCG TAB PO SCH (20:25)
[2020-09-13] MEDS: MONTELUKAST SODIUM 10 MG TABLET PO SCH (21:25)
[2020-09-13] MEDS: INSULIN GLARGINE SOLOSTAR 100 UNITS/ML 3 ML PEN SQ SCH (21:26)
[2020-09-13] MEDS ORDERED: Nursing to Pharmacy Communication SCH (23:15)
[2020-09-14] MEDS: LACTATED RINGER'S 1,000 ML IV SCH (00:13)
[2020-09-14] MEDS: ALBUTEROL HFA 8 GM INHALER INH SCH ×6 (03:50→23:10)
[2020-09-14] MEDS: oxyCODONE/ACETAMINOPHEN 5mg/325mg TAB PO PRN ×3 (03:57→20:04)
[2020-09-14 07:13] LABS: Creatinine Clr Calc Pharmacy 84.3 ml/min; Est GFR (Non-African American) 69.9
[2020-09-14] MEDS: BUDESONIDE 0.5 MG/2 ML VIAL (PULMICORT) INH SCH ×2 (07:36→18:36)
[2020-09-14] MEDS: DEXAMETHASONE SOD PHOSPHATE 6 MG in SYRINGE 0 ML IV SCH (08:56)
[2020-09-14] MEDS: ADVANCED PROBIOTIC 1250 MG CAPSULE PO SCH (08:57)
[2020-09-14] MEDS: TRIAMCINOLONE ACET 0.1% CR 15 GM TUBE TOP SCH ×2 (08:57→19:53)
[2020-09-14] MEDS: ENOXAPARIN INJ 40 MG/0.4 ML SYR SQ SCH ×2 (08:58→19:54)
[2020-09-14] MEDS: LOSARTAN POTASSIUM 25 MG TAB PO SCH (08:58)
[2020-09-14] MEDS: FLUTICASONE FUROATE 100MCG 14 PUFFS/INHALER INH SCH (08:58)
[2020-09-14] MEDS: PANTOprazole 40 MG TAB PO SCH (08:58)
[2020-09-14] MEDS: FLUTICASONE PROPIONATE NA SPR 16 GM BTL SCH (08:59)
[2020-09-14] MEDS: UMECLIDINIUM/VILANTEROL 62.5/25MCG 7 PUFFS/INHALER INH SCH (08:59)
--- NOTE | 2020-09-14 09:38 | Hospitalist Progress Note ---
Date of Service September 14, 2020 Assessment & Plan (1) Acute respiratory failure: 2/2 covid pneumonia. Less likely bacterial but with worsening clinical picture will add antibiotics now. (2) Pneumonia due to COVID-19 virus: cont dexamethasone and remdesivir. Declined conv plasma. Increased oxygen needs today and worsened pneumonia on CXR. IVF were stopped this am. Will try one dose of IV Lasix to see if this improves her ability to oxygenate. Placing her on hi flow oxygen supplementation now. If gas reflects respiratory acidosis will opt for BIPAP instead. Spoke with daughter, updated her and asked her to bring patient's nasal bipap to the hospital. Some hemoptysis reported by patient. May be related to pneumonia, however, because of this and the increased oxygen needs will consult pulmonology. (3) Non-traumatic rhabdomyolysis: Tolerating PO and hydrating reliably. CK is improved. (4) SAMANTHA (obstructive sleep apnea): Continue BiPAP at bedtime, ok to use home nasal BIPAP machine which I requested from her daughter today. (5) COPD (chronic obstructive pulmonary disease): chronic, stable, no wheezing on exam. 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 Monitor blood glucose and manage appropriately A1c 7.3 (8) Dysuria: presence of painful urination reported without initial evidence of urine infection. However, this sample was from a clean catch and she will need to be retested with an in/out cath sample. Will need to defer this until her breathing is more stable. (9) DVT prophylaxis: Lovenox Full Code Dispo-cont PCU Shelia Kraft DO [facility] Hospitalist Admission and Anticipated Discharge Date Admission Date: September 11, 2020 Subjective CC: COVID pneumonia, weakness -continued IVF overnight last night until repeat CK this am, which is improved. -she has developed an increased oxygen need -IVF were stopped this morning. -she is not working to breathe but is not maintaining oxygenation well -discussed with patient and daughter the transition to high flow -patient states she cannot tolerate full face bipap mask. -she is asking for some cough syrup. -still feels like she has dysuria-currently using an external catheter -tolerating PO Review of Systems Review of Systems: All systems reviewed & are unremarkable except as noted in Subjective Physical Exam Physical Exam: CONSTITUTIONAL: morbidly obese, vitals as above, generally well-appearing EYES: normal conjunctivae, no scleral icterus ENT: external ear and nose normal, BIPAP in place NECK: obese RESPIRATORY: clear to auscultation bilaterally, no crackles, rales or wheezes, normal respiratory effort CARDIOVASCULAR: regular rate and rhythm, S1 and 2 heard without murmurs, gallops or rubs, no JVD, no peripheral edema GASTROINTESTINAL: soft, nontender, nondistended, no guarding MUSCULOSKELETAL: generalized weakness, head is normocephalic and atraumatic SKIN: warm and dry NEUROLOGIC: CN 2-12 grossly intact, normal cognition, normal speech, no gross focal deficits. PSYCHIATRIC: alert cooperative and oriented to person, place and time. Results & Data Results & Data ([facility]) Vital Signs (Past 12 Hours) Vital Signs Temp Pulse Pulse Resp BP Pulse Ox 09/14/20 07:54 36.9 C 70 20 141/73 H 90 09/14/20 07:41 68 20 90 09/14/20 04:00 36.6 C 66 24 145/72 H 89 L 09/14/20 03:51 68 18 89 L 09/13/20 23:20 68 19 91 09/13/20 22:43 37.3 C 73 18 139/66 90 Laboratory Results [facility] 09/14/20 05:47 Creatinine 0.85 Liver Function 09/14/20 Range/Units 05:47 AST 112 H (15-37) U/L ALT 41 (12-78) U/L Medications Administered Current Inpatient Medications Acetaminophen (Acetaminophen 325 Mg Tab) 650 mg PO Q4H PRN PRN Reason: Pain or Fever Stop: 10/11/20 04:38 Albuterol (Albuterol Hfa 8 Gm Inhaler) 2 puffs INH Q4R [facility] Stop: 10/11/20 04:38 Last Admin: 09/14/20 07:36 Dose: 2 puffs Documented by: Budesonide (Budesonide 0.5 Mg/2 Ml Vial (Pulmicort)) 1 mg INH BIDR [facility] Stop: 10/11/20 06:59 Last Admin: 09/14/20 07:36 Dose: 1 mg Documented by: Enoxaparin Sodium (Enoxaparin Inj 40 Mg/0.4 Ml Syr) 40 mg SQ Q12H [facility] Stop: 10/11/20 08:59 Last Admin: 09/14/20 08:58 Dose: 40 mg Documented by: Ferrous Sulfate (Ferrous Sulfate 325 Mg Tab) 325 mg PO DAILY PRN PRN Reason: Wound Healing Stop: 10/11/20 04:38 Last Admin: 09/12/20 08:52 Dose: 325 mg Documented by: Fluticasone Furoate (Fluticasone Furoate 100mcg 14 Puffs/Inhaler) 1 puffs INH DAILY [facility] Stop: 10/11/20 08:59 Last Admin: 09/14/20 08:58 Dose: 1 puffs Documented by: Fluticasone Propionate (Fluticasone Propionate Na Spr 16 Gm Btl) 2 sprays NA QAM [facility] Stop: 10/11/20 08:59 Last Admin: 09/14/20 08:59 Dose: 2 sprays Documented by: Furosemide (Furosemide 20 Mg Tab) 20 mg PO DAILY [facility] Stop: 10/11/20 08:59 Last Admin: 09/12/20 08:54 Dose: Not Given Documented by: Guaifenesin (Guaifenesin Sugar Free 100 Mg/5 Ml Udc) 100 mg PO Q6H PRN PRN Reason: Cough Stop: 10/12/20 16:53 Guaifenesin/Codeine Phosphate (Guaifenesin/Codeine 200mg/20mg 10ml Udc) 10 ml PO Q6H PRN PRN Reason: Cough Stop: 10/13/20 23:33 Remdesivir 100 mg/ Sodium (Chloride) 250 mls @ 250 mls/hr IV Q24H [facility]; Protocol Stop: 09/15/20 12:59 Last Infusion: 09/13/20 13:01 Dose: Infused Documented by: Dexamethasone Sodium Phosphate (6 mg/ Syringe) 1.5 mls @ 1 mls/min IV DAILY [facility] Stop: 09/21/20 09:02 Last Admin: 09/14/20 08:56 Dose: 1 mls/min Documented by: Insulin Aspart (Insulin Aspart 100 Units/Ml 3 Ml Pen) 0 units SC ACHS [facility] Stop: 10/11/20 07:29 Last Admin: 09/13/20 21:27 Dose: 3 units Documented by: Insulin Glargine (Insulin Glargine Solostar 100 Units/Ml 3 Ml Pen) 23 units SQ HS [facility] Stop: 10/11/20 20:59 Last Admin: 09/13/20 21:26 Dose: 23 units Documented by: Lactobacillus Acidoph/Casei/Rhamnos (Advanced Probiotic 1250 Mg Capsule) 2 cap PO DAILY [facility] Stop: 10/12/20 13:59 Last Admin: 09/14/20 08:57 Dose: 2 cap Documented by: Losartan Potassium (Losartan Potassium 25 Mg Tab) 25 mg PO QAM [facility] Stop: 10/11/20 08:59 Last Admin: 09/14/20 08:58 Dose: 25 mg Documented by: Montelukast Sodium (Montelukast Sodium 10 Mg Tablet) 10 mg PO HS [facility] Stop: 10/11/20 20:59 Last Admin: 09/13/20 21:25 Dose: 10 mg Documented by: Nitroglycerin (Nitroglycerin Sl 0.4 Mg/Tab Tab) 0.4 mg SL UD PRN PRN Reason: Chest Pain Stop: 10/11/20 04:38 Oxycodone/Acetaminophen (Oxycodone/Acetaminophen 5mg/325mg Tab) 1 tab PO Q6H PRN PRN Reason: Pain Stop: 09/25/20 04:38 Last Admin: 09/14/20 09:03 Dose: 1 tab Documented by: Pantoprazole Sodium (Pantoprazole 40 Mg Tab) 40 mg PO DAILY [facility] Stop: 10/11/20 08:59 Last Admin: 09/14/20 08:58 Dose: 40 mg Documented by: Sodium Chloride (Sodium Chloride 0.9% 10ml Flush) 30 ml IV Q24H [facility] Stop: 09/15/20 13:01 Last Admin: 09/13/20 06:45 Dose: 30 ml Documented by: Triamcinolone Acetonide (Triamcinolone Acet 0.1% Cr 15 Gm Tube) 1 appln TOP BID [facility] Stop: 10/11/20 08:59 Last Admin: 09/14/20 08:57 Dose: 1 appln Documented by: Umeclidinium/Vilanterol (Umeclidinium/Vilanterol 62.5/25mcg 7 Puffs/Inhaler) 1 puffs INH DAILY [facility] Stop: 10/11/20 08:59 Last Admin: 09/14/20 08:59 Dose: 1 puffs Documented by: Vitamin D (Cholecalciferol 1,000 Units 25 Mcg Tab) 2,000 units PO HS [facility] Stop: 10/11/20 20:59 Last Admin: 09/13/20 20:25 Dose: 2,000 units Documented by:
[2020-09-14] MEDS: INSULIN ASPART 100 UNITS/ML 3 ML PEN SC SCH ×4 (10:40→20:06)
[2020-09-14] MEDS: REMDESIVIR 100 MG in SODIUM CHLORIDE 0.9% 230 ML IV SCH (12:21)
--- NOTE | 2020-09-14 14:27 | XRay Report ---
XR chest 1V portable HISTORY: 70 years-old Female worsening hypoxia acute hypoxia COMPARISON: Chest radiograph 09/12/2020 TECHNIQUE: Semierect portable AP view of the chest FINDINGS: Cardiac silhouette is enlarged. Right subclavian [id number] catheter is unchanged. Progressively w orsened multifocal bilateral airspace opacities with relative preservation of the right lung base. No pneumothorax or large pleural effusion. Calcified plaque of the thoracic aorta. Degenerative changes of the shoulders and spine. IMPRESSION: Moderate progression of the bilateral airspace opacities suggestive of worsening pneumoni a. ACT 112: Negative or not required by law. The above report was generated using voice recognition software. It may contain grammatical, syntax o r spelling errors. Electronically signed by: Rajeev Walter M.D. 09/14/2020 2:25 PM
[2020-09-14] MEDS: SODIUM CHLORIDE 0.9% 10ML FLUSH IV SCH (14:28)
[2020-09-14] MEDS ORDERED: FUROSEMIDE 40 MG in SYRINGE 0 ML IV ONE (16:30)
[2020-09-14] MEDS: cefTRIAXone SODIUM 2,000 MG in DEXTROSE 5% 50 ML IV SCH (17:25)
[2020-09-14] MEDS: AZITHROMYCIN 500 MG in DEXTROSE 5% 250 ML IV SCH (18:41)
[2020-09-14] MEDS: CHOLECALCIFEROL 1,000 UNITS 25 MCG TAB PO SCH (20:00)
[2020-09-14] MEDS: MONTELUKAST SODIUM 10 MG TABLET PO SCH (20:00)
[2020-09-14] MEDS ORDERED: INSULIN GLARGINE SOLOSTAR 100 UNITS/ML 3 ML PEN SQ SCH (21:00)
[2020-09-14 23:18] LABS: Appearance Urine Clear (Clear); Bacteria Urine Automated Negative (Negative); Bilirubin Urine Negative (Negative); Blood Urine Trace (Negative); Cast Urine Automated 0 /lpf (0-5); Color Urine Yellow; Epithelial Cell Urine Auto 0-5 /lpf (0-5); Glucose Urine UA 2+ (Negative); Ketones Urine Negative (Negative); Leukocyte Esterase Urine Negative (Negative); Nitrite Urine Negative (Negative); Protein Urine Negative (Negative); RBC Urine Automated 0-4 /hpf (0-4); Specific Gravity Urine 1.011 (1.000-1.030); Urobilinogen Urine Negative (Negative); WBC Urine Automated 0 /hpf (0-5); pH Urine 5.5 (4.5-7.5)
[2020-09-15] MEDS ORDERED: HEPARIN 100 UNIT/ML 5ML FLUSH FLUSH PRN (00:45)
[2020-09-15] MEDS: ALBUTEROL HFA 8 GM INHALER INH SCH ×6 (03:05→22:58)
[2020-09-15] MEDS: oxyCODONE/ACETAMINOPHEN 5mg/325mg TAB PO PRN ×2 (06:14→19:35)
[2020-09-15 07:18] LABS: Hematocrit (blood only) 42.9 % (37-47); Hemoglobin 13.8 g/dL (12.0-16.0); Immature Granulocytes # (auto) 0.04 K/uL (0.00-0.02); Immature Granulocytes % (auto) 0.5 %; Lymphocytes # (auto) 1.15 K/uL (1.2-3.4); Lymphocytes % (auto) 14.1 %; Mean Corpuscular Hemoglobin 28.3 pg (25-34); Mean Corpuscular Hgb Conc 32.2 g/dL (32-36); Mean Corpuscular Volume 87.9 fL (80-100); Mean Platelet Volume 10.1 fL (7.4-10.4); Monocytes # (auto) 0.51 K/uL (0.11-0.59); Monocytes % (auto) 6.3 %; Neutrophils # (auto) 6.44 K/uL (1.4-6.5); Neutrophils % (auto) 79.1 %; Platelet Count 180 K/uL (130-400); RDW Coefficient of Variation 16.9 % (11.5-14.5); RDW Standard Deviation 54.5 fL (36.4-46.3); Red Blood Count 4.88 M/uL (4.2-5.4); White Blood Count 8.14 K/uL (4.8-10.8)
[2020-09-15] MEDS: BUDESONIDE 0.5 MG/2 ML VIAL (PULMICORT) INH SCH ×2 (07:36→20:07)
[2020-09-15 07:48] LABS: BUN Creatinine Ratio 29.7 (10-20); Calcium 8.6 mg/dl (8.5-10.1); Creatinine Clr Calc Pharmacy 89.6 ml/min; Est GFR (African American) 87.2; Est GFR (Non-African American) 75.2; Magnesium 2.2 mg/dl (1.8-2.4); Potassium 3.8 mmol/L (3.5-5.1)
[2020-09-15] MEDS: UMECLIDINIUM/VILANTEROL 62.5/25MCG 7 PUFFS/INHALER INH SCH (09:01)
[2020-09-15] MEDS: DEXAMETHASONE SOD PHOSPHATE 6 MG in SYRINGE 0 ML IV SCH (09:01)
[2020-09-15] MEDS: LOSARTAN POTASSIUM 25 MG TAB PO SCH (09:02)
[2020-09-15] MEDS: FLUTICASONE FUROATE 100MCG 14 PUFFS/INHALER INH SCH (09:02)
[2020-09-15] MEDS: ADVANCED PROBIOTIC 1250 MG CAPSULE PO SCH (09:02)
[2020-09-15] MEDS: TRIAMCINOLONE ACET 0.1% CR 15 GM TUBE TOP SCH ×2 (09:03→20:43)
[2020-09-15] MEDS: PANTOprazole 40 MG TAB PO SCH (09:03)
[2020-09-15] MEDS: INSULIN GLARGINE SOLOSTAR 100 UNITS/ML 3 ML PEN SQ SCH ×2 (09:03→20:43)
[2020-09-15] MEDS: FLUTICASONE PROPIONATE NA SPR 16 GM BTL SCH (09:03)
[2020-09-15] MEDS: ENOXAPARIN INJ 40 MG/0.4 ML SYR SQ SCH ×2 (09:03→20:46)
[2020-09-15] MEDS: INSULIN ASPART 100 UNITS/ML 3 ML PEN SC SCH ×4 (09:04→20:42)
[2020-09-15] MEDS: REMDESIVIR 100 MG in SODIUM CHLORIDE 0.9% 230 ML IV SCH ×2 (12:15→15:12)
--- NOTE | 2020-09-15 12:18 | Pulmonary Consultation ---
Date of Consultation September 15, 2020 Assessment & Plan (1) Acute respiratory failure: Continue Decadron per hospital policy. I doubt that remdesivir is going to be of much benefit given that her clinical symptoms began 2 weeks ago. Her procalcitonin on 09/12 and 09/13 were both negative. I did not see evidence of clinical bacterial infection. Antibiotics can be discontinued. Chest x-ray from yesterday reviewed with increasing bilateral interstitial and alveolar infiltrates. Continue diuresis on apparent basis. Volume status is very difficult to establish on this patient given her morbid obesity. I strongly suggest that the patient self prone with the assistance of nursing as much as possible. This was discussed with nursing. A Nicholas catheter would be beneficial to assist with her discomfort and urge for urination. I also discussed with her regarding intubation. She would be a very difficult intubation due to her large size and thick neck. If she requires intubation, I would recommend getting our anesthesiology colleagues involved due to the complexity of her airway and profound hypoxia. Continue attempts at BiPAP at night and while sleeping. Pulmonary will follow along with you. Thank you for the consult. (2) Pneumonia due to COVID-19 virus: (3) SAMANTHA (obstructive sleep apnea): (4) Morbid obesity: History of Present Illness Reason for Consultation: Hypoxemic respiratory failure with Covid pneumonia Requesting Physician: Dr. Kraft Attending Physician: Shelia Kraft, History of Present Illness 70-year-old female with a past medical history of morbid obesity, obstructive sleep apnea on CPAP, bladder cancer and diabetes mellitus type 2 presented to the hospital on 09/11/2020 due to ongoing shortness of breath, fever and chills. Patient notes that she has shortness of breath for the last 2 weeks. She is having chest pains intermittently. She feels short of breath at rest. She is requiring 40 L of oxygen 100% FiO2 via the high flow nasal cannula. I talked to her about proning and she noted that she does not know whether she will be able to prone due to the need for frequent urination. I did discuss placing a Nicholas catheter which would help with this. She has not been able to tolerate her BiPAP mask due to leak. I talked to the RT about trying to adjust this. She sees [facility] pulmonology as an outpatient. She was treated for sleep apnea and a history of asthma. She notes that she quit smoking in 2006 and smoked for 10 to 20 years. Allergies Allergy/AdvReac Type Severity Reaction Status Date / Time Penicillins Allergy Severe THROAT Verified 09/11/20 01:52 CLOSES,HIVES metronidazole Allergy Intermediate hives/rash Verified 09/11/20 01:52 ondansetron Allergy Intermediate hives Verified 09/11/20 01:52 vancomycin Allergy Mild RASH Verified 09/11/20 01:52 adhesive Allergy Unknown SKIN Verified 09/11/20 01:52 BLISTERING Sulfa (Sulfonamide Allergy Unknown Rash Verified 09/11/20 01:52 Antibiotics) ibuprofen AdvReac Intermediate RECTAL Verified 09/11/20 01:52 BLEEDING JOSHUA Inhibitors AdvReac Cough Verified 09/11/20 01:52 Home Medications Medication Instructions Recorded Confirmed Type Basaglar KwikPen U-100 Insulin 23 unit SUBCUT HS 12/08/18 09/11/20 History Toviaz 4 mg PO QAM 12/08/18 09/11/20 History albuterol sulfate 2 puff INHALATION Q4 12/08/18 09/11/20 History cholecalciferol (vitamin D3) 2,000 unit PO HS 12/08/18 09/11/20 History [Vitamin D3] ferrous sulfate 325 mg PO DAILY PRN 12/08/18 09/11/20 History fluticasone propionate [Flonase 2 spray INTRANASAL QAM 12/08/18 09/11/20 History Allergy Relief] furosemide 20 mg PO DAILY 12/08/18 09/11/20 History insulin aspart U-100 [Novolog 12 unit SUBCUT AMHS 12/08/18 09/11/20 History Flexpen U-100 Insulin] losartan 25 mg PO QAM 12/08/18 09/11/20 History montelukast 10 mg PO HS 12/08/18 09/11/20 History oxycodone-acetaminophen [Percocet] 1 tab PO Q6H PRN 12/08/18 09/11/20 History azelastine 1 spray INTRANASAL BID 09/11/20 09/11/20 History budesonide 1 mg INHALATION BID 09/11/20 09/11/20 History empagliflozin [Jardiance] 25 mg PO DAILY 09/11/20 09/11/20 History fluticasone furoate [Arnuity 1 inh INHALATION DAILY 09/11/20 09/11/20 History Ellipta] nfbfcitbiyt-hjsirkall-jsnqhikz 1 ea INHALATION DAILY 09/11/20 09/11/20 History [Trelegy Ellipta] levocetirizine 5 mg PO DAILY 09/11/20 09/11/20 History liraglutide [Victoza 3-Jayden] 1.8 mg SUBCUT DAILY 09/11/20 09/11/20 History pantoprazole 40 mg PO DAILY 09/11/20 09/11/20 History triamcinolone acetonide 1 applic TOPICAL BID 09/11/20 09/11/20 History Patient History Medical History Aortic stenosis NO EVIDENCE ON 12/16/18 ECHO ("MILD" PER 2015 ECHO) Asthma Chronic back pain Chronic kidney disease STAGE III Chronic obstructive pulmonary disease ON 2L CONTINUOUS Diabetes mellitus, type 2 IDDM Diverticular disease DVT (deep venous thrombosis) LLE S/P PROLONGED BED REST (2014) GERD (gastroesophageal reflux disease) CONTROLLED Hypertension Morbid obesity Osteoarthritis Sleep apnea BIPAP Thrombocytopenia HX Tremor RIGHT HAND/NUMBNESS-S/P KIDNEY SURGERY Surgical History Cancer BLADDER, LEFT KIDNEY, L URETER S/P SURGERY/RADIATION/CHEMO (2012) History of appendectomy History of bladder surgery CANCER/UROSTOMY AND REVERSAL OF UROSTOMY History of cardiac cath ~1999=NO STENTS History of cholecystectomy History of colonoscopy History of hysterectomy TOTAL History of nephrectomy LEFT AND LEFT URETER REMOVAL History of vascular access device PORT RIGHT UPPER CHEST-PATENT History of vascular access device POWERPORT ON RIGHT CHEST Social History Smoking Status: Former smoker Second Hand Exposure: No; Hx Alcohol Use: No Hx Substance Use: Yes Preferred Language: Latvian Communication Ability: Effective Vp Customer Development Required: No Beliefs That Will Affect Care: None Current Living Situation: Alone Current Living Situation Comment: [facility] Feels Safe at Home: Yes Assistive Devices: Oxygen - Continuous Review of Systems Review of Systems: All systems reviewed & are unremarkable except as noted in HPI & below Physical Exam Constitutional: Morbidly obese appearing female with mild tachypnea and mild d istress. On high flow nasal cannula. Eyes: PERRL, conjunctivae normal, anicteric sclerae ENMT: external ear and nose normal, oropharynx normal Neck: + thick neck Respiratory: + labored breathing and + tachypneic Auscultation: lungs clear to auscultation bilaterally Cardiovascular: RRR, no murmur, no edema Gastrointestinal (Abdomen): normal bowel sounds, soft, nontender, no hepatosplenomegaly Musculoskeletal: no cyanosis or clubbing, extremities motor strength 5/5 Skin: no rashes, warm and dry Neurologic: PERRL, EOMI, accommodation nl, no face palsy, no dysarthria Psychiatric: A+Ox3, euthymic affect Results & Data Results & Data ([facility]) Vital Signs (Past 12 Hours) Vital Signs Temp Pulse Pulse Resp BP BP Pulse Ox 09/15/20 11:27 85 26 H 85 L 09/15/20 10:58 98.8 F 70 20 127/75 90 09/15/20 07:47 74 20 91 09/15/20 07:46 98.1 F 70 21 169/96 H 90 09/15/20 07:36 70 20 90 09/15/20 05:50 71 90 09/15/20 05:40 67 88 L 09/15/20 05:30 65 89 L 09/15/20 05:20 64 88 L 09/15/20 05:10 66 89 L 09/15/20 05:00 69 88 L 09/15/20 04:50 67 86 L 09/15/20 04:40 68 88 L 09/15/20 04:30 67 87 L 09/15/20 04:21 75 88 L 09/15/20 04:20 73 141/72 H 85 L 09/15/20 04:17 71 163/80 H 90 09/15/20 04:14 98.2 F 69 18 141/72 H 91 09/15/20 04:10 68 88 L 09/15/20 04:00 66 89 L 09/15/20 03:50 66 88 L 09/15/20 03:40 67 89 L 09/15/20 03:30 68 87 L 09/15/20 03:20 67 88 L 09/15/20 03:10 73 89 L 09/15/20 03:06 72 20 91 09/15/20 03:00 63 90 09/15/20 02:50 63 90 09/15/20 02:40 63 93 09/15/20 02:30 64 88 L 09/15/20 02:20 63 87 L 09/15/20 02:10 66 88 L 09/15/20 02:00 66 91 09/15/20 01:50 62 92 09/15/20 01:40 63 90 09/15/20 01:30 66 89 L 09/15/20 01:20 66 89 L 09/15/20 01:10 66 89 L 09/15/20 01:00 66 89 L 09/15/20 00:50 67 90 09/15/20 00:40 66 90 09/15/20 00:30 70 91 09/15/20 00:20 69 90 I reviewed the vital signs, labs and imaging PG Care Time/CCT Total # of Minutes Spent Total Time Spent with Patient: Total time spent is greater than 50% in coordination of care (as documented) at patient's floor/unit and/or counseling p atient: Coding Level of Care Code 40070 Inpt Consult Level 5 Diagnoses Acute respiratory failure J96.00 Pneumonia due to COVID-19 virus U07.1; J12.89 SAMANTHA (obstructive sleep apnea) G47.33 Morbid obesity E66.01
[2020-09-15] MEDS ORDERED: FUROSEMIDE 40 MG in SYRINGE 0 ML IV ONE (12:55)
[2020-09-15] MEDS: SODIUM CHLORIDE 0.9% 10ML FLUSH IV SCH (13:15)
[2020-09-15] MEDS: cefTRIAXone SODIUM 2,000 MG in DEXTROSE 5% 50 ML IV SCH (18:26)
[2020-09-15] MEDS: AZITHROMYCIN 500 MG in DEXTROSE 5% 250 ML IV SCH (19:19)
[2020-09-15] MEDS: MONTELUKAST SODIUM 10 MG TABLET PO SCH (20:47)
[2020-09-15] MEDS: CHOLECALCIFEROL 1,000 UNITS 25 MCG TAB PO SCH (20:47)
--- NOTE | 2020-09-15 21:39 | Hospitalist Progress Note ---
Date of Service September 15, 2020 Assessment & Plan (1) Acute respiratory failure: 2/2 covid pneumonia. Worsening oxygenation today on max hi flow settings. Poor candidate for mechanical ventilation and high risk intubation. Proned today with good result. Continue to do more of this as tolerated. (2) Pneumonia due to COVID-19 virus: Last dose remdesivir today, cont dexamethasone. Gave an additional dose of Lasix today. (3) Non-traumatic rhabdomyolysis: Tolerating PO and hydrating reliably. CK is improved. (4) SAMANTHA (obstructive sleep apnea): Continue BiPAP at bedtime, ok to use home nasal BIPAP machine if available. (5) COPD (chronic obstructive pulmonary disease): chronic, stable, no wheezing on exam. 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 Monitor blood glucose and manage appropriately A1c 7.3-slightly uncontrolled, tightening correction coverage and do an overnight check with coverage if she is out of range. (8) Dysuria: presence of painful urination reported without initial evidence of urine infection. We didn't focus on this today with her respiratory issues. Nurses placed a gale catheter. Last evening's cath specimen did not show evidence of an infection. (9) DVT prophylaxis: Lovenox Full Code Dispo-cont PCU monitoring Shelia Kraft DO [facility] Hospitalist Admission and Anticipated Discharge Date Admission Date: September 11, 2020 Subjective CC: COVID pneumonia, weakness worsening hypoxia this am asked anesthesia to bedside along with respiratory when nurses proned her per pulm guidance she did well with this for several hours. additional Lasix was also given kept her daughter Harriet up to speed by phone. Review of Systems Review of Systems: All systems reviewed & are unremarkable except as noted in Subjective Physical Exam Physical Exam: CONSTITUTIONAL: morbidly obese, vitals as above, generally well-appearing EYES: normal conjunctivae, no scleral icterus ENT: external ear and nose normal, hi flow NC in place. NECK: obese RESPIRATORY: clear to auscultation bilaterally, no crackles, rales or wheezes, normal respiratory effort CARDIOVASCULAR: regular rate and rhythm, S1 and 2 heard without murmurs, gallops or rubs, no JVD, no peripheral edema GASTROINTESTINAL: soft, nontender, nondistended, no guarding MUSCULOSKELETAL: generalized weakness, head is normocephalic and atraumatic SKIN: warm and dry NEUROLOGIC: CN 2-12 grossly intact, normal cognition, normal speech, no gross focal deficits. PSYCHIATRIC: alert cooperative and oriented to person, place and time. Results & Data Results & Data ([facility]) Vital Signs (Past 12 Hours) Vital Signs Temp Pulse Resp BP BP Pulse Ox 09/15/20 20:22 91 09/15/20 20:11 75 21 87 L 09/15/20 20:00 90 09/15/20 19:39 36.8 C 74 23 170/79 H 85 L 09/15/20 16:48 73 21 89 L 09/15/20 16:08 36.6 C 69 21 144/67 H 89 L 09/15/20 16:07 73 24 88 L 09/15/20 13:47 77 18 89 L 09/15/20 11:27 85 26 H 85 L 09/15/20 10:58 37.1 C 70 20 127/75 90 Laboratory Results Short CBC 09/15/20 Range/Units 06:09 WBC 8.14 (4.8-10.8) K/uL Hgb 13.8 (12.0-16.0) g/dL Hct 42.9 (37-47) % Plt Count 180 (130-400) K/uL BMP 09/15/20 06:09 Sodium 138 Potassium 3.8 Chloride 103 Carbon Dioxide 30 BUN 24 H Creatinine 0.80 Glucose 145 H Calcium 8.6 Cardiac Enzymes 09/15/20 Range/Units 06:09 Total Creatine Kinase 1331 H (26-192) U/L Liver Function 09/15/20 Range/Units 06:09 AST 78 H (15-37) U/L ALT 40 (12-78) U/L Urine 09/14/20 Range/Units 22:19 Urine Color Yellow Urine Appearance Clear (Clear) Urine pH 5.5 (4.5-7.5) Ur Specific Hurley 1.011 (1.000-1.030) Urine Protein Negative (Negative) Urine Glucose (UA) 2+ H (Negative) Medications Administered Current Inpatient Medications Acetaminophen (Acetaminophen 325 Mg Tab) 650 mg PO Q4H PRN PRN Reason: Pain or Fever Stop: 10/11/20 04:38 Albuterol (Albuterol Hfa 8 Gm Inhaler) 2 puffs INH Q4R ADRIANA Stop: 10/11/20 04:38 Last Admin: 09/15/20 20:07 Dose: 2 puffs Documented by: Budesonide (Budesonide 0.5 Mg/2 Ml Vial (Pulmicort)) 1 mg INH BIDR ADRIANA Stop: 10/11/20 06:59 Last Admin: 09/15/20 20:07 Dose: 1 mg Documented by: Enoxaparin Sodium (Enoxaparin Inj 40 Mg/0.4 Ml Syr) 40 mg SQ Q12H ADRIANA Stop: 10/11/20 08:59 Last Admin: 09/15/20 20:46 Dose: 40 mg Documented by: Ferrous Sulfate (Ferrous Sulfate 325 Mg Tab) 325 mg PO DAILY PRN PRN Reason: Wound Healing Stop: 10/11/20 04:38 Last Admin: 09/12/20 08:52 Dose: 325 mg Documented by: Fluticasone Furoate (Fluticasone Furoate 100mcg 14 Puffs/Inhaler) 1 puffs INH DAILY [facility] Stop: 10/11/20 08:59 Last Admin: 09/15/20 09:02 Dose: 1 puffs Documented by: Fluticasone Propionate (Fluticasone Propionate Na Spr 16 Gm Btl) 2 sprays NA QAM [facility] Stop: 10/11/20 08:59 Last Admin: 09/15/20 09:03 Dose: 2 sprays Documented by: Furosemide (Furosemide 20 Mg Tab) 20 mg PO DAILY [facility] Stop: 10/11/20 08:59 Last Admin: 09/12/20 08:54 Dose: Not Given Documented by: Guaifenesin (Guaifenesin Sugar Free 100 Mg/5 Ml Udc) 100 mg PO Q6H PRN PRN Reason: Cough Stop: 10/12/20 16:53 Heparin Sodium (Porcine) (Heparin 100 Unit/Ml 5ml Flush) 5 ml FLUSH PRN PRN PRN Reason: Flush Stop: 10/15/20 00:44 Dexamethasone Sodium Phosphate (6 mg/ Syringe) 1.5 mls @ 1 mls/min IV DAILY ADRIANA Stop: 09/21/20 09:02 Last Admin: 09/15/20 09:01 Dose: 1 mls/min Documented by: Ceftriaxone Sodium 2,000 mg/ (Dextrose) 70 mls @ 100 mls/hr IV Q24H [facility]; Protocol Stop: 09/21/20 16:59 Last Infusion: 09/15/20 19:08 Dose: Infused Documented by: Azithromycin 500 mg/ Dextrose 255 mls @ 127.5 mls/hr IV Q24H [facility]; Protocol Stop: 09/21/20 17:59 Last Admin: 09/15/20 19:19 Dose: 127.5 mls/hr Documented by: Insulin Aspart (Insulin Aspart 100 Units/Ml 3 Ml Pen) 0 units SC ACHS [facility] Stop: 10/11/20 07:29 Last Admin: 09/15/20 20:42 Dose: 8 units Documented by: Insulin Glargine (Insulin Glargine Solostar 100 Units/Ml 3 Ml Pen) 15 units SQ BID [facility] Stop: 10/15/20 08:59 Last Admin: 09/15/20 20:43 Dose: 15 units Documented by: Lactobacillus Acidoph/Casei/Rhamnos (Advanced Probiotic 1250 Mg Capsule) 2 cap PO DAILY [facility] Stop: 10/12/20 13:59 Last Admin: 09/15/20 09:02 Dose: 2 cap Documented by: Losartan Potassium (Losartan Potassium 25 Mg Tab) 25 mg PO QAM [facility] Stop: 10/11/20 08:59 Last Admin: 09/15/20 09:02 Dose: 25 mg Documented by: Montelukast Sodium (Montelukast Sodium 10 Mg Tablet) 10 mg PO HS [facility] Stop: 10/11/20 20:59 Last Admin: 09/15/20 20:47 Dose: 10 mg Documented by: Nitroglycerin (Nitroglycerin Sl 0.4 Mg/Tab Tab) 0.4 mg SL UD PRN PRN Reason: Chest Pain Stop: 10/11/20 04:38 Oxycodone/Acetaminophen (Oxycodone/Acetaminophen 5mg/325mg Tab) 1 tab PO Q6H PRN PRN Reason: Pain Stop: 09/25/20 04:38 Last Admin: 09/15/20 19:35 Dose: 1 tab Documented by: Pantoprazole Sodium (Pantoprazole 40 Mg Tab) 40 mg PO DAILY [facility] Stop: 10/11/20 08:59 Last Admin: 09/15/20 09:03 Dose: 40 mg Documented by: Triamcinolone Acetonide (Triamcinolone Acet 0.1% Cr 15 Gm Tube) 1 appln TOP BID ADRIANA Stop: 10/11/20 08:59 Last Admin: 09/15/20 20:43 Dose: 1 appln Documented by: Umeclidinium/Vilanterol (Umeclidinium/Vilanterol 62.5/25mcg 7 Puffs/Inhaler) 1 puffs INH DAILY [facility]RIANA Stop: 10/11/20 08:59 Last Admin: 09/15/20 09:01 Dose: 1 puffs Documented by: Vitamin D (Cholecalciferol 1,000 Units 25 Mcg Tab) 2,000 units PO HS ADRIANA Stop: 10/11/20 20:59 Last Admin: 09/15/20 20:47 Dose: 2,000 units Documented by:
[2020-09-16] MEDS ORDERED: INSULIN ASPART 100 UNITS/ML 3 ML PEN SC ONE (01:00)
[2020-09-16] MEDS: ALBUTEROL HFA 8 GM INHALER INH SCH ×5 (05:27→19:39)
[2020-09-16] MEDS: DEXAMETHASONE SOD PHOSPHATE 6 MG in SYRINGE 0 ML IV SCH (07:28)
[2020-09-16] MEDS: ENOXAPARIN INJ 40 MG/0.4 ML SYR SQ SCH ×2 (07:29→20:02)
[2020-09-16] MEDS: ADVANCED PROBIOTIC 1250 MG CAPSULE PO SCH (07:29)
[2020-09-16] MEDS: UMECLIDINIUM/VILANTEROL 62.5/25MCG 7 PUFFS/INHALER INH SCH (07:29)
[2020-09-16] MEDS: PANTOprazole 40 MG TAB PO SCH (07:30)
[2020-09-16] MEDS: TRIAMCINOLONE ACET 0.1% CR 15 GM TUBE TOP SCH ×2 (07:30→20:02)
[2020-09-16] MEDS: LOSARTAN POTASSIUM 25 MG TAB PO SCH (07:30)
[2020-09-16] MEDS: FLUTICASONE FUROATE 100MCG 14 PUFFS/INHALER INH SCH (07:30)
[2020-09-16] MEDS: FLUTICASONE PROPIONATE NA SPR 16 GM BTL SCH (07:31)
[2020-09-16] MEDS: BUDESONIDE 0.5 MG/2 ML VIAL (PULMICORT) INH SCH ×2 (07:41→19:39)
[2020-09-16 07:50] LABS: BUN Creatinine Ratio 30.3 (10-20); C Reactive Protein 6.91 mg/dl (0-0.29); Calcium 9.2 mg/dl (8.5-10.1); Creatinine Clr Calc Pharmacy 93.1 ml/min; Est GFR (African American) 91.3; Est GFR (Non-African American) 78.8; Potassium 3.7 mmol/L (3.5-5.1)
[2020-09-16] MEDS: INSULIN ASPART 100 UNITS/ML 3 ML PEN SC SCH ×4 (08:52→20:07)
[2020-09-16] MEDS: oxyCODONE/ACETAMINOPHEN 5mg/325mg TAB PO PRN ×3 (10:03→21:35)
[2020-09-16] MEDS: INSULIN GLARGINE SOLOSTAR 100 UNITS/ML 3 ML PEN SQ SCH ×2 (10:08→20:08)
--- NOTE | 2020-09-16 10:36 | Pulmonology Progress Note ---
Date of Service September 16, 2020 Assessment & Plan (1) Acute respiratory failure: Continue Decadron per hospital policy. I doubt that remdesivir is going to be of much benefit given that her clinical symptoms began 2 weeks ago. Procalcitonin continues to be negative. I did not see evidence of clinical bacterial infection. Antibiotics can be discontinued. Continue as needed diuresis. Volume status is very difficult to establish on this patient given her morbid obesity. I strongly suggest that the patient self prone with the assistance of nursing as much as possible. This was discussed with nursing. Nicholas catheter in place. She would be a very difficult intubation due to her lar ge size and thick neck. If she requires intubation, I would recommend getting our anesthesiology colleagues involved due to the complexity of her airway and profound hypoxia. Continue BiPAP/high flow nasal cannula to maintain saturations 92 to 94%. Pulmonary will follow along with you. (2) Pneumonia due to COVID-19 virus: (3) SAMANTHA (obstructive sleep apnea): (4) Morbid obesity: Admission and Anticipated Discharge Date Admission Date: September 11, 2020 Subjective Patient continues to require CPAP support. She is laying supine. She endorses mild shortness of breath. She was able to lay prone for approximately 2 hours yesterday. Saturations in the low 90s on 100% FiO2. Appetite has been poor. Review of Systems Review of Systems: All systems reviewed & are unremarkable except as noted in HPI & below Physical Exam Constitutional: Morbidly obese appearing female with mild tachypnea and mild distress. He is currently on CPAP mask. Eyes: PERRL, conjunctivae normal, anicteric sclerae ENMT: external ear and nose normal, oropharynx normal Neck: + thick neck Respiratory: + labored breathing and + tachypneic Auscultation: lungs clear to auscultation bilaterally Cardiovascular: RRR, no murmur, no edema Gastrointestinal (Abdomen): normal bowel sounds, soft, nontender, no hepatosp lenomegaly Musculoskeletal: no cyanosis or clubbing, extremities motor strength 5/5 Skin: no rashes, warm and dry Neurologic: PERRL, EOMI, accommodation nl, no face palsy, no dysarthria Psychiatric: A+Ox3, euthymic affect Results & Data Results & Data ([facility]) Vital Signs (Past 12 Hours) Vital Signs Temp Pulse Pulse Resp BP BP BP 09/16/20 08:00 71 24 01/02/21 07:50 69 24 09/16/20 07:42 72 26 H 09/16/20 07:41 72 26 H 09/16/20 07:40 75 24 09/16/20 07:30 71 19 09/16/20 07:20 69 25 H 09/16/20 07:10 98.6 F 69 68 23 145/79 H 145/79 H 09/16/20 07:00 67 21 09/16/20 06:50 73 16 09/16/20 06:40 65 18 09/16/20 06:30 66 18 09/16/20 06:20 66 18 09/16/20 06:10 65 19 09/16/20 06:00 65 19 09/16/20 05:50 64 20 09/16/20 05:40 69 22 09/16/20 05:30 67 18 09/16/20 05:20 63 19 09/16/20 05:10 65 17 09/16/20 05:00 63 17 09/16/20 04:50 65 19 09/16/20 04:40 62 19 09/16/20 04:30 62 19 09/16/20 04:20 63 18 09/16/20 04:10 64 17 09/16/20 04:00 62 19 09/16/20 03:50 62 19 09/16/20 03:40 68 16 09/16/20 03:38 98.6 F 68 18 145/70 H 09/16/20 03:36 68 16 145/70 H 09/16/20 03:30 61 19 09/16/20 03:20 63 18 09/16/20 03:10 61 17 09/16/20 03:00 65 18 09/16/20 02:50 62 19 09/16/20 02:49 66 18 09/16/20 02:40 61 19 09/16/20 02:30 63 17 09/16/20 02:20 64 18 09/16/20 02:10 63 19 09/16/20 02:00 67 19 09/16/20 01:50 66 21 09/16/20 01:40 65 20 09/16/20 01:30 67 18 09/16/20 01:20 75 20 09/16/20 01:10 62 18 09/16/20 01:00 68 16 09/16/20 00:50 62 19 09/16/20 00:40 63 21 09/16/20 00:30 67 26 H 09/16/20 00:20 64 20 09/16/20 00:10 64 19 09/16/20 00:00 66 19 09/15/20 23:10 66 18 09/15/20 23:01 98.2 F 76 18 153/80 H Pulse Ox 09/16/20 08:00 92 09/16/20 07:50 91 09/16/20 07:42 90 09/16/20 07:41 90 09/16/20 07:40 89 L 09/16/20 07:30 90 09/16/20 07:20 88 L 09/16/20 07:10 89 L 09/16/20 07:00 89 L 09/16/20 06:50 88 L 09/16/20 06:40 87 L 09/16/20 06:30 87 L 09/16/20 06:20 87 L 09/16/20 06:10 88 L 09/16/20 06:00 88 L 09/16/20 05:50 86 L 09/16/20 05:40 89 L 09/16/20 05:30 90 09/16/20 05:20 88 L 09/16/20 05:10 88 L 09/16/20 05:00 87 L 09/16/20 04:50 87 L 09/16/20 04:40 88 L 09/16/20 04:30 89 L 09/16/20 04:20 87 L 09/16/20 04:10 86 L 09/16/20 04:00 91 09/16/20 03:50 88 L 09/16/20 03:40 88 L 09/16/20 03:38 93 09/16/20 03:36 91 09/16/20 03:30 91 09/16/20 03:20 87 L 09/16/20 03:10 89 L 09/16/20 03:00 91 09/16/20 02:50 88 L 09/16/20 02:49 89 L 09/16/20 02:40 90 09/16/20 02:30 87 L 09/16/20 02:20 86 L 09/16/20 02:10 89 L 01/02/21 02:00 91 09/16/20 01:50 89 L 09/16/20 01:40 89 L 09/16/20 01:30 89 L 09/16/20 01:20 89 L 09/16/20 01:10 87 L 09/16/20 01:00 87 L 09/16/20 00:50 89 L 09/16/20 00:40 87 L 09/16/20 00:30 89 L 09/16/20 00:20 90 09/16/20 00:10 87 L 09/16/20 00:00 87 L 09/15/20 23:10 94 09/15/20 23:01 89 L I reviewed the vital signs, labs and imaging PG Care Time/CCT Total # of Minutes Spent Total Time Spent with Patient: Total time spent is greater than 50% in coordination of care (as documented) at patient's floor/unit and/or counseling patient: Coding Level of Care Code 42462 Subseq Hosp Care Lvl 3 Diagnoses Acute respiratory failure J96.00 Pneumonia due to COVID-19 virus U07.1; J12.89 SAMANTHA (obstructive sleep apnea) G47.33 Morbid obesity E66.01
--- NOTE | 2020-09-16 13:50 | Hospitalist Progress Note ---
Date of Service September 16, 2020 Assessment & Plan (1) Acute respiratory failure: 2/2 covid pneumonia. Oxygenation has improved with patient proning more. Poor candidate for mechanical ventilation and high risk intubation. Continue to do more of this as tolerated. (2) Pneumonia due to COVID-19 virus: Completed remdesivir, cont dexamethasone. Lasix PRN (3) Non-traumatic rhabdomyolysis: Tolerating PO and hydrating reliably. CK is improved. (4) SAMANTHA (obstructive sleep apnea): Continue BiPAP at bedtime and when sleeping, ok to use home nasal BIPAP machine if available. (5) COPD (chronic obstructive pulmonary disease): chronic, stable, no wheezing on exam. 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 Monitor blood glucose and manage appropriately A1c 7.3-improved today at goal (8) Dysuria: presence of painful urination reported without initial evidence of urine infection. We didn't focus on this today with her respiratory issues. Nurses placed a gale catheter. Last evening's cath specimen did not show evidence of an infection. (9) Morbid obesity: (10) DVT prophylaxis: Lovenox Full Code Dispo-cont PCU monitoring Shelia Kraft DO [facility] Hospitalist Admission and Anticipated Discharge Date Admission Date: September 11, 2020 Subjective CC: COVID pneumonia, weakness doing well with proning oxygenation has improved reports some R shoulder pain and requests an xray requests a repeat CXR since she is oxygenating better nurse reports diarrhea-studies pending Review of Systems Review of Systems: All systems reviewed & are unremarkable except as noted in Subjective Physical Exam Physical Exam: CONSTITUTIONAL: morbidly obese, vitals as above, generally well-appearing, in prone position with BIPAP in place. EYES: normal conjunctivae, no scleral icterus ENT: external ear and nose normal NECK: obese RESPIRATORY: clear to auscultation bilaterally, no crackles, rales or wheezes, normal respiratory effort CARDIOVASCULAR: regular rate and rhythm, S1 and 2 heard without murmurs, cárdenas ps or rubs, no JVD, no peripheral edema GASTROINTESTINAL: not examined as patient in prone position. MUSCULOSKELETAL: generalized weakness, head is normocephalic and atraumatic SKIN: warm and dry NEUROLOGIC: CN 2-12 grossly intact, normal cognition, normal speech, no gross focal deficits. PSYCHIATRIC: alert cooperative and oriented to person, place and time. Results & Data Results & Data ([facility]) Vital Signs (Past 12 Hours) Vital Signs Temp Pulse Pulse Resp BP BP BP 09/16/20 11:20 70 17 09/16/20 10:47 36.9 C 74 21 137/83 09/16/20 08:00 71 24 09/16/20 07:50 69 24 09/16/20 07:42 72 26 H 09/16/20 07:41 72 26 H 09/16/20 07:40 75 24 09/16/20 07:30 71 19 09/16/20 07:20 69 25 H 09/16/20 07:10 37.0 C 69 68 23 145/79 H 145/79 H 09/16/20 07:00 67 21 09/16/20 06:50 73 16 09/16/20 06:40 65 18 09/16/20 06:30 66 18 09/16/20 06:20 66 18 09/16/20 06:10 65 19 09/16/20 06:00 65 19 09/16/20 05:50 64 20 09/16/20 05:40 69 22 09/16/20 05:30 67 18 09/16/20 05:20 63 19 09/16/20 05:10 65 17 09/16/20 05:00 63 17 09/16/20 04:50 65 19 09/16/20 04:40 62 19 09/16/20 04:30 62 19 09/16/20 04:20 63 18 09/16/20 04:10 64 17 09/16/20 04:00 62 19 09/16/20 03:50 62 19 09/16/20 03:40 68 16 09/16/20 03:38 37 C 68 18 145/70 H 09/16/20 03:36 68 16 145/70 H 09/16/20 03:30 61 19 09/16/20 03:20 63 18 09/16/20 03:10 61 17 09/16/20 03:00 65 18 09/16/20 02:50 62 19 09/16/20 02:49 66 18 09/16/20 02:40 61 19 09/16/20 02:30 63 17 09/16/20 02:20 64 18 09/16/20 02:10 63 19 09/16/20 02:00 67 19 Pulse Ox 09/16/20 11:20 96 09/16/20 10:47 91 09/16/20 08:00 92 09/16/20 07:50 91 09/16/20 07:42 90 09/16/20 07:41 90 09/16/20 07:40 89 L 09/16/20 07:30 90 09/16/20 07:20 88 L 09/16/20 07:10 89 L 09/16/20 07:00 89 L 09/16/20 06:50 88 L 09/16/20 06:40 87 L 09/16/20 06:30 87 L 09/16/20 06:20 87 L 09/16/20 06:10 88 L 09/16/20 06:00 88 L 09/16/20 05:50 86 L 09/16/20 05:40 89 L 09/16/20 05:30 90 09/16/20 05:20 88 L 09/16/20 05:10 88 L 09/16/20 05:00 87 L 09/16/20 04:50 87 L 09/16/20 04:40 88 L 09/16/20 04:30 89 L 09/16/20 04:20 87 L 09/16/20 04:10 86 L 09/16/20 04:00 91 09/16/20 03:50 88 L 09/16/20 03:40 88 L 09/16/20 03:38 93 09/16/20 03:36 91 09/16/20 03:30 91 09/16/20 03:20 87 L 09/16/20 03:10 89 L 09/16/20 03:00 91 09/16/20 02:50 88 L 09/16/20 02:49 89 L 09/16/20 02:40 90 09/16/20 02:30 87 L 09/16/20 02:20 86 L 09/16/20 02:10 89 L 09/16/20 02:00 91 Laboratory Results BMP 09/16/20 06:54 Sodium 140 Potassium 3.7 Chloride 103 Carbon Dioxide 30 BUN 23 H Creatinine 0.77 Glucose 104 H Calcium 9.2 Medications Administered Current Inpatient Medications Acetaminophen (Acetaminophen 325 Mg Tab) 650 mg PO Q4H PRN PRN Reason: Pain or Fever Stop: 10/11/20 04:38 Albuterol (Albuterol Hfa 8 Gm Inhaler) 2 puffs INH Q4R [facility] Stop: 10/11/20 04:38 Last Admin: 09/16/20 11:20 Dose: Not Given Documented by: Budesonide (Budesonide 0.5 Mg/2 Ml Vial (Pulmicort)) 1 mg INH BIDR [facility] Stop: 10/11/20 06:59 Last Admin: 09/16/20 07:41 Dose: 1 mg Documented by: Enoxaparin Sodium (Enoxaparin Inj 40 Mg/0.4 Ml Syr) 40 mg SQ Q12H [facility] Stop: 10/11/20 08:59 Last Admin: 09/16/20 07:29 Dose: 40 mg Documented by: Ferrous Sulfate (Ferrous Sulfate 325 Mg Tab) 325 mg PO DAILY PRN PRN Reason: Wound Healing Stop: 10/11/20 04:38 Last Admin: 09/12/20 08:52 Dose: 325 mg Documented by: Fluticasone Furoate (Fluticasone Furoate 100mcg 14 Puffs/Inhaler) 1 puffs INH DAILY [facility] Stop: 10/11/20 08:59 Last Admin: 09/16/20 07:30 Dose: 1 puffs Documented by: Fluticasone Propionate (Fluticasone Propionate Na Spr 16 Gm Btl) 2 sprays NA QAM [facility] Stop: 10/11/20 08:59 Last Admin: 09/16/20 07:31 Dose: 2 sprays Documented by: Furosemide (Furosemide 20 Mg Tab) 20 mg PO DAILY [facility] Stop: 10/11/20 08:59 Last Admin: 09/12/20 08:54 Dose: Not Given Documented by: Guaifenesin (Guaifenesin Sugar Free 100 Mg/5 Ml Udc) 100 mg PO Q6H PRN PRN Reason: Cough Stop: 10/12/20 16:53 Heparin Sodium (Porcine) (Heparin 100 Unit/Ml 5ml Flush) 5 ml FLUSH PRN PRN PRN Reason: Flush Stop: 10/15/20 00:44 Dexamethasone Sodium Phosphate (6 mg/ Syringe) 1.5 mls @ 1 mls/min IV DAILY [facility] Stop: 09/21/20 09:02 Last Admin: 09/16/20 07:28 Dose: 1 mls/min Documented by: Ceftriaxone Sodium 2,000 mg/ (Dextrose) 70 mls @ 100 mls/hr IV Q24H [facility]; Protocol Stop: 09/21/20 16:59 Last Infusion: 09/15/20 19:08 Dose: Infused Documented by: Azithromycin 500 mg/ Dextrose 255 mls @ 127.5 mls/hr IV Q24H [facility]; Protocol Stop: 09/21/20 17:59 Last Infusion: 09/15/20 21:19 Dose: Infused Documented by: Insulin Aspart (Insulin Aspart 100 Units/Ml 3 Ml Pen) 0 units SC ACHS [facility] Stop: 10/11/20 07:29 Last Admin: 09/16/20 12:53 Dose: 4 units Documented by: Insulin Glargine (Insulin Glargine Solostar 100 Units/Ml 3 Ml Pen) 15 units SQ BID [facility] Stop: 10/15/20 08:59 Last Admin: 09/16/20 10:08 Dose: 15 units Documented by: Lactobacillus Acidoph/Casei/Rhamnos (Advanced Probiotic 1250 Mg Capsule) 2 cap PO DAILY [facility] Stop: 10/12/20 13:59 Last Admin: 09/16/20 07:29 Dose: 2 cap Documented by: Losartan Potassium (Losartan Potassium 25 Mg Tab) 25 mg PO QAM [facility] Stop: 10/11/20 08:59 Last Admin: 09/16/20 07:30 Dose: 25 mg Documented by: Montelukast Sodium (Montelukast Sodium 10 Mg Tablet) 10 mg PO HS [facility] Stop: 10/11/20 20:59 Last Admin: 09/15/20 20:47 Dose: 10 mg Documented by: Nitroglycerin (Nitroglycerin Sl 0.4 Mg/Tab Tab) 0.4 mg SL UD PRN PRN Reason: Chest Pain Stop: 10/11/20 04:38 Oxycodone/Acetaminophen (Oxycodone/Acetaminophen 5mg/325mg Tab) 1 tab PO Q6H PRN PRN Reason: Pain Stop: 09/25/20 04:38 Last Admin: 09/16/20 10:03 Dose: 1 tab Documented by: Pantoprazole Sodium (Pantoprazole 40 Mg Tab) 40 mg PO DAILY [facility] Stop: 10/11/20 08:59 Last Admin: 09/16/20 07:30 Dose: 40 mg Documented by: Triamcinolone Acetonide (Triamcinolone Acet 0.1% Cr 15 Gm Tube) 1 appln TOP BID [facility] Stop: 10/11/20 08:59 Last Admin: 09/16/20 07:30 Dose: 1 appln Documented by: Umeclidinium/Vilanterol (Umeclidinium/Vilanterol 62.5/25mcg 7 Puffs/Inhaler) 1 puffs INH DAILY [facility] Stop: 10/11/20 08:59 Last Admin: 09/16/20 07:29 Dose: 1 puffs Documented by: Vitamin D (Cholecalciferol 1,000 Units 25 Mcg Tab) 2,000 units PO HS [facility] Stop: 10/11/20 20:59 Last Admin: 09/15/20 20:47 Dose: 2,000 units Documented by:
[2020-09-16] MEDS: cefTRIAXone SODIUM 2,000 MG in DEXTROSE 5% 50 ML IV SCH (16:17)
[2020-09-16] MEDS: AZITHROMYCIN 500 MG in DEXTROSE 5% 250 ML IV SCH (17:51)
[2020-09-16] MEDS: MONTELUKAST SODIUM 10 MG TABLET PO SCH (20:03)
[2020-09-16] MEDS: CHOLECALCIFEROL 1,000 UNITS 25 MCG TAB PO SCH (20:03)
[2020-09-16] MEDS ORDERED: ALBUTEROL HFA 8 GM INHALER INH PRN (22:36)
[2020-09-17] MEDS: oxyCODONE/ACETAMINOPHEN 5mg/325mg TAB PO PRN ×3 (05:05→18:09)
[2020-09-17] MEDS: BUDESONIDE 0.5 MG/2 ML VIAL (PULMICORT) INH SCH ×2 (07:38→19:58)
[2020-09-17] MEDS: INSULIN GLARGINE SOLOSTAR 100 UNITS/ML 3 ML PEN SQ SCH ×2 (08:18→20:44)
[2020-09-17] MEDS: INSULIN ASPART 100 UNITS/ML 3 ML PEN SC SCH ×4 (08:18→20:44)
[2020-09-17] MEDS: FLUTICASONE FUROATE 100MCG 14 PUFFS/INHALER INH SCH (08:22)
[2020-09-17] MEDS: FLUTICASONE PROPIONATE NA SPR 16 GM BTL SCH (08:22)
[2020-09-17] MEDS: UMECLIDINIUM/VILANTEROL 62.5/25MCG 7 PUFFS/INHALER INH SCH (08:22)
[2020-09-17] MEDS: LOSARTAN POTASSIUM 25 MG TAB PO SCH (08:23)
[2020-09-17] MEDS: ADVANCED PROBIOTIC 1250 MG CAPSULE PO SCH (08:23)
[2020-09-17] MEDS: DEXAMETHASONE SOD PHOSPHATE 6 MG in SYRINGE 0 ML IV SCH (08:23)
[2020-09-17] MEDS: ENOXAPARIN INJ 40 MG/0.4 ML SYR SQ SCH ×2 (08:23→20:11)
[2020-09-17] MEDS: PANTOprazole 40 MG TAB PO SCH (08:23)
[2020-09-17] MEDS: TRIAMCINOLONE ACET 0.1% CR 15 GM TUBE TOP SCH ×2 (08:23→20:12)
[2020-09-17] MEDS ORDERED: FUROSEMIDE 40 MG in SYRINGE 0 ML IV ONE ×2 (09:39→10:34)
[2020-09-17] MEDS ORDERED: FUROSEMIDE 40 MG/4 ML VIAL IV ONE ×2 (10:00→10:45)
--- NOTE | 2020-09-17 10:39 | Pulmonology Progress Note ---
Date of Service September 17, 2020 Assessment & Plan (1) Acute respiratory failure: Continue Decadron for a total of 10 days. Procalcitonin was negative. No indication for antibiotics at this time. I have ordered for 40 mg of IV Lasix. Follow electrolytes and creatinine closely. Volume status is very difficult to assess on this patient given her morbid obesity. I strongly suggest that the patient self prone with the assistance of nursing as much as possible. This was discussed with nursing. Nicholas catheter in place. She would be a very difficult intubation due to her large size and thick neck. Anesthesia is aware of this patient given her history of difficult intubation. Continue BiPAP/high flow nasal cannula to maintain saturations 92 to 94%. Chest x-ray from 09/14/2020 demonstrates multifocal bilateral upper lobe predominant opacities largely sparing the right lung base. No significant effusions noted. Pulmonary will follow along with you. (2) Pneumonia due to COVID-19 virus: (3) SAMANTHA (obstructive sleep apnea): (4) Morbid obesity: (5) Obesity hypoventilation syndrome: Admission and Anticipated Discharge Date Admission Date: September 11, 2020 Subjective Patient was sleeping comfortably on today's exam. I did not arouse here. Per nursing, she prone for 50% of the night. No significant events overnight. Currently requiring 40 L of oxygen at 100% FiO2. Saturating 89%. She is in the right recumbent position. Review of Systems Review of Systems: Unchanged from yesterday Physical Exam Constitutional: Not appear to be in any distress. Sleeping quietly. Currently on high flow nasal cannula. Eyes: PERRL, conjunctivae normal, anicteric sclerae ENMT: external ear and nose normal, oropharynx normal Neck: + thick neck Respiratory: + tachypneic Auscultation: lungs clear to auscultation gricelda aterally Cardiovascular: RRR, no murmur, no edema Gastrointestinal (Abdomen): normal bowel sounds, soft, nontender, no hepatosplenomegaly Musculoskeletal: no cyanosis or clubbing, extremities motor strength 5/5 Skin: no rashes, warm and dry Neurologic: PERRL, EOMI, accommodation nl, no face palsy, no dysarthria Psychiatric: A+Ox3, euthymic affect Results & Data Results & Data ([facility]) Vital Signs (Past 12 Hours) Vital Signs Temp Pulse Pulse Resp BP Pulse Ox 09/17/20 10:31 92 H 18 89 L 09/17/20 07:50 99.0 F 81 23 147/71 H 95 09/17/20 07:49 84 18 90 09/17/20 07:38 85 18 88 L 09/17/20 06:01 97.7 F 73 18 132/75 94 09/17/20 02:19 62 28 H 93 09/16/20 23:59 68 09/16/20 23:54 67 20 94 09/16/20 23:41 98.6 F 67 21 151/90 H 92 reviewed the vital signs, labs and imaging PG Care Time/CCT Total # of Minutes Spent Total Time Spent with Patient: Total time spent is greater than 50% in coordination of care (as documented) at patient's floor/unit and/or counseling patient: Coding Level of Care Code 00586 Subseq Hosp Care Lvl 3 Diagnoses Acute respiratory failure J96.00 Pneumonia due to COVID-19 virus U07.1; J12.89 SAMANTHA (obstructive sleep apnea) G47.33 Morbid obesity E66.01 Obesity hypoventilation syndrome E66.2
[2020-09-17 10:43] LABS: BUN Creatinine Ratio 29.7 (10-20); Calcium 9.1 mg/dl (8.5-10.1); Creatinine Clr Calc Pharmacy 81.4 ml/min; Est GFR (African American) 77.7; Potassium 3.9 mmol/L (3.5-5.1)
--- NOTE | 2020-09-17 16:21 | Hospitalist Progress Note ---
Date of Service September 17, 2020 Assessment & Plan (1) Acute respiratory failure: 2/2 covid pneumonia. Oxygenation has improved with patient proning more. Poor candidate for mechanical ventilation and high risk intubation. Continue to do more of this as tolerated. (2) Pneumonia due to COVID-19 virus: Completed remdesivir, cont dexamethasone. Some diarrhea reported which has improved since antibiotics were stopped. Lasix PRN (3) Non-traumatic rhabdomyolysis: Tolerating PO and hydrating reliably. CK is improved. (4) SAMANTHA (obstructive sleep apnea): Continue BiPAP at bedtime and when sleeping, ok to use home nasal BIPAP machine if available. (5) COPD (chronic obstructive pulmonary disease): chronic, stable, no wheezing on exam. 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 Monitor blood glucose and manage appropriately A1c 7.3-she is at goal. Starting to feel better and diet was advanced. Still on the steroids. Increase Lantus to 25 Units BID (8) Dysuria: resolved. (9) Morbid obesity: (10) DVT prophylaxis: Lovenox Full Code Dispo-cont PCU monitoring [facility] Admission and Anticipated Discharge Date Admission Date: September 11, 2020 Subjective CC: COVID pneumonia, weakness doing well with proning oxygenation has improved reports some diarrhea-per nurse, this has improved and is only a smear denies chest pain or work of breathing reports right axillary pain-no LAD present, likely affected during her fall and time on the floor prior to arrival to hospital updated daughter by phone Review of Systems Review of Systems: All systems reviewed & are unremarkable except as noted in Subjective Physical Exam Physical Exam: CONSTITUTIONAL: morbidly obese, vitals as above, generally well-appearing EYES: normal conjunctivae, no scleral icterus ENT: external ear and nose normal, hi flow in place NECK: obese RESPIRATORY: coarse rhonchi bilaterally, normal respiratory effort CARDIOVASCULAR: regular rate and rhythm, S1 and 2 heard without murmurs, gallops or rubs, no JVD, no peripheral edema GASTROINTESTINAL: not examined as patient in prone position. MUSCULOSKELETAL: generalized weakness, head is normocephalic and atraumatic SKIN: warm and dry NEUROLOGIC: CN 2-12 grossly intact, normal cognition, normal speech, no gross focal deficits. PSYCHIATRIC: alert cooperative and oriented to person, place and time. Results & Data Results & Data ([facility]) Vital Signs (Past 12 Hours) Vital Signs Temp Pulse Resp BP BP Pulse Ox 09/17/20 16:02 36.9 C 83 23 118/70 93 09/17/20 15:50 86 18 97 09/17/20 13:44 76 18 94 09/17/20 11:45 81 18 91 09/17/20 11:29 37.1 C 85 22 114/60 95 09/17/20 11:01 84 18 91 09/17/20 10:31 92 H 18 89 L 09/17/20 07:50 37.2 C 81 23 147/71 H 95 09/17/20 07:49 84 18 90 09/17/20 07:38 85 18 88 L 09/17/20 06:01 36.5 C 73 18 132/75 94 Laboratory Results [facility] 09/17/20 09:45 Sodium 136 Potassium 3.9 Chloride 101 Carbon Dioxide 29 BUN 26 H Creatinine 0.88 Glucose 204 H Calcium 9.1 Medications Administered Current Inpatient Medications Acetaminophen (Acetaminophen 325 Mg Tab) 650 mg PO Q4H PRN PRN Reason: Pain or Fever Stop: 10/11/20 04:38 Albuterol (Albuterol Hfa 8 Gm Inhaler) 2 puffs INH Q4R PRN PRN Reason: Shortness Of Breath Stop: 10/11/20 04:38 Last Admin: 09/17/20 07:48 Dose: 2 puffs Documented by: Budesonide (Budesonide 0.5 Mg/2 Ml Vial (Pulmicort)) 1 mg INH BIDR [facility] Stop: 10/11/20 06:59 Last Admin: 09/17/20 07:38 Dose: 1 mg Documented by: Enoxaparin Sodium (Enoxaparin Inj 40 Mg/0.4 Ml Syr) 40 mg SQ Q12H [facility] Stop: 10/11/20 08:59 Last Admin: 09/17/20 08:23 Dose: 40 mg Documented by: Ferrous Sulfate (Ferrous Sulfate 325 Mg Tab) 325 mg PO DAILY PRN PRN Reason: Wound Healing Stop: 10/11/20 04:38 Last Admin: 09/12/20 08:52 Dose: 325 mg Documented by: Fluticasone Furoate (Fluticasone Furoate 100mcg 14 Puffs/Inhaler) 1 puffs INH DAILY [facility] Stop: 10/11/20 08:59 Last Admin: 09/17/20 08:22 Dose: 1 puffs Documented by: Fluticasone Propionate (Fluticasone Propionate Na Spr 16 Gm Btl) 2 sprays NA QAM [facility] Stop: 10/11/20 08:59 Last Admin: 09/17/20 08:22 Dose: 2 sprays Documented by: Furosemide (Furosemide 20 Mg Tab) 20 mg PO DAILY [facility] Stop: 10/11/20 08:59 Last Admin: 09/12/20 08:54 Dose: Not Given Documented by: Guaifenesin (Guaifenesin Sugar Free 100 Mg/5 Ml Udc) 100 mg PO Q6H PRN PRN Reason: Cough Stop: 10/12/20 16:53 Heparin Sodium (Porcine) (Heparin 100 Unit/Ml 5ml Flush) 5 ml FLUSH PRN PRN PRN Reason: Flush Stop: 10/15/20 00:44 Dexamethasone Sodium Phosphate (6 mg/ Syringe) 1.5 mls @ 1 mls/min IV DAILY [facility] Stop: 09/21/20 09:02 Last Admin: 09/17/20 08:23 Dose: 1 mls/min Documented by: Insulin Aspart (Insulin Aspart 100 Units/Ml 3 Ml Pen) 0 units SC ACHS [facility] Stop: 10/11/20 07:29 Last Admin: 09/17/20 11:45 Dose: Not Given Documented by: Insulin Glargine (Insulin Glargine Solostar 100 Units/Ml 3 Ml Pen) 15 units SQ BID [facility] Stop: 10/15/20 08:59 Last Admin: 09/17/20 08:18 Dose: 15 units Documented by: Lactobacillus Acidoph/Casei/Rhamnos (Advanced Probiotic 1250 Mg Capsule) 2 cap PO DAILY [facility] Stop: 10/12/20 13:59 Last Admin: 09/17/20 08:23 Dose: Not Given Documented by: Losartan Potassium (Losartan Potassium 25 Mg Tab) 25 mg PO QAM [facility] Stop: 10/11/20 08:59 Last Admin: 09/17/20 08:23 Dose: 25 mg Documented by: Montelukast Sodium (Montelukast Sodium 10 Mg Tablet) 10 mg PO HS [facility] Stop: 10/11/20 20:59 Last Admin: 09/16/20 20:03 Dose: 10 mg Documented by: Nitroglycerin (Nitroglycerin Sl 0.4 Mg/Tab Tab) 0.4 mg SL UD PRN PRN Reason: Chest Pain Stop: 10/11/20 04:38 Oxycodone/Acetaminophen (Oxycodone/Acetaminophen 5mg/325mg Tab) 1 tab PO Q6H PRN PRN Reason: Pain Stop: 09/25/20 04:38 Last Admin: 09/17/20 10:32 Dose: 1 tab Documented by: Pantoprazole Sodium (Pantoprazole 40 Mg Tab) 40 mg PO DAILY [facility] Stop: 10/11/20 08:59 Last Admin: 09/17/20 08:23 Dose: 40 mg Documented by: Triamcinolone Acetonide (Triamcinolone Acet 0.1% Cr 15 Gm Tube) 1 appln TOP BID [facility] Stop: 10/11/20 08:59 Last Admin: 09/17/20 08:23 Dose: 1 appln Documented by: Umeclidinium/Vilanterol (Umeclidinium/Vilanterol 62.5/25mcg 7 Puffs/Inhaler) 1 puffs INH DAILY [facility] Stop: 10/11/20 08:59 Last Admin: 09/17/20 08:22 Dose: 1 puffs Documented by: Vitamin D (Cholecalciferol 1,000 Units 25 Mcg Tab) 2,000 units PO HS [facility] Stop: 10/11/20 20:59 Last Admin: 09/16/20 20:03 Dose: 2,000 units Documented by:
[2020-09-17] MEDS: MONTELUKAST SODIUM 10 MG TABLET PO SCH (20:11)
[2020-09-17] MEDS: CHOLECALCIFEROL 1,000 UNITS 25 MCG TAB PO SCH (20:11)
[2020-09-17] MEDS: ACETAMINOPHEN 325 MG TAB PO PRN (20:11)
[2020-09-18] MEDS: oxyCODONE/ACETAMINOPHEN 5mg/325mg TAB PO PRN ×3 (05:59→21:29)
[2020-09-18] MEDS: ACETAMINOPHEN 325 MG TAB PO PRN (06:00)
[2020-09-18] MEDS: FLUTICASONE FUROATE 100MCG 14 PUFFS/INHALER INH SCH (08:26)
[2020-09-18] MEDS: UMECLIDINIUM/VILANTEROL 62.5/25MCG 7 PUFFS/INHALER INH SCH (08:26)
[2020-09-18] MEDS: DEXAMETHASONE SOD PHOSPHATE 6 MG in SYRINGE 0 ML IV SCH (08:27)
[2020-09-18] MEDS: ENOXAPARIN INJ 40 MG/0.4 ML SYR SQ SCH ×2 (08:27→21:31)
[2020-09-18] MEDS: PANTOprazole 40 MG TAB PO SCH (08:27)
[2020-09-18] MEDS: LOSARTAN POTASSIUM 25 MG TAB PO SCH (08:27)
[2020-09-18] MEDS: TRIAMCINOLONE ACET 0.1% CR 15 GM TUBE TOP SCH ×2 (08:28→21:33)
[2020-09-18] MEDS: INSULIN GLARGINE SOLOSTAR 100 UNITS/ML 3 ML PEN SQ SCH (08:28)
[2020-09-18] MEDS: INSULIN ASPART 100 UNITS/ML 3 ML PEN SC SCH ×4 (08:32→21:35)
[2020-09-18] MEDS: FLUTICASONE PROPIONATE NA SPR 16 GM BTL SCH (08:49)
[2020-09-18] MEDS: BUDESONIDE 0.5 MG/2 ML VIAL (PULMICORT) INH SCH ×2 (08:58→19:42)
--- NOTE | 2020-09-18 09:33 | XRay Report ---
XR chest 1V portable HISTORY: Hypoxia. COMPARISON: Chest 09/14/2020. FINDINGS: No pneumothorax. No pleural effusions. The heart remains mildly enlarged. Diffuse interstit ial thickening and hazy airspace opacities persist. Right subclavian Port-A-Cath terminates at the pr oximal SVC. This remains unchanged. IMPRESSION: No change in the diffuse interstitial thickening and bilateral airspace opacities likely representing a pneumonia. ACT 112: Negative or not required by law. Electronically signed by: Lenny Echols M.D. 09/18/2020 9:31 AM
[2020-09-18 09:49] LABS: iSTAT Allen Test Pass; iSTAT Art Bld Gas pCO2 Correct 41 mmHg (35-46); iSTAT Art Bld Gas pH Corrected 7.385 (7.35-7.45); iSTAT Arterial Blood Gas HCO3 24 meg/L (19-24); iSTAT Arterial Blood Gas pCO2 41 mmHg (35-46); iSTAT Arterial Blood Gas pH 7.39 (7.35-7.45); iSTAT Arterial Blood Gas pO2 52 mmHg (80-95); iSTAT Arterial Blood Gas pO2 C 52; iSTAT Carbon Dioxide 26 mmol/L (24-31); iSTAT Hematocrit 43 % (37-47); iSTAT Hemoglobin 14.6 g/dl (12.0-16.0); iSTAT Potassium 4.6 mmol/L (3.3-5.0); iSTAT Site L Radial; iSTAT Sodium 136 mmol/L (135-144)
[2020-09-18] MEDS ORDERED: FUROSEMIDE 40 MG in SYRINGE 0 ML IV STA (10:01)
[2020-09-18] MEDS ORDERED: SODIUM CHLORIDE 0.65% NA SOLN 45 ML (OCEAN) PRN (10:01)
[2020-09-18] MEDS ORDERED: FUROSEMIDE 40 MG/4 ML VIAL IV ONE (10:15)
[2020-09-18 10:42] LABS: Basophils # (auto) 0.01 K/uL (0-0.2); Basophils % (auto) 0.1 %; Hematocrit (blood only) 41.4 % (37-47); Hemoglobin 13.5 g/dL (12.0-16.0); Immature Granulocytes # (auto) 0.15 K/uL (0.00-0.02); Immature Granulocytes % (auto) 1.4 %; Lymphocytes # (auto) 0.54 K/uL (1.2-3.4); Mean Corpuscular Hemoglobin 28.5 pg (25-34); Mean Corpuscular Hgb Conc 32.6 g/dL (32-36); Mean Corpuscular Volume 87.5 fL (80-100); Mean Platelet Volume 10.1 fL (7.4-10.4); Monocytes # (auto) 0.42 K/uL (0.11-0.59); Monocytes % (auto) 3.9 %; Neutrophils # (auto) 9.63 K/uL (1.4-6.5); Neutrophils % (auto) 89.6 %; Platelet Count 198 K/uL (130-400); RDW Coefficient of Variation 16.8 % (11.5-14.5); RDW Standard Deviation 54.3 fL (36.4-46.3); Red Blood Count 4.73 M/uL (4.2-5.4); White Blood Count 10.75 K/uL (4.8-10.8)
[2020-09-18 10:59] LABS: BUN Creatinine Ratio 27.5 (10-20); Calcium 8.7 mg/dl (8.5-10.1); Est GFR (African American) 61.3; Est GFR (Non-African American) 52.9; Potassium 3.5 mmol/L (3.5-5.1)
--- NOTE | 2020-09-18 18:49 | Pulmonology Progress Note ---
Date of Service September 18, 2020 Assessment & Plan (1) Obesity hypoventilation syndrome: (2) Acute respiratory failure: --Acute hypoxic respiratory failure Secondary to multilobar pneumonia from COVID-19 Procalcitonin 0.2-- > 0.07, COVID-19 PCR positive 09/11/2020 Positive lymphopenia Complete the course of dexamethasone for total of 10 days Continue with Lovenox 40 twice daily Continue O2 supplementation to keep oxygen saturation greater than 90% --SAMANTHA/OHS with morbid obesity Continue with CPAP whenever the patient is asleep Can increase the CPAP to keep the oxygen saturation greater than 90% Plan: Patient is at high risk for intubation if there is any deterioration in her respiratory status importantly her respiratory rate. Patient is not in acute distress looking at her. She has history of difficult intubation and morbid obesity will put her at risk for a difficult intubation. Continue to monitor. Would advise to continue with diuresis to keep the patient negative balance especially given the patient has a Nicholas catheter now. Please note the above document was generated using voice recognition software. It may contain grammatical, syntax or spelling errors.Any formal questions or concerns about the content, text or information contained within the body of this dictation should be directly addressed to the provider for clarification. (3) Morbid obesity: (4) COVID-19 virus infection: Admission and Anticipated Discharge Date Admission Date: September 11, 2020 Subjective Patient seen and examined at bedside. No acute distress. Patient was self proning at the time of examination. She on 60 L high flow, 100% FiO2 Breathing in the high teens to low 20s. She does complain of cough. Denies any diarrhea. No dysuria. She has a Nicholas catheter Review of Systems Review of Systems: All systems reviewed & are unremarkable except as noted in Subjective Physical Exam Physical Exam: Constitutional: No acute distress HEENT: EOMI, PERRLA Respiratory system: Decreased air entry bilaterally, no wheeze, no rhonchi, positive crackles bilateral lower lobe CVS: S1-S2 positive, no murmurs or gallops, distant heart sounds Abdomen: Soft, nontender, nondistended, positive bowel sounds x4, obese Extremities: +2 pulses bilaterally radialis/ dorsalis pedis, no cyanosis, +1 edema bilateral lower extremity Neuro: Awake alert oriented x3 Psych: Normal mood and affect G/U: Positive Nciholas Skin: no rashes, warm and dry Lymphatic: no cervical or axillary lymphadenopathy Results & Data Results & Data ([place]) Vital Signs (Past 12 Hours) Vital Signs Temp Pulse Pulse Resp BP Pulse Ox 09/18/20 16:16 37.1 C 90 28 H 125/77 83 L 09/18/20 15:21 92 H 09/18/20 11:21 85 22 85 L 09/18/20 09:00 94 H 22 94 09/18/20 08:58 94 H 22 92 09/18/20 08:00 36.8 C 92 H 92 H 24 107/52 L 89 L 09/18/20 10:19 09/18/20 10:19 PG Care Time/CCT Total # of Minutes Spent Total Time Spent with Patient: Total time spent is greater than 50% in coordination of care (as documented) at patient's floor/unit and/or counseling patient: Coding Level of Care Code 18062 Subseq Hosp Care Lvl 3 Diagnoses Obesity hypoventilation syndrome E66.2 Acute respiratory failure J96.00 Morbid obesity E66.01 COVID-19 virus infection U07.1
[2020-09-18] MEDS: CHOLECALCIFEROL 1,000 UNITS 25 MCG TAB PO SCH (21:31)
[2020-09-18] MEDS: MONTELUKAST SODIUM 10 MG TABLET PO SCH (21:31)
[2020-09-18] MEDS ORDERED: INSULIN GLARGINE SOLOSTAR 100 UNITS/ML 3 ML PEN SC STA (22:12)
--- NOTE | 2020-09-18 23:39 | Hospitalist Progress Note ---
Date of Service September 18, 2020 Assessment & Plan (1) Acute respiratory failure: 2/2 covid pneumonia. Oxygenation has improved with patient proning more. Poor candidate for mechanical ventilation and high risk intubation. Continue to do more of this as tolerated. Febrile today. Cont supportive care. IF SHE NEEDS TO BE INTUBATED, MUST USE THE GLIDESCOPE AND CONTACT ANESTHESIA TO PERFORM (2) Pneumonia due to COVID-19 virus: Completed remdesivir, cont dexamethasone. Some diarrhea reported which has improved since antibiotics were stopped. Lasix PRN (3) Non-traumatic rhabdomyolysis: Tolerating PO and hydrating reliably. CK is improved. (4) SAMANTHA (obstructive sleep apnea): Continue BiPAP at bedtime and when sleeping, ok to use home nasal BIPAP machine if available. (5) COPD (chronic obstructive pulmonary disease): chronic, stable, no wheezing on exam. 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 Monitor blood glucose and manage appropriately A1c 7.3-she is at goal. Starting to feel better and diet was advanced. Still on the steroids. Cont Lantus at 25 Units BID (8) Morbid obesity: (9) DVT prophylaxis: Lovenox Full Code Dispo-cont PCU monitoring Shelia Kraft DO [facility] Hospitalist Admission and Anticipated Discharge Date Admission Date: September 11, 2020 Subjective CC: COVID pneumonia, weakness doing well with proning oxygenation has improved more diarrhea seen today abx were stopped yesterday-off probiotics per her request +febrile today CXR looked worse-gave dose of LAsix for 2L out into gale. Review of Systems Review of Systems: All systems reviewed & are unremarkable except as noted in Subjective Physical Exam Physical Exam: CONSTITUTIONAL: morbidly obese, vitals as above, generally well-appearing EYES: normal conjunctivae, no scleral icterus ENT: external ear and nose normal, hi flow in place NECK: obese RESPIRATORY: coarse rhonchi bilaterally, normal respiratory effort CARDIOVASCULAR: regular rate and rhythm, S1 and 2 heard without murmurs, gallops or rubs, no JVD, no peripheral edema GASTROINTESTINAL: not examined as patient in prone position. MUSCULOSKELETAL: generalized weakness, head is normocephalic and atraumatic SKIN: warm and dry NEUROLOGIC: CN 2-12 grossly intact, normal cognition, normal speech, no gross focal deficits. PSYCHIATRIC: alert cooperative and oriented to person, place and time. Results & Data Results & Data ([facility]) Vital Signs (Past 12 Hours) Vital Signs Temp Pulse Pulse Resp BP Pulse Ox 09/18/20 23:03 73 24 88 L 09/18/20 21:16 37.3 C 75 16 154/79 H 91 09/18/20 19:42 71 71 24 91 09/18/20 18:47 93 09/18/20 17:25 65 26 H 80 L 09/18/20 16:16 37.1 C 90 28 H 125/77 83 L 09/18/20 16:10 65 26 H 91 09/18/20 15:21 92 H Laboratory Results Short CBC 09/18/20 Range/Units 10:19 WBC 10.75 (4.8-10.8) K/uL Hgb 13.5 (12.0-16.0) g/dL Hct 41.4 (37-47) % Plt Count 198 (130-400) K/uL BMP 09/18/20 10:19 Sodium 133 L Potassium 3.5 Chloride 99 Carbon Dioxide 31 BUN 29 H Creatinine 1.07 Glucose 164 H Calcium 8.7 Medications Administered Current Inpatient Medications Acetaminophen (Acetaminophen 325 Mg Tab) 650 mg PO Q4H PRN PRN Reason: Pain or Fever Stop: 10/11/20 04:38 Last Admin: 09/18/20 06:00 Dose: 650 mg Documented by: Albuterol (Albuterol Hfa 8 Gm Inhaler) 2 puffs INH Q4R PRN PRN Reason: Shortness Of Breath Stop: 10/11/20 04:38 Last Admin: 09/17/20 07:48 Dose: 2 puffs Documented by: Budesonide (Budesonide 0.5 Mg/2 Ml Vial (Pulmicort)) 1 mg INH BIDR ADRIANA Stop: 10/11/20 06:59 Last Admin: 09/18/20 19:42 Dose: 1 mg Documented by: Enoxaparin Sodium (Enoxaparin Inj 40 Mg/0.4 Ml Syr) 40 mg SQ Q12H [facility] Stop: 10/11/20 08:59 Last Admin: 09/18/20 21:31 Dose: 40 mg Documented by: Ferrous Sulfate (Ferrous Sulfate 325 Mg Tab) 325 mg PO DAILY PRN PRN Reason: Wound Healing Stop: 10/11/20 04:38 Last Admin: 09/12/20 08:52 Dose: 325 mg Documented by: Fluticasone Furoate (Fluticasone Furoate 100mcg 14 Puffs/Inhaler) 1 puffs INH DAILY ADRIANA Stop: 10/11/20 08:59 Last Admin: 09/18/20 08:26 Dose: 1 puffs Documented by: Fluticasone Propionate (Fluticasone Propionate Na Spr 16 Gm Btl) 2 sprays NA QAM [facility] Stop: 10/11/20 08:59 Last Admin: 09/18/20 08:49 Dose: 2 sprays Documented by: Furosemide (Furosemide 20 Mg Tab) 20 mg PO DAILY [facility] Stop: 10/11/20 08:59 Last Admin: 09/12/20 08:54 Dose: Not Given Documented by: Guaifenesin (Guaifenesin Sugar Free 100 Mg/5 Ml Udc) 100 mg PO Q6H PRN PRN Reason: Cough Stop: 10/12/20 16:53 Heparin Sodium (Porcine) (Heparin 100 Unit/Ml 5ml Flush) 5 ml FLUSH PRN PRN PRN Reason: Flush Stop: 10/15/20 00:44 Dexamethasone Sodium Phosphate (6 mg/ Syringe) 1.5 mls @ 1 mls/min IV DAILY [facility] Stop: 09/21/20 09:02 Last Admin: 09/18/20 08:27 Dose: 1 mls/min Documented by: Insulin Aspart (Insulin Aspart 100 Units/Ml 3 Ml Pen) 0 units SC ACHS [facility] Stop: 10/11/20 07:29 Last Admin: 09/18/20 21:35 Dose: 2 units Documented by: Insulin Glargine (Insulin Glargine Solostar 100 Units/Ml 3 Ml Pen) 25 units SQ BID [facility] Stop: 10/19/20 08:59 Losartan Potassium (Losartan Potassium 25 Mg Tab) 25 mg PO QAM [facility] Stop: 10/11/20 08:59 Last Admin: 09/18/20 08:27 Dose: 25 mg Documented by: Montelukast Sodium (Montelukast Sodium 10 Mg Tablet) 10 mg PO HS [facility] Stop: 10/11/20 20:59 Last Admin: 09/18/20 21:31 Dose: 10 mg Documented by: Nitroglycerin (Nitroglycerin Sl 0.4 Mg/Tab Tab) 0.4 mg SL UD PRN PRN Reason: Chest Pain Stop: 10/11/20 04:38 Oxycodone/Acetaminophen (Oxycodone/Acetaminophen 5mg/325mg Tab) 1 tab PO Q6H PRN PRN Reason: Pain Stop: 09/25/20 04:38 Last Admin: 09/18/20 21:29 Dose: 1 tab Documented by: Pantoprazole Sodium (Pantoprazole 40 Mg Tab) 40 mg PO DAILY AD[facility] Stop: 10/11/20 08:59 Last Admin: 09/18/20 08:27 Dose: 40 mg Documented by: Sodium Chloride (Sodium Chloride 0.65% Na Soln 45 Ml ([place])) 2 sprays NA Q1H PRN PRN Reason: nasal congestion Stop: 10/18/20 10:00 Triamcinolone Acetonide (Triamcinolone Acet 0.1% Cr 15 Gm Tube) 1 appln TOP BID ADRIANA Stop: 10/11/20 08:59 Last Admin: 09/18/20 21:33 Dose: 1 appln Documented by: Umeclidinium/Vilanterol (Umeclidinium/Vilanterol 62.5/25mcg 7 Puffs/Inhaler) 1 puffs INH DAILY AD[facility]ANA Stop: 10/11/20 08:59 Last Admin: 09/18/20 08:26 Dose: 1 puffs Documented by: Vitamin D (Cholecalciferol 1,000 Units 25 Mcg Tab) 2,000 units PO HS AD[facility] Stop: 10/11/20 20:59 Last Admin: 09/18/20 21:31 Dose: 2,000 units Documented by:
[2020-09-19] MEDS: oxyCODONE/ACETAMINOPHEN 5mg/325mg TAB PO PRN (06:40)
[2020-09-19] MEDS: BUDESONIDE 0.5 MG/2 ML VIAL (PULMICORT) INH SCH (07:25)
[2020-09-19] MEDS: PANTOprazole 40 MG TAB PO SCH (10:13)
[2020-09-19] MEDS: DEXAMETHASONE SOD PHOSPHATE 6 MG in SYRINGE 0 ML IV SCH (10:13)
[2020-09-19] MEDS: LOSARTAN POTASSIUM 25 MG TAB PO SCH (10:13)
[2020-09-19] MEDS: ENOXAPARIN INJ 40 MG/0.4 ML SYR SQ SCH ×2 (10:14→21:48)
[2020-09-19] MEDS: FLUTICASONE PROPIONATE NA SPR 16 GM BTL SCH (10:15)
[2020-09-19] MEDS: TRIAMCINOLONE ACET 0.1% CR 15 GM TUBE TOP SCH (10:15)
[2020-09-19] MEDS: FLUTICASONE FUROATE 100MCG 14 PUFFS/INHALER INH SCH (10:16)
[2020-09-19] MEDS: INSULIN ASPART 100 UNITS/ML 3 ML PEN SC SCH ×4 (10:32→21:49)
[2020-09-19] MEDS: INSULIN GLARGINE SOLOSTAR 100 UNITS/ML 3 ML PEN SQ SCH ×2 (10:33→21:49)
[2020-09-19] MEDS: UMECLIDINIUM/VILANTEROL 62.5/25MCG 7 PUFFS/INHALER INH SCH (12:07)
[2020-09-19] MEDS ORDERED: ACETAMINOPHEN 500 MG TAB PO SCH (13:00)
--- NOTE | 2020-09-19 13:07 | Pulmonology Progress Note ---
Date of Service September 19, 2020 Assessment & Plan (1) Obesity hypoventilation syndrome: (2) Acute respiratory failure: --Acute hypoxic respiratory failure Secondary to multilobar pneumonia from COVID-19 Procalcitonin 0.2-- > 0.07, COVID-19 PCR positive 09/11/2020 Positive lymphopenia Complete the course of dexamethasone for total of 10 days Continue with Lovenox 40 twice daily Continue O2 supplementation to keep oxygen saturation greater than 90% --SAMANTHA/OHS with morbid obesity Continue with CPAP whenever the patient is asleep Can increase the CPAP to keep the oxygen saturation greater than 90% Plan: In/out: -1500 Patient has been needing increasing amount of oxygen. Now requiring continuous BiPAP Respiratory rate is in the mid 20s. But I need of requiring BiPAP continuously is making me inclined that she will need to be intubated in the recent future. Patient was made aware of it and she understands and she says that if she will get an distress more she will let us know. She has history of difficult intubation and morbid obesity will put her at risk for a difficult intubation. Dr Hinojosa and RN made aware regarding the plan. I have personally spent 35 minutes of critical care time in the direct management of this patient. This is a life/limb threatening event. This includes time spent evaluating patient, direct bedside care, chart review, placing orders, interpretation of diagnostic studies, discussion with consultants, patient, and family members, as well as other required patient management activities. This time is exclusive of all separately billable procedures, and teaching time and separate from and in addition to any other critical care service time. Please note the above document was generated using voice recognition software. It may contain grammatical, syntax or spelling errors. (3) Morbid obesity: (4) COVID-19 virus infection: Admission and Anticipated Discharge Date Admission Date: September 11, 2020 Subjective Patient seen and examined at bedside. Overnight patient needed BiPAP support as she was desaturating on high flow. Patient was on BiPAP at the time of examination laying on the right side. Her saturation was 91% 100% FiO2 EPAP was 14. I went up to 15 EPAP with pressure support of 4. Patient respiratory rate was 23-24. She says she feels the same. There is no worsening compared to yesterday. She was on the phone texting the daughter. Review of Systems Review of Systems: All systems reviewed & are unremarkable except as noted in Subjective Physical Exam Physical Exam: Constitutional: In mild respiratory distress HEENT: EOMI, PERRLA Respiratory system: Decreased air entry bilaterally, no wheeze, no rhonchi, positive crackles bilateral lower lobe CVS: S1-S2 positive, no murmurs or gallops, distant heart sounds Abdomen: Soft, nontender, nondistended, positive bowel sounds x4, obese Extremities: +2 pulses bilaterally radialis/ dorsalis pedis, no cyanosis, +1 edema bilateral lower extremity Neuro: Awake alert oriented x3 Psych: Normal mood and affect G/U: Positive Nicholas Skin: no rashes, warm and dry Lymphatic: no cervical or axillary lymphadenopathy Results & Data Results & Data ([facility]) Vital Signs (Past 12 Hours) Vital Signs Temp Pulse Pulse Resp BP BP Pulse Ox 09/19/20 11:50 81 25 H 95 09/19/20 08:30 36.7 C 79 18 112/55 L 93 09/19/20 07:26 82 32 H 93 09/19/20 04:56 36.6 C 69 20 135/83 94 09/19/20 03:30 73 24 90 09/18/20 10:19 09/18/20 10:19 PG Care Time/CCT Total # of Minutes Spent Total Time Spent with Patient: Total time spent is greater than 50% in coordination of care (as documented) at patient's floor/unit and/or counseling patient: Critical Care Time: Yes Total Critical Care Time: 35 Coding Level of Care Code 62017 Subseq Hosp Care Lvl 3 Diagnoses Obesity hypoventilation syndrome E66.2 Acute respiratory failure J96.00 Morbid obesity E66.01 COVID-19 virus infection U07.1 Additional Codes Critical Care Time - Critical Care Time: Yes ([id number]) Time Spent (min) 35
[2020-09-19] MEDS ORDERED: KETOROLAC TROMETHAMINE 15 MG/ML VIAL IV ONE (13:15)
[2020-09-19] MEDS ORDERED: oxyCODONE HCL IR 5 MG TAB (IMMEDIATE RELEASE) PO PRN (13:26)
--- NOTE | 2020-09-19 15:00 | Hospitalist Progress Note ---
Date of Service September 19, 2020 Assessment & Plan (1) Acute respiratory failure: 2/2 covid pneumonia. Progressed today and is more BIPAP dependent. Given LAsix 40mg IV, however, there was concern for her decompensating overnight. She was intubated by web page designer and transferred to the ICU. (2) Pneumonia due to COVID-19 virus: Completed remdesivir, cont dexamethasone. Mechanical ventilation as above. Lasix PRN (3) Non-traumatic rhabdomyolysis: Tolerating PO and hydrating reliably. CK is improved. Cont to monitor volume status while intubated. (4) Opioid dependence: Chronic pain on percocet regularly. Currently sedated and intubated. (5) SAMANTHA (obstructive sleep apnea): Uses home BIPAP at night typically. (6) COPD (chronic obstructive pulmonary disease): chronic, stable, no wheezing on exam. 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 Monitor blood glucose and manage appropriately A1c 7.3 .Still on the steroids. Cont Lantus at 25 Units BID Glucose more under control now. (9) Morbid obesity: (10) DVT prophylaxis: Lovenox Full Code [facility]po-[facility] to [facility] Admission and Anticipated Discharge Date Admission Date: September 11, 2020 Subjective CC: COVID pneumonia, weakness more BIPAP dependent since last night continues to prone doesn't feel that she is working to breathe more denies pain Paged Aquatics Instructor and he discussed intubation with her--proceeded with bronchoscopic intubation in room 207. Transferred to the ICU. I phoned her daughter and updated her. She verbalized understanding. Review of Systems Review of Systems: All systems reviewed & are unremarkable except as noted in Subjective Physical Exam Physical Exam: CONSTITUTIONAL: morbidly obese, vitals as above, generally well-appearing EYES: normal conjunctivae, no scleral icterus ENT: external ear and nose normal, hi flow in place NECK: obese RESPIRATORY: clear to auscultation bilaterally, normal respiratory effort CARDIOVASCULAR: regular rate and rhythm, S1 and 2 heard without murmurs, gallops or rubs, no JVD, no peripheral edema GASTROINTESTINAL: protuberant, NTND MUSCULOSKELETAL: generalized weakness, head is normocephalic and atraumatic SKIN: warm and dry NEUROLOGIC: CN 2-12 grossly intact, normal cognition, normal speech, no gross focal deficits. PSYCHIATRIC: alert cooperative and oriented. Results & Data Results & Data ([facility]) Vital Signs (Past 12 Hours) Vital Signs Temp Pulse Pulse Resp BP BP Pulse Ox 09/19/20 12:00 37.1 C 78 21 152/77 H 89 L 09/19/20 11:50 81 25 H 95 09/19/20 08:30 36.7 C 79 18 112/55 L 93 09/19/20 07:26 82 32 H 93 09/19/20 04:56 36.6 C 69 20 135/83 94 09/19/20 03:30 73 24 90 Medications Administered Current Inpatient Medications Acetaminophen (Acetaminophen 500 Mg Tab) 1,000 mg PO Q8H [facility] Stop: 10/19/20 12:59 Albuterol (Albuterol Hfa 8 Gm Inhaler) 2 puffs INH Q4R PRN PRN Reason: Shortness Of Breath Stop: 10/11/20 04:38 Last Admin: 09/17/20 07:48 Dose: 2 puffs Documented by: Budesonide (Budesonide 0.5 Mg/2 Ml Vial (Pulmicort)) 1 mg INH BIDR [facility] Stop: 10/11/20 06:59 Last Admin: 09/19/20 07:25 Dose: 1 mg Documented by: Enoxaparin Sodium (Enoxaparin Inj 40 Mg/0.4 Ml Syr) 40 mg SQ Q12H [facility] Stop: 10/11/20 08:59 Last Admin: 09/19/20 10:14 Dose: 40 mg Documented by: Ferrous Sulfate (Ferrous Sulfate 325 Mg Tab) 325 mg PO DAILY PRN PRN Reason: Wound Healing Stop: 10/11/20 04:38 Last Admin: 09/12/20 08:52 Dose: 325 mg Documented by: Fluticasone Furoate (Fluticasone Furoate 100mcg 14 Puffs/Inhaler) 1 puffs INH DAILY [facility] Stop: 10/11/20 08:59 Last Admin: 09/19/20 10:16 Dose: 1 puffs Documented by: Fluticasone Propionate (Fluticasone Propionate Na Spr 16 Gm Btl) 2 sprays NA QAM [facility] Stop: 10/11/20 08:59 Last Admin: 09/19/20 10:15 Dose: 2 sprays Documented by: Furosemide (Furosemide 20 Mg Tab) 20 mg PO DAILY [facility] Stop: 10/11/20 08:59 Last Admin: 09/12/20 08:54 Dose: Not Given Documented by: Guaifenesin (Guaifenesin Sugar Free 100 Mg/5 Ml Udc) 100 mg PO Q6H PRN PRN Reason: Cough Stop: 10/12/20 16:53 Heparin Sodium (Porcine) (Heparin 100 Unit/Ml 5ml Flush) 5 ml FLUSH PRN PRN PRN Reason: Flush Stop: 10/15/20 00:44 Dexamethasone Sodium Phosphate (6 mg/ Syringe) 1.5 mls @ 1 mls/min IV DAILY [facility] Stop: 09/21/20 09:02 Last Admin: 09/19/20 10:13 Dose: 1 mls/min Documented by: Insulin Aspart (Insulin Aspart 100 Units/Ml 3 Ml Pen) 0 units SC ACHS [facility] Stop: 10/11/20 07:29 Last Admin: 09/19/20 13:44 Dose: Not Given Documented by: Insulin Glargine (Insulin Glargine Solostar 100 Units/Ml 3 Ml Pen) 25 units SQ BID [facility] Stop: 10/19/20 08:59 Last Admin: 09/19/20 10:33 Dose: 25 units Documented by: Losartan Potassium (Losartan Potassium 25 Mg Tab) 25 mg PO QAM [facility] Stop: 10/11/20 08:59 Last Admin: 09/19/20 10:13 Dose: 25 mg Documented by: Montelukast Sodium (Montelukast Sodium 10 Mg Tablet) 10 mg PO HS [facility] Stop: 10/11/20 20:59 Last Admin: 09/18/20 21:31 Dose: 10 mg Documented by: Nitroglycerin (Nitroglycerin Sl 0.4 Mg/Tab Tab) 0.4 mg SL UD PRN PRN Reason: Chest Pain Stop: 10/11/20 04:38 Oxycodone HCl (Oxycodone Hcl Ir 5 Mg Tab (Immediate Release)) 5 mg PO Q6H PRN PRN Reason: Pain Stop: 10/03/20 13:25 Pantoprazole Sodium (Pantoprazole 40 Mg Tab) 40 mg PO DAILY [facility] Stop: 10/11/20 08:59 Last Admin: 09/19/20 10:13 Dose: 40 mg Documented by: Sodium Chloride (Sodium Chloride 0.65% Na Soln 45 Ml ([place])) 2 sprays NA Q1H PRN PRN Reason: nasal congestion Stop: 10/18/20 10:00 Triamcinolone Acetonide (Triamcinolone Acet 0.1% Cr 15 Gm Tube) 1 appln TOP BID [facility] Stop: 10/11/20 08:59 Last Admin: 09/19/20 10:15 Dose: 1 appln Documented by: Umeclidinium/Vilanterol (Umeclidinium/Vilanterol 62.5/25mcg 7 Puffs/Inhaler) 1 puffs INH DAILY [facility] Stop: 10/11/20 08:59 Last Admin: 09/19/20 12:07 Dose: 1 puffs Documented by: Vitamin D (Cholecalciferol 1,000 Units 25 Mcg Tab) 2,000 units PO HS [facility] Stop: 10/11/20 20:59 Last Admin: 09/18/20 21:31 Dose: 2,000 units Documented by:
[2020-09-19] MEDS ORDERED: FUROSEMIDE 40 MG/4 ML VIAL IV ONE (17:25)
[2020-09-19] MEDS ORDERED: FUROSEMIDE 40 MG in SYRINGE 0 ML IV ONE (17:30)
[2020-09-19] MEDS ORDERED: KETAMINE HCL INJ 50 MG/ML 10 ML VIAL IV STA (17:35)
[2020-09-19] MEDS ORDERED: LIDOCAINE 4% INH SOLN 4 ML BTL INH ONE (17:35)
--- NOTE | 2020-09-19 17:35 | Procedure Note ---
Procedure Note Date of Service September 19, 2020 Procedure date: Noted above Procedure: Central venous access Pre-procedure indication: Need for vasoactive medication administration Post-procedure Diagnosis: same as above Prior to Procedure: Informed Consent: The risks, benefits, indications, potential complications, and alternatives were explained to the patient and informed consent obtained. Consent was verbally obtained, this was secondary to COVID-19 positivity in the COVID-19 pandemic Attending Staff: Annita Hinojosa DO Resident/APC: Not applicable Skin Prep: Chlorhexidine Anesthesia: 4 mL 1% lidocaine without epinephrine The identity of the patient was confirmed and a bedside time out was performed. Description of Procedure: After sterile prep and sterile drape utilizing standard sterile technique the superficial skin of the right internal jugular area was anesthetized. The target vessel was identified and entered with an 18- gauge needle. Dark venous blood return was noted. A guidewire was inserted through the needle and into the vessel. The needle was withdrawn and a skin jarvis was made. A tissue dilator was advanced via Seldinger technique and removed. A triple lumen catheter was inserted via Seldinger technique and the guidewire removed. All ports holli and flushed easily. A Biopatch was placed, and the catheter was secured via silk suture. A sterile dressing was then applied. Complications: None Estimated blood loss: Trace Patient tolerated the procedure well. Procedure Date: Noted Above Procedure: Procedural Ultrasound Indication: Central venous access Attending: Annita Hinojosa DO Resident/Physician Motorcycle Mechanic: Not applicable Artery visualized: Yes Vein visualized: Yes Compressible Vein: Yes Vein patent: Yes Guidewire or Short Catheter seen in vein prior to dilation: Yes Line confirmed in Vein with ultrasound: Yes Lung Sliding on side of attempt (if applicable): NA If no lung sliding or not obtained has CXR been ordered: Yes Impression: Successful central venous access placement Images obtained are saved for permanent record Procedure date: Noted above Procedure: Radial artery cannulation Pre-procedure Diagnosis: Need for invasive monitoring, hypotension/frequent blood draws Post-procedure Diagnosis: same as above Prior to Procedure: Informed Consent: The risks, benefits, indications, potential complications, and alternatives were explained to the patient and informed consent obtained. Attending Staff: Annita Hinojosa DO Skin Prep: Chlorhexidine Anesthesia: 3 mL 1% lidocaine without epinephrine The identity of the patient was confirmed and a bedside time out was performed. Description of Procedure: After sterile prep and sterile drape utilizing standard sterile technique the superficial skin of the left radial artery was anesthetized. The target artery was identified via dynamic ultrasound guidance and entered with a 20-gauge arrow Angiocath. Pulsatile bright red blood return was noted. Via modified Seldinger technique the self-contained guidewire was advanced and the Angiocath advanced over the guidewire. The guidewire was removed and brisk arterial blood return was noted. The pressure monitor was connected, and the arterial line was secured via commercial securement device. A sterile dressing was then applied. Complications: None Estimated blood loss: Trace Patient tolerated the procedure well. Coding CPT Codes Tubes, Drains, and Vasc Access - Tubes, Drains, and Vasc Access: [id number] Insertion Of Non-tunneled Catheter Age 6 Yrs> ([id number]) Tubes, Drains, and Vasc Access - Tubes, Drains, and Vasc Access: [id number] Ultrasound Guidance For Vascular ([id number]) Tubes, Drains, and Vasc Access - Tubes, Drains, and Vasc Access: [id number] Place Catheter In Artery ([id number]) [facility] [place] Codes ([place]) Tubes, Drains, and Vasc Access Procedure 1: Tubes, Drains, and Vasc Access: [id number] Insertion Of Non-tunneled Catheter Age 6 Yrs> Procedure 2: Tubes, Drains, and Vasc Access: [id number] Ultrasound Guidance For Vascular Procedure 3: Tubes, Drains, and Vasc Access: [id number] Place Catheter In Artery
[2020-09-19] MEDS ORDERED: GLYCOPYRROLATE 0.2 MG/ML VIAL IV ONE (17:36)
[2020-09-19] MEDS ORDERED: ROCURONIUM BROMIDE 10 MG/ML 5 ML VIAL IV ONE (18:31)
[2020-09-19] MEDS ORDERED: CISATRACURIUM BESYLATE IV SOLN 2 MG/ML 10 ML VIAL IV STA (18:31)
[2020-09-19] MEDS ORDERED: STAT IV Infusion **Titration per Protocol STA ×2 (18:31→19:51)
[2020-09-19] MEDS ORDERED: fentaNYL citrate 100 MCG/2 ML VIAL ONE (18:33)
--- NOTE | 2020-09-19 19:17 | XRay Report ---
XR chest 1V portable CLINICAL HISTORY: lines COMPARISON STUDY: Chest radiograph September 18, 2020. FINDINGS: The tip of the endotracheal tube is 3.9 cm above the cristina. The tip of the nasogastric tub e is difficult to visualize however the tube may be coiled within the distal esophagus. Right subclav ana [id number] remains in place. Tip of right internal jugular central line projects over the prox imal SVC. There is no pneumothorax. No pleural effusion is identified. Interstitial thickening and bi lateral opacities persist. Right lower lung opacity has increased. Left lung interstitial thickening has slightly decreased. Cardiomegaly is unchanged. Mediastinal contours are stable. There are persist ent bibasilar opacities. IMPRESSION: 1. Tip of endotracheal tube 3.9 cm above the cristina. 2. Nasogastric tube/feeding tube possibly coiled within the distal esophagus. 3. No pneumothorax. 4. Persistent interstitial thickening and bilateral opacities suggestive of pneumonia. ACT 112: Negative or not required by law. Electronically signed by: Bello Sutton M.D. 09/19/2020 7:15 PM
[2020-09-19] MEDS ORDERED: NOREPINEPHRINE/D5W 8 MG/508 ML IV ONE (19:46)
[2020-09-19] MEDS: CISATRACURIUM BESYLATE 40 MG in 0.9 % SODIUM CHLORIDE 80 ML IV SCH (20:09)
[2020-09-19] MEDS: MIDAZOLAM HCL 125 MG/250 ML BAG IV SCH (20:10)
[2020-09-19] MEDS: fentaNYL DRIP 1,250 MCG/250 ML BAG IV SCH (20:16)
[2020-09-19] MEDS: NOREPINEPHRINE/D5W 8 MG/508 ML BAG IV SCH (20:17)
--- NOTE | 2020-09-19 21:43 | Communication Note ---
Date of Service: September 19, 2020 Patient underwent proning at approximately 2030 this evening. I was present the entire time during the proning process. Paralytics were started prior to proning in addition with sedation and patient underwent proning without complication. Compliance and oxygenation improved immediately following proning and able to wean PEEP and FiO2 appropriately. We will follow up with additional ABG. CRITICAL CARE TIME - I have personally spent 20 minutes of critical care time in the direct management of this patient. This is a life/limb threatening event. This includes time spent evaluating patient, direct bedside care, chart review, placing orders, interpretation of diagnostic studies, discussion with consultants, patient, and family members, as well as other required patient management activities. This time is exclusive of all separately billable procedures, and teaching time and separate from and in addition to any other critical care service time. Coding Level of Care Code Critical Care vielka addt'l 30 min
[2020-09-20 00:08] LABS: iSTAT Arterial Blood Gas HCO3 31 meg/L (19-24); iSTAT Arterial Blood Gas pCO2 81 mmHg (35-46); iSTAT Arterial Blood Gas pH 7.18 (7.35-7.45); iSTAT Arterial Blood Gas pO2 66 mmHg (80-95); iSTAT Carbon Dioxide 33 mmol/L (24-31); iSTAT FiO2 60 %; iSTAT Site Art Line
[2020-09-20] MEDS: CISATRACURIUM BESYLATE 40 MG in 0.9 % SODIUM CHLORIDE 80 ML IV SCH ×3 (01:28→13:04)
[2020-09-20] MEDS: fentaNYL DRIP 1,250 MCG/250 ML BAG IV SCH ×5 (01:28→23:43)
[2020-09-20] MEDS ORDERED: PROPOFOL BOLUS FROM BAG IV PRN (01:41)
[2020-09-20] MEDS ORDERED: STAT IV Infusion **Titration per Protocol STA (01:41)
[2020-09-20] MEDS: propofoL 1,000 MG/100 ML VIAL IV SCH ×3 (02:45→17:49)
[2020-09-20] MEDS: ACETAMINOPHEN 1,000 MG/100 ML VIAL IV PRN (03:59)
[2020-09-20 05:22] LABS: iSTAT Allen Test Pass; iSTAT Arterial Blood Gas HCO3 29 meg/L (19-24); iSTAT Arterial Blood Gas pCO2 59 mmHg (35-46); iSTAT Arterial Blood Gas pO2 69 mmHg (80-95); iSTAT Carbon Dioxide 31 mmol/L (24-31); iSTAT FiO2 60 %; iSTAT Site Art Line
[2020-09-20 06:15] LABS: Basophils # (auto) 0.01 K/uL (0-0.2); Basophils % (auto) 0.1 %; Hematocrit (blood only) 38.5 % (37-47); Immature Granulocytes # (auto) 0.08 K/uL (0.00-0.02); Immature Granulocytes % (auto) 0.8 %; Lymphocytes # (auto) 0.57 K/uL (1.2-3.4); Mean Corpuscular Hemoglobin 27.9 pg (25-34); Mean Corpuscular Hgb Conc 31.2 g/dL (32-36); Mean Corpuscular Volume 89.5 fL (80-100); Mean Platelet Volume 10.8 fL (7.4-10.4); Monocytes # (auto) 0.15 K/uL (0.11-0.59); Monocytes % (auto) 1.6 %; Neutrophils # (auto) 8.75 K/uL (1.4-6.5); Neutrophils % (auto) 91.5 %; Platelet Count 190 K/uL (130-400); RDW Coefficient of Variation 16.7 % (11.5-14.5); RDW Standard Deviation 55.3 fL (36.4-46.3); White Blood Count 9.56 K/uL (4.8-10.8)
[2020-09-20 07:20] LABS: BUN Creatinine Ratio 33.8 (10-20); C Reactive Protein 16.3 mg/dl (0-0.29); Calcium 6.9 mg/dl (8.5-10.1); Creatinine Clr Calc Pharmacy 91.5 ml/min; Est GFR (African American) 94.3; Est GFR (Non-African American) 81.3; Magnesium 1.7 mg/dl (1.8-2.4); Phosphorus 3.4 mg/dl (2.5-4.9); Potassium 3.2 mmol/L (3.5-5.1)
[2020-09-20] MEDS: INSULIN ASPART 100 UNITS/ML 3 ML PEN SC SCH ×4 (07:26→23:29)
[2020-09-20] MEDS ORDERED: Nursing to Pharmacy Communication SCH (07:30)
[2020-09-20] MEDS: ENOXAPARIN INJ 40 MG/0.4 ML SYR SQ SCH ×2 (08:15→19:34)
--- NOTE | 2020-09-20 08:27 | XRay Report ---
XR chest 1V portable CLINICAL HISTORY: f/u COMPARISON STUDY: Chest radiograph September 19, 2020. FINDINGS: Tip of endotracheal tube is 4.6 cm above the cristina. Right subclavian Pojair-b-Sfkr remains in place. Tip of right internal jugular central line projects over the right brachiocephalic vein. T he tip of the nasogastric tube/feeding tube is not well visualized on this exam. Cardiomediastinal si lhouette is stable. There are suspected small bilateral pleural effusions. Interstitial thickening an d bilateral opacities have slightly improved. IMPRESSION: 1. Tip of endotracheal tube 4.6 cm above the cristina. Tip of nasogastric tube/feeding tube is not well visualized on this exam. 2. Bilateral airspace opacities and interstitial thickening, slightly improved since prior exam. The findings favor an infectious process. ACT 112: Negative or not required by law. Electronically signed by: Bello Sutton M.D. 09/20/2020 8:26 AM
[2020-09-20] MEDS: INSULIN GLARGINE SOLOSTAR 100 UNITS/ML 3 ML PEN SQ SCH (09:15)
[2020-09-20] MEDS ORDERED: POTASSIUM CHLORIDE 20 MEQ/15 ML UDC PO ONE ×2 (09:30→14:00)
[2020-09-20] MEDS: MAGNESIUM SULFATE / D5W 1 GM/100 ML BAG IV SCH ×4 (09:52→15:17)
[2020-09-20] MEDS: POTASSIUM CHLORIDE / WTR 20 MEQ/100 ML PLCT IV SCH ×4 (10:41→15:17)
--- NOTE | 2020-09-20 12:07 | Procedure Note ---
Procedure Note Date of Service September 19, 2020 Procedure Date: Noted above Procedure: Endotracheal intubation Pre-procedure Diagnosis: Acute hypoxic respiratory failure in the setting of COVID-19 Post-procedure Diagnosis: same as above Prior to Procedure: Informed Consent: The risks, benefits, indications, potential complications, and alternatives were explained to the patient and informed consent obtained. Consent was verbally obtained, this was secondary to COVID-19 positivity in the COVID-19 pandemic Attending Staff: Annita Hinojosa DO The identity of the patient was confirmed and a bedside time out was performed. Description of Procedure: Patient was evaluated and required intubation for impending respiratory failure. The patient was prepared in the usual fashion. A bronchoscope was used. A 8.0 mm inner diameter endotrachial tube was placed endotracheally to 23 cm at the teeth. A grade 1 view was obtained. The endotracheal tube was noted to pass through the vocal cords. Chest rise was bilateral. Bilateral breath sounds were heard without air sounds in the abdomen. Mist was noted in the endotracheal tube. End-tidal CO2 measurement was positive. Chest x-ray shows proper endotracheal tube placement. Complications: Small abrasion to the upper left lateral lip no suturing required Findings: Not applicable Specimens: Not applicable Estimated blood loss: Zero Coding CPT Codes Resuscitation - Resuscitation: [id number] Endotracheal Intubation, emergency ([id number]) [facility] [place] Procedure Codes (Charges) Resuscitation Resuscitation: 15098 Endotracheal Intubation, emergency
--- NOTE | 2020-09-20 12:08 | Critical Care Progress Note ---
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 -Receiving small amount of calories from propofol DVT prophylaxis: 40 mg Lovenox twice daily Endocrine: ICU hyperglycemia protocol Vascular access: Right subclavian placed 09/19, left radial arterial line 09/19 Code Status: Full code Disposition: ICU (3) Morbid obesity: (4) COVID-19 virus infection: Admission and Anticipated Discharge Date Admission Date: September 11, 2020 Supervising Physician Co-Signing Physician Notes I have personally spent 65 minutes of critical care time in the direct management of this patient. This is a life/limb threatening event. This includes time spent evaluating patient, direct bedside care, chart review, placing orders, interpretation of diagnostic studies, discussion with consultants, patient, and/or family members regarding treatment decisions, as well as other required patient management activities. This time is exclusive of all separately billable procedures, and teaching time and separate from and in addition to any other critical care service time. Subjective Overnight patient was successfully proned. Review of Systems Review of Systems: Unobtainable due to endotracheal tube Physical Exam Physical Exam: General: 3 TP. nontoxic. Skin: Warm, dry, Head: Atraumatic Ears, nose, mouth and throat: airway obscured by endotracheal tube Cardiovascular: Normal peripheral perfusion Respiratory: no respiratory distress Gastrointestinal: Non distended Musculoskeletal: No deformity Results & Data Results & Data ([facility]) Vital Signs (Past 12 Hours) Vital Signs Temp Pulse Resp BP Pulse Ox 09/20/20 11:52 73 130/50 L 09/20/20 11:50 73 91 09/20/20 11:46 73 09/20/20 11:45 73 127/58 L 90 09/20/20 11:40 73 85 L 09/20/20 11:31 72 09/20/20 11:30 71 116/54 L 09/20/20 11:20 72 09/20/20 11:15 73 114/55 L 94 09/20/20 11:10 73 09/20/20 11:01 74 93 09/20/20 11:00 74 134/61 91 09/20/20 10:50 72 94 09/20/20 10:45 70 109/48 L 94 09/20/20 10:40 70 93 09/20/20 10:33 81 09/20/20 10:30 70 106/50 L 93 09/20/20 10:20 72 93 09/20/20 10:15 71 110/50 L 93 09/20/20 10:10 70 93 09/20/20 10:00 70 103/49 L 92 09/20/20 09:50 70 92 09/20/20 09:45 74 114/57 L 93 09/20/20 09:40 74 92 09/20/20 09:31 75 92 09/20/20 09:30 75 115/57 L 91 09/20/20 09:20 75 91 09/20/20 09:15 75 112/53 L 09/20/20 09:10 75 09/20/20 09:01 75 98 09/20/20 09:00 76 28 H 111/57 L 98 09/20/20 08:50 75 97 09/20/20 08:46 75 97 09/20/20 08:45 75 106/55 L 97 09/20/20 08:40 74 97 09/20/20 08:31 76 95 09/20/20 08:30 75 111/52 L 95 09/20/20 08:20 75 93 09/20/20 08:15 75 100/55 L 94 09/20/20 08:10 75 98 09/20/20 08:00 77 107/54 L 91 09/20/20 07:50 78 90 09/20/20 07:46 77 90 09/20/20 07:45 76 105/54 L 90 09/20/20 07:40 78 90 09/20/20 07:32 76 28 H 92 09/20/20 07:31 79 90 09/20/20 07:30 78 107/55 L 90 09/20/20 07:20 78 97 09/20/20 07:15 79 107/54 L 95 09/20/20 07:10 78 95 09/20/20 07:01 79 95 09/20/20 07:00 79 109/60 96 09/20/20 06:50 78 96 09/20/20 06:45 80 111/56 L 95 09/20/20 06:40 80 95 09/20/20 06:31 81 95 09/20/20 06:30 81 107/56 L 95 09/20/20 06:20 80 97 09/20/20 06:15 80 109/58 L 94 09/20/20 06:10 81 94 09/20/20 06:00 37.3 C 81 114/53 L 94 09/20/20 05:45 82 113/62 98 09/20/20 05:30 84 106/60 94 09/20/20 05:15 85 117/59 L 94 09/20/20 05:01 84 93 09/20/20 05:00 84 28 H 104/52 L 93 09/20/20 04:45 85 28 H 104/47 L 09/20/20 04:30 88 28 H 90/43 L 09/20/20 04:29 88 29 H 09/20/20 04:15 88 28 H 94/53 L 09/20/20 04:01 89 28 H 09/20/20 04:00 38.5 C H 88 28 H 94/46 L 09/20/20 03:45 92 H 28 H 104/51 L 09/20/20 03:39 93 H 28 H 99/52 L 09/20/20 03:30 92 H 28 H 90/51 L 09/20/20 03:15 98 H 28 H 129/56 L 92 09/20/20 03:00 37.8 C H 98 H 28 H 132/57 L 92 09/20/20 02:45 100 H 28 H 133/57 L 93 09/20/20 02:31 100 H 28 H 130/61 90 09/20/20 02:15 103 H 28 H 165/68 H 94 09/20/20 02:00 102 H 28 H 150/65 H 93 09/20/20 01:45 103 H 28 H 165/67 H 93 09/20/20 01:30 103 H 20 151/68 H 93 09/20/20 01:15 102 H 20 150/63 H 94 09/20/20 01:01 102 H 20 09/20/20 01:00 101 H 149/63 H 09/20/20 00:45 101 H 133/57 L 09/20/20 00:31 100 H 140/59 L 09/20/20 00:15 102 H 124/56 L 91 Laboratory Results 09/20/20 09/20/20 09/20/20 Range/Units 12:02 05:38 05:38 WBC 9.56 (4.8-10.8) K/uL RBC 4.30 (4.2-5.4) M/uL Hgb 12.0 (12.0-16.0) g/dL Hct 38.5 (37-47) % MCV 89.5 (80-100) fL MCH 27.9 (25-34) pg MCHC 31.2 L (32-36) g/dL RDW Std Deviation 55.3 H (36.4-46.3) fL RDW Coeff of Obey 16.7 H (11.5-14.5) % Plt Count 190 (130-400) K/uL MPV 10.8 H (7.4-10.4) fL Immature Gran % (Auto) 0.8 % Neut % (Auto) 91.5 % Lymph % (Auto) 6.0 % [place] % (Auto) 1.6 % Eos % (Auto) 0.0 % Baso % (Auto) 0.1 % Neut # (Auto) 8.75 H (1.4-6.5) K/uL Lymph # (Auto) 0.57 L (1.2-3.4) K/uL [place] # (Auto) 0.15 (0.11-0.59) K/uL Eos # (Auto) 0.00 (0-0.5) K/uL Baso # (Auto) 0.01 (0-0.2) K/uL Immature Gran # (Auto) 0.08 H (0.00-0.02) K/uL Sample Site POC pH (7.35-7.45) POC pCO2 (35-46) mmHg POC pO2 (80-95) mmHg POC HCO3 (19-24) tyson/L POC Total CO2 (24-31) mmol/L POC Base Excess (-9-1.8) tyson/L POC ABG O2 Sat (90-95) % Rah Test O2 Delivery Device POC O2 Rate Minute Ventilation POC FiO2 % Tidal Volume PEEP Sodium 142 D (136-145) mmol/L Potassium 3.2 L (3.5-5.1) mmol/L Chloride 110 H (98-107) mmol/L Carbon Dioxide 25 (21-32) mmol/L Anion Gap 7.0 (3-11) BUN 25 H (7-18) mg/dl Creatinine 0.75 D (0.6-1.2) mg/dl Est Cr Clr Drug Dosing 91.5 ml/min Est GFR ( Amer) 94.3 Est GFR (Non-Af Amer) 81.3 BUN/Creatinine Ratio 33.8 H (10-20) Glucose 112 H (70-99) mg/dl POC Glucose 138 H (70-99) mg/dl Calcium 6.9 L D (8.5-10.1) mg/dl Phosphorus 3.4 (2.5-4.9) mg/dl Magnesium 1.7 L (1.8-2.4) mg/dl C-Reactive Protein 16.30 H (0-0.29) mg/dl 09/20/20 09/19/20 09/19/20 Range/Units 05:01 23:53 21:42 WBC (4.8-10.8) K/uL RBC (4.2-5.4) M/uL Hgb (12.0-16.0) g/dL Hct (37-47) % MCV (80-100) fL MCH (25-34) pg MCHC (32-36) g/dL RDW Std Deviation (36.4-46.3) fL RDW Coeff of Obey (11.5-14.5) % Plt Count (130-400) K/uL MPV (7.4-10.4) fL Immature Gran % (Auto) % Neut % (Auto) % Lymph % (Auto) % [place] % (Auto) % Eos % (Auto) % Baso % (Auto) % Neut # (Auto) (1.4-6.5) K/uL Lymph # (Auto) (1.2-3.4) K/uL [place] # (Auto) (0.11-0.59) K/uL Eos # (Auto) (0-0.5) K/uL Baso # (Auto) (0-0.2) K/uL Immature Gran # (Auto) (0.00-0.02) K/uL Sample Site Art Line Art Line POC pH 7.30 L 7.18 L* (7.35-7.45) POC pCO2 59 H 81 H (35-46) mmHg POC pO2 69 L 66 L (80-95) mmHg POC HCO3 29 H 31 H (19-24) tyson/L POC Total CO2 31 33 H (24-31) mmol/L POC Base Excess 2.0 H 2.0 H (-9-1.8) tyson/L POC ABG O2 Sat 91.0 86.0 L (90-95) % Rah Test Pass NA O2 Delivery Device Ventilator Ventilator POC O2 Rate 28 20 Minute Ventilation 10.1 7.2 POC FiO2 60 60 % Tidal Volume 360 360 PEEP 14 14 Sodium (136-145) mmol/L Potassium (3.5-5.1) mmol/L Chloride (98-107) mmol/L Carbon Dioxide (21-32) mmol/L Anion Gap (3-11) BUN (7-18) mg/dl Creatinine (0.6-1.2) mg/dl Est Cr Clr Drug Dosing ml/min Est GFR ( Amer) Est GFR (Non-Af Amer) BUN/Creatinine Ratio (10-20) Glucose (70-99) mg/dl POC Glucose 201 H (70-99) mg/dl Calcium (8.5-10.1) mg/dl Phosphorus (2.5-4.9) mg/dl Magnesium (1.8-2.4) mg/dl C-Reactive Protein (0-0.29) mg/dl 09/19/20 Range/Units 16:20 WBC (4.8-10.8) K/uL RBC (4.2-5.4) M/uL Hgb (12.0-16.0) g/dL Hct (37-47) % MCV (80-100) fL MCH (25-34) pg MCHC (32-36) g/dL RDW Std Deviation (36.4-46.3) fL RDW Coeff of Obey (11.5-14.5) % Plt Count (130-400) K/uL MPV (7.4-10.4) fL Immature Gran % (Auto) % Neut % (Auto) % Lymph % (Auto) % [place] % (Auto) % Eos % (Auto) % Baso % (Auto) % Neut # (Auto) (1.4-6.5) K/uL Lymph # (Auto) (1.2-3.4) K/uL [place] # (Auto) (0.11-0.59) K/uL Eos # (Auto) (0-0.5) K/uL Baso # (Auto) (0-0.2) K/uL Immature Gran # (Auto) (0.00-0.02) K/uL Sample Site POC pH (7.35-7.45) POC pCO2 (35-46) mmHg POC pO2 (80-95) mmHg POC HCO3 (19-24) tyson/L POC Total CO2 (24-31) mmol/L POC Base Excess (-9-1.8) tyson/L POC ABG O2 Sat (90-95) % Rah Test O2 Delivery Device POC O2 Rate Minute Ventilation POC FiO2 % Tidal Volume PEEP Sodium (136-145) mmol/L Potassium (3.5-5.1) mmol/L Chloride (98-107) mmol/L Carbon Dioxide (21-32) mmol/L Anion Gap (3-11) BUN (7-18) mg/dl Creatinine (0.6-1.2) mg/dl Est Cr Clr Drug Dosing ml/min Est GFR ( Amer) Est GFR (Non-Af Amer) BUN/Creatinine Ratio (10-20) Glucose (70-99) mg/dl POC Glucose 185 H (70-99) mg/dl Calcium (8.5-10.1) mg/dl Phosphorus (2.5-4.9) mg/dl Magnesium (1.8-2.4) mg/dl C-Reactive Protein (0-0.29) mg/dl Coding Level of Care Code Critical Care 1st 30-74 mins Diagnoses Obesity hypoventilation syndrome E66.2 Acute respiratory failure J96.00 Morbid obesity E66.01 COVID-19 virus infection U07.1
[2020-09-20] MEDS: NOREPINEPHRINE/D5W 8 MG/508 ML BAG IV SCH (13:40)
--- NOTE | 2020-09-20 15:36 | Hospitalist Progress Note ---
Date of Service September 20, 2020 Assessment & Plan (1) Acute respiratory failure: Secondary to covid-19 pneumonia. Failed initial BiPAP treatment and required intubation She was intubated by candy forming machine operator and transferred to the ICU. Appreciate candy forming machine operator input and recommendation (2) Pneumonia due to COVID-19 virus: Completed remdesivir, Cont dexamethasone. Mechanical ventilation as above. Lasix PRN (3) Non-traumatic rhabdomyolysis: Was tolerating PO and hydrating reliably before intubation. CK is improved. Cont to monitor volume status while intubated. (4) Opioid dependence: Chronic pain on percocet regularly. Currently sedated and intubated. (5) SAMANTHA (obstructive sleep apnea): Uses home BIPAP at night typically. (6) COPD (chronic obstructive pulmonary disease): chronic, stable, no wheezing on exam. 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 Monitor blood glucose and manage appropriately A1c 7.3 .Still on the steroids. Cont Lantus at 25 Units BID Glucose more under control now. (9) Morbid obesity: (10) DVT prophylaxis: Lovenox Full Code Dispo-transfer to ICU Admission and Anticipated Discharge Date Admission Date: September 11, 2020 Subjective The patient was seen and examined in Covid unit She was admitted with a acute respiratory failure secondary to COVID-19 viral pneumonia and required intubation Remains sedated on vent Review of Systems Review of Systems: Unobtainable due to endotracheal tube Physical Exam Physical Exam: Remains sedated on mechanical ventilator Constitutional: well developed, well nourished, + ill appearing and + morbidly obese ENMT: external ear and nose normal, oropharynx normal Neck: trachea midline, no thyromegaly Respiratory: Auscultation: + diminished lung sounds and + crackles (Bibasilar crackles) Cardiovascular: Rate/Rhythm: regular rate and regular rhythm Heart Sounds: no murmur Extremities: + edema (1+ edema bilaterally) Gastrointestinal (Abdomen): Inspection/Auscultation: normal bowel sounds; abdomen not distended Percussion/Palpation: abdomen soft; abdomen nontender Musculoskeletal: No acute arthritis in any joint Neurologic: Remains sedated Lymphatic: no cervical or axillary lymphadenopathy Results & Data Results & Data ([facility]) Vital Signs (Past 12 Hours) Vital Signs Temp Pulse Resp BP Pulse Ox 09/20/20 15:10 37.2 C 70 09/20/20 15:00 71 123/60 09/20/20 14:50 74 100 09/20/20 14:45 69 116/55 L 100 09/20/20 14:40 69 100 09/20/20 14:30 69 117/51 L 100 09/20/20 14:20 70 100 09/20/20 14:15 70 111/58 L 100 09/20/20 14:10 69 100 09/20/20 14:01 36.8 C 71 100 09/20/20 14:00 71 28 H 115/58 L 97 09/20/20 13:50 73 89 L 09/20/20 13:45 73 114/56 L 89 L 09/20/20 13:40 75 89 L 09/20/20 13:31 73 90 09/20/20 13:30 75 115/60 90 09/20/20 13:20 75 89 L 09/20/20 13:15 74 114/57 L 90 09/20/20 13:10 75 89 L 09/20/20 13:01 74 90 09/20/20 13:00 75 117/59 L 90 09/20/20 12:50 73 90 09/20/20 12:46 75 90 09/20/20 12:45 75 121/59 L 90 09/20/20 12:40 75 90 09/20/20 12:31 75 90 09/20/20 12:30 75 121/55 L 90 09/20/20 12:20 73 93 09/20/20 12:15 73 122/58 L 93 09/20/20 12:10 73 92 09/20/20 12:00 74 118/57 L 91 09/20/20 11:52 73 130/50 L 09/20/20 11:50 73 91 09/20/20 11:46 73 09/20/20 11:45 73 127/58 L 90 09/20/20 11:40 73 85 L 09/20/20 11:31 72 09/20/20 11:30 71 116/54 L 09/20/20 11:20 72 09/20/20 11:15 73 114/55 L 94 09/20/20 11:10 73 09/20/20 11:01 74 93 09/20/20 11:00 74 134/61 91 09/20/20 10:55 71 28 H 94 09/20/20 10:50 72 94 09/20/20 10:45 70 109/48 L 94 09/20/20 10:40 70 93 09/20/20 10:33 81 09/20/20 10:30 70 106/50 L 93 09/20/20 10:20 72 93 09/20/20 10:15 71 110/50 L 93 09/20/20 10:10 70 93 09/20/20 10:00 70 103/49 L 92 09/20/20 09:50 70 92 09/20/20 09:45 74 114/57 L 93 09/20/20 09:40 74 92 09/20/20 09:31 75 92 09/20/20 09:30 75 115/57 L 91 09/20/20 09:20 75 91 09/20/20 09:15 75 112/53 L 09/20/20 09:10 75 09/20/20 09:01 75 98 09/20/20 09:00 76 28 H 111/57 L 98 09/20/20 08:50 75 97 09/20/20 08:46 75 97 09/20/20 08:45 75 106/55 L 97 09/20/20 08:40 74 97 09/20/20 08:31 76 95 09/20/20 08:30 75 111/52 L 95 09/20/20 08:20 75 93 09/20/20 08:15 75 100/55 L 94 09/20/20 08:10 75 98 09/20/20 08:00 77 107/54 L 91 09/20/20 07:50 78 90 09/20/20 07:46 77 90 09/20/20 07:45 76 105/54 L 90 09/20/20 07:40 78 90 09/20/20 07:32 76 28 H 92 09/20/20 07:31 79 90 09/20/20 07:30 78 107/55 L 90 09/20/20 07:20 78 97 09/20/20 07:15 79 107/54 L 95 09/20/20 07:10 78 95 01/06/21 07:01 79 95 09/20/20 07:00 79 109/60 96 09/20/20 06:50 78 96 09/20/20 06:45 80 111/56 L 95 09/20/20 06:40 80 95 09/20/20 06:31 81 95 09/20/20 06:30 81 107/56 L 95 09/20/20 06:20 80 97 09/20/20 06:15 80 109/58 L 94 09/20/20 06:10 81 94 09/20/20 06:00 37.3 C 81 114/53 L 94 09/20/20 05:45 82 113/62 98 09/20/20 05:30 84 106/60 94 09/20/20 05:15 85 117/59 L 94 09/20/20 05:01 84 93 09/20/20 05:00 84 28 H 104/52 L 93 09/20/20 04:45 85 28 H 104/47 L 09/20/20 04:30 88 28 H 90/43 L 09/20/20 04:29 88 29 H 09/20/20 04:15 88 28 H 94/53 L 09/20/20 04:01 89 28 H 09/20/20 04:00 38.5 C H 88 28 H 94/46 L 09/20/20 03:45 92 H 28 H 104/51 L 09/20/20 03:39 93 H 28 H 99/52 L 09/20/20 03:30 92 H 28 H 90/51 L Laboratory Results Short CBC 09/20/20 Range/Units 05:38 WBC 9.56 (4.8-10.8) K/uL Hgb 12.0 (12.0-16.0) g/dL Hct 38.5 (37-47) % Plt Count 190 (130-400) K/uL BMP 09/20/20 05:38 Sodium 142 D Potassium 3.2 L Chloride 110 H Carbon Dioxide 25 BUN 25 H Creatinine 0.75 D Glucose 112 H Calcium 6.9 L D Medications Administered Current Inpatient Medications Enoxaparin Sodium (Enoxaparin Inj 40 Mg/0.4 Ml Syr) 40 mg SQ Q12H ADRIANA Stop: 10/11/20 08:59 Last Admin: 09/20/20 08:15 Dose: 40 mg Documented by: Fentanyl Citrate (Fentanyl Bolus From Bag) 50 mcg IV Q60M PRN PRN Reason: Pain or Agitation Stop: 10/03/20 18:30 Heparin Sodium (Porcine) (Heparin 100 Unit/Ml 5ml Flush) 5 ml FLUSH PRN PRN PRN Reason: Flush Stop: 10/15/20 00:44 Cisatracurium Besylate 40 mg/ (Sodium Chloride) 100 mls @ 10.755 mls/hr IV .Q9H18M [facility]; Protocol Stop: 10/19/20 18:44 Last Admin: 09/20/20 13:04 Dose: 1.5 mcg/kg/min, 10.8 mls/hr Documented by: Midazolam HCl (Versed) 125 mg in 250 mls @ 12 mls/hr IV .[id number] [facility]; Protocol Stop: 10/19/20 18:44 Last Titration: 09/20/20 05:35 Dose: 6 mg/hr, 12 mls/hr Documented by: Fentanyl Citrate (Fentanyl Drip) 1,250 mcg in 250 mls @ 40 mls/hr IV .Q6H15M [facility]; Protocol Stop: 10/03/20 18:44 Last Admin: 09/20/20 12:38 Dose: 200 mcg/hr, 40 mls/hr Documented by: Norepinephrine Bitartrate (Levophed/D5w) 8 mg in 508 mls @ 27.051 mls/hr IV .[id number] [facility]; Protocol Stop: 10/19/20 19:59 Last Admin: 09/20/20 13:40 Dose: Not Given Documented by: Propofol (Diprivan) 1,000 mg in 100 mls @ 4.26 mls/hr IV .[id number] [facility]; Protocol Stop: 09/23/20 01:44 Last Admin: 09/20/20 10:24 Dose: 5 mcg/kg/min, 4.3 mls/hr Documented by: Acetaminophen (Ofirmev) 1,000 mg in 100 mls @ 400 mls/hr IV Q8H PRN PRN Reason: Fever Stop: 09/23/20 03:41 Last Infusion: 09/20/20 04:58 Dose: Infused Documented by: Magnesium Sulfate/Dextrose (Magnesium Sulfate / D5w) 1 gm in 100 mls @ 50 mls/hr IV Q2H [facility] Stop: 09/20/20 17:29 Last Admin: 09/20/20 15:17 Dose: 50 mls/hr Documented by: Potassium Chloride (K Luis / Wtr) 20 meq in 100 mls @ 50 mls/hr IV Q2H [facility] Stop: 09/20/20 18:29 Last Admin: 09/20/20 15:17 Dose: 50 mls/hr Documented by: Insulin Aspart (Insulin Aspart 100 Units/Ml 3 Ml Pen) 0 units SC Q6 [facility] Stop: 10/11/20 07:29 Last Admin: 09/20/20 12:05 Dose: Not Given Documented by: Insulin Glargine (Insulin Glargine Solostar 100 Units/Ml 3 Ml Pen) 25 units SQ BID [facility] Stop: 10/19/20 08:59 Last Admin: 09/20/20 09:15 Dose: Not Given Documented by: Midazolam HCl (Midazolam Bolus From Bag) 2 mg IV Q60M PRN PRN Reason: Sedation Stop: 10/19/20 18:30 Miscellaneous (Icu Electrolyte Replacement Protocol) 1 ea N/A BID@ [facility]; Protocol Stop: 09/27/20 17:59
[2020-09-20] MEDS: MIDAZOLAM HCL 125 MG/250 ML BAG IV SCH (17:20)
[2020-09-20] MEDS: ICU ELECTROLYTE REPLACEMENT PROTOCOL SCH (17:21)
[2020-09-20 22:14] LABS: Creatinine Clr Calc Pharmacy 72.2 ml/min; Est GFR (African American) 70.8; Est GFR (Non-African American) 61.1; Potassium 4.8 mmol/L (3.5-5.1)
[2020-09-21] MEDS: propofoL 1,000 MG/100 ML VIAL IV SCH ×4 (01:44→23:18)
[2020-09-21] MEDS: MIDAZOLAM HCL 125 MG/250 ML BAG IV SCH (03:04)
[2020-09-21 04:14] LABS: iSTAT Arterial Blood Gas HCO3 25 meg/L (19-24); iSTAT Arterial Blood Gas pCO2 58 mmHg (35-46); iSTAT Arterial Blood Gas pH 7.25 (7.35-7.45); iSTAT Arterial Blood Gas pO2 78 mmHg (80-95); iSTAT Carbon Dioxide 27 mmol/L (24-31); iSTAT FiO2 60 %; iSTAT Site Art Line
[2020-09-21] MEDS: INSULIN ASPART 100 UNITS/ML 3 ML PEN SC SCH ×3 (05:59→17:56)
[2020-09-21] MEDS: fentaNYL DRIP 1,250 MCG/250 ML BAG IV SCH ×3 (06:15→18:45)
[2020-09-21 06:22] LABS: Basophils # (auto) 0.03 K/uL (0-0.2); Basophils % (auto) 0.3 %; Eosinophils # (auto) 0.05 K/uL (0-0.5); Eosinophils % (auto) 0.4 %; Hemoglobin 12.9 g/dL (12.0-16.0); Immature Granulocytes % (auto) 0.9 %; Lymphocytes # (auto) 0.51 K/uL (1.2-3.4); Lymphocytes % (auto) 4.4 %; Mean Corpuscular Hgb Conc 30.7 g/dL (32-36); Mean Corpuscular Volume 91.3 fL (80-100); Mean Platelet Volume 10.3 fL (7.4-10.4); Monocytes # (auto) 0.35 K/uL (0.11-0.59); Neutrophils # (auto) 10.58 K/uL (1.4-6.5); Platelet Count 166 K/uL (130-400); RDW Standard Deviation 56.5 fL (36.4-46.3); White Blood Count 11.62 K/uL (4.8-10.8)
[2020-09-21] MEDS: CISATRACURIUM BESYLATE 40 MG in 0.9 % SODIUM CHLORIDE 80 ML IV SCH ×3 (06:36→21:02)
[2020-09-21 06:54] LABS: BUN Creatinine Ratio 34.9 (10-20); Calcium 8.7 mg/dl (8.5-10.1); Est GFR (African American) 68.2; Est GFR (Non-African American) 58.9; Magnesium 2.9 mg/dl (1.8-2.4); Potassium 4.4 mmol/L (3.5-5.1)
[2020-09-21] MEDS: ICU ELECTROLYTE REPLACEMENT PROTOCOL SCH ×2 (06:57→17:44)
[2020-09-21] MEDS: ENOXAPARIN INJ 40 MG/0.4 ML SYR SQ SCH ×2 (07:51→20:26)
--- NOTE | 2020-09-21 08:08 | XRay Report ---
KUB HISTORY: Status post placement of a feeding tube core safe placement COMPARISON: Chest radiograph of same day, CT abdomen and pelvis 11/30/2018 FINDINGS: Bilateral airspace opacities are noted within the imaged lung rangel. The left lateral and lower abdomen are excluded from the [id number]. Cholecystectomy. Bowel gas pattern appears nonobst ructive. No pneumatosis or pneumoperitoneum. There is a feeding tube present with distal tip projecte d superiorly within the region of the gastric fundus. Degenerative changes of the spine. Partially im aged right pectoral Ebntmk-o-Fqik catheter. IMPRESSION: Distal tip of feeding tube projects superiorly in the expected location of the gastric fundus. ACT 112: Negative or not required by law. The above report was generated using voice recognition software. It may contain grammatical, syntax o r spelling errors. Electronically signed by: Rajeev Walter M.D. 09/21/2020 8:07 AM
--- NOTE | 2020-09-21 08:36 | XRay Report ---
XR chest 1V portable CLINICAL HISTORY: Respiratory failure COMPARISON STUDY: No previous studies for comparison. FINDINGS: The study is limited secondary to the patient's large body habitus. There is a right nutrition internship al jugular central venous catheter. There is an endotracheal tube positioned 4 cm above the cristina. T here is an enteric tube which passes into the stomach. There is diffuse bilateral interstitial thicke juanita with areas of groundglass attenuation. The findings are stable to perhaps slightly progressive.[ There is a possible subpulmonic right pleural effusion. IMPRESSION: 1. Satisfactory positioning of the lines and tubes 2. Diffuse interstitial and groundglass parenchymal opacities stable to perhaps minimally progressive when compared the prior study ACT 112: Negative or not required by law. Electronically signed by: Art Guerrero M.D. 09/21/2020 8:34 AM
--- NOTE | 2020-09-21 09:25 | Critical Care Progress Note ---
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 -Receiving small amount of calories from propofol DVT prophylaxis: 40 mg Lovenox twice daily Endocrine: ICU hyperglycemia protocol Vascular access: Right subclavian placed 09/19, left radial arterial line 09/19 Code Status: Full code Disposition: ICU (3) Morbid obesity: (4) COVID-19 virus infection: Admission and Anticipated Discharge Date Admission Date: September 11, 2020 Supervising Physician Co-Signing Physician Notes I was present and assisted with the pronating process. Patient tolerated the pronating movement. Patient was discussed in multidisciplinary rounds I have personally spent 60 minutes of critical care time in the direct management of this patient. This is a life/limb threatening event. This includes time spent evaluating patient, direct bedside care, chart review, placing orders, interpretation of diagnostic studies, discussion with cons ultants, patient, and/or family members regarding treatment decisions, as well as other required patient management activities. This time is exclusive of all separately billable procedures, and teaching time and separate from and in addition to any other critical care service time. Subjective No overnight events patient was returned to prone position overnight Review of Systems Review of Systems: Unobtainable due to endotracheal tube Physical Exam 2 Physical Exam: General: 3 TP. nontoxic. Skin: Warm, dry, Head: Atraumatic Ears, nose, mouth and throat: airway obscured by endotracheal tube Cardiovascular: Normal peripheral perfusion Respiratory: no respiratory distress Gastrointestinal: Non distended Musculoskeletal: No deformity Results & Data Results & Data ([facility]) Vital Signs (Past 12 Hours) Vital Signs Temp Pulse Resp BP Pulse Ox 09/21/20 08:30 37.2 C 82 128/76 91 09/21/20 08:28 81 34 H 90 09/21/20 08:15 37.1 C 81 153/70 H 90 09/21/20 08:00 37.1 C 81 124/71 89 L 09/21/20 07:45 37.1 C 82 138/78 89 L 09/21/20 07:30 37.0 C 78 120/66 09/21/20 07:15 37.0 C 78 125/68 92 09/21/20 07:01 37.0 C 80 93 09/21/20 07:00 36.9 C 79 126/69 92 09/21/20 06:00 36.9 C 84 34 H 151/81 H 93 09/21/20 05:46 36.8 C 82 3 L 144/82 H 92 09/21/20 05:30 36.9 C 77 34 H 113/59 L 90 09/21/20 05:15 36.9 C 80 34 H 119/64 90 09/21/20 05:00 36.8 C 81 120/61 92 09/21/20 04:45 36.8 C 82 139/63 92 09/21/20 04:30 36.9 C 82 28 H 133/67 91 09/21/20 04:15 36.9 C 85 122/69 92 09/21/20 04:01 34 H 09/21/20 04:00 36.9 C 90 135/75 95 09/21/20 03:49 90 28 H 96 09/21/20 03:45 36.9 C 91 H 151/78 H 96 09/21/20 03:30 37.0 C 90 153/70 H 95 09/21/20 03:17 37.0 C 91 H 28 H 144/71 H 96 09/21/20 03:00 37.1 C 91 H 95 09/21/20 02:45 37.1 C 92 H 141/69 H 96 09/21/20 02:30 37.2 C 93 H 147/66 H 96 09/21/20 02:15 37.2 C 94 H 28 H 147/72 H 96 09/21/20 02:01 37.2 C 94 H 28 H 147/78 H 96 09/21/20 02:00 37.2 C 94 H 28 H 95 09/21/20 01:45 37.3 C 94 H 28 H 109/57 L 93 09/21/20 01:30 37.3 C 99 H 28 H 157/78 H 95 09/21/20 01:15 37.3 C 98 H 28 H 166/76 H 95 09/21/20 01:00 37.3 C 99 H 28 H 148/80 H 95 09/21/20 00:46 37.3 C 99 H 28 H 151/72 H 95 09/21/20 00:30 37.4 C 100 H 28 H 132/66 94 09/21/20 00:15 37.4 C 102 H 28 H 167/79 H 95 09/21/20 00:00 37.4 C 102 H 189/82 H 94 09/20/20 23:45 37.5 C 100 H 171/74 H 94 09/20/20 23:40 37.6 C H 102 H 156/74 H 94 09/20/20 23:30 37.6 C H 103 H 191/80 H 94 09/20/20 23:15 37.7 C H 101 H 169/87 H 94 09/20/20 23:00 37.8 C H 99 H 176/78 H 95 09/20/20 22:52 98 H 28 H 98 09/20/20 22:15 102 H 171/80 H 94 09/20/20 22:13 106 H 187/99 H 93 09/20/20 22:10 108 H 97 09/20/20 21:50 98 H 94 09/20/20 21:45 98 H 133/70 95 09/20/20 21:40 97 H 95 09/20/20 21:31 99 H 141/76 H 96 09/20/20 21:30 98 H 94 Coding Level of Care Code Critical Care 1st 30-74 mins Diagnoses Obesity hypoventilation syndrome E66.2 Acute respiratory failure J96.00 Morbid obesity E66.01 COVID-19 virus infection U07.1
[2020-09-21] MEDS: ARTIFICIAL TEARS OP OINT 3.5 GM TUBE OP SCH ×3 (12:09→20:25)
--- NOTE | 2020-09-21 15:41 | Hospitalist Progress Note ---
Date of Service September 21, 2020 Assessment & Plan (1) Acute respiratory failure: Secondary to covid-19 pneumonia. Failed initial BiPAP treatment and required intubation She was intubated by finance admin and transferred to the ICU. Appreciate finance admin input and recommendation Remains intubated and sedated (2) Pneumonia due to COVID-19 virus: Completed remdesivir, Cont dexamethasone-course completed. echanical ventilation as above. Lasix PRN (3) Non-traumatic rhabdomyolysis: Was tolerating PO and hydrating reliably before intubation. CK is improved. Cont to monitor volume status while intubated. (4) Opioid dependence: Chronic pain on percocet regularly. Currently sedated and intubated. (5) SAMANTHA (obstructive sleep apnea): Uses home BIPAP at night typically. Now intubated (6) COPD (chronic obstructive pulmonary disease): chronic, stable, no wheezing on exam. 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 Monitor blood glucose and manage appropriately A1c 7.3 .Still on the steroids. Cont Lantus at 25 Units BID Glucose more under control now. (9) Morbid obesity: (10) DVT prophylaxis: Lovenox Full Code Dispo-transfer to ICU Admission and Anticipated Discharge Date Admission Date: September 11, 2020 Subjective The patient was seen and examined in Covid unit She was admitted with a acute respiratory failure secondary to COVID-19 viral pneumonia and required intubation Remains sedated on vent 09/21/2020 The patient was seen and examined in Covid unit She remains intubated and sedated Review of Systems Review of Systems: Unobtainable due to endotracheal tube Physical Exam Physical Exam: Remains sedated on mechanical ventilator Constitutional: well developed, well nourished, + ill appearing and + morbidly obese ENMT: external ear and nose normal, oropharynx normal Neck: trachea midline, no thyromegaly Respiratory: Auscultation: + diminished lung sounds and + crackles (Bibasilar crackles) Cardiovascular: Rate/Rhythm: regular rate and regular rhythm Heart Sounds: no murmur Extremities: + edema (1+ edema bilaterally) Gastrointestinal (Abdomen): Inspection/Auscultation: normal bowel sounds; abdomen not distended Percussion/Palpation: abdomen soft; abdomen nontender Neurologic: Remains sedated Lymphatic: no cervical or axillary lymphadenopathy Results & Data Results & Data ([facility]) Vital Signs (Past 12 Hours) Vital Signs Temp Pulse Resp BP Pulse Ox 09/21/20 14:45 37.7 C H 98 H 160/65 H 91 09/21/20 14:30 37.7 C H 98 H 157/74 H 91 09/21/20 14:15 37.7 C H 97 H 150/74 H 92 09/21/20 14:01 37.6 C H 96 H 92 09/21/20 14:00 37.6 C H 96 H 130/103 H 91 09/21/20 13:45 37.6 C H 96 H 148/75 H 93 09/21/20 13:30 37.6 C H 96 H 143/77 H 92 09/21/20 13:15 37.6 C H 95 H 149/73 H 91 09/21/20 13:01 37.6 C H 96 H 92 09/21/20 13:00 37.6 C H 94 H 161/70 H 93 09/21/20 12:45 37.6 C H 93 H 157/71 H 93 09/21/20 12:30 37.6 C H 93 H 135/75 92 09/21/20 12:15 37.5 C 91 H 149/73 H 92 09/21/20 12:00 37.5 C 91 H 141/70 H 92 09/21/20 11:45 37.5 C 91 H 145/68 H 92 09/21/20 11:30 37.5 C 88 134/56 L 92 09/21/20 11:15 37.5 C 88 130/74 91 09/21/20 11:00 37.5 C 86 122/68 91 09/21/20 10:45 37.5 C 87 118/58 L 90 09/21/20 10:30 37.5 C 90 149/57 H 88 L 09/21/20 10:28 90 32 H 88 L 09/21/20 10:15 37.4 C 86 146/73 H 91 09/21/20 10:00 37.4 C 86 150/78 H 91 09/21/20 09:45 37.4 C 84 147/83 H 90 09/21/20 09:30 37.3 C 84 152/74 H 92 09/21/20 09:15 37.3 C 84 147/74 H 91 09/21/20 09:00 37.2 C 82 141/81 H 91 09/21/20 08:45 37.2 C 81 138/78 90 09/21/20 08:30 37.2 C 82 128/76 91 09/21/20 08:28 81 34 H 90 09/21/20 08:15 37.1 C 81 153/70 H 90 09/21/20 08:00 37.1 C 81 124/71 89 L 09/21/20 07:45 37.1 C 82 138/78 89 L 09/21/20 07:30 37.0 C 78 120/66 09/21/20 07:15 37.0 C 78 125/68 92 09/21/20 07:01 37.0 C 80 93 09/21/20 07:00 36.9 C 79 126/69 92 09/21/20 06:00 36.9 C 84 34 H 151/81 H 93 09/21/20 05:46 36.8 C 82 3 L 144/82 H 92 09/21/20 05:30 36.9 C 77 34 H 113/59 L 90 09/21/20 05:15 36.9 C 80 34 H 119/64 90 09/21/20 05:00 36.8 C 81 120/61 92 09/21/20 04:45 36.8 C 82 139/63 92 09/21/20 04:30 36.9 C 82 28 H 133/67 91 09/21/20 04:15 36.9 C 85 122/69 92 09/21/20 04:01 34 H 09/21/20 04:00 36.9 C 90 135/75 95 09/21/20 03:49 90 28 H 96 09/21/20 03:45 36.9 C 91 H 151/78 H 96 Laboratory Results Short CBC 09/21/20 Range/Units 05:47 WBC 11.62 H (4.8-10.8) K/uL Hgb 12.9 (12.0-16.0) g/dL Hct 42.0 (37-47) % Plt Count 166 (130-400) K/uL BMP 09/20/20 09/21/20 21:37 05:47 Sodium 135 L 136 Potassium 4.8 D 4.4 Chloride 103 104 Carbon Dioxide 27 26 BUN 32 H 34 H Creatinine 0.95 0.98 Glucose 177 H Calcium 9.0 D 8.7 Medications Administered Current Inpatient Medications Enoxaparin Sodium (Enoxaparin Inj 40 Mg/0.4 Ml Syr) 40 mg SQ Q12H ADRIANA Stop: 10/11/20 08:59 Last Admin: 09/21/20 07:51 Dose: 40 mg Documented by: Fentanyl Citrate (Fentanyl Bolus From Bag) 50 mcg IV Q60M PRN PRN Reason: Pain or Agitation Stop: 10/03/20 18:30 Heparin Sodium (Porcine) (Heparin 100 Unit/Ml 5ml Flush) 5 ml FLUSH PRN PRN PRN Reason: Flush Stop: 10/15/20 00:44 Cisatracurium Besylate 40 mg/ (Sodium Chloride) 100 mls @ 10.755 mls/hr IV .Q9H18M [facility]; Protocol Stop: 09/22/20 18:44 Last Admin: 09/21/20 12:53 Dose: 1.51 mcg/kg/min, 10.8 mls/hr Documented by: Midazolam HCl (Versed) 125 mg in 250 mls @ 12 mls/hr IV .[id number] ADRIANA; Protocol Stop: 10/19/20 18:44 Last Admin: 09/21/20 03:04 Dose: 6 mg/hr, 12 mls/hr Documented by: Fentanyl Citrate (Fentanyl Drip) 1,250 mcg in 250 mls @ 40 mls/hr IV .Q6H15M [facility]; Protocol Stop: 10/03/20 18:44 Last Admin: 09/21/20 12:09 Dose: 200 mcg/hr, 40 mls/hr Documented by: Propofol (Diprivan) 1,000 mg in 100 mls @ 4.26 mls/hr IV .[id number] [facility]; Protocol Stop: 09/23/20 01:44 Last Titration: 09/21/20 06:36 Dose: 5 mcg/kg/min, 4.3 mls/hr Documented by: Acetaminophen (Ofirmev) 1,000 mg in 100 mls @ 400 mls/hr IV Q8H PRN PRN Reason: Fever Stop: 09/23/20 03:41 Last Infusion: 09/20/20 04:58 Dose: Infused Documented by: Famotidine 20 mg/ Syringe 5 mls @ 2.5 mls/min IV Q12H [facility] Stop: 10/21/20 19:59 Insulin Aspart (Insulin Aspart 100 Units/Ml 3 Ml Pen) 0 units SC Q6 [facility] Stop: 10/11/20 07:29 Last Admin: 09/21/20 11:54 Dose: Not Given Documented by: Insulin Glargine (Insulin Glargine Solostar 100 Units/Ml 3 Ml Pen) 25 units SQ BID [facility] Stop: 10/19/20 08:59 Last Admin: 09/20/20 09:15 Dose: Not Given Documented by: Midazolam HCl (Midazolam Bolus From Bag) 2 mg IV Q60M PRN PRN Reason: Sedation Stop: 10/19/20 18:30 Miscellaneous (Icu Electrolyte Replacement Protocol) 1 ea N/A BID@06,18 [facility]; Protocol Stop: 09/27/20 17:59 Last Admin: 09/21/20 06:57 Dose: Not Given Documented by: Multi-Ingredient Cream (Artificial Tears Op Oint 3.5 Gm Tube) 1 appln OP Q4 [facility] Stop: 10/21/20 11:59 Last Admin: 09/21/20 12:09 Dose: 1 appln Documented by:
[2020-09-21] MEDS: FAMOTIDINE 20 MG in SYRINGE 3 ML IV SCH (20:26)
--- NOTE | 2020-09-21 22:15 | Communication Note ---
Date of Service: September 21, 2020 Procedure: Pronation Maneuver Attending: Dr. Hinojosa APC: Constantine Lynn PA-C Indication: Requiring lung recruitment intervention in the setting of advanced ARDS with poor lung compliance and oxygenation on standard ventilator settings. Patient requiring pronation in the setting of advanced ARDS per imaging, ventilator requirements, and calculated P:F ratio. Appropriate staff was assembled including myself, Respiratory Therapy, and Nursing Staff. A time-out was completed verifying correct patient, time from recent pronation/supination, current ventilator settings, review of any prior issues during pronation/supination maneuvers. Patient was fully undressed as to be able to view all current IV sites, central venous access sites, arterial lines, endotracheal tube, Nicholas catheter, etc. After properly identifying/securing all lines, tubes, etc., the patient was papoosed using flat sheets. On my count, the patient was slid to the edge of the bed. After reevaluating all lines, tubes, etc., the patient was then placed on their side allowing for RT to maintain control of ET tube and ready for completion of Pronation maneuver. Final check of all lines, tubes, etc. was completed by myself and nursing staff. Blood pressure, heart rhythm, and oxygen saturations were monitored for several minutes s/p maneuver. Discussion was held with patients RN and RT regarding ongoing management. Patient tolerated maneuver well. No immediate complications were noted. TIME PRONE: 2200 I have personally spent 25 minutes of critical care time in the direct management of this patient. This is a life/limb threatening event. This includes time spent evaluating patient, direct bedside care, chart review, placing orders, interpretation of diagnostic studies, discussion with consultants, patient, and family members, as well as other required patient management activities. This time is exclusive of all separately billable procedures, and teaching time and separate from and in addition to any other critical care service time. Coding Level of Care Code Critical Care ea addt'l 30 min Time Spent (min) 25
[2020-09-22] MEDS: INSULIN ASPART 100 UNITS/ML 3 ML PEN SC SCH ×4 (00:15→18:00)
[2020-09-22] MEDS: ARTIFICIAL TEARS OP OINT 3.5 GM TUBE OP SCH ×6 (00:17→21:26)
[2020-09-22] MEDS: MIDAZOLAM HCL 125 MG/250 ML BAG IV SCH (01:33)
[2020-09-22] MEDS: fentaNYL DRIP 1,250 MCG/250 ML BAG IV SCH ×3 (01:33→16:45)
[2020-09-22] MEDS: propofoL 1,000 MG/100 ML VIAL IV SCH (01:38)
[2020-09-22] MEDS: CISATRACURIUM BESYLATE 40 MG in 0.9 % SODIUM CHLORIDE 80 ML IV SCH ×6 (01:39→22:55)
[2020-09-22] MEDS: ACETAMINOPHEN 1,000 MG/100 ML VIAL IV PRN (03:27)
[2020-09-22 04:29] LABS: iSTAT Art Bld Gas pCO2 Correct 54 mmHg (35-46); iSTAT Art Bld Gas pH Corrected 7.275 (7.35-7.45); iSTAT Arterial Blood Gas HCO3 25 meg/L (19-24); iSTAT Arterial Blood Gas pCO2 52 mmHg (35-46); iSTAT Arterial Blood Gas pH 7.29 (7.35-7.45); iSTAT Arterial Blood Gas pO2 66 mmHg (80-95); iSTAT Arterial Blood Gas pO2 C 69; iSTAT Carbon Dioxide 26 mmol/L (24-31); iSTAT FiO2 85 %; iSTAT Hematocrit 37 % (37-47); iSTAT Hemoglobin 12.6 g/dl (12.0-16.0); iSTAT Potassium 4.3 mmol/L (3.3-5.0); iSTAT Site Art Line; iSTAT Sodium 134 mmol/L (135-144)
[2020-09-22] MEDS ORDERED: NOREPINEPHRINE/D5W 8 MG/508 ML IV ONE (05:12)
[2020-09-22] MEDS ORDERED: STAT IV Infusion **Titration per Protocol STA (05:13)
[2020-09-22] MEDS: NOREPINEPHRINE/D5W 8 MG/508 ML BAG IV SCH (05:33)
[2020-09-22 07:05] LABS: Basophils # (auto) 0.06 K/uL (0-0.2); Basophils % (auto) 0.4 %; Eosinophils # (auto) 0.13 K/uL (0-0.5); Eosinophils % (auto) 0.8 %; Hematocrit (blood only) 39.3 % (37-47); Immature Granulocytes % (auto) 1.9 %; Lymphocytes # (auto) 0.78 K/uL (1.2-3.4); Lymphocytes % (auto) 5.1 %; Mean Corpuscular Hemoglobin 27.8 pg (25-34); Mean Corpuscular Hgb Conc 30.5 g/dL (32-36); Mean Platelet Volume 10.8 fL (7.4-10.4); Monocytes # (auto) 0.75 K/uL (0.11-0.59); Monocytes % (auto) 4.9 %; Neutrophils # (auto) 13.42 K/uL (1.4-6.5); Neutrophils % (auto) 86.9 %; Platelet Count 187 K/uL (130-400); RDW Coefficient of Variation 17.2 % (11.5-14.5); RDW Standard Deviation 57.7 fL (36.4-46.3); Red Blood Count 4.32 M/uL (4.2-5.4); White Blood Count 15.44 K/uL (4.8-10.8)
[2020-09-22 07:44] LABS: BUN Creatinine Ratio 35.2 (10-20); Calcium 8.8 mg/dl (8.5-10.1); Creatinine Clr Calc Pharmacy 61.2 ml/min; Est GFR (African American) 56.2; Est GFR (Non-African American) 48.5; Magnesium 2.8 mg/dl (1.8-2.4); Potassium 4.1 mmol/L (3.5-5.1)
[2020-09-22 07:45] LABS: Phosphorus 3.1 mg/dl (2.5-4.9)
[2020-09-22] MEDS: ICU ELECTROLYTE REPLACEMENT PROTOCOL SCH ×2 (07:52→17:35)
[2020-09-22] MEDS: FAMOTIDINE 20 MG in SYRINGE 3 ML IV SCH ×2 (08:01→21:26)
[2020-09-22] MEDS: ENOXAPARIN INJ 40 MG/0.4 ML SYR SQ SCH ×2 (08:02→20:10)
--- NOTE | 2020-09-22 08:43 | XRay Report ---
XR chest 1V portable CLINICAL HISTORY: f/u COMPARISON STUDY: Chest radiograph September 21, 2020. FINDINGS: Tip of endotracheal tube is 3.4 cm above the cristina. Right-sided central lines remain in pl mariama. Tip of nasogastric tube is below the lower aspect of this image but at least within the proximal stomach. There is no pneumothorax. There are possible small bilateral pleural effusions. Extensive b ilateral airspace opacities and interstitial thickening persist. Skin folds project over the right he mithorax. IMPRESSION: 1. Satisfactory positioning of lines and tubes. 2. No significant change in extensive bilateral consolidation and interstitial thickening which favor s an infectious process. ACT 112: Negative or not required by law. Electronically signed by: Bello Sutton M.D. 09/22/2020 8:42 AM
--- NOTE | 2020-09-22 09:18 | Critical Care Progress Note ---
Date of Service September 22, 2020 Assessment & Plan (1) Obesity hypoventilation syndrome: (2) Acute respiratory failure: Reason Critically Ill: 70-year-old female with morbid obesity and COVID-19 acute hypoxic respiratory failure PLAN: Neuro: Neuromuscular blockade for 3 days -Propofol Versed for sedation Resp: COVID-19 related acute hypoxic respiratory failure -Neuromuscular blockade and ARDSnet guidelines -High PEEP low FiO2 table -Holding steroids while on neuromuscular blockade -Pronation therapy Covid positive: 09/11 day:13 Ventilation day 3 Fluids/Renal: Chronic kidney disease stage III 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 -Receiving small amount of calories from propofol DVT prophylaxis: 40 mg Lovenox twice daily Endocrine: ICU hyperglycemia protocol Vascular access: Right subclavian placed 09/19, left radial arterial line 09/19 Code Status: Full code Disposition: ICU I updated the primary contact Harrietoctavio Hayes. Indicated I have not seen significant improvement in her lungs however this would likely be a prolonged mechanical ventilation process started discussing risks and benefits of tracheostomy versus terminal extubation the patient's daughter reports that her mother is a fighter, will obviously continue these discussions as the patient's hospital course evolves (3) Morbid obesity: (4) COVID-19 virus infection: Admission and Anticipated Discharge Date Admission Date: September 11, 2020 Supervising Physician Co-Signing Physician Notes I was present and assisted with the pronating process. Patient tolerated the pronating movement. Patient was discussed in multidisciplinary rounds I have personally spent 60 minutes of critical care time in the direct management of this patient. This is a life/limb threatening event. This includes time spent evaluating patient, direct bedside care, chart review, placing orders, interpretation of diagnostic studies, discussion with consultants, patient, and/or family members regarding treatment decisions, as well as other required patient management activities. This time is exclusive of all separately billable procedures, and teaching time and separate from and in addition to any other critical care service time. Subjective Patient was successfully proned overnight, her compliance is poor and does not really change with pronation versus supine positioning at this time she has not made many improvements in her oxygenation requirements Review of Systems Review of Systems: Unobtainable due to endotracheal tube Physical Exam Physical Exam: General: 3 TP. nontoxic. Skin: Warm, dry, Head: Atraumatic Ears, nose, mouth and throat: airway obscured by endotracheal tube Cardiovascular: Normal peripheral perfusion Respiratory: no respiratory distress Gastrointestinal: Non distended Musculoskeletal: No deformity Results & Data Results & Data ([facility]) Vital Signs (Past 12 Hours) Vital Signs Temp Pulse Resp BP Pulse Ox 09/22/20 09:00 36.1 C L 83 126/63 89 L 09/22/20 08:45 36.2 C L 83 131/67 88 L 09/22/20 08:30 36.2 C L 84 130/61 88 L 09/22/20 08:15 36.2 C L 85 119/63 87 L 09/22/20 08:00 36.3 C L 85 142/69 H 85 L 09/22/20 07:45 36.3 C L 79 138/62 89 L 09/22/20 07:30 36.4 C L 81 35 H 136/61 90 09/22/20 07:15 36.5 C 80 134/62 90 09/22/20 07:00 36.5 C 81 133/64 89 L 09/22/20 06:45 36.6 C 80 132/61 89 L 09/22/20 06:30 36.7 C 81 127/61 89 L 09/22/20 06:15 36.8 C 77 129/61 88 L 09/22/20 06:01 36.8 C 77 89 L 09/22/20 06:00 36.8 C 77 132/60 88 L 09/22/20 05:45 36.9 C 75 126/59 L 88 L 09/22/20 05:31 37.0 C 75 132/62 89 L 09/22/20 05:30 37.1 C 76 09/22/20 05:15 37.2 C 85 101/57 L 88 L 09/22/20 05:00 37.3 C 87 109/58 L 90 09/22/20 04:45 37.5 C 88 106/64 90 09/22/20 04:31 37.7 C H 90 91 09/22/20 04:30 37.7 C H 90 105/53 L 90 09/22/20 04:18 37.8 C H 90 102/53 L 90 09/22/20 04:15 37.8 C H 91 H 111/55 L 90 09/22/20 04:14 92 H 34 H 90 09/22/20 04:01 38.0 C H 93 H 90 09/22/20 04:00 38.0 C H 93 H 103/53 L 91 09/22/20 03:45 38.0 C H 97 H 117/59 L 09/22/20 03:30 38.0 C H 100 H 126/63 91 09/22/20 03:15 38.0 C H 101 H 132/63 93 09/22/20 03:00 38.0 C H 102 H 132/63 91 09/22/20 02:45 38.1 C H 103 H 149/64 H 92 09/22/20 02:31 38.1 C H 104 H 90 09/22/20 02:30 38.1 C H 104 H 134/66 93 09/22/20 02:15 38.1 C H 105 H 138/65 92 09/22/20 02:01 38.1 C H 107 H 91 09/22/20 02:00 38.1 C H 107 H 145/67 H 92 09/22/20 01:45 38.2 C H 108 H 144/65 H 91 09/22/20 01:31 38.2 C H 109 H 92 09/22/20 01:30 38.2 C H 109 H 144/66 H 09/22/20 01:15 38.2 C H 110 H 142/64 H 93 09/22/20 01:00 38.1 C H 109 H 134/65 91 09/22/20 00:45 38.2 C H 112 H 167/74 H 92 09/22/20 00:31 38.3 C H 113 H 91 09/22/20 00:30 38.3 C H 113 H 159/74 H 93 09/22/20 00:15 38.2 C H 113 H 158/75 H 90 09/22/20 00:01 38.3 C H 112 H 90 09/22/20 00:00 38.3 C H 112 H 150/69 H 89 L 09/21/20 23:45 38.4 C H 113 H 147/66 H 09/21/20 23:31 38.4 C H 113 H 90 09/21/20 23:30 38.4 C H 113 H 147/67 H 90 09/21/20 23:15 38.5 C H 112 H 34 H 143/64 H 91 09/21/20 23:13 112 H 34 H 91 09/21/20 23:01 38.6 C H 114 H 34 H 92 09/21/20 23:00 38.6 C H 114 H 34 H 156/73 H 09/21/20 22:45 38.6 C H 115 H 34 H 162/76 H 09/21/20 22:31 38.7 C H 117 H 34 H 91 09/21/20 22:30 38.7 C H 117 H 34 H 177/84 H 91 09/21/20 22:15 115 H 34 H 169/83 H 90 09/21/20 22:00 34 H 09/21/20 21:45 38.7 C H 102 H 34 H 126/59 L 89 L 09/21/20 21:31 38.6 C H 103 H 34 H 88 L 09/21/20 21:30 38.6 C H 103 H 34 H 126/60 89 L Laboratory Results 09/22/20 09/22/20 09/22/20 Range/Units 11:28 06:31 06:31 WBC 15.44 H (4.8-10.8) K/uL RBC 4.32 (4.2-5.4) M/uL Hgb 12.0 (12.0-16.0) g/dL POC Hgb (12.0-16.0) g/dl Hct 39.3 (37-47) % POC Hct (37-47) % MCV 91.0 (80-100) fL MCH 27.8 (25-34) pg MCHC 30.5 L (32-36) g/dL RDW Std Deviation 57.7 H (36.4-46.3) fL RDW Coeff of Obey 17.2 H (11.5-14.5) % Plt Count 187 (130-400) K/uL MPV 10.8 H (7.4-10.4) fL Immature Gran % (Auto) 1.9 % Neut % (Auto) 86.9 % Lymph % (Auto) 5.1 % Placer % (Auto) 4.9 % Eos % (Auto) 0.8 % Baso % (Auto) 0.4 % Neut # (Auto) 13.42 H (1.4-6.5) K/uL Lymph # (Auto) 0.78 L (1.2-3.4) K/uL Placer # (Auto) 0.75 H (0.11-0.59) K/uL Eos # (Auto) 0.13 (0-0.5) K/uL Baso # (Auto) 0.06 (0-0.2) K/uL Immature Gran # (Auto) 0.30 H (0.00-0.02) K/uL Sample Site POC pH (7.35-7.45) POC pCO2 (35-46) mmHg POC pO2 (80-95) mmHg POC HCO3 (19-24) tyson/L POC Total CO2 (24-31) mmol/L POC Base Excess (-9-1.8) tyson/L ABG pH (Temp Correct) (7.35-7.45) ABG pCO2 (Temp Corrct (35-46) mmHg POC ABG pO2 at Pt Temp POC ABG O2 Sat (90-95) % Rah Test O2 Delivery Device POC O2 Rate Minute Ventilation POC FiO2 % Tidal Volume PEEP POC Sodium (135-144) mmol/L Sodium 135 L (136-145) mmol/L POC Potassium (3.3-5.0) mmol/L Potassium 4.1 (3.5-5.1) mmol/L Chloride 104 (98-107) mmol/L Carbon Dioxide 22 (21-32) mmol/L Anion Gap 8.0 (3-11) BUN 41 H (7-18) mg/dl Creatinine 1.15 (0.6-1.2) mg/dl Est Cr Clr Drug Dosing 61.2 ml/min Est GFR ( Amer) 56.2 Est GFR (Non-Af Amer) 48.5 BUN/Creatinine Ratio 35.2 H (10-20) Glucose 160 H (70-99) mg/dl POC Glucose 162 H (70-99) mg/dl Calcium 8.8 (8.5-10.1) mg/dl Phosphorus 3.1 (2.5-4.9) mg/dl Magnesium 2.8 H (1.8-2.4) mg/dl 01/08/21 01/07/21 01/07/21 Range/Units 04:14 23:56 17:47 WBC (4.8-10.8) K/uL RBC (4.2-5.4) M/uL Hgb (12.0-16.0) g/dL POC Hgb 12.6 (12.0-16.0) g/dl Hct (37-47) % POC Hct 37 (37-47) % MCV (80-100) fL MCH (25-34) pg MCHC (32-36) g/dL RDW Std Deviation (36.4-46.3) fL RDW Coeff of Obey (11.5-14.5) % Plt Count (130-400) K/uL MPV (7.4-10.4) fL Immature Gran % (Auto) % Neut % (Auto) % Lymph % (Auto) % Placer % (Auto) % Eos % (Auto) % Baso % (Auto) % Neut # (Auto) (1.4-6.5) K/uL Lymph # (Auto) (1.2-3.4) K/uL Placer # (Auto) (0.11-0.59) K/uL Eos # (Auto) (0-0.5) K/uL Baso # (Auto) (0-0.2) K/uL Immature Gran # (Auto) (0.00-0.02) K/uL Sample Site Art Line POC pH 7.29 L (7.35-7.45) POC pCO2 52 H (35-46) mmHg POC pO2 66 L (80-95) mmHg POC HCO3 25 H (19-24) tyson/L POC Total CO2 26 (24-31) mmol/L POC Base Excess -2.0 (-9-1.8) tyson/L ABG pH (Temp Correct) 7.275 L (7.35-7.45) ABG pCO2 (Temp Corrct 54 H (35-46) mmHg POC ABG pO2 at Pt Temp 69 POC ABG O2 Sat 90.0 (90-95) % Rah Test NA O2 Delivery Device Ventilator POC O2 Rate 34 Minute Ventilation 12.2 POC FiO2 85 % Tidal Volume 360 PEEP 18 POC Sodium 134 L (135-144) mmol/L Sodium (136-145) mmol/L POC Potassium 4.3 (3.3-5.0) mmol/L Potassium (3.5-5.1) mmol/L Chloride (98-107) mmol/L Carbon Dioxide (21-32) mmol/L Anion Gap (3-11) BUN (7-18) mg/dl Creatinine (0.6-1.2) mg/dl Est Cr Clr Drug Dosing ml/min Est GFR ( Amer) Est GFR (Non-Af Amer) BUN/Creatinine Ratio (10-20) Glucose (70-99) mg/dl POC Glucose 127 H 106 H (70-99) mg/dl Calcium (8.5-10.1) mg/dl Phosphorus (2.5-4.9) mg/dl Magnesium (1.8-2.4) mg/dl Coding Level of Care Code Critical Care 1st 30-74 mins Diagnoses Obesity hypoventilation syndrome E66.2 Acute respiratory failure J96.00 Morbid obesity E66.01 COVID-19 virus infection U07.1
--- NOTE | 2020-09-22 16:03 | Hospitalist Progress Note ---
Date of Service September 22, 2020 Assessment & Plan (1) Acute respiratory failure: Secondary to covid-19 pneumonia. Failed initial BiPAP treatment and required intubation She was intubated by policy service coordinator and transferred to the ICU. Appreciate policy service coordinator input and recommendation Remains intubated and sedated and requiring pressors to maintain blood pressure (2) Pneumonia due to COVID-19 virus: Completed remdesivir, Cont dexamethasone-course completed. echanical ventilation as above. Lasix PRN Repeat chest x-ray shows improvement of Covid pneumonia (3) Non-traumatic rhabdomyolysis: Was tolerating PO and hydrating reliably before intubation. CK is improved. Cont to monitor volume status while intubated. (4) Opioid dependence: Chronic pain on percocet regularly. Currently sedated and intubated. (5) SAMANTHA (obstructive sleep apnea): Uses home BIPAP at night typically. Now intubated (6) COPD (chronic obstructive pulmonary disease): chronic, stable, no wheezing on exam. 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 Monitor blood glucose and manage appropriately A1c 7.3 .Still on the steroids. Cont Lantus at 25 Units BID Glucose more under control now. (9) Morbid obesity: (10) DVT prophylaxis: Lovenox Full Code Dispo-transfer to ICU Admission and Anticipated Discharge Date Admission Date: September 11, 2020 Subjective The patient was seen and examined in Covid unit She was admitted with a acute respiratory failure secondary to COVID-19 viral pneumonia and required intubation Remains sedated on vent 09/21/2020 The patient was seen and examined in Covid unit She remains intubated and sedated 09/22/2020 The patient was seen and examined in Covid unit She remains intubated and sedated and requiring pressors Review of Systems Review of Systems: Unobtainable due to endotracheal tube Physical Exam Physical Exam: Remains sedated on mechanical ventilator Constitutional: well developed, well nourished, + ill appearing and + morbidly obese ENMT: external ear and nose normal, oropharynx normal Neck: trachea midline, no thyromegaly Respiratory: Auscultation: + diminished lung sounds and + crackles (Bibasilar crackles) Cardiovascular: Rate/Rhythm: regular rate and regular rhythm Heart Sounds: no murmur Extremities: + edema (1+ edema bilaterally) Gastrointestinal (Abdomen): Inspection/Auscultation: normal bowel sounds; abdomen not distended Percussion/Palpation: abdomen soft; abdomen nontender Lymphatic: no cervical or axillary lymphadenopathy Results & Data Results & Data ([facility]) Vital Signs (Past 12 Hours) Vital Signs Temp Pulse Resp BP Pulse Ox 09/22/20 15:19 85 35 H 91 09/22/20 14:00 36.1 C L 85 136/67 93 09/22/20 13:45 36.0 C L 84 133/65 93 09/22/20 13:30 36.0 C L 80 149/74 H 93 09/22/20 13:15 36.0 C L 81 145/65 H 93 09/22/20 13:00 36.0 C L 81 138/66 92 09/22/20 12:45 36.0 C L 80 144/63 H 92 09/22/20 12:30 36.0 C L 80 134/68 92 09/22/20 12:15 36.0 C L 79 136/63 92 09/22/20 12:00 36.0 C L 79 136/65 92 09/22/20 11:45 36.0 C L 78 139/63 92 09/22/20 11:30 36.0 C L 88 129/71 94 09/22/20 11:24 79 34 H 90 09/22/20 11:15 36.0 C L 79 144/84 H 93 09/22/20 11:00 36.0 C L 80 139/66 93 09/22/20 10:45 36.0 C L 80 135/65 93 09/22/20 10:30 36.0 C L 80 140/69 93 09/22/20 10:15 36.0 C L 81 138/65 92 09/22/20 10:00 36.0 C L 81 132/66 93 09/22/20 09:45 36.1 C L 82 135/66 92 09/22/20 09:30 36.1 C L 81 130/63 91 09/22/20 09:15 36.1 C L 83 128/64 91 09/22/20 09:00 36.1 C L 83 126/63 89 L 09/22/20 08:45 36.2 C L 83 131/67 88 L 09/22/20 08:30 36.2 C L 84 130/61 88 L 09/22/20 08:15 36.2 C L 85 119/63 87 L 09/22/20 08:00 36.3 C L 85 142/69 H 85 L 09/22/20 07:45 36.3 C L 79 138/62 89 L 09/22/20 07:30 36.4 C L 81 35 H 136/61 90 09/22/20 07:15 36.5 C 80 134/62 90 09/22/20 07:00 36.5 C 81 133/64 89 L 09/22/20 06:45 36.6 C 80 132/61 89 L 09/22/20 06:30 36.7 C 81 127/61 89 L 09/22/20 06:15 36.8 C 77 129/61 88 L 09/22/20 06:01 36.8 C 77 89 L 09/22/20 06:00 36.8 C 77 132/60 88 L 09/22/20 05:45 36.9 C 75 126/59 L 88 L 09/22/20 05:31 37.0 C 75 132/62 89 L 09/22/20 05:30 37.1 C 76 09/22/20 05:15 37.2 C 85 101/57 L 88 L 09/22/20 05:00 37.3 C 87 109/58 L 90 09/22/20 04:45 37.5 C 88 106/64 90 09/22/20 04:31 37.7 C H 90 91 09/22/20 04:30 37.7 C H 90 105/53 L 90 09/22/20 04:18 37.8 C H 90 102/53 L 90 09/22/20 04:15 37.8 C H 91 H 111/55 L 90 09/22/20 04:14 92 H 34 H 90 09/22/20 04:01 38.0 C H 93 H 90 Laboratory Results Current Inpatient Medications Enoxaparin Sodium (Enoxaparin Inj 40 Mg/0.4 Ml Syr) 40 mg SQ Q12H ADRIANA Stop: 10/11/20 08:59 Last Admin: 09/22/20 08:02 Dose: 40 mg Documented by: Fentanyl Citrate (Fentanyl Bolus From Bag) 50 mcg IV Q60M PRN PRN Reason: Pain or Agitation Stop: 10/03/20 18:30 Heparin Sodium (Beef Lung) (Heparin 10 Unit/Ml 5 Ml Flush) 5 ml FLUSH PRN PRN PRN Reason: Flush Stop: 10/21/20 22:49 Heparin Sodium (Porcine) (Heparin 100 Unit/Ml 5ml Flush) 5 ml FLUSH PRN PRN PRN Reason: Flush Stop: 10/15/20 00:44 Cisatracurium Besylate 40 mg/ (Sodium Chloride) 100 mls @ 10.755 mls/hr IV .Q9H18M ADRIANA; Protocol Stop: 09/22/20 18:44 Last Admin: 09/22/20 13:34 Dose: 1.5 mcg/kg/min, 10.8 mls/hr Documented by: Midazolam HCl (Versed) 125 mg in 250 mls @ 8 mls/hr IV .[id number] ADRIANA; Protocol Stop: 10/19/20 18:44 Last Titration: 09/22/20 05:18 Dose: 4 mg/hr, 8 mls/hr Documented by: Fentanyl Citrate (Fentanyl Drip) 1,250 mcg in 250 mls @ 30 mls/hr IV .Q8H20M ADRIANA; Protocol Stop: 10/03/20 18:44 Last Admin: 09/22/20 08:21 Dose: 150 mcg/hr, 30 mls/hr Documented by: Propofol (Diprivan) 1,000 mg in 100 mls @ 0 mls/hr IV .Q0M ADRIANA; Protocol Stop: 09/23/20 01:44 Last Titration: 09/22/20 05:17 Dose: 0 mcg/kg/min, 0 mls/hr Documented by: Acetaminophen (Ofirmev) 1,000 mg in 100 mls @ 400 mls/hr IV Q8H PRN PRN Reason: Fever Stop: 09/23/20 03:41 Last Infusion: 09/22/20 03:47 Dose: Infused Documented by: Famotidine 20 mg/ Syringe 5 mls @ 2.5 mls/min IV Q12H ADRIANA Stop: 10/21/20 19:59 Last Admin: 09/22/20 08:01 Dose: 2.5 mls/min Documented by: Norepinephrine Bitartrate (Levophed/D5w) 8 mg in 508 mls @ 25.337 mls/hr IV .Q20H3M [facility]; Protocol Stop: 10/22/20 05:14 Last Titration: 09/22/20 13:34 Dose: 0 mcg/kg/min, 0 mls/hr Documented by: Insulin Aspart (Insulin Aspart 100 Units/Ml 3 Ml Pen) 0 units SC Q6 [facility] Stop: 10/11/20 07:29 Last Admin: 09/22/20 11:55 Dose: 1 units Documented by: Insulin Glargine (Insulin Glargine Solostar 100 Units/Ml 3 Ml Pen) 25 units SQ BID [facility] Stop: 10/19/20 08:59 Last Admin: 09/20/20 09:15 Dose: Not Given Documented by: Midazolam HCl (Midazolam Bolus From Bag) 2 mg IV Q60M PRN PRN Reason: Sedation Stop: 10/19/20 18:30 Miscellaneous (Icu Electrolyte Replacement Protocol) 1 ea N/A BID@18 [facility]; Protocol Stop: 09/27/20 17:59 Last Admin: 09/22/20 07:52 Dose: 1 ea Documented by: Multi-Ingredient Cream (Artificial Tears Op Oint 3.5 Gm Tube) 1 appln OP Q4 [facility] Stop: 10/21/20 11:59 Last Admin: 09/22/20 11:54 Dose: 1 appln Documented by: Nutritional Formula (Peptamen Intense Vhp 1.0 Ky 1,000 Ml Bag) 1,000 ml GT CONT [facility]; Protocol Stop: 10/22/20 12:59 Medications Administered Current Inpatient Medications Enoxaparin Sodium (Enoxaparin Inj 40 Mg/0.4 Ml Syr) 40 mg SQ Q12H ADRIANA Stop: 10/11/20 08:59 Last Admin: 09/22/20 08:02 Dose: 40 mg Documented by: Fentanyl Citrate (Fentanyl Bolus From Bag) 50 mcg IV Q60M PRN PRN Reason: Pain or Agitation Stop: 10/03/20 18:30 Heparin Sodium (Beef Lung) (Heparin 10 Unit/Ml 5 Ml Flush) 5 ml FLUSH PRN PRN PRN Reason: Flush Stop: 10/21/20 22:49 Heparin Sodium (Porcine) (Heparin 100 Unit/Ml 5ml Flush) 5 ml FLUSH PRN PRN PRN Reason: Flush Stop: 10/15/20 00:44 Cisatracurium Besylate 40 mg/ (Sodium Chloride) 100 mls @ 10.755 mls/hr IV .Q9H18M ADRIANA; Protocol Stop: 09/22/20 18:44 Last Admin: 09/22/20 13:34 Dose: 1.5 mcg/kg/min, 10.8 mls/hr Documented by: Midazolam HCl (Versed) 125 mg in 250 mls @ 8 mls/hr IV .[id number] ADRIANA; Protocol Stop: 10/19/20 18:44 Last Titration: 09/22/20 05:18 Dose: 4 mg/hr, 8 mls/hr Documented by: Fentanyl Citrate (Fentanyl Drip) 1,250 mcg in 250 mls @ 30 mls/hr IV .Q8H20M ADRIANA; Protocol Stop: 10/03/20 18:44 Last Admin: 09/22/20 08:21 Dose: 150 mcg/hr, 30 mls/hr Documented by: Propofol (Diprivan) 1,000 mg in 100 mls @ 0 mls/hr IV .Q0M ADRIANA; Protocol Stop: 09/23/20 01:44 Last Titration: 09/22/20 05:17 Dose: 0 mcg/kg/min, 0 mls/hr Documented by: Acetaminophen (Ofirmev) 1,000 mg in 100 mls @ 400 mls/hr IV Q8H PRN PRN Reason: Fever Stop: 09/23/20 03:41 Last Infusion: 09/22/20 03:47 Dose: Infused Documented by: Famotidine 20 mg/ Syringe 5 mls @ 2.5 mls/min IV Q12H ADRIANA Stop: 10/21/20 19:59 Last Admin: 09/22/20 08:01 Dose: 2.5 mls/min Documented by: Norepinephrine Bitartrate (Levophed/D5w) 8 mg in 508 mls @ 25.337 mls/hr IV . Q20H3M ADRIANA; Protocol Stop: 10/22/20 05:14 Last Titration: 09/22/20 13:34 Dose: 0 mcg/kg/min, 0 mls/hr Documented by: Insulin Aspart (Insulin Aspart 100 Units/Ml 3 Ml Pen) 0 units SC Q6 [facility] Stop: 10/11/20 07:29 Last Admin: 09/22/20 11:55 Dose: 1 units Documented by: Insulin Glargine (Insulin Glargine Solostar 100 Units/Ml 3 Ml Pen) 25 units SQ BID [facility] Stop: 10/19/20 08:59 Last Admin: 09/20/20 09:15 Dose: Not Given Documented by: Midazolam HCl (Midazolam Bolus From Bag) 2 mg IV Q60M PRN PRN Reason: Sedation Stop: 10/19/20 18:30 Miscellaneous (Icu Electrolyte Replacement Protocol) 1 ea N/A BID@ [facility]; Protocol Stop: 09/27/20 17:59 Last Admin: 09/22/20 07:52 Dose: 1 ea Documented by: Multi-Ingredient Cream (Artificial Tears Op Oint 3.5 Gm Tube) 1 appln OP Q4 [facility] Stop: 10/21/20 11:59 Last Admin: 09/22/20 11:54 Dose: 1 appln Documented by: Nutritional Formula (Peptamen Intense Vhp 1.0 Ky 1,000 Ml Bag) 1,000 ml GT CONT [facility]; Protocol Stop: 10/22/20 12:59
[2020-09-22] MEDS: PEPTAMEN INTENSE VHP 1.0 CAL 1,000 ML BAG GT SCH (16:45)
[2020-09-22] MEDS ORDERED: CISATRACURIUM BESYLATE IV ONE (22:15)
--- NOTE | 2020-09-22 22:37 | Communication Note ---
Date of Service: September 22, 2020 Procedure: Pronation Maneuver Attending: Dr. Hinojosa APC: Constantine Lynn PA-C Indication: Requiring lung recruitment intervention in the setting of advanced ARDS with poor lung compliance and oxygenation on standard ventilator settings. Patient requiring pronation in the setting of advanced ARDS per imaging, ventilator requirements, and calculated P:F ratio. Appropriate staff was assembled including myself, Respiratory Therapy, and Nursing Staff. A time-out was completed verifying correct patient, time from recent pronation/supination, current ventilator settings, review of any prior issues during pronation/supination maneuvers. Patient was fully undressed as to be able to view all current IV sites, central venous access sites, arterial lines, endotracheal tube, Nicholas catheter, etc. After properly identifying/securing all lines, tubes, etc., the patient was papoosed using flat sheets. On my count, the patient was slid to the edge of the bed. After reevaluating all lines, tubes, etc., the patient was then placed on their side allowing for RT to maintain control of ET tube and ready for completion of Pronation maneuver. Final check of all lines, tubes, etc. was completed by myself and nursing staff. Blood pressure, heart rhythm, and oxygen saturations were monitored for several minutes s/p maneuver. Discussion was held with patients RN and RT regarding ongoing management. Patient tolerated maneuver well. No immediate complications were noted. TIME PRONE: 2220 I have personally spent 25 minutes of critical care time in the direct management of this patient. This is a life/limb threatening event. This includes time spent evaluating patient, direct bedside care, chart review, placing orders, interpretation of diagnostic studies, discussion with consultants, patient, and family members, as well as other required patient management activities. This time is exclusive of all separately billable procedures, and teaching time and separate from and in addition to any other critical care service time. Coding Level of Care Code Critical Care ea addt'l 30 min Time Spent (min) 25
[2020-09-23] MEDS: ARTIFICIAL TEARS OP OINT 3.5 GM TUBE OP SCH ×7 (00:50→23:01)
[2020-09-23] MEDS: fentaNYL DRIP 1,250 MCG/250 ML BAG IV SCH ×4 (01:03→18:14)
[2020-09-23] MEDS: INSULIN ASPART 100 UNITS/ML 3 ML PEN SC SCH ×4 (01:07→18:20)
[2020-09-23] MEDS ORDERED: CISATRACURIUM BESYLATE IV SOLN 2 MG/ML 10 ML VIAL IV SCH (02:00)
[2020-09-23] MEDS: propofoL 1,000 MG/100 ML VIAL IV SCH (02:26)
[2020-09-23] MEDS: CISATRACURIUM BESYLATE IV SCH ×6 (02:43→23:01)
[2020-09-23 05:15] LABS: iSTAT Art Bld Gas pCO2 Correct 50 mmHg (35-46); iSTAT Arterial Blood Gas HCO3 25 meg/L (19-24); iSTAT Arterial Blood Gas pCO2 50 mmHg (35-46); iSTAT Arterial Blood Gas pO2 62 mmHg (80-95); iSTAT Arterial Blood Gas pO2 C 63; iSTAT Carbon Dioxide 26 mmol/L (24-31); iSTAT FiO2 70 %; iSTAT Hematocrit 39 % (37-47); iSTAT Hemoglobin 13.3 g/dl (12.0-16.0); iSTAT Potassium 5.1 mmol/L (3.3-5.0); iSTAT Site Art Line; iSTAT Sodium 134 mmol/L (135-144)
[2020-09-23 06:58] LABS: Basophils # (auto) 0.03 K/uL (0-0.2); Basophils % (auto) 0.3 %; Eosinophils # (auto) 0.04 K/uL (0-0.5); Eosinophils % (auto) 0.3 %; Hematocrit (blood only) 37.6 % (37-47); Hemoglobin 11.5 g/dL (12.0-16.0); Immature Granulocytes # (auto) 0.21 K/uL (0.00-0.02); Immature Granulocytes % (auto) 1.8 %; Lymphocytes # (auto) 0.55 K/uL (1.2-3.4); Lymphocytes % (auto) 4.7 %; Mean Corpuscular Hemoglobin 27.6 pg (25-34); Mean Corpuscular Hgb Conc 30.6 g/dL (32-36); Mean Corpuscular Volume 90.2 fL (80-100); Mean Platelet Volume 10.8 fL (7.4-10.4); Monocytes # (auto) 0.58 K/uL (0.11-0.59); Neutrophils # (auto) 10.28 K/uL (1.4-6.5); Neutrophils % (auto) 87.9 %; Platelet Count 194 K/uL (130-400); RDW Coefficient of Variation 17.5 % (11.5-14.5); RDW Standard Deviation 58.4 fL (36.4-46.3); Red Blood Count 4.17 M/uL (4.2-5.4); White Blood Count 11.69 K/uL (4.8-10.8)
[2020-09-23] MEDS: MIDAZOLAM HCL 125 MG/250 ML BAG IV SCH (07:06)
[2020-09-23 07:43] LABS: BUN Creatinine Ratio 39.5 (10-20); Calcium 8.7 mg/dl (8.5-10.1); Creatinine Clr Calc Pharmacy 56.3 ml/min; Est GFR (African American) 50.8; Est GFR (Non-African American) 43.9; Magnesium 3.2 mg/dl (1.8-2.4); Phosphorus 4.5 mg/dl (2.5-4.9); Potassium 4.8 mmol/L (3.5-5.1)
[2020-09-23] MEDS: ICU ELECTROLYTE REPLACEMENT PROTOCOL SCH ×2 (07:51→17:54)
[2020-09-23] MEDS: ENOXAPARIN INJ 40 MG/0.4 ML SYR SQ SCH ×2 (08:23→21:13)
[2020-09-23] MEDS: FAMOTIDINE 20 MG in SYRINGE 3 ML IV SCH ×2 (08:24→20:40)
--- NOTE | 2020-09-23 10:10 | Critical Care Progress Note ---
Date of Service September 23, 2020 Assessment & Plan (1) Obesity hypoventilation syndrome: (2) Acute respiratory failure: Reason Critically Ill: 70-year-old female with morbid obesity and COVID-19 acute hypoxic respiratory failure PLAN: Neuro: Neuromuscular blockade for 3 days: Finishing today -Propofol Versed for sedation Resp: COVID-19 related acute hypoxic respiratory failure -Neuromuscular blockade and ARDSnet guidelines -High PEEP low FiO2 table -Holding steroids while on neuromuscular blockade -Pronation therapy -Patient's compliance is have not improved and actually gotten worse and she appears to actually have an improved compliance in the supine position therefore I will discontinue additional pronation therapies Covid positive: 09/11 day:14 Ventilation day 4 Fluids/Renal: Chronic kidney disease stage III 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 Indicated I have not seen significant improvement in her lungs however this would likely be a prolonged mechanical ventilation process started discussing risks and benefits of trach eostomy versus terminal extubation the patient's daughter reports that her mother is a fighter, will obviously continue these discussions as the patient's hospital course evolves (3) Morbid obesity: (4) COVID-19 virus infection: Admission and Anticipated Discharge Date Admission Date: September 11, 2020 Supervising Physician Co-Signing Physician Notes I was present and assisted with the pronating process. Patient tolerated the pronating movement. Patient was discussed in multidisciplinary rounds I have personally spent 60 minutes of critical care time in the direct management of this patient. This is a life/limb threatening event. This i ncludes time spent evaluating patient, direct bedside care, chart review, placing orders, interpretation of diagnostic studies, discussion with consultants, patient, and/or family members regarding treatment decisions, as well as other required patient management activities. This time is exclusive of all separately billable procedures, and teaching time and separate from and in addition to any other critical care service time. Subjective No overnight events, patient was proned when I initially evaluated the patient participate in the proning event in rotating her back to the supine position Review of Systems Review of Systems: Unobtainable due to endotracheal tube Physical Exam Physical Exam: General: 3 TP. nontoxic. Skin: Warm, dry, Head: Atraumatic Ears, nose, mouth and throat: airway obscured by endotracheal tube Cardiovascular: Normal peripheral perfusion Respiratory: no respiratory distress Gastrointestinal: Non distended Musculoskeletal: No deformity Results & Data Results & Data ([facility]) Vital Signs (Past 12 Hours) Vital Signs Temp Pulse Resp BP Pulse Ox 09/23/20 10:01 35.7 C L 90 95 09/23/20 10:00 35.7 C L 89 34 H 157/88 H 95 09/23/20 09:30 35.8 C L 90 94 09/23/20 09:16 35.9 C L 90 160/83 H 94 09/23/20 09:05 35.9 C L 90 169/92 H 94 09/23/20 09:00 36.0 C L 89 34 H 92 09/23/20 08:30 36.1 C L 88 91 09/23/20 08:16 36.2 C L 88 91 09/23/20 08:15 36.2 C L 89 122/79 91 09/23/20 08:01 36.2 C L 90 92 09/23/20 08:00 36.2 C L 90 126/74 91 09/23/20 07:46 36.3 C L 90 134/64 91 09/23/20 07:45 36.3 C L 90 92 09/23/20 07:40 90 35 H 94 09/23/20 07:31 36.4 C L 90 95 09/23/20 07:30 36.4 C L 90 121/81 95 09/23/20 07:16 36.5 C 91 H 127/62 95 09/23/20 07:15 36.5 C 91 H 95 09/23/20 07:01 36.6 C 91 H 94 09/23/20 07:00 36.6 C 92 H 120/61 94 09/23/20 06:50 36.7 C 93 H 94 09/23/20 06:45 36.7 C 93 H 121/61 93 09/23/20 06:40 36.7 C 93 H 84 L 09/23/20 06:31 58 L 88 L 09/23/20 06:30 91 H 132/112 H 89 L 09/23/20 06:20 36.9 C 91 H 93 09/23/20 06:15 36.9 C 93 H 105/59 L 93 09/23/20 06:10 36.9 C 93 H 92 09/23/20 06:01 36.9 C 94 H 93 09/23/20 06:00 36.9 C 94 H 119/55 L 93 09/23/20 05:50 36.9 C 94 H 93 09/23/20 05:45 37.0 C 95 H 122/54 L 93 09/23/20 05:40 37.0 C 95 H 92 09/23/20 05:31 37.0 C 96 H 91 09/23/20 05:30 37.0 C 96 H 123/58 L 92 09/23/20 05:20 37.1 C 96 H 93 09/23/20 05:15 37.1 C 97 H 131/61 92 09/23/20 05:10 37.1 C 98 H 92 09/23/20 05:01 37.1 C 98 H 92 09/23/20 05:00 37.1 C 99 H 125/54 L 92 09/23/20 04:50 37.1 C 99 H 92 09/23/20 04:45 37.1 C 99 H 122/55 L 91 09/23/20 04:40 37.1 C 99 H 91 09/23/20 04:30 37.1 C 100 H 115/67 92 09/23/20 04:20 37.1 C 100 H 91 09/23/20 04:15 37.2 C 100 H 104/65 92 09/23/20 04:14 100 H 37 H 91 09/23/20 04:10 37.2 C 100 H 91 09/23/20 04:00 37.2 C 102 H 126/58 L 92 09/23/20 03:50 37.2 C 102 H 92 09/23/20 03:45 37.2 C 103 H 114/61 93 09/23/20 03:40 37.2 C 103 H 94 09/23/20 03:31 37.3 C 105 H 95 09/23/20 03:30 37.3 C 105 H 119/59 L 94 09/23/20 03:20 37.3 C 105 H 94 09/23/20 03:15 37.3 C 106 H 117/60 94 09/23/20 03:10 37.4 C 107 H 95 09/23/20 03:01 37.4 C 108 H 94 09/23/20 03:00 37.4 C 108 H 131/59 L 94 09/23/20 02:50 37.4 C 108 H 93 09/23/20 02:45 37.4 C 108 H 121/64 94 09/23/20 02:40 37.4 C 107 H 93 09/23/20 02:31 37.4 C 108 H 92 09/23/20 02:30 37.4 C 108 H 130/68 93 09/23/20 02:20 37.4 C 108 H 93 09/23/20 02:15 37.4 C 108 H 119/64 93 09/23/20 02:10 37.4 C 108 H 93 09/23/20 02:01 37.4 C 108 H 92 09/23/20 02:00 37.4 C 108 H 91 09/23/20 01:50 37.4 C 108 H 93 09/23/20 01:45 37.4 C 108 H 120/63 92 09/23/20 01:40 37.4 C 111 H 92 09/23/20 01:31 37.4 C 110 H 92 09/23/20 01:30 37.4 C 110 H 142/69 H 92 09/23/20 01:21 37.4 C 110 H 128/61 91 09/23/20 01:20 37.4 C 110 H 91 09/23/20 01:15 37.4 C 112 H 91 09/23/20 01:10 37.4 C 112 H 91 09/23/20 01:01 37.4 C 112 H 91 09/23/20 01:00 37.4 C 112 H 121/69 90 09/23/20 00:50 37.4 C 114 H 91 09/23/20 00:45 37.4 C 114 H 121/76 91 09/23/20 00:40 37.4 C 115 H 93 09/23/20 00:31 37.4 C 115 H 93 09/23/20 00:30 37.4 C 115 H 164/78 H 92 09/23/20 00:20 37.4 C 115 H 91 09/23/20 00:15 37.5 C 116 H 153/76 H 91 09/23/20 00:10 37.5 C 115 H 92 09/23/20 00:01 37.5 C 115 H 90 09/23/20 00:00 37.5 C 115 H 135/82 91 09/22/20 23:59 108 H 09/22/20 23:50 37.5 C 115 H 89 L 09/22/20 23:46 37.5 C 114 H 90 09/22/20 23:45 37.5 C 114 H 116/74 90 09/22/20 23:40 37.5 C 116 H 90 09/22/20 23:31 37.6 C H 118 H 92 09/22/20 23:30 37.6 C H 117 H 145/73 H 91 09/22/20 23:20 37.7 C H 118 H 91 09/22/20 23:15 37.7 C H 119 H 155/70 H 93 09/22/20 23:10 37.7 C H 118 H 92 09/22/20 23:01 37.7 C H 118 H 34 H 92 09/22/20 23:00 37.8 C H 118 H 146/70 H 92 09/22/20 22:50 37.8 C H 118 H 91 09/22/20 22:45 37.9 C H 117 H 93 09/22/20 22:40 37.9 C H 118 H 09/22/20 22:31 37.9 C H 114 H 120/66 09/22/20 22:30 37.9 C H 113 H 09/22/20 22:29 37.9 C H 115 H 136/77 09/22/20 22:20 37.9 C H 115 H 86 L 09/22/20 22:10 37.9 C H 118 H 91 Laboratory Results 09/23/20 09/23/20 09/23/20 Range/Units 06:45 06:39 06:39 WBC 11.69 H (4.8-10.8) K/uL RBC 4.17 L (4.2-5.4) M/uL Hgb 11.5 L (12.0-16.0) g/dL POC Hgb (12.0-16.0) g/dl Hct 37.6 (37-47) % POC Hct (37-47) % MCV 90.2 (80-100) fL MCH 27.6 (25-34) pg MCHC 30.6 L (32-36) g/dL RDW Std Deviation 58.4 H (36.4-46.3) fL RDW Coeff of Obey 17.5 H (11.5-14.5) % Plt Count 194 (130-400) K/uL MPV 10.8 H (7.4-10.4) fL Immature Gran % (Auto) 1.8 % Neut % (Auto) 87.9 % Lymph % (Auto) 4.7 % [place] % (Auto) 5.0 % Eos % (Auto) 0.3 % Baso % (Auto) 0.3 % Neut # (Auto) 10.28 H (1.4-6.5) K/uL Lymph # (Auto) 0.55 L (1.2-3.4) K/uL [place] # (Auto) 0.58 (0.11-0.59) K/uL Eos # (Auto) 0.04 (0-0.5) K/uL Baso # (Auto) 0.03 (0-0.2) K/uL Immature Gran # (Auto) 0.21 H (0.00-0.02) K/uL Sample Site POC pH (7.35-7.45) POC pCO2 (35-46) mmHg POC pO2 (80-95) mmHg POC HCO3 (19-24) tyson/L POC Total CO2 (24-31) mmol/L POC Base Excess (-9-1.8) tyson/L ABG pH (Temp Correct) (7.35-7.45) ABG pCO2 (Temp Corrct (35-46) mmHg POC ABG pO2 at Pt Temp POC ABG O2 Sat (90-95) % Rah Test O2 Delivery Device POC O2 Rate Minute Ventilation POC FiO2 % Tidal Volume PEEP POC Sodium (135-144) mmol/L Sodium 134 L (136-145) mmol/L POC Potassium (3.3-5.0) mmol/L Potassium 4.8 D (3.5-5.1) mmol/L Chloride 104 (98-107) mmol/L Carbon Dioxide 25 (21-32) mmol/L Anion Gap 5.0 (3-11) BUN 49 H (7-18) mg/dl Creatinine 1.25 H (0.6-1.2) mg/dl Est Cr Clr Drug Dosing 56.3 ml/min Est GFR ( Amer) 50.8 Est GFR (Non-Af Amer) 43.9 BUN/Creatinine Ratio 39.5 H (10-20) Glucose 159 H (70-99) mg/dl POC Glucose 155 H (70-99) mg/dl Calcium 8.7 (8.5-10.1) mg/dl Phosphorus 4.5 D (2.5-4.9) mg/dl Magnesium 3.2 H (1.8-2.4) mg/dl 09/23/20 09/23/20 09/22/20 Range/Units 04:13 01:06 17:58 WBC (4.8-10.8) K/uL RBC (4.2-5.4) M/uL Hgb (12.0-16.0) g/dL POC Hgb 13.3 (12.0-16.0) g/dl Hct (37-47) % POC Hct 39 (37-47) % MCV (80-100) fL MCH (25-34) pg MCHC (32-36) g/dL RDW Std Deviation (36.4-46.3) fL RDW Coeff of Obey (11.5-14.5) % Plt Count (130-400) K/uL MPV (7.4-10.4) fL Immature Gran % (Auto) % Neut % (Auto) % Lymph % (Auto) % [place] % (Auto) % Eos % (Auto) % Baso % (Auto) % Neut # (Auto) (1.4-6.5) K/uL Lymph # (Auto) (1.2-3.4) K/uL [place] # (Auto) (0.11-0.59) K/uL Eos # (Auto) (0-0.5) K/uL Baso # (Auto) (0-0.2) K/uL Immature Gran # (Auto) (0.00-0.02) K/uL Sample Site Art Line POC pH 7.30 L (7.35-7.45) POC pCO2 50 H (35-46) mmHg POC pO2 62 L (80-95) mmHg POC HCO3 25 H (19-24) tyson/L POC Total CO2 26 (24-31) mmol/L POC Base Excess -2.0 (-9-1.8) tyson/L ABG pH (Temp Correct) 7.300 L (7.35-7.45) ABG pCO2 (Temp Corrct 50 H (35-46) mmHg POC ABG pO2 at Pt Temp 63 POC ABG O2 Sat 89.0 L (90-95) % Rah Test NA O2 Delivery Device Ventilator POC O2 Rate 34 Minute Ventilation 11.4 POC FiO2 70 % Tidal Volume 360 PEEP 20 POC Sodium 134 L (135-144) mmol/L Sodium (136-145) mmol/L POC Potassium 5.1 H (3.3-5.0) mmol/L Potassium (3.5-5.1) mmol/L Chloride (98-107) mmol/L Carbon Dioxide (21-32) mmol/L Anion Gap (3-11) BUN (7-18) mg/dl Creatinine (0.6-1.2) mg/dl Est Cr Clr Drug Dosing ml/min Est GFR ( Amer) Est GFR (Non-Af Amer) BUN/Creatinine Ratio (10-20) Glucose (70-99) mg/dl POC Glucose 149 H 137 H (70-99) mg/dl Calcium (8.5-10.1) mg/dl Phosphorus (2.5-4.9) mg/dl Magnesium (1.8-2.4) mg/dl 09/22/20 Range/Units 11:28 WBC (4.8-10.8) K/uL RBC (4.2-5.4) M/uL Hgb (12.0-16.0) g/dL POC Hgb (12.0-16.0) g/dl Hct (37-47) % POC Hct (37-47) % MCV (80-100) fL MCH (25-34) pg MCHC (32-36) g/dL RDW Std Deviation (36.4-46.3) fL RDW Coeff of Obey (11.5-14.5) % Plt Count (130-400) K/uL MPV (7.4-10.4) fL Immature Gran % (Auto) % Neut % (Auto) % Lymph % (Auto) % [place] % (Auto) % Eos % (Auto) % Baso % (Auto) % Neut # (Auto) (1.4-6.5) K/uL Lymph # (Auto) (1.2-3.4) K/uL [place] # (Auto) (0.11-0.59) K/uL Eos # (Auto) (0-0.5) K/uL Baso # (Auto) (0-0.2) K/uL Immature Gran # (Auto) (0.00-0.02) K/uL Sample Site POC pH (7.35-7.45) POC pCO2 (35-46) mmHg POC pO2 (80-95) mmHg POC HCO3 (19-24) tyson/L POC Total CO2 (24-31) mmol/L POC Base Excess (-9-1.8) tyson/L ABG pH (Temp Correct) (7.35-7.45) ABG pCO2 (Temp Corrct (35-46) mmHg POC ABG pO2 at Pt Temp POC ABG O2 Sat (90-95) % Rah Test O2 Delivery Device POC O2 Rate Minute Ventilation POC FiO2 % Tidal Volume PEEP POC Sodium (135-144) mmol/L Sodium (136-145) mmol/L POC Potassium (3.3-5.0) mmol/L Potassium (3.5-5.1) mmol/L Chloride (98-107) mmol/L Carbon Dioxide (21-32) mmol/L Anion Gap (3-11) BUN (7-18) mg/dl Creatinine (0.6-1.2) mg/dl Est Cr Clr Drug Dosing ml/min Est GFR ( Amer) Est GFR (Non-Af Amer) BUN/Creatinine Ratio (10-20) Glucose (70-99) mg/dl POC Glucose 162 H (70-99) mg/dl Calcium (8.5-10.1) mg/dl Phosphorus (2.5-4.9) mg/dl Magnesium (1.8-2.4) mg/dl Coding Level of Care Code Critical Care 1st 30-74 mins Diagnoses Obesity hypoventilation syndrome E66.2 Acute respiratory failure J96.00 Morbid obesity E66.01 COVID-19 virus infection U07.1
--- NOTE | 2020-09-23 14:11 | Hospitalist Progress Note ---
Date of Service September 23, 2020 Assessment & Plan (1) Acute respiratory failure: Secondary to covid-19 pneumonia. Failed initial BiPAP treatment and required intubation She was intubated by mushroom packer and transferred to the ICU. Appreciate mushroom packer input and recommendation Remains intubated and sedated Still requiring norepinephrine to maintain blood pressure (2) Pneumonia due to COVID-19 virus: Completed remdesivir, Cont dexamethasone-course completed. echanical ventilation as above. Lasix PRN Repeat chest x-ray shows improvement of Covid pneumonia She is not getting any more antibiotic (3) Non-traumatic rhabdomyolysis: Was tolerating PO and hydrating reliably before intubation. CK is improved. Cont to monitor volume status while intubated. (4) Opioid dependence: Chronic pain on percocet regularly. Currently sedated and intubated. (5) SAMANTHA (obstructive sleep apnea): Uses home BIPAP at night typically. Now intubated (6) COPD (chronic obstructive pulmonary disease): chronic, stable, no wheezing on exam. 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 Monitor blood glucose and manage appropriately A1c 7.3 .Still on the steroids. Cont Lantus at 25 Units BID Glucose more under control now. (9) Morbid obesity: (10) DVT prophylaxis: Lovenox Full Code Dispo-transfer to ICU Nutrition NG tube feeding Admission and Anticipated Discharge Date Admission Date: September 11, 2020 Subjective The patient was seen and examined in Covid unit She was admitted with a acute respiratory failure secondary to COVID-19 viral pneumonia and required intubation Remains sedated on vent 09/21/2020 The patient was seen and examined in Covid unit She remains intubated and sedated 09/22/2020 The patient was seen and examined in Covid unit She remains intubated and sedated and requiring pressors 09/23/2020 The patient was seen and examined in Covid unit She remains intubated and sedated Review of Systems Review of Systems: Unobtainable due to endotracheal tube Physical Exam Physical Exam: Remains sedated on mechanical ventilator Constitutional: well developed, well nourished, + ill appearing and + morbidly obese ENMT: external ear and nose normal, oropharynx normal Neck: trachea midline, no thyromegaly Respiratory: Auscultation: + diminished lung sounds and + crackles (Bibasilar crackles) Cardiovascular: Rate/Rhythm: regular rate and regular rhythm Heart Sounds: no murmur Extremities: + edema (1+ edema bilaterally) Gastrointestinal (Abdomen): Inspection/Auscultation: normal bowel sounds; abdomen not distended Percussion/Palpation: abdomen soft; abdomen nontender Lymphatic: no cervical or axillary lymphadenopathy Results & Data Results & Data ([facility]) Vital Signs (Past 12 Hours) Vital Signs Temp Pulse Resp BP Pulse Ox 09/23/20 14:00 35.9 C L 80 93/49 L 93 09/23/20 13:57 35.8 C L 76 93/61 L 93 09/23/20 13:47 35.8 C L 77 96/42 L 94 09/23/20 13:30 35.8 C L 76 93 09/23/20 13:00 35.8 C L 79 28 H 104/49 L 92 09/23/20 12:30 35.7 C L 81 88 L 09/23/20 12:01 35.7 C L 85 84 L 09/23/20 12:00 35.7 C L 80 35 H 125/58 L 87 L 09/23/20 11:30 35.7 C L 85 36 H 93 09/23/20 11:00 35.7 C L 86 32 H 121/70 92 09/23/20 10:30 35.7 C L 87 92 09/23/20 10:01 35.7 C L 90 95 09/23/20 10:00 35.7 C L 89 34 H 157/88 H 95 09/23/20 09:30 35.8 C L 90 94 09/23/20 09:16 35.9 C L 90 160/83 H 94 09/23/20 09:05 35.9 C L 90 169/92 H 94 09/23/20 09:00 36.0 C L 89 34 H 92 09/23/20 08:30 36.1 C L 88 91 09/23/20 08:16 36.2 C L 88 91 09/23/20 08:15 36.2 C L 89 122/79 91 09/23/20 08:01 36.2 C L 90 92 09/23/20 08:00 36.2 C L 90 126/74 91 09/23/20 07:46 36.3 C L 90 134/64 91 09/23/20 07:45 36.3 C L 90 92 09/23/20 07:40 90 35 H 94 09/23/20 07:31 36.4 C L 90 95 09/23/20 07:30 36.4 C L 90 121/81 95 09/23/20 07:16 36.5 C 91 H 127/62 95 09/23/20 07:15 36.5 C 91 H 95 09/23/20 07:01 36.6 C 91 H 94 09/23/20 07:00 36.6 C 92 H 120/61 94 09/23/20 06:50 36.7 C 93 H 94 09/23/20 06:45 36.7 C 93 H 121/61 93 09/23/20 06:40 36.7 C 93 H 84 L 09/23/20 06:31 58 L 88 L 09/23/20 06:30 91 H 132/112 H 89 L 09/23/20 06:20 36.9 C 91 H 93 09/23/20 06:15 36.9 C 93 H 105/59 L 93 09/23/20 06:10 36.9 C 93 H 92 09/23/20 06:01 36.9 C 94 H 93 09/23/20 06:00 36.9 C 94 H 119/55 L 93 09/23/20 05:50 36.9 C 94 H 93 09/23/20 05:45 37.0 C 95 H 122/54 L 93 09/23/20 05:40 37.0 C 95 H 92 09/23/20 05:31 37.0 C 96 H 91 09/23/20 05:30 37.0 C 96 H 123/58 L 92 09/23/20 05:20 37.1 C 96 H 93 09/23/20 05:15 37.1 C 97 H 131/61 92 09/23/20 05:10 37.1 C 98 H 92 09/23/20 05:01 37.1 C 98 H 92 09/23/20 05:00 37.1 C 99 H 125/54 L 92 09/23/20 04:50 37.1 C 99 H 92 09/23/20 04:45 37.1 C 99 H 122/55 L 91 09/23/20 04:40 37.1 C 99 H 91 09/23/20 04:30 37.1 C 100 H 115/67 92 09/23/20 04:20 37.1 C 100 H 91 09/23/20 04:15 37.2 C 100 H 104/65 92 09/23/20 04:14 100 H 37 H 91 09/23/20 04:10 37.2 C 100 H 91 09/23/20 04:00 37.2 C 102 H 126/58 L 92 09/23/20 03:50 37.2 C 102 H 92 09/23/20 03:45 37.2 C 103 H 114/61 93 09/23/20 03:40 37.2 C 103 H 94 09/23/20 03:31 37.3 C 105 H 95 09/23/20 03:30 37.3 C 105 H 119/59 L 94 09/23/20 03:20 37.3 C 105 H 94 09/23/20 03:15 37.3 C 106 H 117/60 94 09/23/20 03:10 37.4 C 107 H 95 09/23/20 03:01 37.4 C 108 H 94 09/23/20 03:00 37.4 C 108 H 131/59 L 94 09/23/20 02:50 37.4 C 108 H 93 09/23/20 02:45 37.4 C 108 H 121/64 94 09/23/20 02:40 37.4 C 107 H 93 09/23/20 02:31 37.4 C 108 H 92 09/23/20 02:30 37.4 C 108 H 130/68 93 09/23/20 02:20 37.4 C 108 H 93 09/23/20 02:15 37.4 C 108 H 119/64 93 09/23/20 02:10 37.4 C 108 H 93 Laboratory Results Short CBC 09/23/20 Range/Units 06:39 WBC 11.69 H (4.8-10.8) K/uL Hgb 11.5 L (12.0-16.0) g/dL Hct 37.6 (37-47) % Plt Count 194 (130-400) K/uL BMP 09/23/20 06:39 Sodium 134 L Potassium 4.8 D Chloride 104 Carbon Dioxide 25 BUN 49 H Creatinine 1.25 H Glucose 159 H Calcium 8.7 Medications Administered Current Inpatient Medications Enoxaparin Sodium (Enoxaparin Inj 40 Mg/0.4 Ml Syr) 40 mg SQ Q12H ADRIANA Stop: 10/11/20 08:59 Last Admin: 09/23/20 08:23 Dose: 40 mg Documented by: Fentanyl Citrate (Fentanyl Bolus From Bag) 50 mcg IV Q60M PRN PRN Reason: Pain or Agitation Stop: 10/03/20 18:30 Last Admin: 09/23/20 09:06 Dose: 50 mcg Documented by: Heparin Sodium (Beef Lung) (Heparin 10 Unit/Ml 5 Ml Flush) 5 ml FLUSH PRN PRN PRN Reason: Flush Stop: 10/21/20 22:49 Heparin Sodium (Porcine) (Heparin 100 Unit/Ml 5ml Flush) 5 ml FLUSH PRN PRN PRN Reason: Flush Stop: 10/15/20 00:44 Midazolam HCl (Versed) 125 mg in 250 mls @ 8 mls/hr IV .[id number] ADRIANA; Protocol Stop: 10/19/20 18:44 Last Admin: 09/23/20 07:06 Dose: 4 mg/hr, 8 mls/hr Documented by: Fentanyl Citrate (Fentanyl Drip) 1,250 mcg in 250 mls @ 20 mls/hr IV .[id number] ADRIANA; Protocol Stop: 10/03/20 18:44 Last Titration: 09/23/20 13:55 Dose: 100 mcg/hr, 20 mls/hr Documented by: Famotidine 20 mg/ Syringe 5 mls @ 2.5 mls/min IV Q12H ADRIANA Stop: 10/21/20 19:59 Last Admin: 09/23/20 08:24 Dose: 2.5 mls/min Documented by: Norepinephrine Bitartrate (Levophed/D5w) 8 mg in 508 mls @ 25.337 mls/hr IV .Q20H3M ADRIANA; Protocol Stop: 10/22/20 05:14 Last Titration: 09/22/20 13:34 Dose: 0 mcg/kg/min, 0 mls/hr Documented by: Cisatracurium Besylate 9 mg/ (Syringe) 4.5 mls @ 57 mls/min IV Q4H [facility] Stop: 10/23/20 01:59 Last Admin: 09/23/20 13:49 Dose: 57 mls/min Documented by: Insulin Aspart (Insulin Aspart 100 Units/Ml 3 Ml Pen) 0 units SC Q6 [facility] Stop: 10/11/20 07:29 Last Admin: 09/23/20 12:46 Dose: Not Given Documented by: Insulin Glargine (Insulin Glargine Solostar 100 Units/Ml 3 Ml Pen) 25 units SQ BID [facility] Stop: 10/19/20 08:59 Last Admin: 09/20/20 09:15 Dose: Not Given Documented by: Midazolam HCl (Midazolam Bolus From Bag) 2 mg IV Q60M PRN PRN Reason: Sedation Stop: 10/19/20 18:30 Miscellaneous (Icu Electrolyte Replacement Protocol) 1 ea N/A BID@06,18 [facility]; Protocol Stop: 09/27/20 17:59 Last Admin: 09/23/20 07:51 Dose: 1 ea Documented by: Multi-Ingredient Cream (Artificial Tears Op Oint 3.5 Gm Tube) 1 appln OP Q4 [facility] Stop: 10/21/20 11:59 Last Admin: 09/23/20 12:31 Dose: 1 appln Documented by: Nutritional Formula (Peptamen Intense Vhp 1.0 Ky 1,000 Ml Bag) 1,000 ml GT CONT [facility]; Protocol Stop: 10/22/20 12:59 Last Admin: 09/22/20 16:45 Dose: 1,000 ml Documented by:
[2020-09-23] MEDS: PEPTAMEN INTENSE VHP 1.0 CAL 1,000 ML BAG GT SCH (15:34)
[2020-09-23] MEDS: NOREPINEPHRINE/D5W 8 MG/508 ML BAG IV SCH (15:40)
[2020-09-23] MEDS ORDERED: NORMOSOL-R 2,000 ML IV ONE (17:42)
[2020-09-23] MEDS: MIDAZOLAM BOLUS FROM BAG IV PRN (18:34)
[2020-09-23] MEDS ORDERED: ACETAMINOPHEN 1,000 MG/100 ML VIAL IV STA (22:50)
[2020-09-24] MEDS: INSULIN ASPART 100 UNITS/ML 3 ML PEN SC SCH ×4 (00:35→17:55)
[2020-09-24] MEDS: fentaNYL DRIP 1,250 MCG/250 ML BAG IV SCH ×7 (01:43→23:24)
[2020-09-24] MEDS: CISATRACURIUM BESYLATE IV SCH ×4 (03:05→08:48)
[2020-09-24 04:43] LABS: iSTAT Art Bld Gas pCO2 Correct 51 mmHg (35-46); iSTAT Art Bld Gas pH Corrected 7.285 (7.35-7.45); iSTAT Arterial Blood Gas HCO3 24 meg/L (19-24); iSTAT Arterial Blood Gas pCO2 49 mmHg (35-46); iSTAT Arterial Blood Gas pO2 62 mmHg (80-95); iSTAT Arterial Blood Gas pO2 C 67; iSTAT Carbon Dioxide 26 mmol/L (24-31); iSTAT FiO2 100 %; iSTAT Hematocrit 35 % (37-47); iSTAT Hemoglobin 11.9 g/dl (12.0-16.0); iSTAT Potassium 4.5 mmol/L (3.3-5.0); iSTAT Site Art Line; iSTAT Sodium 133 mmol/L (135-144)
[2020-09-24] MEDS: ARTIFICIAL TEARS OP OINT 3.5 GM TUBE OP SCH ×6 (05:32→23:24)
[2020-09-24] MEDS ORDERED: FUROSEMIDE 40 MG in SYRINGE 0 ML IV ONE (05:46)
[2020-09-24 07:17] LABS: Basophils # (auto) 0.04 K/uL (0-0.2); Basophils % (auto) 0.3 %; Eosinophils # (auto) 0.13 K/uL (0-0.5); Hematocrit (blood only) 35.9 % (37-47); Hemoglobin 11.2 g/dL (12.0-16.0); Immature Granulocytes # (auto) 0.63 K/uL (0.00-0.02); Immature Granulocytes % (auto) 4.9 %; Lymphocytes # (auto) 0.75 K/uL (1.2-3.4); Lymphocytes % (auto) 5.9 %; Mean Corpuscular Hemoglobin 28.1 pg (25-34); Mean Corpuscular Hgb Conc 31.2 g/dL (32-36); Mean Platelet Volume 10.6 fL (7.4-10.4); Monocytes # (auto) 0.84 K/uL (0.11-0.59); Monocytes % (auto) 6.6 %; Neutrophils # (auto) 10.35 K/uL (1.4-6.5); Neutrophils % (auto) 81.3 %; Platelet Count 264 K/uL (130-400); RDW Coefficient of Variation 17.7 % (11.5-14.5); RDW Standard Deviation 59.2 fL (36.4-46.3); Red Blood Count 3.99 M/uL (4.2-5.4); White Blood Count 12.74 K/uL (4.8-10.8)
[2020-09-24] MEDS: MIDAZOLAM BOLUS FROM BAG IV PRN (07:27)
[2020-09-24] MEDS: FAMOTIDINE 20 MG in SYRINGE 3 ML IV SCH ×2 (07:36→20:05)
[2020-09-24 07:52] LABS: BUN Creatinine Ratio 40.1 (10-20); Calcium 9.1 mg/dl (8.5-10.1); Creatinine Clr Calc Pharmacy 52.6 ml/min; Est GFR (African American) 46.3; Phosphorus 2.9 mg/dl (2.5-4.9)
--- NOTE | 2020-09-24 08:11 | XRay Report ---
XR chest 1V portable CLINICAL HISTORY: Respiratory failure COMPARISON STUDY: 2020 FINDINGS: An enteric tube passes into the stomach. There is an endotracheal tube 42 mm above the kwame na. There is a right-sided A-Port catheter. There is a right internal jugular central venous catheter . There are persistent extensive bilateral pulmonary airspace opacities.[Trace pleural effusions are suspected. IMPRESSION: 1. Persistent extensive bilateral pulmonary airspace opacities 2. Satisfactory positioning of the lines and tubes. ACT 112: Negative or not required by law. Electronically signed by: Art Guerrero M.D. 09/24/2020 8:10 AM
--- NOTE | 2020-09-24 08:13 | Critical Care Progress Note ---
Date of Service September 24, 2020 Assessment & Plan (1) Obesity hypoventilation syndrome: (2) Acute respiratory failure: Reason Critically Ill: 70-year-old female with morbid obesity and COVID-19 acute hypoxic respiratory failure PLAN: Neuro: Neuromuscular blockade completed 3 days, extending given severe refractory hypoxemia -Versed for sedation fentanyl for analgesia Resp: COVID-19 related acute hypoxic respiratory failure Severe refractory hypoxemia: ARDS: PF ratio less than 100 -Neuromuscular blockade, converted to APRV -Time high 5.5 pressure 37, time low 0.5 pressure 5 -Reinstitute neuromuscular blockade -Pronation therapy -Patient's compliance is have not improved and actually gotten worse and she appears to actually have an improved compliance in the supine position therefore I will discontinue additional pronation therapies Covid positive: 09/11 day:15 Ventilation day 5 -Discussed with daughter severe sudden decrease in oxygen saturation -I feel the current level will be incompatible with life and is likely injuring brain function -Discussed risks and benefits of empiric TPA -TPA to be given 100 mg over 2 hours per protocol then transition to heparin infusion -I stressed this is a last ditch heroic effort to improve the patient's oxygenation -She is too unstable for transfer to ECMO facility -At 140 kg, transportation via helicopter is difficult and would likely preclude ECMO circuit to be used in flight Fluids/Renal: Chronic kidney disease stage III 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 We discussed risks and benefits and felt that if patient were to suffer cardiac arrest given such severe hypoxemia likelihood of severe profound disability would be more than what patient would want to endure so we have made the patient DO NOT RESUSCITATE in event of cardiac arrest. Patient very emotionally distraught about possibility of losing her mother, I am concerned that this is a grim prognosis given the severe refractory hypoxemia consult palliative care to assist with end-of-life decision-making. Prognosis: Poor (3) Morbid obesity: (4) COVID-19 virus infection: Admission and Anticipated Discharge Date Admission Date: September 11, 2020 Supervising Physician Co-Signing Physician Notes I have personally spent 85 minutes of critical care time in the direct management of this patient. This is a life/limb threatening event. This includes time spent evaluating patient, direct bedside care, chart review, plac ing orders, interpretation of diagnostic studies, discussion with consultants, patient, and/or family members regarding treatment decisions, as well as other required patient management activities. This time is exclusive of all separately billable procedures, and teaching time and separate from and in addition to any other critical care service time. Subjective No overnight events, this morning patient had significant worsening of hypoxemia. She has not been improving her compliance with pronation therapy. Review of Systems Review of Systems: Unobtainable due to endotracheal tube Physical Exam Physical Exam: General: 3 TP. nontoxic. Skin: Warm, dry, Head: Atraumatic Ears, nose, mouth and throat: airway obscured by endotracheal tube Cardiovascular: Normal peripheral perfusion Respiratory: no respiratory distress Gastrointestinal: Non distended Musculoskeletal: No deformity Results & Data Results & Data ([facility]) Vital Signs (Past 12 Hours) Vital Signs Temp Pulse Resp BP Pulse Ox 09/24/20 07:49 121 H 39 H 86 L 09/24/20 07:00 38.3 C H 109 H 126/84 88 L 09/24/20 06:30 38.2 C H 107 H 85 L 09/24/20 06:00 38.1 C H 106 H 129/60 86 L 09/24/20 05:30 38.1 C H 103 H 86 L 09/24/20 05:01 38.0 C H 101 H 86 L 09/24/20 05:00 38.0 C H 101 H 107/59 L 85 L 09/24/20 04:30 38.0 C H 97 H 86 L 09/24/20 04:18 95 H 36 H 87 L 09/24/20 04:00 38.0 C H 93 H 103/52 L 87 L 09/24/20 03:30 37.9 C H 93 H 88 L 09/24/20 03:01 38.0 C H 92 H 87 L 09/24/20 03:00 38.0 C H 93 H 122/56 L 87 L 09/24/20 02:30 38.0 C H 92 H 87 L 09/24/20 02:01 38.0 C H 92 H 86 L 09/24/20 02:00 38.0 C H 91 H 122/52 L 86 L 09/24/20 01:30 38.0 C H 91 H 86 L 09/24/20 01:01 38.0 C H 90 87 L 09/24/20 01:00 38.0 C H 89 119/44 L 86 L 09/24/20 00:30 38.1 C H 90 85 L 09/24/20 00:01 38.1 C H 96 H 88 L 09/24/20 00:00 38.1 C H 96 H 113/48 L 88 L 09/23/20 23:59 97 H 09/23/20 23:30 38.2 C H 97 H 34 H 89 L 09/23/20 23:01 38.1 C H 93 H 90 09/23/20 23:00 38.1 C H 94 H 113/53 L 90 09/23/20 22:30 38.1 C H 93 H 89 L 09/23/20 22:01 37.9 C H 93 H 90 09/23/20 22:00 37.9 C H 93 H 116/52 L 91 09/23/20 21:30 37.7 C H 92 H 91 09/23/20 21:01 37.5 C 91 H 91 09/23/20 21:00 37.5 C 91 H 120/50 L 91 09/23/20 20:30 37.3 C 90 93 Laboratory Results 09/24/20 09/24/20 09/24/20 Range/Units 06:25 06:25 05:39 WBC 12.74 H (4.8-10.8) K/uL RBC 3.99 L (4.2-5.4) M/uL Hgb 11.2 L (12.0-16.0) g/dL POC Hgb (12.0-16.0) g/dl Hct 35.9 L (37-47) % POC Hct (37-47) % MCV 90.0 (80-100) fL MCH 28.1 (25-34) pg MCHC 31.2 L (32-36) g/dL RDW Std Deviation 59.2 H (36.4-46.3) fL RDW Coeff of Obey 17.7 H (11.5-14.5) % Plt Count 264 (130-400) K/uL MPV 10.6 H (7.4-10.4) fL Immature Gran % (Auto) 4.9 % Neut % (Auto) 81.3 % Lymph % (Auto) 5.9 % Hickman % (Auto) 6.6 % Eos % (Auto) 1.0 % Baso % (Auto) 0.3 % Neut # (Auto) 10.35 H (1.4-6.5) K/uL Lymph # (Auto) 0.75 L (1.2-3.4) K/uL Hickman # (Auto) 0.84 H (0.11-0.59) K/uL Eos # (Auto) 0.13 (0-0.5) K/uL Baso # (Auto) 0.04 (0-0.2) K/uL Immature Gran # (Auto) 0.63 H (0.00-0.02) K/uL Sample Site POC pH (7.35-7.45) POC pCO2 (35-46) mmHg POC pO2 (80-95) mmHg POC HCO3 (19-24) tyson/L POC Total CO2 (24-31) mmol/L POC Base Excess (-9-1.8) tyson/L ABG pH (Temp Correct) (7.35-7.45) ABG pCO2 (Temp Corrct (35-46) mmHg POC ABG pO2 at Pt Temp POC ABG O2 Sat (90-95) % Rah Test O2 Delivery Device POC O2 Rate Minute Ventilation POC FiO2 % Tidal Volume PEEP POC Sodium (135-144) mmol/L Sodium 133 L (136-145) mmol/L POC Potassium (3.3-5.0) mmol/L Potassium (3.5-5.1) mmol/L Chloride 103 (98-107) mmol/L Carbon Dioxide 21 (21-32) mmol/L Anion Gap 10.0 (3-11) BUN 54 H (7-18) mg/dl Creatinine 1.35 H (0.6-1.2) mg/dl Est Cr Clr Drug Dosing 52.6 ml/min Est GFR ( Amer) 46.3 Est GFR (Non-Af Amer) 40.0 BUN/Creatinine Ratio 40.1 H (10-20) Glucose 193 H (70-99) mg/dl POC Glucose 226 H (70-99) mg/dl Calcium 9.1 (8.5-10.1) mg/dl Phosphorus 2.9 D (2.5-4.9) mg/dl Magnesium (1.8-2.4) mg/dl 09/24/20 09/24/20 09/23/20 Range/Units 04:18 00:32 18:14 WBC (4.8-10.8) K/uL RBC (4.2-5.4) M/uL Hgb (12.0-16.0) g/dL POC Hgb 11.9 L (12.0-16.0) g/dl Hct (37-47) % POC Hct 35 L (37-47) % MCV (80-100) fL MCH (25-34) pg MCHC (32-36) g/dL RDW Std Deviation (36.4-46.3) fL RDW Coeff of Obey (11.5-14.5) % Plt Count (130-400) K/uL MPV (7.4-10.4) fL Immature Gran % (Auto) % Neut % (Auto) % Lymph % (Auto) % Hickman % (Auto) % Eos % (Auto) % Baso % (Auto) % Neut # (Auto) (1.4-6.5) K/uL Lymph # (Auto) (1.2-3.4) K/uL Hickman # (Auto) (0.11-0.59) K/uL Eos # (Auto) (0-0.5) K/uL Baso # (Auto) (0-0.2) K/uL Immature Gran # (Auto) (0.00-0.02) K/uL Sample Site Art Line POC pH 7.30 L (7.35-7.45) POC pCO2 49 H (35-46) mmHg POC pO2 62 L (80-95) mmHg POC HCO3 24 (19-24) tyson/L POC Total CO2 26 (24-31) mmol/L POC Base Excess -2.0 (-9-1.8) tyson/L ABG pH (Temp Correct) 7.285 L (7.35-7.45) ABG pCO2 (Temp Corrct 51 H (35-46) mmHg POC ABG pO2 at Pt Temp 67 POC ABG O2 Sat 89.0 L (90-95) % Rah Test NA O2 Delivery Device Ventilator POC O2 Rate 34 Minute Ventilation 12.5 POC FiO2 100 % Tidal Volume 60 PEEP 20 POC Sodium 133 L (135-144) mmol/L Sodium (136-145) mmol/L POC Potassium 4.5 (3.3-5.0) mmol/L Potassium (3.5-5.1) mmol/L Chloride (98-107) mmol/L Carbon Dioxide (21-32) mmol/L Anion Gap (3-11) BUN (7-18) mg/dl Creatinine (0.6-1.2) mg/dl Est Cr Clr Drug Dosing ml/min Est GFR ( Amer) Est GFR (Non-Af Amer) BUN/Creatinine Ratio (10-20) Glucose (70-99) mg/dl POC Glucose 171 H 138 H (70-99) mg/dl Calcium (8.5-10.1) mg/dl Phosphorus (2.5-4.9) mg/dl Magnesium (1.8-2.4) mg/dl 09/23/20 Range/Units 12:07 WBC (4.8-10.8) K/uL RBC (4.2-5.4) M/uL Hgb (12.0-16.0) g/dL POC Hgb (12.0-16.0) g/dl Hct (37-47) % POC Hct (37-47) % MCV (80-100) fL MCH (25-34) pg MCHC (32-36) g/dL RDW Std Deviation (36.4-46.3) fL RDW Coeff of Obey (11.5-14.5) % Plt Count (130-400) K/uL MPV (7.4-10.4) fL Immature Gran % (Auto) % Neut % (Auto) % Lymph % (Auto) % Hickman % (Auto) % Eos % (Auto) % Baso % (Auto) % Neut # (Auto) (1.4-6.5) K/uL Lymph # (Auto) (1.2-3.4) K/uL Hickman # (Auto) (0.11-0.59) K/uL Eos # (Auto) (0-0.5) K/uL Baso # (Auto) (0-0.2) K/uL Immature Gran # (Auto) (0.00-0.02) K/uL Sample Site POC pH (7.35-7.45) POC pCO2 (35-46) mmHg POC pO2 (80-95) mmHg POC HCO3 (19-24) tyson/L POC Total CO2 (24-31) mmol/L POC Base Excess (-9-1.8) tyson/L ABG pH (Temp Correct) (7.35-7.45) ABG pCO2 (Temp Corrct (35-46) mmHg POC ABG pO2 at Pt Temp POC ABG O2 Sat (90-95) % Rah Test O2 Delivery Device POC O2 Rate Minute Ventilation POC FiO2 % Tidal Volume PEEP POC Sodium (135-144) mmol/L Sodium (136-145) mmol/L POC Potassium (3.3-5.0) mmol/L Potassium (3.5-5.1) mmol/L Chloride (98-107) mmol/L Carbon Dioxide (21-32) mmol/L Anion Gap (3-11) BUN (7-18) mg/dl Creatinine (0.6-1.2) mg/dl Est Cr Clr Drug Dosing ml/min Est GFR ( Amer) Est GFR (Non-Af Amer) BUN/Creatinine Ratio (10-20) Glucose (70-99) mg/dl POC Glucose 138 H (70-99) mg/dl Calcium (8.5-10.1) mg/dl Phosphorus (2.5-4.9) mg/dl Magnesium (1.8-2.4) mg/dl Diagnostic Findings Chest x-ray reviewed, no obvious pneumothorax as explanation of worsening hypoxe stephy. Coding Level of Care Code Critical Care ea addt'l 30 min Diagnoses Obesity hypoventilation syndrome E66.2 Acute respiratory failure J96.00 Morbid obesity E66.01 COVID-19 virus infection U07.1
[2020-09-24 08:35] LABS: Potassium 4.3 mmol/L (3.5-5.1)
[2020-09-24] MEDS ORDERED: CISATRACURIUM BESYLATE IV PRN (08:53)
[2020-09-24] MEDS: ENOXAPARIN INJ 40 MG/0.4 ML SYR SQ SCH (08:59)
[2020-09-24 09:19] LABS: iSTAT Arterial Blood Gas HCO3 26 meg/L (19-24); iSTAT Arterial Blood Gas pCO2 56 mmHg (35-46); iSTAT Arterial Blood Gas pH 7.27 (7.35-7.45); iSTAT Arterial Blood Gas pO2 45 mmHg (80-95); iSTAT Carbon Dioxide 28 mmol/L (24-31); iSTAT FiO2 100 %; iSTAT Site Art Line
--- NOTE | 2020-09-24 09:32 | XRay Report ---
XR chest 1V portable CLINICAL HISTORY: Respiratory failure COMPARISON STUDY: 09/24/2020 FINDINGS: There is an endotracheal tube 42 mm above the cristina. A right subclavian A-Port catheter is again visualized unchanged position. There is a right internal jugular central venous catheter uncha nged in position. The heart remains enlarged. There are persistent bilateral pulmonary airspace opaci ties similar to the prior study. Trace pleural effusions are suspected.[ IMPRESSION: 1. Persistent bilateral pulmonary airspace opacities 2. Satisfactory positioning of the lines and tubes. ACT 112: Negative or not required by law. Electronically signed by: Art Guerrero M.D. 09/24/2020 9:31 AM
[2020-09-24] MEDS: ICU ELECTROLYTE REPLACEMENT PROTOCOL SCH ×2 (09:37→16:50)
[2020-09-24] MEDS ORDERED: PRIMARY PLUMSET, PE LINED TUBING, 113 IN, NON-DEHP (2260-0500) IV STA (09:39)
[2020-09-24] MEDS ORDERED: DC ALL ANTICOAGULANTS STA (09:39)
[2020-09-24] MEDS ORDERED: SODIUM CHLORIDE 0.9% 50 ML BAG IV STA (09:39)
[2020-09-24] MEDS ORDERED: ALTEPLASE, RECOMBINANT 100 MG in EMPTY BAG 0 ML IV STA (09:39)
[2020-09-24] MEDS ORDERED: LINEZOLID CONSULT ACTIVE PRN (09:54)
[2020-09-24] MEDS ORDERED: levoFLOXacin/D5W 750 MG/150 ML BAG IV SCH (10:00)
[2020-09-24] MEDS ORDERED: CEFEPIME 2,000 MG in SYRINGE 0 ML IV SCH (10:00)
[2020-09-24] MEDS ORDERED: LINEZOLID 600 MG/300 ML D5W IV SCH (10:00)
[2020-09-24] MEDS ORDERED: ACETAMINOPHEN 1000 MG/100 ML IV IV ONE (10:07)
[2020-09-24] MEDS: MIDAZOLAM HCL 125 MG/250 ML BAG IV SCH (10:29)
[2020-09-24] MEDS: NOREPINEPHRINE/D5W 8 MG/508 ML BAG IV SCH ×4 (11:49→20:50)
--- NOTE | 2020-09-24 13:04 | Hospitalist Progress Note ---
Date of Service September 24, 2020 Assessment & Plan (1) Acute respiratory failure: Secondary to covid-19 pneumonia. Failed initial BiPAP treatment and required intubation She was intubated by custom van converter and transferred to the ICU. Appreciate custom van converter input and recommendation Remains intubated and sedated Still requiring norepinephrine to maintain blood pressure Her condition is getting worse and the saturation is going down Her daughter has been informed about the clinical condition of her mom She is made DNR (2) Pneumonia due to COVID-19 virus: Completed remdesivir, Cont dexamethasone-course completed. echanical ventilation as above. Lasix PRN Repeat chest x-ray shows improvement of Covid pneumonia She is not getting any more antibiotic Having more fever and more antibiotics have been added by the custom van converter Prognosis remains poor (3) Non-traumatic rhabdomyolysis: Was tolerating PO and hydrating reliably before intubation. CK is improved. Cont to monitor volume status while intubated. (4) Opioid dependence: Chronic pain on percocet regularly. Currently sedated and intubated. (5) SAMANTHA (obstructive sleep apnea): Uses home BIPAP at night typically. Now intubated (6) COPD (chronic obstructive pulmonary disease): chronic, stable, no wheezing on exam. 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 Monitor blood glucose and manage appropriately A1c 7.3 .Still on the steroids. Cont Lantus at 25 Units BID Glucose more under control now. (9) Morbid obesity: (10) DVT prophylaxis: Lovenox Full Code Dispo-transfer to ICU Nutrition NG tube feeding Discussed with the daughter and updated about the current poor condition of her mom Reassured that we have been doing everything possible to make her better Admission and Anticipated Discharge Date Admission Date: September 11, 2020 Subjective The patient was seen and examined in Covid unit She was admitted with a acute respiratory failure secondary to COVID-19 viral pneumonia and required intubation Remains sedated on vent 09/21/2020 The patient was seen and examined in Covid unit She remains intubated and sedated 09/22/2020 The patient was seen and examined in Covid unit She remains intubated and sedated and requiring pressors 09/23/2020 The patient was seen and examined in Covid unit She remains intubated and sedated 09/24/2020 The patient was seen and examined in telemetry unit She has been deteriorating with decreasing saturation, decrease in blood pressure and increasing temperature She was prescribed empiric TPA Review of Systems Review of Systems: Unobtainable due to endotracheal tube Physical Exam Physical Exam: Remains sedated on mechanical ventilator Constitutional: well developed, well nourished, + ill appearing and + morbidly obese ENMT: external ear and nose normal, oropharynx normal Neck: trachea midline, no thyromegaly Respiratory: Auscultation: + diminished lung sounds and + crackles (Bibasilar crackles) Cardiovascular: Rate/Rhythm: regular rate and regular rhythm Heart Sounds: no murmur Extremities: + edema (1+ edema bilaterally) Gastrointestinal (Abdomen): Inspection/Auscultation: normal bowel sounds; abdomen not distended Percussion/Palpation: abdomen soft; abdomen nontender Neurologic: Remains sedated on mechanical ventilator Lymphatic: no cervical or axillary lymphadenopathy Results & Data Results & Data ([facility]) Vital Signs (Past 12 Hours) Vital Signs Temp Pulse Resp BP Pulse Ox 09/24/20 12:30 38.6 C H 102 H 74 L 09/24/20 12:01 38.9 C H 107 H 74 L 09/24/20 12:00 39.0 C H 107 H 78/42 L 75 L 09/24/20 11:50 106 H 10 L 74 L 09/24/20 11:30 39.2 C H 110 H 76 L 09/24/20 11:01 39.4 C H 116 H 78 L 09/24/20 11:00 39.4 C H 116 H 77/49 L 79 L 09/24/20 10:45 39.4 C H 128 H 87 L 09/24/20 10:30 39.3 C H 124 H 80 L 09/24/20 10:15 39.2 C H 113 H 75 L 09/24/20 10:01 39.2 C H 118 H 77 L 09/24/20 10:00 39.2 C H 119 H 77/53 L 78 L 09/24/20 09:45 39.1 C H 129 H 81 L 09/24/20 09:30 39.0 C H 132 H 82 L 09/24/20 09:15 39.0 C H 129 H 80 L 09/24/20 09:01 38.9 C H 123 H 78 L 09/24/20 09:00 38.9 C H 126 H 97/69 L 78 L 09/24/20 08:45 38.8 C H 123 H 77 L 09/24/20 08:41 38.8 C H 123 H 124/81 82 L 09/24/20 08:30 38.8 C H 124 H 82 L 09/24/20 08:15 38.7 C H 124 H 84 L 09/24/20 08:01 38.6 C H 123 H 85 L 09/24/20 08:00 38.6 C H 119 H 123/66 86 L 09/24/20 07:49 121 H 39 H 86 L 09/24/20 07:37 38.4 C H 117 H 126/84 87 L 09/24/20 07:30 38.5 C H 114 H 88 L 09/24/20 07:00 38.3 C H 109 H 126/84 88 L 09/24/20 06:30 38.2 C H 107 H 85 L 09/24/20 06:00 38.1 C H 106 H 129/60 86 L 09/24/20 05:30 38.1 C H 103 H 86 L 09/24/20 05:01 38.0 C H 101 H 86 L 09/24/20 05:00 38.0 C H 101 H 107/59 L 85 L 09/24/20 04:30 38.0 C H 97 H 86 L 09/24/20 04:18 95 H 36 H 87 L 09/24/20 04:00 38.0 C H 93 H 103/52 L 87 L 09/24/20 03:30 37.9 C H 93 H 88 L 09/24/20 03:01 38.0 C H 92 H 87 L 09/24/20 03:00 38.0 C H 93 H 122/56 L 87 L 09/24/20 02:30 38.0 C H 92 H 87 L 09/24/20 02:01 38.0 C H 92 H 86 L 09/24/20 02:00 38.0 C H 91 H 122/52 L 86 L 09/24/20 01:30 38.0 C H 91 H 86 L 09/24/20 01:01 38.0 C H 90 87 L 09/24/20 01:00 38.0 C H 89 119/44 L 86 L Laboratory Results Current Inpatient Medications Fentanyl Citrate (Fentanyl Bolus From Bag) 50 mcg IV Q60M PRN PRN Reason: Pain or Agitation Stop: 10/03/20 18:30 Last Admin: 09/24/20 07:27 Dose: 50 mcg Documented by: Heparin Sodium (Beef Lung) (Heparin 10 Unit/Ml 5 Ml Flush) 5 ml FLUSH PRN PRN PRN Reason: Flush Stop: 10/21/20 22:49 Heparin Sodium (Porcine) (Heparin 100 Unit/Ml 5ml Flush) 5 ml FLUSH PRN PRN PRN Reason: Flush Stop: 10/15/20 00:44 Heparin Sodium/Dextrose (Heparin Iv Standard *No* Bolus) 1 ea N/A ONE ONE; Protocol Stop: 09/24/20 10:00 Midazolam HCl (Versed) 125 mg in 250 mls @ 8 mls/hr IV .[id number] [facility]; Protocol Stop: 10/19/20 18:44 Last Admin: 09/24/20 10:29 Dose: 4 mg/hr, 8 mls/hr Documented by: Fentanyl Citrate (Fentanyl Drip) 1,250 mcg in 250 mls @ 40 mls/hr IV .Q6H15M ADRIANA; Protocol Stop: 10/03/20 18:44 Last Admin: 09/24/20 08:46 Dose: 200 mcg/hr, 40 mls/hr Documented by: Famotidine 20 mg/ Syringe 5 mls @ 2.5 mls/min IV Q12H [facility] Stop: 10/21/20 19:59 Last Admin: 09/24/20 07:36 Dose: 2.5 mls/min Documented by: Norepinephrine Bitartrate (Levophed/D5w) 8 mg in 508 mls @ 25.337 mls/hr IV .Q20H3M ADRIANA; Protocol Stop: 10/22/20 05:14 Last Titration: 09/24/20 12:51 Dose: 0.21 mcg/kg/min, 106.4 mls/hr Documented by: Cisatracurium Besylate 9 mg/ (Syringe) 4.5 mls @ 57 mls/min IV Q4H PRN PRN Reason: Hypoxia <88% or tachypnea >22 Stop: 10/23/20 01:59 Cefepime HCl 2,000 mg/ Syringe 20 mls @ 5 mls/min IV DAILY@1000 [facility]; Protocol Stop: 10/01/20 09:59 Last Admin: 09/24/20 11:15 Dose: 5 mls/min Documented by: Levofloxacin/Dextrose (Levaquin/D5w) 750 mg in 150 mls @ 100 mls/hr IV Q24H [facility] Stop: 10/01/20 09:59 Last Infusion: 09/24/20 12:52 Dose: Infused Documented by: Heparin Sodium/Dextrose (Heparin Sodium/Dextrose) 25,000 units in 500 mls @ 0.02 mls/hr IV .Q24H [facility]; Protocol Stop: 10/24/20 09:59 Linezolid (Zyvox) 600 mg in 300 mls @ 200 mls/hr IV Q12 [facility]; Protocol Stop: 10/01/20 11:59 Insulin Aspart (Insulin Aspart 100 Units/Ml 3 Ml Pen) 0 units SC Q6 [facility] Stop: 10/11/20 07:29 Last Admin: 09/24/20 12:13 Dose: 4 units Documented by: Insulin Glargine (Insulin Glargine Solostar 100 Units/Ml 3 Ml Pen) 25 units SQ BID [facility] Stop: 10/19/20 08:59 Last Admin: 09/20/20 09:15 Dose: Not Given Documented by: Midazolam HCl (Midazolam Bolus From Bag) 2 mg IV Q60M PRN PRN Reason: Sedation Stop: 10/19/20 18:30 Last Admin: 09/24/20 07:27 Dose: 2 mg Documented by: Miscellaneous (Icu Electrolyte Replacement Protocol) 1 ea N/A BID@06,18 [facility]; Protocol Stop: 09/27/20 17:59 Last Admin: 09/24/20 09:37 Dose: Not Given Documented by: Miscellaneous (Heparin Drip: Pending Order) 1 ea N/A Q1H [facility] Stop: 10/24/20 12:59 Miscellaneous Information (Linezolid Consult Active) 1 ea N/A UD PRN PRN Reason: Consult Stop: 10/24/20 09:53 Multi-Ingredient Cream (Artificial Tears Op Oint 3.5 Gm Tube) 1 appln OP Q4 ADRIANA Stop: 10/21/20 11:59 Last Admin: 09/24/20 11:26 Dose: 1 appln Documented by: Nutritional Formula (Peptamen Intense Vhp 1.0 Ky 1,000 Ml Bag) 1,000 ml GT CONT [facility]; Protocol Stop: 10/22/20 12:59 Last Admin: 09/23/20 15:34 Dose: 1,000 ml Documented by: Medications Administered Current Inpatient Medications Fentanyl Citrate (Fentanyl Bolus From Bag) 50 mcg IV Q60M PRN PRN Reason: Pain or Agitation Stop: 10/03/20 18:30 Last Admin: 09/24/20 07:27 Dose: 50 mcg Documented by: Heparin Sodium (Beef Lung) (Heparin 10 Unit/Ml 5 Ml Flush) 5 ml FLUSH PRN PRN PRN Reason: Flush Stop: 10/21/20 22:49 Heparin Sodium (Porcine) (Heparin 100 Unit/Ml 5ml Flush) 5 ml FLUSH PRN PRN PRN Reason: Flush Stop: 10/15/20 00:44 Heparin Sodium/Dextrose (Heparin Iv Standard *No* Bolus) 1 ea N/A ONE ONE; Protocol Stop: 09/24/20 10:00 Midazolam HCl (Versed) 125 mg in 250 mls @ 8 mls/hr IV .[id number] [facility]; Protocol Stop: 10/19/20 18:44 Last Admin: 09/24/20 10:29 Dose: 4 mg/hr, 8 mls/hr Documented by: Fentanyl Citrate (Fentanyl Drip) 1,250 mcg in 250 mls @ 40 mls/hr IV .Q6H15M [facility]; Protocol Stop: 10/03/20 18:44 Last Admin: 09/24/20 08:46 Dose: 200 mcg/hr, 40 mls/hr Documented by: Famotidine 20 mg/ Syringe 5 mls @ 2.5 mls/min IV Q12H ADRIANA Stop: 10/21/20 19:59 Last Admin: 09/24/20 07:36 Dose: 2.5 mls/min Documented by: Norepinephrine Bitartrate (Levophed/D5w) 8 mg in 508 mls @ 25.337 mls/hr IV .Q20H3M ADRIANA; Protocol Stop: 10/22/20 05:14 Last Titration: 09/24/20 12:51 Dose: 0.21 mcg/kg/min, 106.4 mls/hr Documented by: Cisatracurium Besylate 9 mg/ (Syringe) 4.5 mls @ 57 mls/min IV Q4H PRN PRN Reason: Hypoxia <88% or tachypnea >22 Stop: 10/23/20 01:59 Cefepime HCl 2,000 mg/ Syringe 20 mls @ 5 mls/min IV DAILY@1000 [facility]; Protocol Stop: 10/01/20 09:59 Last Admin: 09/24/20 11:15 Dose: 5 mls/min Documented by: Levofloxacin/Dextrose (Levaquin/D5w) 750 mg in 150 mls @ 100 mls/hr IV Q24H [facility] Stop: 10/01/20 09:59 Last Infusion: 09/24/20 12:52 Dose: Infused Documented by: Heparin Sodium/Dextrose (Heparin Sodium/Dextrose) 25,000 units in 500 mls @ 0.02 mls/hr IV .Q24H [facility]; Protocol Stop: 10/24/20 09:59 Linezolid (Zyvox) 600 mg in 300 mls @ 200 mls/hr IV Q12 [facility]; Protocol Stop: 10/01/20 11:59 Insulin Aspart (Insulin Aspart 100 Units/Ml 3 Ml Pen) 0 units SC Q6 [facility] Stop: 10/11/20 07:29 Last Admin: 09/24/20 12:13 Dose: 4 units Documented by: Insulin Glargine (Insulin Glargine Solostar 100 Units/Ml 3 Ml Pen) 25 units SQ BID [facility] Stop: 10/19/20 08:59 Last Admin: 09/20/20 09:15 Dose: Not Given Documented by: Midazolam HCl (Midazolam Bolus From Bag) 2 mg IV Q60M PRN PRN Reason: Sedation Stop: 10/19/20 18:30 Last Admin: 09/24/20 07:27 Dose: 2 mg Documented by: Miscellaneous (Icu Electrolyte Replacement Protocol) 1 ea N/A BID@06,18 [facility]; Protocol Stop: 09/27/20 17:59 Last Admin: 09/24/20 09:37 Dose: Not Given Documented by: Miscellaneous (Heparin Drip: Pending Order) 1 ea N/A Q1H ADRIANA Stop: 10/24/20 12:59 Miscellaneous Information (Linezolid Consult Active) 1 ea N/A UD PRN PRN Reason: Consult Stop: 10/24/20 09:53 Multi-Ingredient Cream (Artificial Tears Op Oint 3.5 Gm Tube) 1 appln OP Q4 ADRIANA Stop: 10/21/20 11:59 Last Admin: 09/24/20 11:26 Dose: 1 appln Documented by: Nutritional Formula (Peptamen Intense Vhp 1.0 Ky 1,000 Ml Bag) 1,000 ml GT CONT ADRIANA; Protocol Stop: 10/22/20 12:59 Last Admin: 09/23/20 15:34 Dose: 1,000 ml Documented by:
[2020-09-24 13:05] LABS: Hematocrit (blood only) 37.5 % (37-47); Hemoglobin 11.4 g/dL (12.0-16.0); Mean Corpuscular Hemoglobin 28.1 pg (25-34); Mean Corpuscular Hgb Conc 30.4 g/dL (32-36); Mean Corpuscular Volume 92.6 fL (80-100); Mean Platelet Volume 10.3 fL (7.4-10.4); Nucleated RBC # (auto) 0.04 K/uL (0-0); Nucleated RBC % (auto) 0.3 %; Platelet Count 299 K/uL (130-400); RDW Coefficient of Variation 18.1 % (11.5-14.5); RDW Standard Deviation 61.9 fL (36.4-46.3); Red Blood Count 4.05 M/uL (4.2-5.4); White Blood Count 15.68 K/uL (4.8-10.8)
[2020-09-24 13:32] LABS: Partial Thromboplastin Ratio 1.1; Partial Thromboplastin Time 30.5 Seconds (21.0-31.0)
[2020-09-24] MEDS: LINEZOLID 600 MG/300 ML BAG IV SCH ×2 (13:51→20:30)
[2020-09-24 14:15] LABS: Partial Thromboplastin Ratio 1.2; Partial Thromboplastin Time 32.4 Seconds (21.0-31.0)
[2020-09-24] MEDS ORDERED: Heparin IV Standard *NO* Bolus IV SCH (14:24)
[2020-09-24] MEDS ORDERED: HEPARIN SODIUM/DEXTROSE 25,000 UNITS/500 ML BAG IV SCH (14:30)
[2020-09-24] MEDS: PEPTAMEN INTENSE VHP 1.0 CAL 1,000 ML BAG GT SCH (14:42)
[2020-09-24] MEDS ORDERED: SEVERE STRESS LEVEL ONE (18:52)
[2020-09-24] MEDS ORDERED: INSULIN PROTOCOL GOAL RANGE ONE (18:52)
[2020-09-24] MEDS ORDERED: NovoLIN-R BOLUS FROM BAG IV ONE (20:15)
[2020-09-24] MEDS ORDERED: INSULIN REGULAR 250 UNITS in SODIUM CHLORIDE 0.9% 247.5 ML IV SCH (20:15)
[2020-09-24] MEDS ORDERED: INSULIN ASPART 100 UNITS/ML 3 ML PEN SC SCH (21:00)
[2020-09-24] MEDS ORDERED: PHARMACY GLYCEMIC MGMT CONSULT PRN (21:29)
[2020-09-24 21:45] LABS: Partial Thromboplastin Ratio 1.9
[2020-09-24] MEDS: Double Conc 32mcg/mL; 16mg in 500mL IV SCH (23:23)
[2020-09-25] MEDS: Double Conc 32mcg/mL; 16mg in 500mL IV SCH (03:39)
[2020-09-25] MEDS: ARTIFICIAL TEARS OP OINT 3.5 GM TUBE OP SCH (04:14)
[2020-09-25 04:24] LABS: Hematocrit (blood only) 39.4 % (37-47); Hemoglobin 11.8 g/dL (12.0-16.0); Mean Corpuscular Hemoglobin 27.8 pg (25-34); Mean Corpuscular Hgb Conc 29.9 g/dL (32-36); Mean Corpuscular Volume 92.9 fL (80-100); Mean Platelet Volume 9.7 fL (7.4-10.4); Nucleated RBC # (auto) 0.15 K/uL (0-0); Nucleated RBC % (auto) 0.9 %; Platelet Count 271 K/uL (130-400); RDW Standard Deviation 61.5 fL (36.4-46.3); Red Blood Count 4.24 M/uL (4.2-5.4); White Blood Count 16.27 K/uL (4.8-10.8)
[2020-09-25 04:47] LABS: BUN Creatinine Ratio 23.3 (10-20); Calcium 8.5 mg/dl (8.5-10.1); Creatinine Clr Calc Pharmacy 26.8 ml/min; Est GFR (African American) 19.9; Est GFR (Non-African American) 17.2; Magnesium 3.1 mg/dl (1.8-2.4)
[2020-09-25 04:49] LABS: Phosphorus 5.8 mg/dl (2.5-4.9)
[2020-09-25 04:51] LABS: Basophils # (auto) 0.12 K/uL (0-0.2); Basophils % (auto) 0.7 %; Eosinophils # (auto) 0.02 K/uL (0-0.5); Eosinophils % (auto) 0.1 %; Immature Granulocytes # (auto) 1.27 K/uL (0.00-0.02); Immature Granulocytes % (auto) 7.8 %; Lymphocytes # (auto) 1.17 K/uL (1.2-3.4); Lymphocytes % (auto) 7.2 %; Monocytes # (auto) 1.33 K/uL (0.11-0.59); Monocytes % (auto) 8.2 %; Neutrophils # (auto) 12.36 K/uL (1.4-6.5)
[2020-09-25 05:06] LABS: iSTAT Art Bld Gas pCO2 Correct 78 mmHg (35-46); iSTAT Art Bld Gas pH Corrected 7.076 (7.35-7.45); iSTAT Arterial Blood Gas HCO3 23 meg/L (19-24); iSTAT Arterial Blood Gas pCO2 74 mmHg (35-46); iSTAT Arterial Blood Gas pH 7.09 (7.35-7.45); iSTAT Arterial Blood Gas pO2 64 mmHg (80-95); iSTAT Arterial Blood Gas pO2 C 70; iSTAT Carbon Dioxide 25 mmol/L (24-31); iSTAT FiO2 100 %; iSTAT Hematocrit 42 % (37-47); iSTAT Hemoglobin 14.3 g/dl (12.0-16.0); iSTAT Potassium 5.8 mmol/L (3.3-5.0); iSTAT Site Art Line; iSTAT Sodium 124 mmol/L (135-144)
--- NOTE | 2020-09-25 05:26 | Communication Note ---
Date of Service: September 25, 2020 I was contacted by nursing staff just after 5 AM. The patient had converted into rapid A. fib with heart rate in the 180s. Her blood pressures ranged in the 60s to 70s on arterial line with good waveform. I did present at bedside. I did review prior documentation throughout the day and the patient had been made a DNR/DNI. She had received TPA earlier in the last ditch effort in the event that the patient had immediate saturation drop secondary to pulmonary emboli. Prior to any intervention, I did attempt to call the patient's daughter, Harriet Hayes ([phone]). She initially did not answer, however message was left. At this point, patient is deteriorating, however maintaining oxygen saturations in the mid 80s which has been her baseline. Of concern, however, the patient is requiring ongoing high doses of Levophed at 0.5 mcg/kg/min. At this point, without the consent of the patient's daughter, I did not wish to terminally extubate the patient without her consent. Patient was provided a one-time bolus of 150 mg IV amiodarone. This did slow the patient's heart rate into the 120s. Pressures improved to the 80s systolically. At 0548, I did call the patient's daughter again, and this time spoke with her directly. I had an extensive conversation discussing her rapid clinical decline and new onset A. fib with hemodynamic instability. Appropriately, the daughter was distraught, however understanding. After extensive conversation regarding symptomatology and likelihood of rapid clinical demise, she did agree to comp assionate extubation. Again, I did present at bedside with nursing staff and respiratory therapy. The patient's daughter was called using the patient's phone in the room. She was able to speak to her mother for several minutes and say goodbye. At this point, I did discuss terminal extubation as well at which point the patient's daughter did consent. The patient received a bolus of IV fentanyl and Versed. ET tube was deflated and removed. Shortly after, the patient's respiratory status rapidly declined and eventually the patient ceased to breathe. Time of as noted by myself at 0622. Please see separate note pronouncement. I have personally spent 65 minutes of critical care time in the direct management of this patient. This is a life/limb threatening event. This includes time spent evaluating patient, direct bedside care, chart review, placing orders, interpretation of diagnostic studies, discussion with consultants, patient, and family members, as well as other required patient management activities. This time is exclusive of all separately billable procedures, and teaching time and separate from and in addition to any other critical care service time. Coding Level of Care Code Critical Care ea addt'l 30 min Time Spent (min) 65
[2020-09-25] MEDS ORDERED: 0.2 MICRON FILTER SET 1 EA IV ONE (05:28)
[2020-09-25] MEDS ORDERED: AMIODARONE / D5W 150 MG/100 ML BAG IV STA (05:28)
[2020-09-25] MEDS ORDERED: AMIODARONE 150MG / 100ML D5W IV ONE (05:29)
[2020-09-25 06:30] VITALS: BP 103/58; PULSE 171; TEMP 101.1; O2SAT 85
--- NOTE | 2020-09-25 06:47 | Death Pronouncement Note ---
Date of Service September 25, 2020 Pronouncement Note Admission Date Admission Date: September 11, 2020 Date and Time of Date of : 09/25/20 Time of : 06:22 PCOD Preliminary cause of : Pneumonia due to COVID-19 virus Contributing Factors (1) Acute respiratory failure: (2) Pneumonia due to COVID-19 virus: (3) Non-traumatic rhabdomyolysis: (4) Opioid dependence: (5) SAMANTHA (obstructive sleep apnea): (6) COPD (chronic obstructive pulmonary disease): (7) Chronic kidney disease: (8) Diabetes mellitus, type 2: (9) Morbid obesity: (10) DVT prophylaxis: Hospital Course Hospital Course: Date: 09/25/2020 Time: 621 In short, patient was admitted to this facility for respiratory failure secondary to COVID-19 pneumonia. Patient eventually required endotracheal intubation with aggressive pulmonary toilet. Patient underwent multiple rounds of pronation maneuvers without significant improvement in lung compliance or oxygenation. Patient required significant amounts of PEEP as well as 100% FiO2 to maintain oxygen saturations in the mid 80s. 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 fib and became hemodynamically unstable. The patient had been made a DNR/DNI at that point. After lengthy conversation with the patient's daughter, decision was made to compassionately extubate patient. She declined rapidly and at 0622. Assessment: I presented to the patients room for evaluation. Upon assessment, the patient was found to be in a terminal state. Pupils were fixed and dilated without response. No palpable pulses appreciated. No spontaneous breaths noted. Heart so unds were absent. No response to painful stimuli. Time of : 621 as pronounced by myself. I did contact patient's daughter, Harriet Hayes, via phone. Appropriate response to grief appreciated. Condolences provided. Questions were addressed and emotional support was provided. Patients primary service was contacted and made aware of patient demise. Pronouncement section of the Certificate was filled out and signed by myself. Cause of : Primary ARDS Secondary Covid-19 Pneumonia Contributing Causes of DM, CKD Morbid Obesity, SAMANTHA Please feel free to contact me with any questions regarding the above-mentioned course. Additional Data Confirmation of : no pulse, no respirations, no heart sounds and pupils fixed and dilated Family: contacted Attending/PCP notified?: No Attending physician: Edy Mcconnell MD Was code activated?: No Autopsy requested?: No property insurance claims examiner notified?: No Organ bank notified?: No Advance directives: No Coding Level of Care Code None Diagnoses Acute respiratory failure J96.00 Pneumonia due to COVID-19 virus U07.1; J12.89 Non-traumatic rhabdomyolysis M62.82 Opioid dependence F11.20 SAMANTHA (obstructive sleep apnea) G47.33 COPD (chronic obstructive pulmonary disease) J44.9 Chronic kidney disease N18.9 Diabetes mellitus, type 2 E11.9 Morbid obesity E66.01 DVT prophylaxis Z29.9 Time Spent (min) 35
--- NOTE | 2020-09-25 08:55 | Discharge Summary ---
Date of Service September 25, 2020 Admission HPI Per Admitting Provider DICTATED BY: Lamin Suggs MD DATE OF ADMISSION: 09/11/2020 CHIEF COMPLAINT: Status post fall, cough, and fever. 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 Living in a personal alf. Was brought in because she fell in the bathroom. She says she had a mechanical fall in the bathroom, she could not get up, she laid there for 2 hours. Daughter came in and called ambulance and brought in here. Meanwhile, she is also having on and off fever for the last 2 weeks. Since last 1 week, she is having more cough than usual and bringing up some yellowish phlegm. Recently on 09/04/2020, she had one of the front teeth pulled out because of infection. She had cataract surgeries in July. Because at time of the season she her asthma and COPD acts up so she did not come earlier .She was also getting more short of breath. Last 2 days, the fevers and shortness of breath got worse. In the ER, she got a temperature spike of 39.4. She was requiring 4 liters oxygen. Her labs showed lymphopenia. ABGs were okay. Chest x-ray showed infiltrates and COVID-19 was positive. She was given Decadron. Currently resting comfortably and hemodynamically stable, speaking comfortably. She says about more than a week ago, she had left lung pain and she was put on budesonide by pulmonary and that pain has subsided. No loss of sense of smell or taste. Appetite is not that great. She has some headaches which is unusual for her. Has some runny nose. Denies any sore throat, no dysphagia. No nausea, no abdominal pain. Normal bowel and bladder movements. No rash. Admission Exam Per Admitting Provider GENERAL: The patient is morbidly obese, not in acute distress. VITAL SIGNS: Temperature 39.4, pulse 97, respiratory rate 22, blood pressure 103/56, oxygen 95% on 4 liters. HEENT: Pupils equal, round, and reactive to light. Oral mucosa moist. NECK: No neck masses seen. CARDIOVASCULAR: S1, S2 heard, regular rate and rhythm, no murmur, no gallop. RESPIRATORY SYSTEM: Normal AP diameter. No accessory muscle use. No crackles. Occasional wheezing. ABDOMEN: Soft, bowel sounds present, nontender. No distention. CENTRAL NERVOUS SYSTEM: Cranial nerves II through XII grossly intact, nonfocal. EXTREMITIES: No edema, no erythema seen. Principal Diagnosis The Patient :Causes of are as follows- Primary ARDS Secondary Covid-19 Pneumonia Contributing Causes of DM, CKD Morbid Obesity, SAMANTHA Discharge Data Allergies Allergy/AdvReac Type Severity Reaction Status Date / Time Penicillins Allergy Severe THROAT Verified 09/11/20 01:52 CLOSES,HIVES metronidazole Allergy Intermediate hives/rash Verified 09/11/20 01:52 ondansetron Allergy Intermediate hives Verified 09/11/20 01:52 vancomycin Allergy Mild RASH Verified 09/11/20 01:52 adhesive Allergy Unknown SKIN Verified 09/11/20 01:52 BLISTERING Sulfa (Sulfonamide Allergy Unknown Rash Verified 09/11/20 01:52 Antibiotics) ibuprofen AdvReac Intermediate RECTAL Verified 09/11/20 01:52 BLEEDING JOSHUA Inhibitors AdvReac Cough Verified 09/11/20 01:52 Consultations 09/11/20 02:48 ED Decision to Admit Stat 09/11/20 04:39 Consult Case Management - Discharge Planning Routine 09/14/20 23:49 Consult Pulmonology Routine 09/19/20 18:44 Consult Sack Sewer Stat 09/24/20 10:04 Consult Palliative Care Routine Ordered Studies 09/19/20 18:30 US point of care ultrasound Routine Hospital Course (1) Acute respiratory failure: Secondary to covid-19 pneumonia. Failed initial BiPAP treatment and required intubation She was intubated by clinical safety specialist and transferred to the ICU. Appreciate clinical safety specialist input and recommendation Remains intubated and sedated Still requiring norepinephrine to maintain blood pressure Her condition is getting worse and the saturation is going down Her daughter has been informed about the clinical condition of her mom She is made DNR (2) Pneumonia due to COVID-19 virus: Completed remdesivir, Cont dexamethasone-course completed. echanical ventilation as above. Lasix PRN Repeat chest x-ray shows improvement of Covid pneumonia She is not getting any more antibiotic Having more fever and more antibiotics have been added by the clinical safety specialist Prognosis remains poor (3) Non-traumatic rhabdomyolysis: Was tolerating PO and hydrating reliably before intubation. CK is improved. Cont to monitor volume status while intubated. (4) Opioid dependence: Chronic pain on percocet regularly. Currently sedated and intubated. (5) SAMANTHA (obstructive sleep apnea): Uses home BIPAP at night typically. Now intubated (6) COPD (chronic obstructive pulmonary disease): chronic, stable, no wheezing on exam. 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 Monitor blood glucose and manage appropriately A1c 7.3 .Still on the steroids. Cont Lantus at 25 Units BID Glucose more under control now. (9) Morbid obesity: (10) DVT prophylaxis: Lovenox Full Code Dispo-transfer to ICU Nutrition NG tube feeding Discussed with the daughter and updated about the current poor condition of her mom Reassured that we have been doing everything possible to make her better Total Time Total Time Spent Total Time Spent (In Minutes): 20 minutes Total Time Includes: Other Discharge Plan Discharge Items Patient Disposition: Discharge Diagnosis: Causes of : Primary ARDS Secondary Covid-19 Pneumonia Contributing Causes of DM, CKD Morbid Obesity, SAMANTHA Addtl Attending Provider Instructions: Daughter was contacted by the Pronouncing physician.
--- NOTE | 2020-09-25 09:49 | Electrocardiogram Report ---
Test Reason : Blood Pressure : / mmHG Vent. Rate : 160 BPM Atrial Rate : 159 BPM P-R Int : 000 ms QRS Dur : 096 ms QT Int : 288 ms P-R-T Axes : 000 090 -80 degrees QTc Int : 469 ms Atrial fibrillation with rapid ventricular response Rightward axis Anteroseptal infarct (cited on or before 11-SEP-2020) Abnormal ECG When compared with ECG of 11-SEP-2020 01:22, Atrial fibrillation has replaced Sinus rhythm T wave inversion more evident in Inferior leads Confirmed by Sanford Bullock ([id number]) on 09/25/2020 9:48:53 AM Referred By: REFERRED SELF Confirmed By:Sanford Bullock
[2020-09-26 08:52] LABS: iSTAT Art Bld Gas pCO2 Correct 64 mmHg (35-46); iSTAT Art Bld Gas pH Corrected 7.171 (7.35-7.45); iSTAT Arterial Blood Gas HCO3 23 meg/L (19-24); iSTAT Arterial Blood Gas pCO2 64 mmHg (35-46); iSTAT Arterial Blood Gas pH 7.17 (7.35-7.45); iSTAT Arterial Blood Gas pO2 44 mmHg (80-95); iSTAT Arterial Blood Gas pO2 C 43; iSTAT Carbon Dioxide 25 mmol/L (24-31); iSTAT FiO2 100 %; iSTAT Hematocrit 39 % (37-47); iSTAT Hemoglobin 13.3 g/dl (12.0-16.0); iSTAT Potassium 5.4 mmol/L (3.3-5.0); iSTAT Site Art Line; iSTAT Sodium 131 mmol/L (135-144)
== END 2020-09-25 07:46 | disposition expired | DRG 207 ==
LOC: ED 01:02 → SUATTDRO 04:02 → EDINP 04:02 → 2E 09-13 13:54 → 2S 09-18 08:10 → 2E 09-19 18:33